=== PATIENT | male | born 1960 | race Caucasian/White ===

== ENCOUNTER 2021-12-11 16:58 | Emergency (ER) | payer OTHER ==
[2021-12-11 19:15] LABS: Absolute Lymphocytes (CBC) 3.6 K/uL (0.7-4.9); Hematocrit 33.7 % (39.6-49.0); Lymphocytes % 11.6 % (15.3-44.8); MCV 83.7 fL (80-100); MPV 7.4 fL (7.6-11.3); RBC Red Blood Cell Count 4.03 M/uL (4.33-5.43)
[2021-12-11 19:33] LABS: Albumin 2.8 g/dL (3.4-5.0); Bilirubin Total 0.2 mg/dL (0.2-1.0); Potassium 3.8 mmol/L (3.5-5.1); Protein, Total 7.6 g/dL (6.4-8.2)
[2021-12-11] MEDS ORDERED: NA CHLORIDE 0.9% 50 ML ONE ×2 (21:12→23:04)
[2021-12-11] MEDS ORDERED: CEFTRIAXONE 1000 MG/VIAL ONE (21:12)
[2021-12-11] MEDS ORDERED: FAMOTIDINE 20 MG/2 ML VIAL IV ONE (21:12)
[2021-12-11 21:14] LABS: Urine Bacteria <20 /HPF (<20); Urine Mucus Slight /HPF (None Seen); Urine WBC Clump Occasional /HPF (None Seen)
[2021-12-11 21:21] LABS: Thyroid Stimulating Hormone 3.49 uIU/mL (0.360-3.740)
[2021-12-11] MEDS ORDERED: CLINDAMYCIN 600MG/D5W 600 MG/50 ML BAG IV ONE (21:59)
[2021-12-11 22:21] LABS: SARS-CoV-2 Antigen Rapid Res Negative (Negative)
[2021-12-11] MEDS ORDERED: Meropenem 1000 MG/VIAL IV ONE (23:04)
--- NOTE | 2021-12-11 23:10 | ER ---
Nurse's Notes [facility] Name: He Do Age: 61 yrs Sex: Male : 1960 Arrival Date: 12/11/2021 Time: 17:56 Bed 16 Private MD: Diagnosis: Leukocytosis;UTI/ Urinary tract infection, site not specified;Paraplegia Presentation: 12/11 18:15 Chief complaint: Patient states: Pt reports headache and fever x2 days. PEr EMS report kb3 from [facility], pt has had elevated BP all day and fever since this afternoon. Temp max unknown. Pt afebrile upon arrival and VS WNL. 18:15 Method Of Arrival: EMS: [facility] kb3 18:15 Coronavirus screen: Vaccine status: Patient reports receiving the 2nd dose of the covid kb3 vaccine. Client denies travel out of the [place] in the last 14 days. Ebola Screen: Patient negative for fever greater than or equal to 101.5 degrees Fahrenheit, and additional compatible Ebola Virus Disease symptoms Patient denies exposure to infectious person. Patient denies travel to an Ebola-affected area in the 21 days before illness onset. Initial Sepsis Screen: Does the patient meet any 2 criteria? No. Patient's initial sepsis screen is negative. Does the patient have a suspected source of infection? No. Patient's initial sepsis screen is negative. Risk Assessment: Do you want to hurt yourself or someone else? Patient reports no desire to harm self or others. Onset of symptoms was December 10, 2021. 18:15 Acuity: CA 3 kb3 Triage Assessment: 18:30 General: Appears in no apparent distress. comfortable, Behavior is calm, cooperative. kb3 Pain: Complains of pain in head Pain does not radiate. Pain currently is 5 out of 10 on a pain scale. Quality of pain is described as aching. Historical: - Allergies: 19:49 No Known Allergies; kb3 - PMHx: 19:49 Paraplegia; BPH with suprapubic catheter; Hypercholesterolemia; Hypertensive disorder; kb3 Hypothyroidism; Cerebrovascular accident; Chronic back pain; Seizure; Chronic pain; - Immunization history:: Adult Immunizations unknown, Client reports receiving the 2nd dose of the Covid vaccine, Last tetanus immunization: unknown. - Social history:: Smoking status: Patient denies any tobacco usage or history of. Screenin:00 Abuse screen: Denies threats or abuse. Denies injuries from another. Nutritional kb3 screening: No deficits noted. Tuberculosis screening: No symptoms or risk factors identified. Fall Risk No fall in past 12 months (0 pts). Secondary diagnosis (15 points) seizures, CVA, IV access (20 points). Ambulatory Aid- None/Bed Rest/Nurse Assist (0 pts). Gait- Normal/Bed Rest/Wheelchair (0 pts) Mental Status- Oriented to own ability (0 pts). Total [place] Fall Scale indicates Low Risk Score (25-44 pts). Fall prevention measures have been instituted. Side Rails Up X 2 Placed close to Nursing Station Frequent Obs/Assesments occuring Family Present and informed to notify staff if they need to leave bedside As available Patient and Family Educated on Fall Prevention Program and strategies. Assessment: 18:15 General: Appears in no apparent distress. Behavior is calm, cooperative, See triage kb3 note. 21:45 General: Spoke with pt's sister Elkin to update regarding condition and pending [facility] admission. All questions asked and answered.. Vital Signs: 18:15 BP 120 / 60; Pulse 82; Resp 20; Temp 98.1; Pulse Ox 96% ; Weight 114.31 kg; Height 5 kb3 ft. 7 in. (170.18 cm); Pain 5/10; 20:00 BP 111 / 61; Pulse 77; Resp 18; Pulse Ox 99% ; kb3 21:59 BP 112 / 59; Pulse 75; Resp 18; Pulse Ox 99% ; kb3 12/12 00:00 BP 116 / 57; Pulse 75; Resp 14; Pulse Ox 93% on R/A; ja4 12/11 18:15 Body Mass Index 39.47 (114.31 kg, 170.18 cm) kb3 [place] Coma Score: 12/11 19:04 Eye Response: spontaneous(4). Verbal Response: oriented(5). Motor Response: obeys snw commands(6). Total: 15. ED Course: 17:56 Patient arrived in ED. em1 17:57 Anh Valdez RN is Primary Nurse. iw 17:57 Susan Skinner FNP-C is [facility]. snw 17:57 Onel Dixon MD is Attending Physician. snw 18:30 Arm band placed on left wrist. kb3 19:30 No provider procedures requiring assistance completed. Inserted saline lock: 22 gauge kb3 in right hand, using aseptic technique. Blood collected. 19:45 Blood Culture Adult (2) Sent. kb3 19:49 Triage completed. kb3 20:00 Patient has correct armband on for positive identification. Placed in gown. Bed in low kb3 position. Call light in reach. Side rails up X2. Client placed on continuous cardiac and pulse oximetry monitoring. NIBP monitoring applied. Warm blanket given. Pillow given. 21:18 Urine Microscopic Only Sent. kb3 21:18 Urine Culture Sent. kb3 21:23 Primary Nurse role handed off by Anh Valdez RN ja4 21:23 Cuong Gross, HAYLEY is Primary Nurse. ja4 21:54 SARS RAPID Sent. kb3 22:14 intiated a transfer with Cara Salcido from [facility]. mw2 22:50 Connected Susan Skinner PRODUCE SERVICE TEAM MEMBER with the Doctor from [facility]. mw2 23:46 administrative approval given by Cara Salcido/ patient has been accepted to [address] bed 512/ Dr. Yost accepted the patient in transfer/ report to be called to [phone]. 12/12 00:13 Report given to isela maki. shilpa Administered Medications: 12/11 21:17 Drug: Rocephin (cefTRIAXone) 1 grams Route: IV; Rate: calculated rate; Site: right hand;kb3 21:44 Follow up: IV Status: Completed infusion; IV Intake: 50ml kb3 21:44 Follow up: Response: No adverse reaction kb3 21:18 Drug: Pepcid (famotidine) 20 mg Route: IVP; Site: right hand; kb3 21:45 Follow up: Response: No adverse reaction kb3 21:53 Drug: Clindamycin 600 mg Route: IVPB; Infused Over: 30 mins; Site: right hand; kb3 22:24 Follow up: Response: No adverse reaction; IV Status: Completed infusion; IV Intake: [id number] 22:20 CANCELLED (Physician Discretion): Merrem 1 grams IV at calculated rate once snw 22:53 Not Given (not availablee): Imipenem-Cilastatin 1000 mg IV at calculated rate once; shilpa administer over 40-60 mins 23:04 Drug: Merrem 1 grams Route: IV; Rate: calculated rate; Site: right hand; [facility] 23:04 Not Given (Duplicate Order): Meropenem 1 grams IV at calculated rate once; (mix in NS ja4 100 mL) Medication: 20:00 VIS not applicable for this client. kb3 Intake: 21:44 IV: 50ml; Total: 50ml. kb3 22:24 IV: 50ml; Total: 100ml. kb3 Outcome: 23:09 ER care complete, transfer ordered by MD. livingston 12/12 00:47 Patient left the ED. vc1 Addendum: 12/14/2021 08:30 Addendum: Culture Results: Positive urine culture. faxed to [facility] 6th e b floor at [phone]/ Loly Rn will be receiving the fax. Signatures: Susan Skinner, INTERNATIONAL OPERATIONS MANAGER-C INTERNATIONAL OPERATIONS MANAGER-Csnw Anh Valdez, RN Enrique Crowley 1 Tangela Cardenas 2 Madhavi Phan Vanessa RN RN vc1 Loly Haley, HAYLEY RN kb3 Cuong Gross, HAYLEY RN ja4
--- NOTE | 2021-12-11 23:10 | EDPHYS ---
Physician Documentation [facility] Name: He Do Age: 61 yrs Sex: Male : 1960 Arrival Date: 12/11/2021 Time: 17:56 Bed 16 Private MD: ED Physician Onel Dixon HPI: 12/11 19:08 This 61 yrs old Male presents to ER via Unassigned with complaints of pt states he is snw here because he vomited x 1 yesterday. [place] states they sent patient for abnormal lab values. 19:08 It is unknown whether or not the patient has had similar symptoms in the past. It is snw unknown whether or not the patient has recently seen a physician. Historical: - Allergies: 19:49 No Known Allergies; kb3 - PMHx: 19:49 Paraplegia; BPH with suprapubic catheter; Hypercholesterolemia; Hypertensive disorder; kb3 Hypothyroidism; Cerebrovascular accident; Chronic back pain; Seizure; Chronic pain; - Immunization history:: Adult Immunizations unknown, Client reports receiving the 2nd dose of the Covid vaccine, Last tetanus immunization: unknown. - Social history:: Smoking status: Patient denies any tobacco usage or history of. ROS: 19:07 Constitutional: Negative for fever, chills, and weight loss, Eyes: Negative for injury, snw pain, redness, and discharge, ENT: Negative for injury, pain, and discharge, Neck: Negative for injury, pain, and swelling, Cardiovascular: Negative for chest pain, palpitations, and edema, Respiratory: Negative for shortness of breath, cough, wheezing, and pleuritic chest pain, Back: Negative for injury and pain, : Negative for injury, bleeding, discharge, and swelling, MS/Extremity: Negative for injury and deformity, Skin: Negative for injury, rash, and discoloration, Neuro: Negative for weakness, numbness, tingling, and seizure, + headache Psych: Negative for depression, anxiety, suicide ideation, homicidal ideation, and hallucinations. 19:07 Abdomen/GI: Positive for vomiting, x 1 yest. Exam: 19:04 Head/Face: Normocephalic, atraumatic. Eyes: Pupils equal round and reactive to light, snw extra-ocular motions intact. Lids and lashes normal. Conjunctiva and sclera are non-icteric and not injected. Cornea within normal limits. Periorbital areas with no swelling, redness, or edema. ENT: Nares patent. No nasal discharge, no septal abnormalities noted. Tympanic membranes are normal and external auditory canals are clear. Oropharynx with no redness, swelling, or masses, exudates, or evidence of obstruction, uvula midline. Mucous membranes moist. Neck: Trachea midline, no thyromegaly or masses palpated, and no cervical lymphadenopathy. Supple, full range of motion without nuchal rigidity, or vertebral point tenderness. No Meningismus. Chest/axilla: Normal chest wall appearance and motion. Nontender with no deformity. No lesions are appreciated. Cardiovascular: Regular rate and rhythm with a normal S1 and S2. No gallops, murmurs, or rubs. Normal PMI, no JVD. No pulse deficits. Respiratory: Lungs have equal breath sounds bilaterally, clear to auscultation and percussion. No rales, rhonchi or wheezes noted. No increased work of breathing, no retractions or nasal flaring. Abdomen/GI: Soft, non-tender, with normal bowel sounds. No distension or tympany. No guarding or rebound. No evidence of tenderness throughout. Back: No spinal tenderness. No costovertebral tenderness. Full range of motion. 19:04 Psych: Awake, alert, with orientation to person, place and time. Behavior, mood, and affect are within normal limits. 19:04 Constitutional: The patient appears alert, awake, obese, pale. 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 edema to bilateral lower extremities. 19:04 Skin: Appearance: Color: pale, Temperature: warm. 19:04 Neuro: Orientation: to person, place \T\ time. Mentation: is normal, Gait: not tested. paralysis. Vital Signs: 18:15 BP 120 / 60; Pulse 82; Resp 20; Temp 98.1; Pulse Ox 96% ; Weight 114.31 kg; Height 5 kb3 ft. 7 in. (170.18 cm); Pain 5/10; 20:00 BP 111 / 61; Pulse 77; Resp 18; Pulse Ox 99% ; kb3 21:59 BP 112 / 59; Pulse 75; Resp 18; Pulse Ox 99% ; kb3 12/12 00:00 BP 116 / 57; Pulse 75; Resp 14; Pulse Ox 93% on R/A; ja4 12/11 18:15 Body Mass Index 39.47 (114.31 kg, 170.18 cm) kb3 [place] Coma Score: 12/11 19:04 Eye Response: spontaneous(4). Verbal Response: oriented(5). Motor Response: obeys snw commands(6). Total: 15. MDM: 17:58 Patient medically screened. snw 23:00 Data reviewed: vital signs, nurses notes. Data interpreted: Pulse oximetry: on room air snw is 99 %. Interpretation: normal. Counseling: I had a detailed discussion with the patient and/or guardian regarding: the historical points, exam findings, and any diagnostic results supporting the discharge/admit diagnosis, lab results, radiology results, the need to transfer to another facility, capacity. Physician consultation: was called at 23:01, was contacted at 23:01, regarding regarding transfer, [facility]. 12/11 18:09 Order name: CBC with Diff; Complete Time: 19:20 snw 12/11 18:09 Order name: CMP; Complete Time: 19:34 snw 12/11 18:09 Order name: Lipase; Complete Time: 19:34 snw 12/11 18:09 Order name: Urine Microscopic Only; Complete Time: 21:38 snw 12/11 18:09 Order name: Urine Culture snw 12/11 18:10 Order name: Blood Culture Adult (2) snw 12/11 18:10 Order name: Lactate; Complete Time: 19:34 snw 12/11 18:12 Order name: TSH; Complete Time: 21:26 snw 12/11 18:13 Order name: Ferritin; Complete Time: 21:26 snw 12/11 18:13 Order name: SARS RAPID; Complete Time: 22:24 snw 12/11 18:09 Order name: IV Saline Lock; Complete Time: 19:45 snw 12/11 18:09 Order name: Labs collected and sent; Complete Time: 19:45 snw 12/11 19:17 Order name: VS; Complete Time: 20:57 snw Administered Medications: 21:17 Drug: Rocephin (cefTRIAXone) 1 grams Route: IV; Rate: calculated rate; Site: right hand;kb3 21:44 Follow up: IV Status: Completed infusion; IV Intake: 50ml kb3 21:44 Follow up: Response: No adverse reaction kb3 21:18 Drug: Pepcid (famotidine) 20 mg Route: IVP; Site: right hand; kb3 21:45 Follow up: Response: No adverse reaction kb3 21:53 Drug: Clindamycin 600 mg Route: IVPB; Infused Over: 30 mins; Site: right hand; kb3 22:24 Follow up: Response: No adverse reaction; IV Status: Completed infusion; IV Intake: [id number] 22:20 CANCELLED (Physician Discretion): Merrem 1 grams IV at calculated rate once snw 22:53 Not Given (not availablee): Imipenem-Cilastatin 1000 mg IV at calculated rate once; ja4 administer over 40-60 mins 23:04 Drug: Merrem 1 grams Route: IV; Rate: calculated rate; Site: right hand; ja4 23:04 Not Given (Duplicate Order): Meropenem 1 grams IV at calculated rate once; (mix in NS ja4 100 mL) Disposition Summary: 12/11/21 23:09 Transfer Ordered Transfer Location: [facility] snw Reason: Higher level of care snw Condition: Stable snw Problem: an acute exacerbation snw Symptoms: have worsened snw Accepting Physician: Dr. Priyank Dunn [facility](12/12/21 00:47) vc1 Diagnosis - Leukocytosis snw - UTI/ Urinary tract infection, site not specified snw - Paraplegia snw Forms: - Medication Reconciliation Form snw - SBAR form snw Signatures: Dispatcher [employer] EDMS Susan Skinner FNP-C INFORMATION TECHNOLOGY ARCHITECT-Csnw Jenna Villatoro RN RN vc1 Loly Haley, RN RN kb3 Cuong Gross RN RN ja4 Corrections: (The following items were deleted from the chart) 22:20 22:06 Merrem 1 grams IV at calculated rate once ordered. snw snw 23:51 23[facility] sn[facility] 12/12 00:47 12/11 23:51 Dr. Priyank Tristan Gwen [facility] snw vc1
[2021-12-13 12:33] VITALS: TEMP 98.1
[2021-12-13 12:39] VITALS: BP 116/57; O2SAT 93
== END 2021-12-12 00:47 | disposition short-term general hospital (02) ==
LOC: ER 16:58
DX: D72.829 Elevated white blood cell count, unspecified (principal); N39.0 Urinary tract infection, site not specified; G82.20 Paraplegia, unspecified; Z20.822 Contact with and (suspected) exposure to COVID-19
CPT/HCPCS: 96365; 96367; 87040 ×2; 87088; 85025; 87086; 36415; 87205 ×2; 83605; 84443; 87077 ×2; 87186 ×2; 81015; 82728; 83690; 80053; 96375; 99284; 87811; J2185

== ENCOUNTER 2023-01-05 21:44 | Emergency (ER) | payer OTHER ==
--- OUTSIDE RECORDS SUMMARY | 2023-01-05 21:51 | XMS REPORT | Continuity of Care Document ---
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 Take tablet Take tablet 1 tablet 1 tablet Take 1 every day every day tablet by oral by oral every day route. route. by oral route. metformin metformin No 2 BID metformin [facility] ER 500 mg ER 500 mg ER 500 mg Medical tablet,exte tablet,exte tablet,ext nded nded ended release 24 release 24 release 24 hr Take 2 hr Take 2 hr Take 2 tablets tablets tablets twice a day twice a day twice a by oral by oral day by route. route. oral route. metoprolol metoprolol No 1 BID metoprolol [facility] tartrate 25 tartrate 25 tartrate [facility] mg tablet mg tablet 25 mg Take 1 Take 1 tablet tablet tablet Take 1 twice a day twice a day tablet by oral by oral twice a route. route. day by oral route. phenobarbit phenobarbit No 1 Q12H phenobarbi [facility] al 97.2 mg al 97.2 mg elizabeth 97.2 Medical tablet Take tablet Take mg tablet 1 tablet 1 tablet Take 1 every 12 every 12 tablet hours by hours by every 12 oral route oral route hours by for 30 for 30 oral route days. days. for 30 days. phenytoin phenytoin No 2capsul BID phenytoin [facility] sodium sodium e(s) sodium Medical extended extended extended 100 mg 100 mg 100 mg capsule capsule capsule Take 2 Take 2 Take 2 capsules capsules capsules twice a day twice a day twice a by oral by oral day by route for route for oral route 30 days. 30 days. for 30 days. potassium potassium No 1 Q1D potassium [facility] chloride ER chloride ER chloride Medical 20 mEq 20 mEq ER 20 mEq tablet,exte tablet,exte tablet,ext nded nded ended release(par release(par release(pa t/cryst) t/cryst) rt/cryst) Take 1 Take 1 Take 1 tablet tablet tablet every day every day every day by oral by oral by oral route. route. route. acetaminoph acetaminoph No 1 Q8H acetaminop [facility] en 300 en 300 hen 300 Medical mg-codeine mg-codeine mg-codeine 30 mg 30 mg 30 mg tablet Take tablet Take tablet 1 tablet 1 tablet Take 1 every 8 every 8 tablet hours by hours by every 8 oral route oral route hours by for 30 for 30 oral route days. days. for 30 days. Adult Low Adult Low No 1 Q1D Adult Low [facility] Dose Dose Dose [facility] Aspirin 81 Aspirin 81 Aspirin 81 mg mg mg tablet,drew tablet,drew tablet,del yed release yed release ayed Take 1 Take 1 release tablet tablet Take 1 every day every day tablet by oral by oral every day route for route for by oral 90 days. 90 days. route for 90 days. amlodipine amlodipine No amlodipine [facility] 10 mg 10 mg 10 mg [facility] tablet Take tablet Take tablet 1 tablet 1 tablet Take 1 every day every day tablet by oral by oral every day route. route. by oral route. atorvastati atorvastati No atorvastat [facility] n 20 mg n 20 mg in 20 mg [facility] al tablet Take tablet Take tablet 1 tablet 1 tablet Take 1 every day every day tablet by oral by oral every day route. route. by oral route. baclofen 10 baclofen 10 No baclofen [facility] mg tablet mg tablet 10 mg Medi arun Take 1 Take 1 tablet tablet 3 tablet 3 Take 1 times a day times a day tablet 3 by oral by oral times a route. route. day by oral route. clonidine clonidine No 1 TID clonidine [facility] HCl 0.1 mg HCl 0.1 mg HCl 0.1 mg Medical tablet Take tablet Take tablet 1 tablet 3 1 tablet 3 Take 1 times a day times a day tablet 3 by oral by oral times a route as route as day by needed. needed. oral route as needed. fluoxetine fluoxetine No fluoxetine [facility] 40 mg 40 mg 40 mg [facility] capsule capsule capsule Take 1 Take 1 Take 1 capsule capsule capsule every day every day every day by oral by oral by oral route for route for route for 30 days. 30 days. 30 days. furosemide furosemide No furosemide [facility] 40 mg 40 mg 40 mg [facility] tablet tablet tablet hydroxyzine hydroxyzine No hydroxyzin [facility] HCl 25 mg HCl 25 mg e HCl 25 M edical tablet tablet mg tablet Lasix 20 mg Lasix 20 mg No 1 Q1D Lasix 20 [facility] tablet Take tablet Take mg tablet Medical 1 tablet 1 tablet Take 1 every day every day tablet by oral by oral every day route. route. by oral route. Levemir Levemir No Levemir [facility] FlexTouch FlexTouch FlexTouch Medical U-100 U-100 U-100 Insulin 100 Insulin 100 Insulin unit/mL (3 unit/mL (3 100 mL) mL) unit/mL (3 subcutaneou subcutaneou mL) s pen s pen subcutaneo us pen Levemir Levemir No 30unit( BID [facility]aina via U-100 U-100 s) U-100 Medical Insulin 100 Insulin 100 Insulin unit/mL unit/mL 100 subcutaneou subcutaneou unit/mL s solution s solution subcutaneo Inject 30 Inject 30 us units twice units twice solution a day by a day by Inject 30 sub-q sub-q units route. route. twice a day by sub-q route. levetiracet levetiracet No levetirace [facility] am 500 mg am 500 mg lópez 500 mg Medical tablet Take tablet Take tablet 1 tablet 1 tablet Take 1 twice a day twice a day tablet by oral by oral twice a route. route. day by oral route. levothyroxi levothyroxi No levothyrox [facility] ne 75 mcg ne 75 mcg ine 75 mcg Medical tablet Take tablet Take tablet 1 tablet 1 tablet Take 1 every day every day tablet by oral by oral every day route. route. by oral route. losartan losartan No losartan [facility] via 100 mg 100 mg 100 mg [facility] tablet Take tablet Take tablet 1 tablet 1 tablet Take 1 every day every day tablet by oral by oral every day route. route. by oral route. metformin metformin No metformin [facility] ER 500 mg ER 500 mg ER 500 mg Medical tablet,exte tablet,exte tablet,ext nded nded ended release 24 release 24 release 24 hr Take 2 hr Take 2 hr Take 2 tablets tablets tablets twice a day twice a day twice a by oral by oral day by route. route. oral route. metoprolol metoprolol No metoprolol [facility] tartrate 25 tartrate 25 tartrate Medical mg tablet mg tablet 25 mg Take 1 Take 1 tablet tablet tablet Take 1 twice a day twice a day tablet by oral by oral twice a route. route. day by oral route. phenobarbit phenobarbit No 1 Q12H phenobarbi [facility] al 97.2 mg al 97.2 mg elizabeth 97.2 Medical tablet Take tablet Take mg tablet 1 tablet 1 tablet Take 1 every 12 every 12 tablet hours by hours by every 12 oral route oral route hours by for 30 for 30 oral route days. days. for 30 days. phenytoin phenytoin No phenytoin [facility] sodium sodium sodium Medical extended extended extended 100 mg 100 mg 100 mg capsule capsule capsule Take 2 Take 2 Take 2 capsules capsules capsules twice a day twice a day twice a by oral by oral day by route for route for oral route 30 days. 30 days. for 30 days. potassium potassium No potassium [facility] chloride ER chloride ER chloride Medical 20 mEq 20 mEq ER 20 mEq tablet,exte tablet,exte tablet,ext nded nded ended release(par release(par release(pa t/cryst) t/cryst) rt/cryst) Take 1 Take 1 Take 1 tablet tablet tablet every day every day every day by oral by oral by oral route. route. route. acetaminoph acetaminoph No 1 Q8H acetaminop [facility] en 300 en 300 hen 300 Medical mg-codeine mg-codeine mg-codeine 30 mg 30 mg 30 mg tablet Take tablet Take tablet 1 tablet 1 tablet Take 1 every 8 every 8 tablet hours by hours by every 8 oral route oral route hours by for 30 for 30 oral route days. days. for 30 days. Adult Low Adult Low No 1 Q1D Adult Low [facility] Dose Dose Dose [facility] Aspirin 81 Aspirin 81 Aspirin 81 mg mg mg tablet,drew tablet,drew tablet,del yed release yed release ayed Take 1 Take 1 release tablet tablet Take 1 every day every day tablet by oral by oral every day route for route for by oral 90 days. 90 days. route for 90 days. amlodipine amlodipine No amlodipine [facility] 10 mg 10 mg 10 mg [facility] tablet Take tablet Take tablet 1 tablet 1 tablet Take 1 every day every day tablet by oral by oral every day route. route. by oral route. atorvastati atorvastati No atorvastat [facility] n 20 mg n 20 mg in 20 mg [facility] al tablet Take tablet Take tablet 1 tablet 1 tablet Take 1 every day every day tablet by oral by oral every day route. route. by oral route. baclofen 10 baclofen 10 No baclofen [facility] mg tablet mg tablet 10 mg Medi arun Take 1 Take 1 tablet tablet 3 tablet 3 Take 1 times a day times a day tablet 3 by oral by oral times a route. route. day by oral route. clonidine clonidine No 1 TID clonidine [facility] HCl 0.1 mg HCl 0.1 mg HCl 0.1 mg Medical tablet Take tablet Take tablet 1 tablet 3 1 tablet 3 Take 1 times a day times a day tablet 3 by oral by oral times a route as route as day by needed. needed. oral route as needed. fluoxetine fluoxetine No fluoxetine [facility] 40 mg 40 mg 40 mg [facility] capsule capsule capsule Take 1 Take 1 Take 1 capsule capsule capsule every day every day every day by oral by oral by oral route for route for route for 30 days. 30 days. 30 days. furosemide furosemide No furosemide [facility] 40 mg 40 mg 40 mg [facility] tablet tablet tablet hydroxyzine hydroxyzine No hydroxyzin [facility] HCl 25 mg HCl 25 mg e HCl 25 M edical tablet tablet mg tablet Lasix 20 mg Lasix 20 mg No 1 Q1D Lasix 20 [facility] tablet Take tablet Take mg tablet Medical 1 tablet 1 tablet Take 1 every day every day tablet by oral by oral every day route. route. by oral route. Levemir Levemir No Levemir [facility] FlexTouch FlexTouch FlexTouch Medical U-100 U-100 U-100 Insulin 100 Insulin 100 Insulin unit/mL (3 unit/mL (3 100 mL) mL) unit/mL (3 subcutaneou subcutaneou mL) s pen s pen subcutaneo us pen Levemir Levemir No 30unit( BID [facility] Naina via U-100 U-100 s) U-100 Medical Insulin 100 Insulin 100 Insulin unit/mL unit/mL 100 subcutaneou subcutaneou unit/mL s solution s solution subcutaneo Inject 30 Inject 30 us units twice units twice solution a day by a day by Inject 30 sub-q sub-q units route. route. twice a day by sub-q route. levetiracet levetiracet No levetirace [facility] am 500 mg am 500 mg lópez 500 mg Medical tablet Take tablet Take tablet 1 tablet 1 tablet Take 1 twice a day twice a day tablet by oral by oral twice a route. route. day by oral route. levothyroxi levothyroxi No levothyrox [facility] ne 75 mcg ne 75 mcg ine 75 mcg Medical tablet Take tablet Take tablet 1 tablet 1 tablet Take 1 every day every day tablet by oral by oral every day route. route. by oral route. losartan losartan No losartan [facility] via 100 mg 100 mg 100 mg [facility] tablet Take tablet Take tablet 1 tablet 1 tablet Take 1 every day every day tablet by oral by oral every day route. route. by oral route. metformin metformin No metformin [facility] ER 500 mg ER 500 mg ER 500 mg Medical tablet,exte tablet,exte tablet,ext nded nded ended release 24 release 24 release 24 hr Take 2 hr Take 2 hr Take 2 tablets tablets tablets twice a day twice a day twice a by oral by oral day by route. route. oral route. metoprolol metoprolol No metoprolol [facility] tartrate 25 tartrate 25 tartrate Medical mg tablet mg tablet 25 mg Take 1 Take 1 tablet tablet tablet Take 1 twice a day twice a day tablet by oral by oral twice a route. route. day by oral route. phenobarbit phenobarbit No 1 Q12H phenobarbi [facility] al 97.2 mg al 97.2 mg elizabeth 97.2 Medical tablet Take tablet Take mg tablet 1 tablet 1 tablet Take 1 every 12 every 12 tablet hours by hours by every 12 oral route oral route hours by for 30 for 30 oral route days. days. for 30 days. phenytoin phenytoin No phenytoin [facility] sodium sodium sodium Medical extended extended extended 100 mg 100 mg 100 mg capsule capsule capsule Take 2 Take 2 Take 2 capsules capsules capsules twice a day twice a day twice a by oral by oral day by route for route for oral route 30 days. 30 days. for 30 days. potassium potassium No potassium [facility] chloride ER chloride ER chloride Medical 20 mEq 20 mEq ER 20 mEq tablet,exte tablet,exte tablet,ext nded nded ended release(par release(par release(pa t/cryst) t/cryst) rt/cryst) Take 1 Take 1 Take 1 tablet tablet tablet every day every day every day by oral by oral by oral route. route. route. acetaminoph acetaminoph No 1 Q8H acetaminop [facility] en 300 en 300 hen 300 Medical mg-codeine mg-codeine mg-codeine 30 mg 30 mg 30 mg tablet Take tablet Take tablet 1 tablet 1 tablet Take 1 every 8 every 8 tablet hours by hours by every 8 oral route oral route hours by for 30 for 30 oral route days. days. for 30 days. Adult Low Adult Low No 1 Q1D Adult Low [facility] Dose Dose Dose [facility] Aspirin 81 Aspirin 81 Aspirin 81 mg mg mg tablet,drew tablet,drew tablet,del yed release yed release ayed Take 1 Take 1 release tablet tablet Take 1 every day every day tablet by oral by oral every day route for route for by oral 90 days. 90 days. route for 90 days. amlodipine amlodipine No amlodipine [facility] 10 mg 10 mg 10 mg [facility] tablet Take tablet Take tablet 1 tablet 1 tablet Take 1 every day every day tablet by oral by oral every day route. route. by oral route. atorvastati atorvastati No atorvastat [facility] n 20 mg n 20 mg in 20 mg [facility] al tablet Take tablet Take tablet 1 tablet 1 tablet Take 1 every day every day tablet by oral by oral every day route. route. by oral route. baclofen 10 baclofen 10 No baclofen [facility] mg tablet mg tablet 10 mg Medi arun Take 1 Take 1 tablet tablet 3 tablet 3 Take 1 times a day times a day tablet 3 by oral by oral times a route. route. day by oral route. clonidine clonidine No 1 TID clonidine [facility] HCl 0.1 mg HCl 0.1 mg HCl 0.1 mg Medical tablet Take tablet Take tablet 1 tablet 3 1 tablet 3 Take 1 times a day times a day tablet 3 by oral by oral times a route as route as day by needed. needed. oral route as needed. fluoxetine fluoxetine No fluoxetine [facility] 40 mg 40 mg 40 mg [facility] capsule capsule capsule Take 1 Take 1 Take 1 capsule capsule capsule every day every day every day by oral by oral by oral route for route for route for 30 days. 30 days. 30 days. furosemide furosemide No furosemide [facility] 40 mg 40 mg 40 mg [facility] tablet tablet tablet hydroxyzine hydroxyzine No hydroxyzin [facility] HCl 25 mg HCl 25 mg e HCl 25 M edical tablet tablet mg tablet Lasix 20 mg Lasix 20 mg No 1 Q1D Lasix 20 [facility] tablet Take tablet Take mg tablet Medical 1 tablet 1 tablet Take 1 every day every day tablet by oral by oral every day route. route. by oral route. Levemir Levemir No Levemir [facility] FlexTouch FlexTouch FlexTouch [facility] U-100 U-100 U-100 Insulin 100 Insulin 100 Insulin unit/mL (3 unit/mL (3 100 mL) mL) unit/mL (3 subcutaneou subcutaneou mL) s pen s pen subcutaneo us pen Levemir Levemir No 30unit( BID [facility] Naina via U-100 U-100 s) U-100 Medical Insulin 100 Insulin 100 Insulin unit/mL unit/mL 100 subcutaneou subcutaneou unit/mL s solution s solution subcutaneo Inject 30 Inject 30 us units twice units twice solution a day by a day by Inject 30 sub-q sub-q units route. route. twice a day by sub-q route. levetiracet levetiracet No levetirace [facility] am 500 mg am 500 mg lópez 500 mg Medical tablet Take tablet Take tablet 1 tablet 1 tablet Take 1 twice a day twice a day tablet by oral by oral twice a route. route. day by oral route. levothyroxi levothyroxi No levothyrox [facility] ne 75 mcg ne 75 mcg ine 75 mcg Medical tablet Take tablet Take tablet 1 tablet 1 tablet Take 1 every day every day tablet by oral by oral every day route. route. by oral route. losartan losartan No losartan [facility] via 100 mg 100 mg 100 mg Medical tablet Take tablet Take tablet 1 tablet 1 tablet Take 1 every day every day tablet by oral by oral every day route. route. by oral route. metformin metformin No metformin [facility] ER 500 mg ER 500 mg ER 500 mg Medical tablet,exte tablet,exte tablet,ext nded nded ended release 24 release 24 release 24 hr Take 2 hr Take 2 hr Take 2 tablets tablets tablets twice a day twice a day twice a by oral by oral day by route. route. oral route. metoprolol metoprolol No metoprolol [facility] tartrate 25 tartrate 25 tartrate Medical mg tablet mg tablet 25 mg Take 1 Take 1 tablet tablet tablet Take 1 twice a day twice a day tablet by oral by oral twice a route. route. day by oral route. Nystop Nystop No Nystop [facility] 100,000 100,000 100,000 Medica l unit/gram unit/gram unit/gram topical topical topical powder powder powder phenobarbit phenobarbit No phenobarbi [facility] al 97.2 mg al 97.2 mg elizabeth 97.2 Medical tablet Take tablet Take mg tablet 1 tablet 1 tablet Take 1 every 12 every 12 tablet hours by hours by every 12 oral route oral route hours by for 30 for 30 oral route days. days. for 30 days. phenytoin phenytoin No phenytoin [facility] sodium sodium sodium Medical extended extended extended 100 mg 100 mg 100 mg capsule capsule capsule Take 2 Take 2 Take 2 capsules capsules capsules twice a day twice a day twice a by oral by oral day by route for route for oral route 30 days. 30 days. for 30 days. potassium potassium No potassium [facility] chloride ER chloride ER chloride Medical 20 mEq 20 mEq ER 20 mEq tablet,exte tablet,exte tablet,ext nded nded ended release(par release(par release(pa t/cryst) t/cryst) rt/cryst) Take 1 Take 1 Take 1 tablet tablet tablet every day every day every day by oral by oral by oral route. route. route. acetaminoph acetaminoph No acetaminop [facility] en 300 en 300 hen 300 Medical mg-codeine mg-codeine mg-codeine 30 mg 30 mg 30 mg tablet Take tablet Take tablet 1 tablet 1 tablet Take 1 every 8 every 8 tablet hours by hours by every 8 oral route oral route hours by for 30 for 30 oral route days. days. for 30 days. Adult Low Adult Low No 1 Q1D Adult Low [facility] Dose Dose Dose [facility] Aspirin 81 Aspirin 81 Aspirin 81 mg mg mg tablet,drew tablet,drew tablet,del yed release yed release ayed Take 1 Take 1 release tablet tablet Take 1 every day every day tablet by oral by oral every day route for route for by oral 90 days. 90 days. route for 90 days. amlodipine amlodipine No amlodipine [facility] 10 mg 10 mg 10 mg [facility] tablet Take tablet Take tablet 1 tablet 1 tablet Take 1 every day every day tablet by oral by oral every day route. route. by oral route. atorvastati atorvastati No atorvastat [facility] n 20 mg n 20 mg in 20 mg [facility] al tablet Take tablet Take tablet 1 tablet 1 tablet Take 1 every day every day tablet by oral by oral every day route. route. by oral route. baclofen 10 baclofen 10 No baclofen [facility] mg tablet mg tablet 10 mg Medi arun Take 1 Take 1 tablet tablet 3 tablet 3 Take 1 times a day times a day tablet 3 by oral by oral times a route. route. day by oral route. cephalexin cephalexin No cephalexin [facility] 500 mg 500 mg 500 mg [facility] capsule capsule capsule clonidine clonidine No 1 TID clonidine [facility] HCl 0.1 mg HCl 0.1 mg HCl 0.1 mg Medical tablet Take tablet Take tablet 1 tablet 3 1 tablet 3 Take 1 times a day times a day tablet 3 by oral by oral times a route as route as day by needed. needed. oral route as needed. fluoxetine fluoxetine No fluoxetine [facility] 40 mg 40 mg 40 mg [facility] capsule capsule capsule Take 1 Take 1 Take 1 capsule capsule capsule every day every day every day by oral by oral by oral route for route for route for 30 days. 30 days. 30 days. furosemide furosemide No furosemide [facility] 40 mg 40 mg 40 mg [facility] tablet tablet tablet hydroxyzine hydroxyzine No hydroxyzin [facility] HCl 25 mg HCl 25 mg e HCl 25 M edical tablet tablet mg tablet Lasix 20 mg Lasix 20 mg No 1 Q1D Lasix 20 [facility] tablet Take tablet Take mg tablet Medical 1 tablet 1 tablet Take 1 every day every day tablet by oral by oral every day route. route. by oral route. Levemir Levemir No Levemir [facility] FlexTouch FlexTouch FlexTouch [facility] U-100 U-100 U-100 Insulin 100 Insulin 100 Insulin unit/mL (3 unit/mL (3 100 mL) mL) unit/mL (3 subcutaneou subcutaneou mL) s pen s pen subcutaneo us pen Levemir Levemir No Levemir [facility] U-100 U-100 U-100 Medical Insulin 100 Insulin 100 Insulin unit/mL unit/mL 100 subcutaneou subcutaneou unit/mL s solution s solution subcutaneo Inject 30 Inject 30 us units twice units twice solution a day by a day by Inject 30 sub-q sub-q units route. route. twice a day by sub-q route. levetiracet levetiracet No levetirace [facility] am 500 mg am 500 mg lópez 500 mg Medical tablet Take tablet Take tablet 1 tablet 1 tablet Take 1 twice a day twice a day tablet by oral by oral twice a route. route. day by oral route. levothyroxi levothyroxi No levothyrox [facility] ne 75 mcg ne 75 mcg ine 75 mcg Medical tablet Take tablet Take tablet 1 tablet 1 tablet Take 1 every day every day tablet by oral by oral every day route. route. by oral route. losartan losartan No losartan [facility] via 100 mg 100 mg 100 mg Medical tablet Take tablet Take tablet 1 tablet 1 tablet Take 1 every day every day tablet by oral by oral every day route. route. by oral route. metformin metformin No metformin [facility] ER 500 mg ER 500 mg ER 500 mg Medical tablet,exte tablet,exte tablet,ext nded nded ended release 24 release 24 release 24 hr Take 2 hr Take 2 hr Take 2 tablets tablets tablets twice a day twice a day twice a by oral by oral day by route. route. oral route. metoprolol metoprolol No metoprolol [facility] tartrate 25 tartrate 25 tartrate Medical mg tablet mg tablet 25 mg Take 1 Take 1 tablet tablet tablet Take 1 twice a day twice a day tablet by oral by oral twice a route. route. day by oral route. Novolin R Novolin R No Novolin R [facility] FlexPen 100 FlexPen 100 FlexPen Medical unit/mL (3 unit/mL (3 100 mL) mL) unit/mL (3 subcutaneou subcutaneou mL) s insulin s insulin subcutaneo pen pen us insulin pen Nystop Nystop No Nystop [facility] 100,000 100,000 100,000 Medica l unit/gram unit/gram unit/gram topical topical topical powder powder powder phenobarbit phenobarbit No phenobarbi [facility] al 97.2 mg al 97.2 mg elizabeth 97.2 Medical tablet Take tablet Take mg tablet 1 tablet 1 tablet Take 1 every 12 every 12 tablet hours by hours by every 12 oral route oral route hours by for 30 for 30 oral route days. days. for 30 days. phenytoin phenytoin No phenytoin [facility] sodium sodium sodium [facility] extended extended extended 100 mg 100 mg 100 mg capsule capsule capsule Take 2 Take 2 Take 2 capsules capsules capsules twice a day twice a day twice a by oral by oral day by route for route for oral route 30 days. 30 days. for 30 days. potassium potassium No potassium [facility] chloride ER chloride ER chloride Medical 20 mEq 20 mEq ER 20 mEq tablet,exte tablet,exte tablet,ext nded nded ended release(par release(par release(pa t/cryst) t/cryst) rt/cryst) Take 1 Take 1 Take 1 tablet tablet tablet every day every day every day by oral by oral by oral route. route. route. acetaminoph acetaminoph No 1 Q8H acetaminop [facility] en 300 en 300 hen 300 Medical mg-codeine mg-codeine mg-codeine 30 mg 30 mg 30 mg tablet Take tablet Take tablet 1 tablet 1 tablet Take 1 every 8 every 8 tablet hours by hours by every 8 oral route oral route hours by for 30 for 30 oral route days. days. for 30 days. atorvastati atorvastati No 1 Q1D atorvastat [facility] n 20 mg n 20 mg in 20 mg [facility] al tablet Take tablet Take tablet 1 tablet 1 tablet Take 1 every day every day tablet by oral by oral every day route for route for by oral 14 days. 14 days. route for 14 days. acetaminoph acetaminoph No 1 Q8H acetaminop [facility] en 300 en 300 hen 300 Medical mg-codeine mg-codeine mg-codeine 30 mg 30 mg 30 mg tablet Take tablet Take tablet 1 tablet 1 tablet Take 1 every 8 every 8 tablet hours by hours by every 8 oral route oral route hours by for 30 for 30 oral route days. days. for 30 days. Adult Low Adult Low No 1 Q1D Adult Low [facility] Dose Dose Dose [facility] Aspirin 81 Aspirin 81 Aspirin 81 mg mg mg tablet,drew tablet,drew tablet,del yed release yed release ayed Take 1 Take 1 release tablet tablet Take 1 every day every day tablet by oral by oral every day route for route for by oral 90 days. 90 days. route for 90 days. baclofen 10 baclofen 10 No 1 TID baclofen [facility] mg tablet mg tablet 10 mg Medi arun Take 1 Take 1 tablet tablet 3 tablet 3 Take 1 times a day times a day tablet 3 by oral by oral times a route. route. day by oral route. amlodipine amlodipine No amlodipine [facility] 10 mg 10 mg 10 mg [facility] tablet Take tablet Take tablet 1 tablet 1 tablet Take 1 every day every day tablet by oral by oral every day route. route. by oral route. atorvastati atorvastati No atorvastat [facility] n 20 mg n 20 mg in 20 mg [facility] al tablet Take tablet Take tablet 1 tablet 1 tablet Take 1 every day every day tablet by oral by oral every day route. route. by oral route. baclofen 10 baclofen 10 No baclofen [facility] mg tablet mg tablet 10 mg Medi arun Take 1 Take 1 tablet tablet 3 tablet 3 Take 1 times a day times a day tablet 3 by oral by oral times a route. route. day by oral route. clonidine clonidine No 1 TID clonidine [facility] HCl 0.1 mg HCl 0.1 mg HCl 0.1 mg Medical tablet Take tablet Take tablet 1 tablet 3 1 tablet 3 Take 1 times a day times a day tablet 3 by oral by oral times a route as route as day by needed. needed. oral route as needed. fluoxetine fluoxetine No fluoxetine [facility] 40 mg 40 mg 40 mg [facility] capsule capsule capsule Take 1 Take 1 Take 1 capsule capsule capsule every day every day every day by oral by oral by oral route for route for route for 30 days. 30 days. 30 days. furosemide furosemide No furosemide [facility] 40 mg 40 mg 40 mg [facility] tablet tablet tablet hydroxyzine hydroxyzine No hydroxyzin [facility] HCl 25 mg HCl 25 mg e HCl 25 M edical tablet tablet mg tablet Lasix 20 mg Lasix 20 mg No 1 Q1D Lasix 20 [facility] tablet Take tablet Take mg tablet Medical 1 tablet 1 tablet Take 1 every day every day tablet by oral by oral every day route. route. by oral route. Levemir Levemir No 31unit( BID Levemir [facility] via FlexTouch FlexTouch s) FlexTouch Medical U-100 U-100 U-100 Insulin 100 Insulin 100 Insulin unit/mL (3 unit/mL (3 100 mL) mL) unit/mL (3 subcutaneou subcutaneou mL) s pen s pen subcutaneo Inject 31 Inject 31 us pen units twice units twice Inject 31 a day by a day by units sub-q sub-q twice a route. route. day by sub-q route. levetiracet levetiracet No levetirace [facility] am 500 mg am 500 mg lópez 500 mg Medical tablet Take tablet Take tablet 1 tablet 1 tablet Take 1 twice a day twice a day tablet by oral by oral twice a route. route. day by oral route. clonidine clonidine No 1 Q8H clonidine [facility] HCl 0.1 mg HCl 0.1 mg HCl 0.1 mg Medical tablet Take tablet Take tablet 1 tablet 1 tablet Take 1 every 8 every 8 tablet hours by hours by every 8 oral route oral route hours by as needed. as needed. oral route as needed. levothyroxi levothyroxi No levothyrox [facility] ne 75 mcg ne 75 mcg ine 75 mcg Medical tablet Take tablet Take tablet 1 tablet 1 tablet Take 1 every day every day tablet by oral by oral every day route. route. by oral route. losartan losartan No losartan [facility] via 100 mg 100 mg 100 mg Medical tablet Take tablet Take tablet 1 tablet 1 tablet Take 1 every day every day tablet by oral by oral every day route. route. by oral route. metformin metformin No metformin [facility] ER 500 mg ER 500 mg ER 500 mg Medical tablet,exte tablet,exte tablet,ext nded nded ended release 24 release 24 release 24 hr Take 2 hr Take 2 hr Take 2 tablets tablets tablets twice a day twice a day twice a by oral by oral day by route. route. oral route. metoprolol metoprolol No metoprolol [facility] tartrate 25 tartrate 25 tartrate Medical mg tablet mg tablet 25 mg Take 1 Take 1 tablet tablet tablet Take 1 twice a day twice a day tablet by oral by oral twice a route. route. day by oral route. Novolin R Novolin R No Novolin R [facility] FlexPen 100 FlexPen 100 FlexPen Medical unit/mL (3 unit/mL (3 100 mL) mL) unit/mL (3 subcutaneou subcutaneou mL) s insulin s insulin subcutaneo pen pen us insulin pen Nystop Nystop No Nystop [facility] 100,000 100,000 100,000 Medica l unit/gram unit/gram unit/gram topical topical topical powder powder powder phenobarbit phenobarbit No phenobarbi [facility] al 97.2 mg al 97.2 mg elizabeth 97.2 Medical tablet Take tablet Take mg tablet 1 tablet 1 tablet Take 1 every 12 every 12 tablet hours by hours by every 12 oral route oral route hours by for 30 for 30 oral route days. days. for 30 days. phenytoin phenytoin No phenytoin [facility] sodium sodium sodium Medical extended extended extended 100 mg 100 mg 100 mg capsule capsule capsule Take 2 Take 2 Take 2 capsules capsules capsules twice a day twice a day twice a by oral by oral day by route for route for oral route 30 days. 30 days. for 30 days. potassium potassium No potassium [facility] chloride ER chloride ER chloride Medical 20 mEq 20 mEq ER 20 mEq tablet,exte tablet,exte tablet,ext nded nded ended release(par release(par release(pa t/cryst) t/cryst) rt/cryst) Take 1 Take 1 Take 1 tablet tablet tablet every day every day every day by oral by oral by oral route. route. route. fluoxetine fluoxetine No 1capsul Q1D fluoxetine [facility] 40 mg 40 mg e(s) 40 mg [facility] capsule capsule capsule Take 1 Take 1 Take 1 capsule capsule capsule every day every day every day by oral by oral by oral route for route for route for 30 days. 30 days. 30 days. Lasix 20 mg Lasix 20 mg No 1 Q1D Lasix 20 [facility] tablet Take tablet Take mg tablet Medical 1 tablet 1 tablet Take 1 every day every day tablet by oral by oral every day route. route. by oral route. Levemir Levemir No 30unit( BID Le[facility]mir [facility] via U-100 U-100 s) U-100 Medical Insulin 100 Insulin 100 Insulin unit/mL unit/mL 100 subcutaneou subcutaneou unit/mL s solution s solution subcutaneo Inject 30 Inject 30 us units twice units twice solution a day by a day by Inject 30 sub-q sub-q units route. route. twice a day by sub-q route. levetiracet levetiracet No 1 BID levetirace [facility] am 500 mg am 500 mg lópez 500 mg Medical tablet Take tablet Take tablet 1 tablet 1 tablet Take 1 twice a day twice a day tablet by oral by oral twice a route. route. day by oral route. acetaminoph acetaminoph No 1 Q8H acetaminop [facility] en 300 en 300 hen 300 Medical mg-codeine mg-codeine mg-codeine 30 mg 30 mg 30 mg tablet Take tablet Take tablet 1 tablet 1 tablet Take 1 every 8 every 8 tablet hours by hours by every 8 oral route oral route hours by for 30 for 30 oral route days. days. for 30 days. Adult Low Adult Low No 1 Q1D Adult Low [facility] Dose Dose Dose Medical Aspirin 81 Aspirin 81 Aspirin 81 mg mg mg tablet,drew tablet,drew tablet,del yed release yed release ayed Take 1 Take 1 release tablet tablet Take 1 every day every day tablet by oral by oral every day route for route for by oral 90 days. 90 days. route for 90 days. amlodipine amlodipine No amlodipine [facility] 10 mg 10 mg 10 mg [facility] tablet Take tablet Take tablet 1 tablet 1 tablet Take 1 every day every day tablet by oral by oral every day route. route. by oral route. atorvastati atorvastati No atorvastat [facility] n 20 mg n 20 mg in 20 mg [facility] al tablet Take tablet Take tablet 1 tablet 1 tablet Take 1 every day every day tablet by oral by oral every day route. route. by oral route. baclofen 10 baclofen 10 No baclofen [facility] mg tablet mg tablet 10 mg Medi arun Take 1 Take 1 tablet tablet 3 tablet 3 Take 1 times a day times a day tablet 3 by oral by oral times a route. route. day by oral route. clonidine clonidine No 1 TID clonidine [facility] HCl 0.1 mg HCl 0.1 mg HCl 0.1 mg Medical tablet Take tablet Take tablet 1 tablet 3 1 tablet 3 Take 1 times a day times a day tablet 3 by oral by oral times a route as route as day by needed. needed. oral route as needed. fluoxetine fluoxetine No fluoxetine [facility] 40 mg 40 mg 40 mg [facility] capsule capsule capsule Take 1 Take 1 Take 1 capsule capsule capsule every day every day every day by oral by oral by oral route for route for route for 30 days. 30 days. 30 days. furosemide furosemide No furosemide [facility] 40 mg 40 mg 40 mg [facility] tablet tablet tablet levothyroxi levothyroxi No 1 Q1D levothyrox [facility] ne 75 mcg ne 75 mcg ine 75 mcg Medical tablet Take tablet Take tablet 1 tablet 1 tablet Take 1 every day every day tablet by oral by oral every day route. route. by oral route. hydroxyzine hydroxyzine No hydroxyzin [facility] HCl 25 mg HCl 25 mg e HCl 25 M edical tablet tablet mg tablet Lasix 20 mg Lasix 20 mg No 1 Q1D Lasix 20 [facility] tablet Take tablet Take mg tablet Medical 1 tablet 1 tablet Take 1 every day every day tablet by oral by oral every day route. route. by oral route. Levemir Levemir No 31unit( BID [facility] via FlexTouch FlexTouch s) FlexTouch Medical U-100 U-100 U-100 Insulin 100 Insulin 100 Insulin unit/mL (3 unit/mL (3 100 mL) mL) unit/mL (3 subcutaneou subcutaneou mL) s pen s pen subcutaneo Inject 31 Inject 31 us pen units twice units twice Inject 31 a day by a day by units sub-q sub-q twice a route. route. day by sub-q route. Levemir Levemir No Levemir [facility] U-100 U-100 U-100 Medical Insulin 100 Insulin 100 Insulin unit/mL unit/mL 100 subcutaneou subcutaneou unit/mL s solution s solution subcutaneo us solution levetiracet levetiracet No levetirace [facility] am 500 mg am 500 mg lópez 500 mg Medical tablet Take tablet Take tablet 1 tablet 1 tablet Take 1 twice a day twice a day tablet by oral by oral twice a route. route. day by oral route. levothyroxi levothyroxi No levothyrox [facility] ne 75 mcg ne 75 mcg ine 75 mcg Medical tablet Take tablet Take tablet 1 tablet 1 tablet Take 1 every day every day tablet by oral by oral every day route. route. by oral route. losartan losartan No losartan [facility] via 100 mg 100 mg 100 mg [facility] tablet Take tablet Take tablet 1 tablet 1 tablet Take 1 every day every day tablet by oral by oral every day route. route. by oral route. metformin metformin No metformin [facility] ER 500 mg ER 500 mg ER 500 mg Medical tablet,exte tablet,exte tablet,ext nded nded ended release 24 release 24 release 24 hr Take 2 hr Take 2 hr Take 2 tablets tablets tablets twice a day twice a day twice a by oral by oral day by route. route. oral route. metoprolol metoprolol No metoprolol [facility] tartrate 25 tartrate 25 tartrate Medical mg tablet mg tablet 25 mg Take 1 Take 1 tablet tablet tablet Take 1 twice a day twice a day tablet by oral by oral twice a route. route. day by oral route. Novolin R Novolin R No Novolin R [facility] FlexPen 100 FlexPen 100 FlexPen Medical unit/mL (3 unit/mL (3 100 mL) mL) unit/mL (3 subcutaneou subcutaneou mL) s insulin s insulin subcutaneo pen pen us insulin pen losartan losartan No 1 Q1D losartan [facility] via 100 mg 100 mg 100 mg Medical tablet Take tablet Take tablet 1 tablet 1 tablet Take 1 every day every day tablet by oral by oral every day route. route. by oral route. Nystop Nystop No Nystop [facility] 100,000 100,000 100,000 Medica l unit/gram unit/gram unit/gram topical topical topical powder powder powder phenobarbit phenobarbit No phenobarbi [facility] al 97.2 mg al 97.2 mg elizabeth 97.2 [facility] tablet Take tablet Take mg tablet 1 tablet 1 tablet Take 1 every 12 every 12 tablet hours by hours by every 12 oral route oral route hours by for 30 for 30 oral route days. days. for 30 days. phenytoin phenytoin No phenytoin [facility] sodium sodium sodium Medical extended extended extended 100 mg 100 mg 100 mg capsule capsule capsule Take 2 Take 2 Take 2 capsules capsules capsules twice a day twice a day twice a by oral by oral day by route for route for oral route 30 days. 30 days. for 30 days. potassium potassium No potassium [facility] chloride ER chloride ER chloride Medical 20 mEq 20 mEq ER 20 mEq tablet,exte tablet,exte tablet,ext nded nded ended release(par release(par release(pa t/cryst) t/cryst) rt/cryst) Take 1 Take 1 Take 1 tablet tablet tablet every day every day every day by oral by oral by oral route. route. route. metformin metformin No 2 BID metformin [facility] ER 500 mg ER 500 mg ER 500 mg Medical tablet,exte tablet,exte tablet,ext nded nded ended release 24 release 24 release 24 hr Take 2 hr Take 2 hr Take 2 tablets tablets tablets twice a day twice a day twice a by oral by oral day by route. route. oral route. metoprolol metoprolol No 1 BID metoprolol [facility] tartrate 25 tartrate 25 tartrate Medical mg tablet mg tablet 25 mg Take 1 Take 1 tablet tablet tablet Take 1 twice a day twice a day tablet by oral by oral twice a route. route. day by oral route. phenobarbit phenobarbit No 1 Q12H phenobarbi [facility] al 97.2 mg al 97.2 mg elizabeth 97.2 [facility] tablet Take tablet Take mg tablet 1 tablet 1 tablet Take 1 every 12 every 12 tablet hours by hours by every 12 oral route oral route hours by for 30 for 30 oral route days. days. for 30 days. phenytoin phenytoin No 2capsul BID phenytoin [facility] sodium sodium e(s) sodium Medical extended extended extended 100 mg 100 mg 100 mg capsule capsule capsule Take 2 Take 2 Take 2 capsules capsules capsules twice a day twice a day twice a by oral by oral day by route for route for oral route 30 days. 30 days. for 30 days. acetaminoph acetaminoph No 1 Q8H acetaminop [facility] en 300 en 300 hen 300 Medical mg-codeine mg-codeine mg-codeine 30 mg 30 mg 30 mg tablet Take tablet Take tablet 1 tablet 1 tablet Take 1 every 8 every 8 tablet hours by hours by every 8 oral route oral route hours by for 30 for 30 oral route days. days. for 30 days. Adult Low Adult Low No 1 Q1D Adult Low [facility] Dose Dose Dose [facility] Aspirin 81 Aspirin 81 Aspirin 81 mg mg mg tablet,drew tablet,drew tablet,del yed release yed release ayed Take 1 Take 1 release tablet tablet Take 1 every day every day tablet by oral by oral every day route for route for by oral 90 days. 90 days. route for 90 days. amlodipine amlodipine No amlodipine [facility] 10 mg 10 mg 10 mg [facility] tablet Take tablet Take tablet 1 tablet 1 tablet Take 1 every day every day tablet by oral by oral every day route. route. by oral route. atorvastati atorvastati No atorvastat [facility] n 20 mg n 20 mg in 20 mg [facility] al tablet Take tablet Take tablet 1 tablet 1 tablet Take 1 every day every day tablet by oral by oral every day route. route. by oral route. baclofen 10 baclofen 10 No baclofen [facility] mg tablet mg tablet 10 mg Medi arun Take 1 Take 1 tablet tablet 3 tablet 3 Take 1 times a day times a day tablet 3 by oral by oral times a route. route. day by oral route. clonidine clonidine No 1 TID clonidine [facility] HCl 0.1 mg HCl 0.1 mg HCl 0.1 mg Medical tablet Take tablet Take tablet 1 tablet 3 1 tablet 3 Take 1 times a day times a day tablet 3 by oral by oral times a route as route as day by needed. needed. oral route as needed. fluoxetine fluoxetine No fluoxetine [facility] 40 mg 40 mg 40 mg [facility] capsule capsule capsule Take 1 Take 1 Take 1 capsule capsule capsule every day every day every day by oral by oral by oral route for route for route for 30 days. 30 days. 30 days. furosemide furosemide No furosemide [facility] 40 mg 40 mg 40 mg [facility] tablet tablet tablet potassium potassium No 1 Q1D potassium [facility] chloride ER chloride ER chloride Medical 20 mEq 20 mEq ER 20 mEq tablet,exte tablet,exte tablet,ext nded nded ended release(par release(par release(pa t/cryst) t/cryst) rt/cryst) Take 1 Take 1 Take 1 tablet tablet tablet every day every day every day by oral by oral by oral route. route. route. hydroxyzine hydroxyzine No hydroxyzin [facility] HCl 25 mg HCl 25 mg e HCl 25 M edical tablet tablet mg tablet Lasix 20 mg Lasix 20 mg No 1 Q1D Lasix 20 [facility] tablet Take tablet Take mg tablet Medical 1 tablet 1 tablet Take 1 every day every day tablet by oral by oral every day route. route. by oral route. Levemir Levemir No 31unit( BID [facility] via FlexTouch FlexTouch s) FlexTouch [facility] U-100 U-100 U-100 Insulin 100 Insulin 100 Insulin unit/mL (3 unit/mL (3 100 mL) mL) unit/mL (3 subcutaneou subcutaneou mL) s pen s pen subcutaneo Inject 31 Inject 31 us pen units twice units twice Inject 31 a day by a day by units sub-q sub-q twice a route. route. day by sub-q route. Levemir Levemir No Levemir [facility] U-100 U-100 U-100 Medical Insulin 100 Insulin 100 Insulin unit/mL unit/mL 100 subcutaneou subcutaneou unit/mL s solution s solution subcutaneo us solution levetiracet levetiracet No levetirace [facility] am 500 mg am 500 mg lópez 500 mg Medical tablet Take tablet Take tablet 1 tablet 1 tablet Take 1 twice a day twice a day tablet by oral by oral twice a route. route. day by oral route. levothyroxi levothyroxi No levothyrox [facility] ne 75 mcg ne 75 mcg ine 75 mcg Medical tablet Take tablet Take tablet 1 tablet 1 tablet Take 1 every day every day tablet by oral by oral every day route. route. by oral route. losartan losartan No losartan [facility] via 100 mg 100 mg 100 mg Medical tablet Take tablet Take tablet 1 tablet 1 tablet Take 1 every day every day tablet by oral by oral every day route. route. by oral route. metformin metformin No metformin [facility] ER 500 mg ER 500 mg ER 500 mg Medical tablet,exte tablet,exte tablet,ext nded nded ended release 24 release 24 release 24 hr Take 2 hr Take 2 hr Take 2 tablets tablets tablets twice a day twice a day twice a by oral by oral day by route. route. oral route. metoprolol metoprolol No metoprolol [facility] tartrate 25 tartrate 25 tartrate Medical mg tablet mg tablet 25 mg Take 1 Take 1 tablet tablet tablet Take 1 twice a day twice a day tablet by oral by oral twice a route. route. day by oral route. Novolin R Novolin R No Novolin R [facility] FlexPen 100 FlexPen 100 FlexPen Medical unit/mL (3 unit/mL (3 100 mL) mL) unit/mL (3 subcutaneou subcutaneou mL) s insulin s insulin subcutaneo pen pen us insulin pen Nystop Nystop No Nystop [facility] 100,000 100,000 100,000 Medica l unit/gram unit/gram unit/gram topical topical topical powder powder powder phenobarbit phenobarbit No 1 Q12H phenobarbi [facility] al 97.2 mg al 97.2 mg elizabeth 97.2 Medical tablet Take tablet Take mg tablet 1 tablet 1 tablet Take 1 every 12 every 12 tablet hours by hours by every 12 oral route oral route hours by for 30 for 30 oral route days. days. for 30 days. phenytoin phenytoin No phenytoin [facility] sodium sodium sodium Medical extended extended extended 100 mg 100 mg 100 mg capsule capsule capsule Take 2 Take 2 Take 2 capsules capsules capsules twice a day twice a day twice a by oral by oral day by route for route for oral route 30 days. 30 days. for 30 days. potassium potassium No potassium [facility] chloride ER chloride ER chloride Medical 20 mEq 20 mEq ER 20 mEq tablet,exte tablet,exte tablet,ext nded nded ended release(par release(par release(pa t/cryst) t/cryst) rt/cryst) Take 1 Take 1 Take 1 tablet tablet tablet every day every day every day by oral by oral by oral route. route. route. acetaminoph acetaminoph No 1 Q8H acetaminop [facility] en 300 en 300 hen 300 Medical mg-codeine mg-codeine mg-codeine 30 mg 30 mg 30 mg tablet Take tablet Take tablet 1 tablet 1 tablet Take 1 every 8 every 8 tablet hours by hours by every 8 oral route oral route hours by for 30 for 30 oral route days. days. for 30 days. Adult Low Adult Low No 1 Q1D Adult Low [facility] Dose Dose Dose [facility] Aspirin 81 Aspirin 81 Aspirin 81 mg mg mg tablet,drew tablet,drew tablet,del yed release yed release ayed Take 1 Take 1 release tablet tablet Take 1 every day every day tablet by oral by oral every day route for route for by oral 90 days. 90 days. route for 90 days. amlodipine amlodipine No amlodipine [facility] 10 mg 10 mg 10 mg [facility] tablet Take tablet Take tablet 1 tablet 1 tablet Take 1 every day every day tablet by oral by oral every day route. route. by oral route. atorvastati atorvastati No atorvastat [facility] n 20 mg n 20 mg in 20 mg [facility] al tablet Take tablet Take tablet 1 tablet 1 tablet Take 1 every day every day tablet by oral by oral every day route. route. by oral route. baclofen 10 baclofen 10 No baclofen [facility] mg tablet mg tablet 10 mg Medi arun Take 1 Take 1 tablet tablet 3 tablet 3 Take 1 times a day times a day tablet 3 by oral by oral times a route. route. day by oral route. clonidine clonidine No 1 TID clonidine [facility] HCl 0.1 mg HCl 0.1 mg HCl 0.1 mg Medical tablet Take tablet Take tablet 1 tablet 3 1 tablet 3 Take 1 times a day times a day tablet 3 by oral by oral times a route as route as day by needed. needed. oral route as needed. fluoxetine fluoxetine No fluoxetine [facility] 40 mg 40 mg 40 mg [facility] capsule capsule capsule Take 1 Take 1 Take 1 capsule capsule capsule every day every day every day by oral by oral by oral route for route for route for 30 days. 30 days. 30 days. furosemide furosemide No furosemide [facility] 40 mg 40 mg 40 mg [facility] tablet tablet tablet hydroxyzine hydroxyzine No hydroxyzin [facility] HCl 25 mg HCl 25 mg e HCl 25 M edical tablet tablet mg tablet Lasix 20 mg Lasix 20 mg No 1 Q1D Lasix 20 [facility] tablet Take tablet Take mg tablet Medical 1 tablet 1 tablet Take 1 every day every day tablet by oral by oral every day route. route. by oral route. Levemir Levemir No 31unit( BID [facility] via FlexTouch FlexTouch s) FlexTouch [facility] U-100 U-100 U-100 Insulin 100 Insulin 100 Insulin unit/mL (3 unit/mL (3 100 mL) mL) unit/mL (3 subcutaneou subcutaneou mL) s pen s pen subcutaneo Inject 31 Inject 31 us pen units twice units twice Inject 31 a day by a day by units sub-q sub-q twice a route. route. day by sub-q route. Levemir Levemir No Levemir [facility] U-100 U-100 U-100 Medical Insulin 100 Insulin 100 Insulin unit/mL unit/mL 100 subcutaneou subcutaneou unit/mL s solution s solution subcutaneo us solution levetiracet levetiracet No levetirace [facility] am 500 mg am 500 mg lópez 500 mg Medical tablet Take tablet Take tablet 1 tablet 1 tablet Take 1 twice a day twice a day tablet by oral by oral twice a route. route. day by oral route. levothyroxi levothyroxi No levothyrox [facility] ne 75 mcg ne 75 mcg ine 75 mcg Medical tablet Take tablet Take tablet 1 tablet 1 tablet Take 1 every day every day tablet by oral by oral every day route. route. by oral route. losartan losartan No losartan [facility] via 100 mg 100 mg 100 mg Medical tablet Take tablet Take tablet 1 tablet 1 tablet Take 1 every day every day tablet by oral by oral every day route. route. by oral route. metformin metformin No metformin [facility] ER 500 mg ER 500 mg ER 500 mg Medical tablet,exte tablet,exte tablet,ext nded nded ended release 24 release 24 release 24 hr Take 2 hr Take 2 hr Take 2 tablets tablets tablets twice a day twice a day twice a by oral by oral day by route. route. oral route. metoprolol metoprolol No metoprolol [facility] tartrate 25 tartrate 25 tartrate Medical mg tablet mg tablet 25 mg Take 1 Take 1 tablet tablet tablet Take 1 twice a day twice a day tablet by oral by oral twice a route. route. day by oral route. Novolin R Novolin R No Novolin R [facility] FlexPen 100 FlexPen 100 FlexPen Medical unit/mL (3 unit/mL (3 100 mL) mL) unit/mL (3 subcutaneou subcutaneou mL) s insulin s insulin subcutaneo pen pen us insulin pen Nystop Nystop No Nystop [facility] 100,000 100,000 100,000 Medica l unit/gram unit/gram unit/gram topical topical topical powder powder powder phenobarbit phenobarbit No 1 Q12H phenobarbi [facility] al 97.2 mg al 97.2 mg elizabeth 97.2 Medical tablet Take tablet Take mg tablet 1 tablet 1 tablet Take 1 every 12 every 12 tablet hours by hours by every 12 oral route oral route hours by for 30 for 30 oral route days. days. for 30 days. phenytoin phenytoin No phenytoin [facility] sodium sodium sodium Medical extended extended extended 100 mg 100 mg 100 mg capsule capsule capsule Take 2 Take 2 Take 2 capsules capsules capsules twice a day twice a day twice a by oral by oral day by route for route for oral route 30 days. 30 days. for 30 days. potassium potassium No potassium [facility] chloride ER chloride ER chloride Medical 20 mEq 20 mEq ER 20 mEq tablet,exte tablet,exte tablet,ext nded nded ended release(par release(par release(pa t/cryst) t/cryst) rt/cryst) Take 1 Take 1 Take 1 tablet tablet tablet every day every day every day by oral by oral by oral route. route. route. acetaminoph acetaminoph No 1 Q8H acetaminop [facility] en 300 en 300 hen 300 Medical mg-codeine mg-codeine mg-codeine 30 mg 30 mg 30 mg tablet Take tablet Take tablet 1 tablet 1 tablet Take 1 every 8 every 8 tablet hours by hours by every 8 oral route oral route hours by for 30 for 30 oral route days. days. for 30 days. Adult Low Adult Low No 1 Q1D Adult Low [facility] Dose Dose Dose [facility] Aspirin 81 Aspirin 81 Aspirin 81 mg mg mg tablet,drew tablet,drew tablet,del yed release yed release ayed Take 1 Take 1 release tablet tablet Take 1 every day every day tablet by oral by oral every day route for route for by oral 90 days. 90 days. route for 90 days. amlodipine amlodipine No amlodipine [facility] 10 mg 10 mg 10 mg [facility] tablet Take tablet Take tablet 1 tablet 1 tablet Take 1 every day every day tablet by oral by oral every day route. route. by oral route. atorvastati atorvastati No atorvastat [facility] n 20 mg n 20 mg in 20 mg Medic al tablet Take tablet Take tablet 1 tablet 1 tablet Take 1 every day every day tablet by oral by oral every day route. route. by oral route. baclofen 10 baclofen 10 No baclofen [facility] mg tablet mg tablet 10 mg Medi arun Take 1 Take 1 tablet tablet 3 tablet 3 Take 1 times a day times a day tablet 3 by oral by oral times a route. route. day by oral route. clonidine clonidine No 1 TID clonidine [facility] HCl 0.1 mg HCl 0.1 mg HCl 0.1 mg Medical tablet Take tablet Take tablet 1 tablet 3 1 tablet 3 Take 1 times a day times a day tablet 3 by oral by oral times a route as route as day by needed. needed. oral route as needed. fluoxetine fluoxetine No fluoxetine [facility] 40 mg 40 mg 40 mg Medical capsule capsule capsule Take 1 Take 1 Take 1 capsule capsule capsule every day every day every day by oral by oral by oral route for route for route for 30 days. 30 days. 30 days. furosemide furosemide No furosemide [facility] 40 mg 40 mg 40 mg Medical tablet tablet tablet Levemir Levemir No 31unit( BID Levemir Naina via FlexTouch FlexTouch s) FlexTouch Medical U-100 U-100 U-100 Insulin 100 Insulin 100 Insulin unit/mL (3 unit/mL (3 100 mL) mL) unit/mL (3 subcutaneou subcutaneou mL) s pen s pen subcutaneo Inject 31 Inject 31 us pen units twice units twice Inject 31 a day by a day by units sub-q sub-q twice a route. route. day by sub-q route. levetiracet levetiracet No levetirace [facility] am 500 mg am 500 mg lópez 500 mg Medical tablet Take tablet Take tablet 1 tablet 1 tablet Take 1 twice a day twice a day tablet by oral by oral twice a route. route. day by oral route. levothyroxi levothyroxi No levothyrox [facility] ne 75 mcg ne 75 mcg ine 75 mcg Medical tablet Take tablet Take tablet 1 tablet 1 tablet Take 1 every day every day tablet by oral by oral every day route. route. by oral route. losartan losartan No losartan Naina via 100 mg 100 mg 100 mg Medical tablet Take tablet Take tablet 1 tablet 1 tablet Take 1 every day every day tablet by oral by oral every day route. route. by oral route. metformin metformin No 1 BID metformin [facility] 1,000 mg 1,000 mg 1,000 mg Med ical tablet Take tablet Take tablet 1 tablet 1 tablet Take 1 twice a day twice a day tablet by oral by oral twice a route. route. day by oral route. metoprolol metoprolol No metoprolol [facility] tartrate 25 tartrate 25 tartrate Medical mg tablet mg tablet 25 mg Take 1 Take 1 tablet tablet tablet Take 1 twice a day twice a day tablet by oral by oral twice a route. route. day by oral route. Novolin R Novolin R No Novolin R [facility] FlexPen 100 FlexPen 100 FlexPen Medical unit/mL (3 unit/mL (3 100 mL) mL) unit/mL (3 subcutaneou subcutaneou mL) s insulin s insulin subcutaneo pen pen us insulin pen Nystop Nystop No Nystop [facility] 100,000 100,000 100,000 Medica l unit/gram unit/gram unit/gram topical topical topical powder powder powder phenobarbit phenobarbit No 1 Q12H phenobarbi [facility] al 97.2 mg al 97.2 mg elizabeth 97.2 Medical tablet Take tablet Take mg tablet 1 tablet 1 tablet Take 1 every 12 every 12 tablet hours by hours by every 12 oral route oral route hours by for 30 for 30 oral route days. days. for 30 days. phenytoin phenytoin No phenytoin [facility] sodium sodium sodium Medical extended extended extended 100 mg 100 mg 100 mg capsule capsule capsule Take 2 Take 2 Take 2 capsules capsules capsules twice a day twice a day twice a by oral by oral day by route for route for oral route 30 days. 30 days. for 30 days. potassium potassium No potassium [facility] chloride ER chloride ER chloride Medical 20 mEq 20 mEq ER 20 mEq tablet,exte tablet,exte tablet,ext nded nded ended release(par release(par release(pa t/cryst) t/cryst) rt/cryst) Take 1 Take 1 Take 1 tablet tablet tablet every day every day every day by oral by oral by oral route. route. route. triamcinolo triamcinolo No triamcinol [facility] ne ne one Medical acetonide acetonide acetonide 0.1 % 0.1 % 0.1 % topical topical topical cream cream cream acetaminoph acetaminoph No 1 Q8H acetaminop [facility] en 300 en 300 hen 300 Medical mg-codeine mg-codeine mg-codeine 30 mg 30 mg 30 mg tablet Take tablet Take tablet 1 tablet 1 tablet Take 1 every 8 every 8 tablet hours by hours by every 8 oral route oral route hours by for 30 for 30 oral route days. days. for 30 days. Adult Low Adult Low No 1 Q1D Adult Low [facility] Dose Dose Dose Medical Aspirin 81 Aspirin 81 Aspirin 81 mg mg mg tablet,drew tablet,drew tablet,del yed release yed release ayed Take 1 Take 1 release tablet tablet Take 1 every day every day tablet by oral by oral every day route for route for by oral 90 days. 90 days. route for 90 days. amlodipine amlodipine No amlodipine [facility] 10 mg 10 mg 10 mg Medical tablet Take tablet Take tablet 1 tablet 1 tablet Take 1 every day every day tablet by oral by oral every day route. route. by oral route. atorvastati atorvastati No atorvastat [facility] n 20 mg n 20 mg in 20 mg Medic al tablet Take tablet Take tablet 1 tablet 1 tablet Take 1 every day every day tablet by oral by oral every day route. route. by oral route. baclofen 10 baclofen 10 No baclofen [facility] mg tablet mg tablet 10 mg Medi arun Take 1 Take 1 tablet tablet 3 tablet 3 Take 1 times a day times a day tablet 3 by oral by oral times a route. route. day by oral route. clonidine clonidine No 1 TID clonidine [facility] HCl 0.1 mg HCl 0.1 mg HCl 0.1 mg Medical tablet Take tablet Take tablet 1 tablet 3 1 tablet 3 Take 1 times a day times a day tablet 3 by oral by oral times a route as route as day by needed. needed. oral route as needed. fluoxetine fluoxetine No fluoxetine [facility] 40 mg 40 mg 40 mg Medical capsule capsule capsule Take 1 Take 1 Take 1 capsule capsule capsule every day every day every day by oral by oral by oral route for route for route for 30 days. 30 days. 30 days. furosemide furosemide No furosemide [facility] 40 mg 40 mg 40 mg Medical tablet tablet tablet Levemir Levemir No Levemir [facility] FlexPen 100 FlexPen 100 FlexPen Medical unit/mL (3 unit/mL (3 100 mL) mL) unit/mL (3 solution solution mL) subcutaneou subcutaneou solution s insulin s insulin subcutaneo pen Inject pen Inject us insulin 31 units 31 units pen Inject twice a day twice a day 31 units by sub-q by sub-q twice a route. route. day by sub-q route. levetiracet levetiracet No levetirace [facility] am 500 mg am 500 mg lópez 500 mg Medical tablet Take tablet Take tablet 1 tablet 1 tablet Take 1 twice a day twice a day tablet by oral by oral twice a route. route. day by oral route. levothyroxi levothyroxi No levothyrox [facility] ne 75 mcg ne 75 mcg ine 75 mcg Medical tablet Take tablet Take tablet 1 tablet 1 tablet Take 1 every day every day tablet by oral by oral every day route. route. by oral route. losartan losartan No losartan Naina via 100 mg 100 mg 100 mg Medical tablet Take tablet Take tablet 1 tablet 1 tablet Take 1 every day every day tablet by oral by oral every day route. route. by oral route. metformin metformin No 1 BID metformin [facility] 1,000 mg 1,000 mg 1,000 mg Med ical tablet Take tablet Take tablet 1 tablet 1 tablet Take 1 twice a day twice a day tablet by oral by oral twice a route. route. day by oral route. metformin metformin No metformin [facility] 500 mg 500 mg 500 mg Medical tablet tablet tablet metoprolol metoprolol No metoprolol [facility] tartrate 25 tartrate 25 tartrate Medical mg tablet mg tablet 25 mg Take 1 Take 1 tablet tablet tablet Take 1 twice a day twice a day tablet by oral by oral twice a route. route. day by oral route. Novolin R Novolin R No Novolin R [facility] Regular Regular Regular Medica l U-100 U-100 U-100 Insulin 100 Insulin 100 Insulin unit/mL unit/mL 100 injection injection unit/mL solution solution injection Per low Per low solution dose dose Per low sliding sliding dose scale. scale. sliding scale. Nystop Nystop No Nystop [facility] 100,000 100,000 100,000 Medica l unit/gram unit/gram unit/gram topical topical topical powder powder powder phenobarbit phenobarbit No phenobarbi [facility] al 97.2 mg al 97.2 mg elizabeth 97.2 Medical tablet Take tablet Take mg tablet 1 tablet 1 tablet Take 1 every 12 every 12 tablet hours by hours by every 12 oral route oral route hours by for 30 for 30 oral route days. days. for 30 days. phenytoin phenytoin No phenytoin [facility] sodium sodium sodium Medical extended extended extended 100 mg 100 mg 100 mg capsule capsule capsule Take 2 Take 2 Take 2 capsules capsules capsules twice a day twice a day twice a by oral by oral day by route for route for oral route 30 days. 30 days. for 30 days. potassium potassium No potassium [facility] chloride ER chloride ER chloride Medical 20 mEq 20 mEq ER 20 mEq tablet,exte tablet,exte tablet,ext nded nded ended release(par release(par release(pa t/cryst) t/cryst) rt/cryst) Take 1 Take 1 Take 1 tablet tablet tablet every day every day every day by oral by oral by oral route. route. route. triamcinolo triamcinolo No triamcinol [facility] ne ne one Medical acetonide acetonide acetonide 0.1 % 0.1 % 0.1 % topical topical topical cream cream cream acetaminoph acetaminoph No 1 Q8H acetaminop [facility] en 300 en 300 hen 300 Medical mg-codeine mg-codeine mg-codeine 30 mg 30 mg 30 mg tablet Take tablet Take tablet 1 tablet 1 tablet Take 1 every 8 every 8 tablet hours by hours by every 8 oral route oral route hours by for 30 for 30 oral route days. days. for 30 days. Adult Low Adult Low No 1 Q1D Adult Low [facility] Dose Dose Dose [facility] Aspirin 81 Aspirin 81 Aspirin 81 mg mg mg tablet,drew tablet,drew tablet,del yed release yed release ayed Take 1 Take 1 release tablet tablet Take 1 every day every day tablet by oral by oral every day route for route for by oral 90 days. 90 days. route for 90 days. amlodipine amlodipine No 1 Q1D amlodipine [facility] 10 mg 10 mg 10 mg Medical tablet Take tablet Take tablet 1 tablet 1 tablet Take 1 every day every day tablet by oral by oral every day route. route. by oral route. atorvastati atorvastati No 1 Q1D atorvastat [facility] n 20 mg n 20 mg in 20 mg Medic al tablet Take tablet Take tablet 1 tablet 1 tablet Take 1 every day every day tablet by oral by oral every day route for route for by oral 14 days. 14 days. route for 14 days. baclofen 10 baclofen 10 No 1 TID baclofen [facility] mg tablet mg tablet 10 mg Medi arun Take 1 Take 1 tablet tablet 3 tablet 3 Take 1 times a day times a day tablet 3 by oral by oral times a route. route. day by oral route. Vital Signs Vital Name Observation Time Observation Value Comments Source BP Diastolic 2022-07-29 00:00:00 73 mm[Hg] [facility] Height 2022-07-29 00:00:00 57 [in_i] [facility] BMI (Body Mass Index) 2022-07-29 00:00:[facility] 2022-07-29 00:00:00 139 mm[Hg] [facility] Body Weight 2022-07-29 00:00:00 4245 [oz_av] [facility] BP Diastolic 2022-06-24 00:00:00 80 mm[Hg] [facility] Height 2022-06-24 00:00:00 57 [in_i] [facility] BMI (Body Mass Index) 2022-06-24 00:00:00 57.5 kg/[facility] 2022-06-24 00:00:00 151 mm[Hg] [facility] Body Weight 2022-06-24 00:00:00 4248 [oz_av] [facility] BP Diastolic 2022-05-22 00:00:00 78 mm[Hg] [facility] Height 2022-05-22 00:00:00 57 [in_i] [facility] BMI (Body Mass Index) 2022-05-22 00:00:00 57.5 kg/m2 [facility] BP Systolic 2022-05-22 00:00:00 135 mm[Hg] [facility] Body Weight 2022-05-22 00:00:00 4248 [oz_av] [facility] BP Diastolic 2022-05-05 00:00:00 68 mm[Hg] [facility] Height 2022-05-05 00:00:00 57 [in_i] [facility] BMI (Body Mass Index) 2022-05-05 00:00:00 57.1 kg/m2 [facility] BP Systolic 2022-05-05 00:00:00 131 mm[Hg] [facility] Body Weight 2022-05-05 00:00:00 4224 [oz_av] [facility] BP Diastolic 2022-05-02 00:00:00 78 mm[Hg] [facility] Height 2022-05-02 00:00:00 57 [in_i] [facility] BMI (Body Mass Index) 2022-05-02 00:00:00 57.5 kg/m2 [facility] BP Systolic 2022-05-02 00:00:00 136 mm[Hg] [facility] Body Weight 2022-05-02 00:00:00 4248 [oz_av] [facility] BP Diastolic 2022-04-01 00:00:00 68 mm[Hg] [facility] Height 2022-04-01 00:00:00 57 [in_i] [facility] BMI (Body Mass Index) 2022-04-01 00:00:00 57.2 kg/m2 [facility] BP Systolic 2022-04-01 00:00:00 136 mm[Hg] [facility] Body Weight 2022-04-01 00:00:00 4226 [oz_av] [facility] BP Diastolic 2022-03-06 00:00:00 72 mm[Hg] [facility] Height 2022-03-06 00:00:00 57 [in_i] [facility] BMI (Body Mass Index) 2022-03-06 00:00:00 57 kg/m2 [facility] BP Systolic 2022-03-06 00:00:00 128 mm[Hg] [facility] Body Weight 2022-03-06 00:00:00 4216 [oz_av] [facility] BP Diastolic 2022-01-30 00:00:00 84 mm[Hg] [facility] Height 2022-01-30 00:00:00 57 [in_i] [facility] BMI (Body Mass Index) 2022-01-30 00:00:00 57.3 kg/m2 [facility] BP Systolic 2022-01-30 00:00:00 138 mm[Hg] [facility] Body Weight 2022-01-30 00:00:00 4240 [oz_av] [facility] BP Diastolic 2022-01-20 00:00:00 74 mm[Hg] [facility] Height 2022-01-20 00:00:00 57 [in_i] [facility] BMI (Body Mass Index) 2022-01-20 00:00:00 56.6 kg/m2 [facility] BP Systolic 2022-01-20 00:00:00 131 mm[Hg] [facility] Body Weight 2022-01-20 00:00:00 4182 [oz_av] [facility] BP Diastolic 2022-01-09 00:00:00 78 mm[Hg] [facility] Height 2022-01-09 00:00:00 57 [in_i] [facility] BMI (Body Mass Index) 2022-01-09 00:00:00 56.6 kg/m2 [facility] BP Systolic 2022-01-09 00:00:00 137 mm[Hg] [facility] Body Weight 2022-01-09 00:00:00 4182 [oz_av] [facility] BP Diastolic 2022-01-06 00:00:00 74 mm[Hg] [facility] Height 2022-01-06 00:00:00 57 [in_i] [facility] BMI (Body Mass Index) 2022-01-06 00:00:00 56.6 kg/m2 [facility] BP Systolic 2022-01-06 00:00:00 136 mm[Hg] [facility] Body Weight 2022-01-06 00:00:00 4182 [oz_av] [facility] BP Diastolic 2022-01-02 00:00:00 82 mm[Hg] [facility] Height 2022-01-02 00:00:00 57 [in_i] [facility] BMI (Body Mass Index) 2022-01-02 00:00:00 56.6 kg/m2 [facility] BP Systolic 2022-01-02 00:00:00 138 mm[Hg] [facility] Body Weight 2022-01-02 00:00:00 4182 [oz_av] [facility] BP Diastolic 2021-12-26 00:00:00 77 mm[Hg] [facility] Height 2021-12-26 00:00:00 57 [in_i] [facility] BMI (Body Mass Index) 2021-12-26 00:00:00 56.6 kg/m2 [facility] BP Systolic 2021-12-26 00:00:00 141 mm[Hg] [facility] Body Weight 2021-12-26 00:00:00 4182 [oz_av] [facility] BP Diastolic 2021-12-23 00:00:00 84 mm[Hg] [facility] Height 2021-12-23 00:00:00 57 [in_i] [facility] BMI (Body Mass Index) 2021-12-23 00:00:00 56.6 kg/m2 [facility] BP Systolic 2021-12-23 00:00:00 148 mm[Hg] [facility] Body Weight 2021-12-23 00:00:00 4182 [oz_av] [facility] BP Diastolic 2021-12-19 00:00:00 74 mm[Hg] [facility] Height 2021-12-19 00:00:00 57 [in_i] [facility] BMI (Body Mass Index) 2021-12-19 00:00:00 56.8 kg/m2 [facility] BP Systolic 2021-12-19 00:00:00 138 mm[Hg] [facility] Body Weight 2021-12-19 00:00:00 4198 [oz_av] [facility] WEIGHT 2021-12-13 05:43:00 72.122 kg HEIGHT 2021-12-12 02:10:00 170.2 cm WEIGHT 2021-12-13 05:43:00 72.122 kg HEIGHT 2021-12-12 02:10:00 170.2 cm Procedures This patient has no known procedures. Plan of Care Planned Activity Planned Date Details Comments Source Future Scheduled Test 2024-12-12 Lipid panel (procedure) [facility] 00:00:00 [code = 68111307] Medical Ce nter Future Scheduled Test 2022-12-[address]ess[address] [facility] 00:[facility]:00 Counseling and Screening [facility] (12+) [code = Tobacco Cessation Counseling and Screening (12+)] Future Scheduled Test 2022-11-20 Influenza Vaccine (#1) [facility] 00:00:00 [code = Influenza Medical Ce nter Vaccine (#1)] Future Scheduled Test 2022-06-[address] [facility] 00:00:00 measurement (procedure) [facility] [code = 06195294] Future Scheduled Test 2009 SHINGLES VACCINES ([address] [facility] 00:00:00 2) [code = SHINGLES [facility] Center VACCINES (1 of 2)] Future Scheduled Test 1987-03-23 MEDICARE ANNUAL WELLNESS [facility] 00:00:00 (YEAR 2 or FIRST YEAR if [facility] no IPPE) [code = MEDICARE ANNUAL WELLNESS (YEAR 2 or FIRST YEAR if no IPPE)] Future Scheduled Test 1978 DTAP/TDAP/TD VACCINES ([address] [facility] 00:00:00 - Tdap) [code = Medical Cent er DTAP/TDAP/TD VACCINES (1 - Tdap)] Future Scheduled Test 1977 HEPATITIS C SCREENING [facility] 00:00:00 [code = HEPATITIS C Medical Center SCREENING] Future Scheduled Test [address] [facility] 00:00:00 virus screening Medical Cent er (procedure) [code = 105691188] Future Scheduled Test 1969 DIABETIC EYE EXAM [code [facility] 00:00:00 = DIABETIC EYE EXAM] Medical Center Future Scheduled Test 1969 [facility] Center (regime/therapy) [code = 132610533] Future Scheduled Test 1969 Urine screening for [facility] 00:00:00 protein (procedure) Medical Center [code = 293009205] Future Scheduled Test 1965 Pneumococcal Vaccine: [facility] 00:00:00 0-64 Years (1 - PCV) Medical Center [code = Pneumococcal Vaccine: 0-64 Years (1 - PCV)] Future Scheduled Test 1959 COVID-19 VACCINE (#1) [facility] 00:00:00 [code = COVID-19 VACCINE Med [facility] (#1)] Future Scheduled Test 1959 CT Colonography (combo) [facility] 00:00:00 [code = CT Colonography [facility] (combo)] Future Scheduled Test 1959 Screening for malignant [facility] 00:00:00 neoplasm of colon Medical Ce nter (procedure) [code = 552873856] Future Scheduled Test 1959 Screening for malignant [facility] 00:00:00 neoplasm of colon Medical Ce nter (procedure) [code = 503806950] Future Scheduled Test 1959 Screening for malignant [facility] 00:00:00 neoplasm of colon Medical Ce nter (procedure) [code = 609832346] Future Scheduled Test 1959 Screening for malignant [facility] 00:00:00 neoplasm of colon Medical Ce nter (procedure) [code = 606156427] Future Scheduled Test 1959 Sigmoidoscopy [code = [facility] 00:00:00 Sigmoidoscopy] Medical [facility] En[facility] Start End Encounter Admission Attending Care Care Encounter Source Date/Time Date/Time Type Type Clinicians Facility Department ID 2022-12-14 2022-12-14 Outpatient [facility] [id number] [facility] 00:00:00 00:00:00 Mariam [id number] Medica l 2022-12-14 2022-12-14 Outpatient [facility] PRIV [id number] [facility] 00:00:00 00:00:00 Mariam [id number] Medica l 2022-12-14 2022-12-14 Outpatient [facility] PRIV [id number] [facility] 00:00:00 00:00:00 Mariam [id number] Medica l 2022-12-04 2022-12-04 Outpatient [facility] PRIV [id number] [facility] 00:00:00 00:00:00 d_J [id number] Medica l 2022-12-04 2022-12-04 Outpatient [facility] PRIV [id number] [facility] 00:00:00 00:00:00 d_J [id number] Medica l 2022-12-04 2022-12-04 Outpatient [facility] PRIV [id number] [facility] 00:00:00 00:00:00 d_J [id number] Medica l 2022-11-27 2022-11-27 Outpatient [facility] PRIV [id number] [facility] 00:00:00 00:00:00 d_J [id number] Medica l 2022-11-27 2022-11-27 Outpatient [facility] PRIV [id number] [facility] 00:00:00 00:00:00 d_J [id number] Medica l 2022-11-20 2022-11-20 Outpatient [facility] PRIV [id number] [facility] 00:00:00 00:00:00 d_J [id number] Medica l 2022-11-20 2022-11-20 Outpatient [facility] PRIV [id number] [facility] 00:00:00 00:00:00 d_J [id number] Medica l 2022-11-17 2022-11-17 Outpatient [facility] PRIV [id number] [facility] 00:00:00 00:00:00 d_J [id number] Medica l 2022-11-04 2022-11-04 Outpatient [facility] PRIV [id number] [facility] 00:00:00 00:00:00 d_J [id number] Medica l 2022-11-02 2022-11-02 Outpatient [facility] PRIV [id number] [facility] 00:00:00 00:00:00 d_J [id number] Medica l 2022-10-27 2022-10-27 Outpatient [facility] PRIV 248 [id number] [facility] 00:00:00 00:00:00 d_J [id number] Medica l 2022-10-15 2022-10-15 Outpatient [facility] PRIV [id number] [facility] 00:00:00 00:00:00 d_J [id number] Medica l 2022-10-12 2022-10-12 Outpatient [facility] PRIV [id number] [facility] 00:00:00 00:00:00 d_J [id number] Medica l 2022-10-05 2022-10-05 Outpatient [facility] PRIV [id number] [facility] 00:00:00 00:00:00 d_J [id number] Medica l 2022-10-05 2022-10-05 Outpatient [facility] PR[facility] PRIV [id number] [facility] 00:00:00 00:00:00 d_J [id number] Medica l 2022-09-28 2022-09-28 Outpatient [facility] PR[facility] PRIV [id number] [facility] 00:00:00 00:00:00 d_J [id number] Medica l 2022-09-10 2022-09-10 Outpatient [facility] PR[facility] PRIV [id number] [facility] 00:00:00 00:00:00 d_J [id number] Medica l 2022-09-10 2022-09-10 Outpatient [facility] PRIV [id number] [facility] 00:00:00 00:00:00 d_J [id number] Medica l 2022-09-03 2022-09-03 Outpatient [facility] PR[facility] PRIV [id number] [facility] 00:00:00 00:00:00 d_J [id number] Medica l 2022-09-03 2022-09-03 Outpatient [facility] PRIV [id number] [facility] 00:00:00 00:00:00 d_J [id number] Medica l 2022-08-12 2022-08-12 Outpatient [facility] PR[facility] PRIV [id number] [facility] 00:00:00 00:00:00 d_J [id number] Medica l 2022-08-11 2022-08-11 Outpatient [facility] PRIV [id number] [facility] 00:00:00 00:00:00 d_J [id number] Medica l 2022-08-11 2022-08-11 Outpatient [facility] PRIV [id number] [facility] 00:00:00 00:00:00 d_J [id number] Medica l 2022-07-29 2022-07-29 Outpatient [facility] PR[facility] PRIV [id number] [facility] 00:00:00 00:00:00 d_J [id number] Medica l 2022-07-29 2022-07-29 Outpatient [facility] PR[facility] PRIV [id number] [facility] 00:00:00 00:00:00 d_Antonio [id number] Medica l 2022-07-29 2022-07-29 [facility] [id number] [facility] 00:00:00 00:00:00 WESLEY Tatum: [facility] - Med ical [address] [address] , Ph. 2022-07-21 2022-07-21 Outpatient [facility] PR[facility] PRIV [id number] [facility] 00:00:00 00:00:00 d_J [id number] Medica l 2022-07-13 2022-07-13 Outpatient [facility] PRIV [id number] [facility] 00:00:00 00:00:00 d_J [id number] Medica l 2022-07-02 2022-07-02 Outpatient [facility] PRIV 248 [id number] [facility] 00:00:00 00:00:00 d_J [id number] Medica l 2022-06-24 2022-06-24 [facility] [id number] [facility] 00:00:00 00:00:00 WESLEY Tatum: Health - Med ical [address] [address] , Ph. 2022-06-10 2022-06-10 Outpatient [facility] PR[facility] PRIV [id number] [facility] 00:00:00 00:00:00 d_J [id number] Medica l 2022-06-03 2022-06-03 Outpatient [facility] PRIV [id number] [facility] 00:00:00 00:00:00 d_J [id number] Medica l 2022-05-29 2022-05-29 Outpatient [facility] PR[facility] PRIV [id number] [facility] 00:00:00 00:00:00 d_J [id number] Medica l 2022-05-29 2022-05-29 Outpatient [facility] PRIV [id number] [facility] 00:00:00 00:00:00 d_J [id number] Medica l 2022-05-22 2022-05-22 [facility] 00:[facility] 00:00:00 WESLEY Tatum: Health - Med ical [address] [address] , Ph. 2022-05-21 2022-05-21 Outpatient [facility] PR[facility] PRIV [id number] [facility] 00:00:00 00:00:00 d_J [id number] Medica l 2022-05-05 2022-05-05 Kyle Freitas [facility] - [facility] [id number] [facility] 00:00:00 00:00:00 Wale [facility] - Med ical MD: [address] [address] , Ph. 2022-05-02 2022-05-02 [facility] [id number] [facility] 00:00:00 00:00:00 WESLEY Tatum: Health - Med ical [address] [address] , Ph. 2022-04-29 2022-04-29 Outpatient [facility] PRIV PRIV [id number] [facility] 00:00:00 00:00:00 d_J [id number] Medica l 2022-04-29 2022-04-29 Outpatient [facility] PR[facility] PRIV [id number] [facility] 00:00:00 00:00:00 d_J [id number] Medica l 2022-04-29 2022-04-29 Outpatient [facility] PRIV [id number] [facility] 00:00:00 00:00:00 d_J [id number] Medica l 2022-04-29 2022-04-29 Outpatient [facility] PR[facility] PRIV [id number] [facility] 00:00:00 00:00:00 d_J [id number] Medica l 2022-04-15 2022-04-15 Outpatient [facility] PRIV 248 [id number] [facility] 00:00:00 00:00:00 d_J [id number] Medica l 2022-04-01 2022-04-01 [facility] [id number] [facility] 00:00:00 00:00:00 WESLEY Tatum: Health - Med ical [address] [address] , Ph. 2022-03-30 2022-03-30 Outpatient [facility] PRIV PRIV [id number] [facility] 00:00:00 00:00:00 d_J [id number] Medica l 2022-03-06 2022-03-06 [facility] [id number] [facility] 00:00:00 00:00:00 WESLEY Tatum: Health - Med ical [address] [address] , Ph. 2022-03-02 2022-03-02 Outpatient [facility]Tod PRIV PRIV [id number] [facility] 00:00:00 00:00:00 d_J [id number] Medica l 2022-03-02 2022-03-02 Outpatient [facility]Tod PRIV PRIV [id number] [facility] 00:00:00 00:00:00 d_J [id number] Medica l 2022-03-02 2022-03-02 Outpatient [facility]Tod PRIV PRIV [id number] [facility] 00:00:00 00:00:00 d_J [id number] Medica l 2022-01-30 2022-01-30 Jessica [facility] [id number] [facility] 00:00:00 00:00:00 [facility] [facility]: Health - Med ical [address] [address] , Ph. 2022-01-20 2022-01-20 [facility] [id number] [facility] 00:00:00 00:00:00 WESLEY [facility]: Health - Med ical [address] [place] [address] , Ph. 2022-01-12 2022-01-12 Outpatient [facility]Tod PRIV PRIV [id number] [facility] 00:00:00 00:00:00 d_J [id number] Medica l 2022-01-09 2022-01-09 [facility] 00:[facility]:00 00:00:00 WESLEY [facility]: Health - Med ical [address] [place] [address] , Ph. 2022-01-06 2022-01-06 Kyle Freitas [facility] [id number] [facility] 00:00:00 00:00:00 [facility] ical MD: [address] [place] [address] , Ph. 2022-01-02 2022-01-02 [facility] 014 [facility] 00:00:00 00:00:00 WESLEY [facility]: Health - Med ical [address] [place] [address] , Ph. 2021-12-30 2021-12-30 Outpatient [facility]Tod PRIV PRIV [id number] [facility] 00:00:00 00:00:00 d_J [id number] Medica l 2021-12-26 2021-12-26 [facility] 007 [facility] 00:00:00 00:00:00 WESLEY [facility]: Health - Med ical [address] [place] [address] , Ph. 2021-12-23 2021-12-23 [facility] 004 [facility] 00:00:00 00:00:00 WESLEY [facility]: Health - Med ical [address] [place] [address] , Ph. 2021-12-19 2021-12-19 Outpatient [facility]Tod PRIV PRIV 248 [id number] [facility] 00:00:00 00:00:00 lucy_Antonio [id number] Medica l 2021-12-19 2021-12-19 [facility] [id number] [facility] 00:00:00 00:00:00 WESLEY [facility]: Health - Med ical [address] [place] [address] , Ph. 2021-12-12 2021-12-15 Inpatient ER [facility], [facility] Med [id number] [facility] 01:48:00 16:43:00 REYES Results Test Description Test Time Test Comments Results Result Comments Source PHENYTOIN LEVEL, TOTAL AND FREE 2021-12-18 08:47:52 Test Item Value Reference Range Interpretation Comme nts PHENYTOIN (DILANTIN) (BEAKER) (test code = 605) SEE SCANNED DOCUMENT PHENYTOIN FREE (BEAKER) (test code = 847) SEE SCANNED DOCUMENT BLOOD [id number] 10:01:32 Test Item Value Reference Range Interpretation Comments CULTURE (BEAKER) (test No growth in 5 days code = 1095) BLOOD [id number] 10:01:26 Test Item Value Reference Range Interpretation Comments CULTURE (BEAKER) (test No growth in 5 days code = 1095) POCT-GLUCOSE [id number] 16:01:11 Test Item Value Reference Range Interpretation Comments POC-GLUCOSE METER 168 mg/dL 70-110 H : TESTED A T [facility] [address]17 (BEAKER) (test code [address], = 1538) [place] [id number]: Can Closing Machine Operator/Techni chary ID = [id number] for Albertina Stapleton POCT-GLUCOSE [id number] 12:09:20 Test Item Value Reference Range Interpretation Comments POC-GLUCOSE METER 164 mg/dL 70-110 H : TESTED A T [facility] [address] (BEAKER) (test code [address], = 1538) [place] [id number]: Can Closing Machine Operator/Techni chary ID = [id number] for Helen Fregoso POCT-GLUCOSE [id number] 08:00:45 Test Item Value Reference Range Interpretation Comments POC-GLUCOSE METER 148 mg/dL 70-110 H : TESTED A T [facility] [address] (BEAKER) (test code [address], = 1538) [place] [id number]: Can Closing Machine Operator/Techni chary ID = [id number] for Albertina Stapleton COMPREHENSIVE METABOLIC [id number] 05:56:38 Test Item Value Reference Range Interpretation Comments TOTAL PROTEIN 7.4 gm/dL 6.0-8.5 (BEAKER) (test code = 770) ALBUMIN (BEAKER) 3.4 g/dL 3.5-5.0 L (test code = 1145) ALKALINE 83 U/L 30-115 PHOSPHATASE (BEAKER) (test code = 346) BILIRUBIN TOTAL < mg/dL 0.1-1.2 (BEAKER) (test code = 377) SODIUM (BEAKER) 136 meq/L 135-148 (test code = 381) POTASSIUM (BEAKER) 3.8 meq/L 3.6-5.5 (test code = 379) CHLORIDE (BEAKER) 103 meq/L 98-106 (test code = 382) CO2 (BEAKER) (test 24 meq/L 20-29 code = 355) BLOOD UREA 10 mg/dL 10-26 NITROGEN (BEAKER) (test code = 354) CREATININE 0.60 mg/dL 0.50-1.20 (BEAKER) (test code = 358) GLUCOSE RANDOM 155 mg/dL 70-110 H (BEAKER) (test code = 652) CALCIUM (BEAKER) 8.4 mg/dL 8.5-10.5 L (test code = 697) AST (SGOT) 11 U/L 5-40 (BEAKER) (test code = 353) ALT (SGPT) 17 U/L 5-50 (BEAKER) (test code = 347) EGFR (BEAKER) 108 Interpretatio n of eGFR (test code = 1092) mL/min/1.[address] age Description sq m Result G1 Sherron l or high >=90 G2 Mildly decreased 60-89 G3a Mildl y to moderately 45-5 9 G3b Moderately to s everely 30-44 G4 Severl y decreased 15-29 G5 Kidney failure <15Reported eGF R is based on the CKD-EPI 2021 equation that d oes not use a race coefficientEsti mated GFR is not as accur ate as Creatinine Frieda edward in predicting glom erular filtration rate . Estimated GFR is not appl icable for dialysis patien ts Can Closing Machine Operator ID - JUSTINOperator ID - JUSTINOperator ID - JUSTINOperator ID - JUSTINOperator ID - JUSTINOperator ID - JUSTINOperator ID - JUSTINOperator ID - JUSTINOperator ID - JUSTINOperator ID - JUSTINOperator ID - [id number] ID - PCQO04Eiifrwpa ID - [id number] ID - BZGL19Apwirjai ID - LKXA51Uytqmpyv ID - ZGXC38Mrifqktw ID - RCWC92Cucqlunf ID - OESL72Smlngpab ID - [id number] W/PLT COUNT & AUTO [id number] 05:35:05 Test Item Value Reference Range Interpretation Comments WHITE BLOOD CELL COUNT (BEAKER) 9.5 K/ L 4.0-10.0 (test code = 775) RED BLOOD CELL COUNT (BEAKER) 4.20 M/ L 4.20-5.80 (test code = 761) HEMOGLOBIN (BEAKER) (test code = 12.1 GM/DL 13.0-16.8 L 410) HEMATOCRIT (BEAKER) (test code = 37.0 % 36.0-50.0 411) MEAN CORPUSCULAR VOLUME (BEAKER) 88.1 fL 82.0-99.0 (test code = 753) MEAN CORPUSCULAR HEMOGLOBIN 28.8 pg 27.0-33.0 (BEAKER) (test code = 751) MEAN CORPUSCULAR HEMOGLOBIN CONC 32.7 GM/DL 32.0-36.0 (BEAKER) (test code = 752) RED CELL DISTRIBUTION WIDTH 15.5 % 12.0-15.0 H (BEAKER) (test code = 412) PLATELET COUNT (BEAKER) (test 396 K/CU MM 150-430 code = 756) MEAN PLATELET VOLUME (BEAKER) 9.8 fL 6.0-11.5 (test code = 754) NUCLEATED RED BLOOD CELLS 0 /100 WBC 0-0 (BEAKER) (test code = 413) NEUTROPHILS RELATIVE PERCENT 54 % (BEAKER) (test code = 429) LYMPHOCYTES RELATIVE PERCENT 29 % (BEAKER) (test code = 430) MONOCYTES RELATIVE PERCENT 11 % (BEAKER) (test code = 431) EOSINOPHILS RELATIVE PERCENT 5 % (BEAKER) (test code = 432) BASOPHILS RELATIVE PERCENT 1 % (BEAKER) (test code = 437) NEUTROPHILS ABSOLUTE COUNT 5.08 K/ L 1.80-8.00 (BEAKER) (test code = 670) LYMPHOCYTES ABSOLUTE COUNT 2.72 K/ L 1.48-4.50 (BEAKER) (test code = 414) MONOCYTES ABSOLUTE COUNT (BEAKER) 1.03 K/ L 0.00-1.30 (test code = 415) EOSINOPHILS ABSOLUTE COUNT 0.50 K/ L 0.00-0.50 (BEAKER) (test code = 416) BASOPHILS ABSOLUTE COUNT (BEAKER) 0.09 K/ L 0.00-0.20 (test code = 417) IMMATURE GRANULOCYTES-RELATIVE 1 % 0-0 H PERCENT (BEAKER) (test code = 2801) POCT-GLUCOSE [id number] 19:53:52 Test Item Value Reference Range Interpretation Comments POC-GLUCOSE METER 229 mg/dL 70-110 H : TESTED A T [facility] [address] (BEAKER) (test code [address], = 1538) [place] [id number]: Can Closing Machine Operator/Techni chary ID = [id number] for Юлия Connell POCT-GLUCOSE [id number] 15:41:39 Test Item Value Reference Range Interpretation Comments POC-GLUCOSE METER 257 mg/dL 70-110 H : TESTED A T [facility] [address] (BEAKER) (test code [address], = 1538) [place] [id number]: Can Closing Machine Operator/Techni chary ID = [id number] for Tammy Davies POCT-GLUCOSE [id number] 13:06:16 Test Item Value Reference Range Interpretation Comments POC-GLUCOSE METER 178 mg/dL 70-110 H : TESTED A T [facility] [address] (BEAKER) (test code [address], = 1538) [place] [id number]: Can Closing Machine Operator/Techni chary ID = [id number] for Eugenio Resendiz RAD, CHEST, 1 VIEW, NON [id number] 12:43:00Reason for exam:->PICC line placement verificationShould this be performed at the bedside?->Yes [facility] : 1960 Sex: MFINAL REPORT EXAM: Chest one view CLINICAL HISTORY: PICC insertion FINDINGS: A right armPICC is noted with its tip overlying the cavoatrial junction. The cardiac size is mildly prominent. There is no evidence of pleural effusion or pneumothorax. The regional osseous structures are unremarkable. Signed: Lino Hill MDReport Verified Date/Time: 12/14/2021 12:43:11 Reading Location: [address] Transitional Reading Room POCT-GLUCOSE [id number] 08:32:01 Test Item Value Reference Range Interpretation Comments POC-GLUCOSE METER 165 mg/dL 70-110 H : TESTED A T [facility] [address] (BEAKER) (test code [facility] [address], = 1538) [facility] 77 478: Can Closing Machine Operator/Techni chary ID = [id number] for Katie Kate COMPREHENSIVE METABOLIC [id number] 06:20:40 Test Item Value Reference Range Interpretation Comments TOTAL PROTEIN 7.7 gm/dL 6.0-8.5 (BEAKER) (test code = 770) ALBUMIN (BEAKER) 3.5 g/dL 3.5-5.0 (test code = 1145) ALKALINE 86 U/L 30-115 PHOSPHATASE (BEAKER) (test code = 346) BILIRUBIN TOTAL < mg/dL 0.1-1.2 (BEAKER) (test code = 377) SODIUM (BEAKER) 137 meq/L 135-148 (test code = 381) POTASSIUM (BEAKER) 3.9 meq/L 3.6-5.5 (test code = 379) CHLORIDE (BEAKER) 103 meq/L 98-106 (test code = 382) CO2 (BEAKER) (test 25 meq/L 20-29 code = 355) BLOOD UREA 7 mg/dL 10-26 L NITROGEN (BEAKER) (test code = 354) CREATININE 0.62 mg/dL 0.50-1.20 (BEAKER) (test code = 358) GLUCOSE RANDOM 151 mg/dL 70-110 H (BEAKER) (test code = 652) CALCIUM (BEAKER) 8.8 mg/dL 8.5-10.5 (test code = 697) AST (SGOT) 13 U/L 5-40 (BEAKER) (test code = 353) ALT (SGPT) 16 U/L 5-50 (BEAKER) (test code = 347) EGFR (BEAKER) 107 Interpretatio n of eGFR (test code = 1092) mL/min/1.[address] age Description sq m Result G1 Sherron l or high >=90 G2 Mildly decreased 60-89 G3a Mildl y to moderately 45-5 9 G3b Moderately to s everely 30-44 G4 Severl y decreased 15-29 G5 Kidney failure <15Reported eGF R is based on the CKD-EPI 2020 equation that d oes not use a race coefficientEsti mated GFR is not as accur ate as Creatinine Frieda edward in predicting glom erular filtration rate . Estimated GFR is not appl icable for dialysis patien ts Can Closing Machine Operator ID - [id number] ID - [id number] ID - QOKAKZDIB862Ajiqrjeq ID - [id number] ID - RULHIDLMH082Mguzaocr ID - MEECAKQEF423Dntosxjh ID - PTJVMGBKK281Axyhokrm ID - CYRMUQBIG064Isbxnmds ID - VILDLYLFP472Ljkcavbs ID - AEIUGLNLU147Qrjifydm ID - CJGOMMJVJ758Ivlwmulp ID - FYNDRXPKJ150Nmktzaci ID - APZHAKUWV810Hqjpbeni ID - CLQIFSKKX708Jlytdmvt ID - ASRNCPXNM266Yelppqnm ID -ZYYHPKXGX117Ajsnjcwl ID - SICLMZBYB817Lpvkutkc ID - [id number] ID - [id number] W/PLT COUNT & AUTO DIFFERENTIAL 2021-12-14 05:55:47 Test Item Value Reference Range Interpretation Comments WHITE BLOOD CELL COUNT (BEAKER) 8.8 K/ L 4.0-10.0 (test code = 775) RED BLOOD CELL COUNT (BEAKER) 4.42 M/ L 4.20-5.80 (test code = 761) HEMOGLOBIN (BEAKER) (test code = 12.9 GM/DL 13.0-16.8 L 410) HEMATOCRIT (BEAKER) (test code = 39.0 % 36.0-50.0 411) MEAN CORPUSCULAR VOLUME (BEAKER) 88.2 fL 82.0-99.0 (test code = 753) MEAN CORPUSCULAR HEMOGLOBIN 29.2 pg 27.0-33.0 (BEAKER) (test code = 751) MEAN CORPUSCULAR HEMOGLOBIN CONC 33.1 GM/DL 32.0-36.0 (BEAKER) (test code = 752) RED CELL DISTRIBUTION WIDTH 15.4 % 12.0-15.0 H (BEAKER) (test code = 412) PLATELET COUNT (BEAKER) (test 419 K/CU MM 150-430 code = 756) MEAN PLATELET VOLUME (BEAKER) 9.5 fL 6.0-11.5 (test code = 754) NUCLEATED RED BLOOD CELLS 0 /100 WBC 0-0 (BEAKER) (test code = 413) NEUTROPHILS RELATIVE PERCENT 52 % (BEAKER) (test code = 429) LYMPHOCYTES RELATIVE PERCENT 31 % (BEAKER) (test code = 430) MONOCYTES RELATIVE PERCENT 11 % (BEAKER) (test code = 431) EOSINOPHILS RELATIVE PERCENT 5 % (BEAKER) (test code = 432) BASOPHILS RELATIVE PERCENT 1 % (BEAKER) (test code = 437) NEUTROPHILS ABSOLUTE COUNT 4.56 K/ L 1.80-8.00 (BEAKER) (test code = 670) LYMPHOCYTES ABSOLUTE COUNT 2.73 K/ L 1.48-4.50 (BEAKER) (test code = 414) MONOCYTES ABSOLUTE COUNT (BEAKER) 0.96 K/ L 0.00-1.30 (test code = 415) EOSINOPHILS ABSOLUTE COUNT 0.48 K/ L 0.00-0.50 (BEAKER) (test code = 416) BASOPHILS ABSOLUTE COUNT (BEAKER) 0.07 K/ L 0.00-0.20 (test code = 417) IMMATURE GRANULOCYTES-RELATIVE 1 % 0-0 H PERCENT (BEAKER) (test code = 2801) POCT-GLUCOSE [id number] 21:22:08 Test Item Value Reference Range Interpretation Comments POC-GLUCOSE METER 217 mg/dL 70-110 H : TESTED A T [facility] [address] (BEAKER) (test code [address], = 1538) [place] [address]: Can Closing Machine Operator/Techni chary ID = [id number] for Morgan h Jenny POCT-GLUCOSE [id number] 17:23:37 Test Item Value Reference Range Interpretation Comments POC-GLUCOSE METER 229 mg/dL 70-110 H : TESTED A T [address] [address] (BEAKER) (test code [address], = 1538) [place] [id number]: Can Closing Machine Operator/Techni chary ID = [id number] for Eneida Oropeza POCT-GLUCOSE [id number] 09:34:24 Test Item Value Reference Range Interpretation Comments POC-GLUCOSE METER 163 mg/dL 70-110 H : TESTED A T [address] [address] (BEAKER) (test code [address], = 1538) [facility] [place] [address]: Can Closing Machine Operator/Techni chary ID = [id number] for Eneida Oropeza COMPREHENSIVE METABOLIC [id number] 06:26:16 Test Item Value Reference Range Interpretation Comments TOTAL PROTEIN 7.8 gm/dL 6.0-8.5 (BEAKER) (test code = 770) ALBUMIN (BEAKER) 3.5 g/dL 3.5-5.0 (test code = 1145) ALKALINE 87 U/L 30-115 PHOSPHATASE (BEAKER) (test code = 346) BILIRUBIN TOTAL 0.2 mg/dL 0.1-1.2 (BEAKER) (test code = 377) SODIUM (BEAKER) 134 meq/L 135-148 L (test code = 381) POTASSIUM (BEAKER) 4.2 meq/L 3.6-5.5 (test code = 379) CHLORIDE (BEAKER) 102 meq/L 98-106 (test code = 382) CO2 (BEAKER) (test 21 meq/L 20-29 code = 355) BLOOD UREA 8 mg/dL 10-26 L NITROGEN (BEAKER) (test code = 354) CREATININE 0.65 mg/dL 0.50-1.20 (BEAKER) (test code = 358) GLUCOSE RANDOM 163 mg/dL 70-110 H (BEAKER) (test code = 652) CALCIUM (BEAKER) 8.6 mg/dL 8.5-10.5 (test code = 697) AST (SGOT) 13 U/L 5-40 (BEAKER) (test code = 353) ALT (SGPT) 14 U/L 5-50 (BEAKER) (test code = 347) EGFR (BEAKER) 106 Interpretatio n of eGFR (test code = 1092) mL/min/1.73 values S tage Description sq m Result G1 Sherron l or high >=90 G2 Mildly decreased 60-89 G3a Mildl y to moderately 45-5 9 G3b Moderately to s everely 30-44 G4 Severl y decreased 15-29 G5 Kidney failure <15Reported eGF R is based on the CKD-EPI 202 equation that d oes not use a race coefficientEsti mated GFR is not as accur ate as Creatinine Frieda wagner in predicting glom erular filtration rate . Estimated GFR is not appl icable for dialysis patien ts Can Closing Machine Operator ID - [id number] ID - [id number] ID - igwpyv057Mmjdnxwg ID - [id number] - eybkxl029Njksjnlw ID - pdgcbp880Nyrhsdxv ID - mlxhut924Rhmirnss ID - suswoi573Cnelbfbn ID - ddljpt395Obpokeht ID - kgtwkl150Hwfhfkrh ID - biijdj221Iisrylnm ID - xnwwkj371Bqklvmtk ID - ruggqo995Cdqrbxqq ID - hehlbl495Nifxuzti ID - gfjleq400Ieginuwc ID - xtuphh251Uuhufaru ID - paebks625Lcwrssjd ID - wklowa246Zgpikjsr ID - [id number] CBC W/PLT COUNT & AUTO [id number] 06:02:44 Test Item Value Reference Range Interpretation Comments WHITE BLOOD CELL COUNT (BEAKER) 11.0 K/ L 4.0-10.0 H (test code = 775) RED BLOOD CELL COUNT (BEAKER) 4.23 M/ L 4.20-5.80 (test code = 761) HEMOGLOBIN (BEAKER) (test code = 12.3 GM/DL 13.0-16.8 L 410) HEMATOCRIT (BEAKER) (test code = 36.9 % 36.0-50.0 411) MEAN CORPUSCULAR VOLUME (BEAKER) 87.2 fL 82.0-99.0 (test code = 753) MEAN CORPUSCULAR HEMOGLOBIN 29.1 pg 27.0-33.0 (BEAKER) (test code = 751) MEAN CORPUSCULAR HEMOGLOBIN CONC 33.3 GM/DL 32.0-36.0 (BEAKER) (test code = 752) RED CELL DISTRIBUTION WIDTH 15.9 % 12.0-15.0 H (BEAKER) (test code = 412) PLATELET COUNT (BEAKER) (test 373 K/CU MM 150-430 code = 756) MEAN PLATELET VOLUME (BEAKER) 9.7 fL 6.0-11.5 (test code = 754) NUCLEATED RED BLOOD CELLS 0 /100 WBC 0-0 (BEAKER) (test code = 413) NEUTROPHILS RELATIVE PERCENT 68 % (BEAKER) (test code = 429) LYMPHOCYTES RELATIVE PERCENT 18 % (BEAKER) (test code = 430) MONOCYTES RELATIVE PERCENT 10 % (BEAKER) (test code = 431) EOSINOPHILS RELATIVE PERCENT 3 % (BEAKER) (test code = 432) BASOPHILS RELATIVE PERCENT 1 % (BEAKER) (test code = 437) NEUTROPHILS ABSOLUTE COUNT 7.53 K/ L 1.80-8.00 (BEAKER) (test code = 670) LYMPHOCYTES ABSOLUTE COUNT 1.96 K/ L 1.48-4.50 (BEAKER) (test code = 414) MONOCYTES ABSOLUTE COUNT (BEAKER) 1.05 K/ L 0.00-1.30 (test code = 415) EOSINOPHILS ABSOLUTE COUNT 0.36 K/ L 0.00-0.50 (BEAKER) (test code = 416) BASOPHILS ABSOLUTE COUNT (BEAKER) 0.09 K/ L 0.00-0.20 (test code = 417) IMMATURE GRANULOCYTES-RELATIVE 1 % 0-0 H PERCENT (BEAKER) (test code = 2801) POCT-GLUCOSE [id number] 22:01:54 Test Item Value Reference Range Interpretation Comments POC-GLUCOSE METER 185 mg/dL 70-110 H : TESTED A T [facility] [address] (BEAKER) (test code [address], = 1538) [facility] 77 [address]: Can Closing Machine Operator/Techni chary ID = [id number] for Юлия Connell PERIPHERAL BLOOD SMEAR - PATHOLOGIST [id number] 15:45:38 Test Item Value Reference Range Interpretation Comments RBC MORPHOLOGY Hypochromasia (BEAKER) (test code = 9886) WBC MORPHOLOGY See comment (BEAKER) (test code = 2847) PLT MORPHOLOGY Unremarkable (BEAKER) (test code = 2848) PERIPHERAL SMR REVIEW Leukocytosis with (BEAKER) (test code = absolute neutrophilia. 2640) No blasts [id number] Nkechi Holloway M.D. (BEAKER) (test code = (electronic signature) 5635) POCT-GLUCOSE [id number] 09:45:06 Test Item Value Reference Range Interpretation Comments POC-GLUCOSE METER 135 mg/dL 70-110 H : TESTED A T [facility] [address] (BEAKER) (test code [address], = 1538) [facility] [address]: Can Closing Machine Operator/Techni chary ID = [id number] for Onel Connell [id number] 08:12:18 Test Item Value Reference Range Interpretation Comments MAGNESIUM (BEAKER) (test code = 1.5 mg/dL 1.5-3.0 627) Can Closing Machine Operator ID - [id number] W/ REFLEX URINE [id number] 06:35:47 Test Item Value Reference Range Interpretation Comments COLOR (BEAKER) (test code = 470) Yellow CLARITY (BEAKER) (test code = Clear 469) SPECIFIC GRAVITY UA (BEAKER) <= 1.001-1.035 (test code = 468) PH UA (BEAKER) (test code = 467) 6.5 5.0-8.0 PROTEIN UA (BEAKER) (test code = Negative Negative 464) GLUCOSE UA (BEAKER) (test code = Negative Negative 365) KETONES UA (BEAKER) (test code = Negative Negative 371) BILIRUBIN UA (BEAKER) (test code Negative Negative = 462) BLOOD UA (BEAKER) (test code = Small Negative A 461) NITRITE UA (BEAKER) (test code = Positive Negative A 465) LEUKOCYTE ESTERASE UA (BEAKER) Large Negative A (test code = 466) UROBILINOGEN UA (BEAKER) (test 0.2 mg/dL 0.2-1.0 code = 463) BACTERIA (BEAKER) (test code = Few 517) RBC UA-MANUAL (BEAKER) (test code 5-10 /HPF = 1659) WBC UA-MANUAL (BEAKER) (test code 50-100 /HPF = 1661) SQUAMOUS EPITHELIAL MANUAL 5-10 /HPF (BEAKER) (test code = 1663) SOURCE(BEAKER) (test code = 6095) HEMOGLOBIN [id number] 06:27:32 Test Item Value Reference Range Interpretation Comments HEMOGLOBIN A1C (BEAKER) (test code = 6.1 % 4.3-6.1 368) Can Closing Machine Operator ID - [id number] METABOLIC [id number] 05:31:06 Test Item Value Reference Range Interpretation Comments TOTAL PROTEIN 7.2 gm/dL 6.0-8.5 (BEAKER) (test code = 770) ALBUMIN (BEAKER) 3.3 g/dL 3.5-5.0 L (test code = 1145) ALKALINE 79 U/L 30-115 PHOSPHATASE (BEAKER) (test code = 346) BILIRUBIN TOTAL 0.3 mg/dL 0.1-1.2 (BEAKER) (test code = 377) SODIUM (BEAKER) 131 meq/L 135-148 L (test code = 381) POTASSIUM (BEAKER) 3.3 meq/L 3.6-5.5 L (test code = 379) CHLORIDE (BEAKER) 100 meq/L 98-106 (test code = 382) CO2 (BEAKER) (test 22 meq/L 20-29 code = 355) BLOOD UREA 7 mg/dL 10-26 L NITROGEN (BEAKER) (test code = 354) CREATININE 0.64 mg/dL 0.50-1.20 (BEAKER) (test code = 358) GLUCOSE RANDOM 184 mg/dL 70-110 H (BEAKER) (test code = 652) CALCIUM (BEAKER) 8.3 mg/dL 8.5-10.5 L (test code = 697) AST (SGOT) 10 U/L 5-40 (BEAKER) (test code = 353) ALT (SGPT) 9 U/L 5-50 (BEAKER) (test code = 347) EGFR (BEAKER) 106 Interpretatio n of eGFR (test code = 1092) mL/min/1.[address] age Description sq m Result G1 Sherron l or high >=90 G2 Mildly decreased 60-89 G3a Mildl y to moderately 45-5 9 G3b Moderately to s everely 30-44 G4 Severl y decreased 15-29 G5 Kidney failure <15Reported eGF R is based on the CKD-EPI 202 equation that d oes not use a race coefficientEsti mated GFR is not as accur ate as Creatinine Frieda wagner in predicting glom erular filtration rate . Estimated GFR is not appl icable for dialysis patien ts Can Closing Machine Operator ID - [id number] ID - [id number] ID - [id number] ID - [id number] - [id number] ID - [id number] ID - [id number] ID - [id number] ID - [id number] ID - [id number] ID - [id number] ID - [id number] ID - [id number] ID - [id number] ID - [id number] ID - [id number]- TYPE NATRIURETIC FACTOR (BNP)2021-12-12 05:27:20 Test Item Value Reference Range Interpretation Comments B-TYPE NATRIURETIC PEPTIDE (BEAKER) 130 pg/mL 0-100 H (test code = 700) Can Closing Machine Operator ID - [id number] 05:26:16 Test Item Value Reference Range Interpretation Comments TRIGLYCERIDES (BEAKER) (test code = 118 mg/dL 540) CHOLESTEROL (BEAKER) (test code = 143 mg/dL 631) HDL CHOLESTEROL (BEAKER) (test code 40 mg/dL = 976) LDL CHOLESTEROL CALCULATED (BEAKER) 79 mg/dL (test code = 633) Triglyceride Reference Range: Low Risk <150 Borderline 150-199 High Risk 200- 499 Very High Risk >=500Cholesterol Reference Range: Low Risk <200 Borderline 200-239 High Risk >240HDL Cholesterol Reference Range: Low Risk >=60 High Risk <40LDL Cholesterol Reference Range: Optimal <100 Near Optimal 100-129 Borderline 130-159 High 160-189 Very High >=190 Can Closing Machine Operator ID - [id number] ID - [id number] ID - [id number] ID - [id number] ID - [id number] ID - [id number] W/PLT COUNT & AUTO [id number] 05:01:54 Test Item Value Reference Range Interpretation Comments WHITE BLOOD CELL COUNT (BEAKER) 23.6 K/ L 4.0-10.0 H (test code = 775) RED BLOOD CELL COUNT (BEAKER) 3.79 M/ L 4.20-5.80 L (test code = 761) HEMOGLOBIN (BEAKER) (test code = 11.0 GM/DL 13.0-16.8 L 410) HEMATOCRIT (BEAKER) (test code = 33.3 % 36.0-50.0 L 411) MEAN CORPUSCULAR VOLUME (BEAKER) 87.9 fL 82.0-99.0 (test code = 753) MEAN CORPUSCULAR HEMOGLOBIN 29.0 pg 27.0-33.0 (BEAKER) (test code = 751) MEAN CORPUSCULAR HEMOGLOBIN CONC 33.0 GM/DL 32.0-36.0 (BEAKER) (test code = 752) RED CELL DISTRIBUTION WIDTH 15.9 % 12.0-15.0 H (BEAKER) (test code = 412) PLATELET COUNT (BEAKER) (test 332 K/CU MM 150-430 code = 756) MEAN PLATELET VOLUME (BEAKER) 9.7 fL 6.0-11.5 (test code = 754) NUCLEATED RED BLOOD CELLS 0 /100 WBC 0-0 (BEAKER) (test code = 413) NEUTROPHILS RELATIVE PERCENT 79 % (BEAKER) (test code = 429) LYMPHOCYTES RELATIVE PERCENT 13 % (BEAKER) (test code = 430) MONOCYTES RELATIVE PERCENT 7 % (BEAKER) (test code = 431) EOSINOPHILS RELATIVE PERCENT 1 % (BEAKER) (test code = 432) BASOPHILS RELATIVE PERCENT 0 % (BEAKER) (test code = 437) NEUTROPHILS ABSOLUTE COUNT 18.61 K/ L 1.80-8.00 H (BEAKER) (test code = 670) LYMPHOCYTES ABSOLUTE COUNT 2.98 K/ L 1.48-4.50 (BEAKER) (test code = 414) MONOCYTES ABSOLUTE COUNT (BEAKER) 1.62 K/ L 0.00-1.30 H (test code = 415) EOSINOPHILS ABSOLUTE COUNT 0.15 K/ L 0.00-0.50 (BEAKER) (test code = 416) BASOPHILS ABSOLUTE COUNT (BEAKER) 0.07 K/ L 0.00-0.20 (test code = 417) IMMATURE GRANULOCYTES-RELATIVE 1 % 0-0 H PERCENT (BEAKER) (test code = 2801) LACTIC ACID, [id number] 05:00:25 Test Item Value Reference Range Interpretation Comments LACTATE BLOOD 1.40 mmol/L See_Comment [Automated me ssage] VENOUS (2) (BEAKER) The syst em which (test code = 7222) generated this result transmitted ref erence range: 0.50-<2. 00. The reference range was not used to interpr et this result as normal/abnormal .
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
--- NOTE | 2023-01-05 23:46 | ER ---
Nurse's Notes [facility] Name: He Do Age: 62 yrs Sex: Male : 1960 Arrival Date: 01/05/2023 Time: 21:44 Bed 23 Private MD: Diagnosis: Odom Catheter Issue Presentation: 01/05 21:47 Chief complaint: EMS states: pt Odom catheter tubing was severed and now cannot remove as6 odom. Coronavirus screen: At this time, the client does not indicate any symptoms associated with coronavirus-19. Ebola Screen: No symptoms or risks identified at this time. Initial Sepsis Screen: Does the patient meet any 2 criteria? No. Patient's initial sepsis screen is negative. Does the patient have a suspected source of infection? No. Patient's initial sepsis screen is negative. Risk Assessment: Do you want to hurt yourself or someone else? Patient reports no desire to harm self or others. Onset of symptoms was January 05, 2023. 21:47 Method Of Arrival: EMS: [facility] as6 21:47 Acuity: AC 4 as6 Triage Assessment: 22:05 General: Appears in no apparent distress. comfortable, Behavior is calm, cooperative. as6 Pain: Denies pain. EENT: No deficits noted. No signs and/or symptoms were reported regarding the EENT system. Neuro: No deficits noted. Cardiovascular: Capillary refill < 3 seconds Patient's skin is warm and dry. Respiratory: Respiratory effort is even, unlabored. GI: No deficits noted. No signs and/or symptoms were reported involving the gastrointestinal system. : suprapubic catheter in place. Historical: - Allergies: 21:49 No Known Allergies; as6 - PMHx: 21:49 BPH with suprapubic catheter; Cerebrovascular accident; chronic back pain; Chronic as6 pain; Hypercholesterolemia; Hypertensive disorder; Hypothyroidism; Paraplegia; Seizure; - Immunization history:: Adult Immunizations up to date. - Social history:: Smoking status: Patient denies any tobacco usage or history of. Screenin:05 [facility] ED Fall Risk Assessment (Adult) Score/Fall Risk Level 0 - 2 = Low Risk. Abuse as6 screen: Denies threats or abuse. Denies injuries from another. Nutritional screening: No deficits noted. Tuberculosis screening: No symptoms or risk factors identified. Assessment: 23:44 General: Gave report to Lilli from [facility], said she would call [place] [id number] [facility] and call back with ETA. 23:50 General: ETA 30-45 minutes . as6 Vital Signs: 21:47 BP 136 / 50; Pulse 69; Resp 18 S; Pulse Ox 98% on R/A; Pain 0/10; as6 01/06 00:22 BP 124 / 84; Pulse 87; Resp 18 S; Pulse Ox 99% on R/A; as6 01/05 21:47 Pain Scale: Adult as6 ED Course: 01/05 21:46 Patient arrived in ED. rv1 21:48 Samuel Cesar MD is Attending Physician. ec2 21:49 Triage completed. as6 21:50 Arm band placed on. as6 22:05 Ruben Klein RN is Primary Nurse. as6 22:06 Bed in low position. Call light in reach. Side rails up X2. as6 23:30 Odom cath inserted, using sterile technique, 18 Fr., by ak, balloon inflated, to as6 gravity drainage, returned clear yellow urine. Patient tolerated well. suprapubic. 01/06 00:21 No provider procedures requiring assistance completed. Patient did not have IV access as6 during this emergency room visit. 00:22 Provided Education on: follow up. as6 Administered Medications: No medications were administered Medication: 01/05 22:06 VIS not applicable for this client. as6 Outcome: 23:45 Discharge ordered by . ec2 01/06 00:21 Discharged to [facility]. Report called to Lilli as6 Condition: stable Discharge instructions given to [facility], Instructed on discharge instructions, follow up and referral plans. Demonstrated understanding of instructions, follow-up care, 00:22 Patient left the ED. as6 Signatures: Ruben Klein RN RN as6 Nicole Hamilton rv1 Samuel Cesar MD MD ec2
[2023-01-06 03:59] VITALS: BP 124/84; O2SAT 99
== END 2023-01-06 00:22 | disposition home or self-care (01) ==
LOC: ER 21:44
DX: T83.098A Other mechanical complication of other urinary catheter, initial encounter (principal)
CPT/HCPCS: 51702; 99284

== ENCOUNTER 2023-01-09 18:12 | Inpatient (IN) | payer OTHER ==
--- OUTSIDE RECORDS SUMMARY | 2023-01-09 18:18 | XMS REPORT | Continuity of Care Document ---
:[address] [facility] t Address [address] [place] [address] [place] [id number] Care Team Providers Name Role Phone No, Pcp [facility] [place] Primary Care Physician Unavailable GARY_Darci Attending Clinician Unavailable RANJAN SANDOVAL Attending Clinician Unavailable REYES GAR Attending Clinician Unavailable Deana Admitting Clinician Unavailable RANJAN SANDOVAL Admitting Clinician Unavailable Payers Payer Name Policy Type Policy Number Effective Date Expiration Date S kashif MEDICARE B-[place]: [id number] 1986 [employer] 00:00:00 [facility] [id number] 2021 [facility] PLAN-[place] - 00:00:00 STAR+PLUS (MEDICAID REPLACEMENT - HMO) MEDICARE A B [id number] 1986 00:00:00 [facility] [id number] 2021 PLAN 00:00:00 Problems Condition Condition Condition [...] NO KNOWN Allergy Active [facility] Social History Social Habit Start Date Stop Date Quantity Comments Source History SDOH [facility] Alcohol Std Drinks Medica l Center History SDOH [facility] Alcohol Binge Medical Moose ter History SDOH [facility] Transport [facility]-Med Medical [facility] Tobacco use and 2021-12-12 2021-12-12 [address] [facility] exposure 00:[facility]00 00:00:00 non-user Medical Center History [facility] 2021-12-12 2021-12-[address] [facility] Housing Unable to 00:00:00 00:00:00 Medical Center Pay History [facility] 2021-12-12 2021-12-[address] [facility] Housing Places 00:00:00 00:00:00 Medical Ce nter Lived History [facility] 2021-12-12 2021-12-[address] [facility] Homeless 00:00:00 00:00:00 Medical Center Last Year Alcohol intake 2021-12-12 2021-12-[address] [facility] 00:00:00 00:00:00 non-drinker Medical Cente r (finding) History [facility] 2021-12-12 2021-12-[address] [facility] Alcohol Frequency 00:00:00 00:00:00 Medical Center History [facility] 2021-12-12 2021-12-[address] [facility] Transport [...] Medical tablet 33 Center baclofen Yes 10mg Q.[id number] Take [address] (LIORESAL) 9-26 [id number] by mouth 3 [facility] 10 MG 16:43: [...] [address] (LASIX) 20 9-26 by mouth 2 [facility] MG tablet 16:43: (two) Medical 33 times Center daily. levETIRAcet 2021-0 Yes 500mg Q.5D Take [address] am (KEPPRA) 9-26 mg by [facility] 500 MG 16:43: mouth 2 Medical tablet 33 (two) Center times daily. levothyroxi 2021-0 Yes 75ug Take [address] [...] tablet (eight) hours as needed for Pain. atorvastati 2021-0 Yes hyperlipide 20mg QD Take [address] n (LIPITOR) - jaleel by mouth Luke s 20 MG 16:43: daily. Medical tablet 33 Center baclofen Yes 10mg Q.[id number] Take [address] (LIORESAL) 9- [id number] by mouth 3 [facility] 10 MG 16:43: 3D (three) Medical tablet 33 times Center daily. cloNIDine Yes hypertensio .1mg Take 0.[address] HCL 9-26 n mg by Lukes (CATAPRES) 16:43: mouth Medica l 0.1 MG 33 every 8 Center tablet (eight) hours as needed (SBP >170 or DBP >100). FLUoxetine Yes 40mg QD Take [address] (PROzac) 40 - by mouth Luke s MG capsule 16:43: daily. Medic al 33 Center furosemide Yes 40mg Q.5D Take [address] (LASIX) 20 - by mouth 2 [facility] MG tablet 16:43: (two) Medical 33 times Center daily. levETIRAcet Yes 500mg Q.5D Take [address] am (KEPPRA) 9-26 mg by [facility] 500 MG 16:43: mouth 2 Medical tablet 33 (two) Center times daily. levothyroxi Yes 75ug Take [address] ne 9-26 mcg by Lukes (SYNTHROID, 16:43: mouth Medic al LEVOTHROID) 33 Every Center 75 MCG morning on tablet an empty stomach. loperamide Yes 2mg Take [address] (IMODIUM) 2 12-15 by mouth Luke s mg capsule 16:43: as needed Me dical 33 for Center Diarrhea. melatonin 3 Yes 5mg QD Take [address] mg tablet - by mouth [facility]ukes 16:43: nightly. Medical 33 Center metFORMIN Yes 1000mg Take 1,[address] (GLUCOPHAGE 9-26 mg by [facility]ukes ) 500 MG 16:43: mouth 2 Medica l tablet 33 (two) Center times daily with breakfast and dinner. metoprolol Yes hypertensio 25mg Q.5D Take 25 mg [...] 33 (two) Center capsule times daily. acetaminoph 0 Yes 500mg Take [address] en 9-26 mg by [facility] (TYLENOL) 16:43: mouth Medical 500 MG 33 every 8 Center tablet (eight) hours as needed for Pain. insulin 2021-0 Yes 15U Q.5D Inject [facility] detemir 9-26 0.15 mLs [facility]ukes U-100 00:00: (15 Units Medical (LEVEMIR) 00 total) Center 100 unit/mL subcutaneo (3 mL) InPn usly 2 injection (two) times daily. insulin 2021-0 Yes 15U Q.5D Inject [facility] [...] BP Diastolic 2022-07-29 00:00:00 73 mm[Hg] [facility] Height 2022-07-29 00:00:00 57 [in_i] [facility] BMI (Body Mass Index) 2022-07-29 00:00:00 57.4 kg/m2 [facility] Medical BP Systolic 2022-07-29 00:00:00 139 mm[Hg] [facility] Body Weight 2022-07-29 00:00:00 4245 [oz_av] [facility] BP Diastolic 2022-06-24 00:00:00 80 mm[Hg] [facility] Height 2022-06-24 00:00:00 57 [in_i] [facility] BMI (Body Mass Index) 2022-06-24 00:00:00 57.5 kg/m2 [facility] BP Systolic 2022-06-24 00:00:00 151 mm[Hg] [facility] Body Weight 2022-06-24 00:00:00 4248 [oz_av] [facility] BP Diastolic 2022-05-22 00:00:00 78 mm[Hg] [facility] Height 2022-05-22 00:00:00 57 [in_i] [facility] BMI (Body Mass Index) 2022-05-22 00:00:00 57.5 kg/m2 [facility] BP Systolic 2022-05-22 00:00:00 135 mm[Hg] [facility] Body Weight 2022-05-22 00:00:00 4248 [oz_av] [facility] BP Diastolic 2022-05-05 00:00:00 68 mm[Hg] [facility] Height 2022-05-05 00:00:00 57 [in_i] [facility] BMI (Body Mass Index) 2022-05-05 00:00:00 57.1 kg/m2 [facility] BP Systolic 2022-05-05 00:00:00 131 mm[Hg] [facility] Body Weight 2022-05-05 00:00:00 4224 [oz_av] [facility] BP Diastolic 2022-05-02 00:00:00 78 mm[Hg] [facility] Height 2022-05-02 00:00:00 57 [in_i] [facility] BMI (Body Mass Index) 2022-05-02 00:00:00 57.5 kg/m2 [facility] BP Systolic 2022-05-02 00:00:00 136 mm[Hg] [facility] Body Weight 2022-05-02 00:00:00 4248 [oz_av] [facility] BP Diastolic 2022-04-01 00:00:00 68 mm[Hg] [facility] Height 2022-04-01 00:00:00 57 [in_i] [facility] BMI (Body Mass Index) 2022-04-01 00:00:00 57.2 kg/m2 [facility] BP Systolic 2022-04-01 00:00:00 136 mm[Hg] [facility] Body Weight 2022-04-01 00:00:00 4226 [oz_av] [facility] BP Diastolic 2022-03-06 00:00:00 72 mm[Hg] [facility] Height 2022-03-06 00:00:00 57 [in_i] [facility] BMI (Body Mass Index) 2022-03-06 00:00:00 57 kg/m2 [facility] BP Systolic 2022-03-06 00:00:00 128 mm[Hg] [facility] Body Weight 2022-03-06 00:00:00 4216 [oz_av] [facility] BP Diastolic 2022-01-30 00:00:00 84 mm[Hg] [facility] Height 2022-01-30 00:00:00 57 [in_i] [facility] BMI (Body Mass Index) 2022-01-30 00:00:00 57.3 kg/m2 [facility] BP Systolic 2022-01-30 00:00:00 138 mm[Hg] [facility] Body Weight 2022-01-30 00:00:00 4240 [oz_av] [facility] BP Diastolic 2022-01-20 00:00:00 74 mm[Hg] [facility] Height 2022-01-20 00:00:00 57 [in_i] [...] edical Body Weight 2022-01-09 00:00:00 4182 [oz_av] [facility] BP Diastolic 2022-01-06 00:00:00 74 mm[Hg] [facility] Height 2022-01-06 00:00:00 57 [in_i] [facility] BMI (Body Mass Index) 2022-01-06 00:00:00 56.6 kg/m2 [facility] BP Systolic 2022-01-06 00:00:00 136 mm[Hg] [facility] Body Weight 2022-01-06 00:00:00 4182 [oz_av] [facility] BP Diastolic 2022-01-02 00:00:00 82 mm[Hg] [facility] Height 2022-01-02 00:00:00 57 [in_i] [facility] BMI (Body Mass Index) 2022-01-02 00:00:00 56.6 kg/m2 [facility] BP Systolic 2022-01-02 00:00:00 138 mm[Hg] [facility] Body Weight 2022-01-02 00:00:00 4182 [oz_av] [facility] BP Diastolic 2021-12-26 00:00:00 77 mm[Hg] [facility] Height 2021-12-26 00:00:00 57 [in_i] [facility] BMI (Body Mass Index) 2021-12-26 00:00:00 56.6 kg/m2 [facility] BP Systolic 2021-12-26 00:00:00 141 mm[Hg] [facility] Body Weight 2021-12-26 00:00:00 4182 [oz_av] [facility] BP Diastolic 2021-12-23 00:00:00 84 mm[Hg] [facility] Height 2021-12-23 00:00:00 57 [in_i] [facility] ed[facility] BMI (Body Mass Index) 2021-12-23 00:00:00 56.6 kg/m2 [facility] BP Systolic 2021-12-23 00:00:00 148 mm[Hg] [facility] Body Weight 2021-12-23 00:00:00 4182 [oz_av] [facility] BP Diastolic 2021-12-19 00:00:00 74 mm[Hg] [facility] Height 2021-12-19 00:00:00 57 [in_i] [facility] BMI (Body Mass Index) 2021-12-19 00:00:00 56.8 kg/m2 [facility] BP Systolic 2021-12-19 00:00:00 138 mm[Hg] [facility] Body Weight 2021-12-19 00:00:00 4198 [oz_av] [facility] WEIGHT 2021-12-13 05:43:00 72.122 kg HEIGHT 2021-12-12 02:10:00 170.2 cm WEIGHT 2021-12-13 05:43:00 72.122 kg HEIGHT 2021-12-12 02:10:00 170.2 cm Procedures This patient has no known procedures. Plan of Care Planned Activity Planned Date Details Comments Source Future Scheduled Test 2024-12-12 Lipid panel (procedure) [facility] 00:00:00 [code = 44396843] Medical Ce nter Future Scheduled Test 2024-12-12 Lipid panel (procedure) [facility] 00:00:00 [code = 70244729] Medical Ce nter Future Scheduled Test 2022-12-[address] [facility] 00:00:00 Counseling and Screening Med [facility] (12+) [code = Tobacco Cessation Counseling and Screening (12+)] Future Scheduled Test 2022-12-[address] [facility] 00:00:00 Counseling and Screening Med [facility] (12+) [code = Tobacco Cessation Counseling and Screening (12+)] Future Scheduled Test 2022-11-20 Influenza Vaccine (#1) [facility] 00:00:00 [code = Influenza Medical Ce nter Vaccine (#1)] Future Scheduled Test 2022-11-20 Influenza Vaccine (#1) [facility] 00:00:00 [code = Influenza Medical Ce nter Vaccine (#1)] Future Scheduled Test 2022-06-[address] [facility] 00:00:00 measurement (procedure) [facility] [code = 51217391] Future Scheduled Test 2022-06-[address] [facility] 00:00:00 measurement (procedure) [facility] [code = 15477831] Future Scheduled Test 2009 SHINGLES VACCINES ([address] [facility] 00:00:00 2) [code = SHINGLES Medical Center VACCINES (1 of 2)] Future Scheduled Test 2009 SHINGLES VACCINES ([address] [facility] 00:00:00 2) [code = SHINGLES Medical Center VACCINES (1 of 2)] Future Scheduled Test 1987-03-23 MEDICARE ANNUAL WELLNESS [facility] 00:00:00 (YEAR 2 or FIRST YEAR if [facility] no IPPE) [code = MEDICARE ANNUAL WELLNESS (YEAR 2 or FIRST YEAR if no IPPE)] Future Scheduled Test 1987-03-[address]NUAL WELLNESS [facility] 00:00:00 (YEAR 2 or FIRST YEAR if [facility] no IPPE) [code = MEDICARE ANNUAL WELLNESS (YEAR 2 or FIRST YEAR if no IPPE)] Future Scheduled Test 1978 DTAP/TDAP/TD VACCINES ([address] [facility] 00:00:00 - Tdap) [code = Medical Cent er DTAP/TDAP/TD VACCINES (1 - Tdap)] Future Scheduled Test 1978 DTAP/TDAP/TD VACCINES ([address] [facility] 00:00:00 - Tdap) [code = Medical Cent er DTAP/TDAP/TD VACCINES (1 - Tdap)] Future Scheduled Test 1977 HEPATITIS [address] SCREENING [facility] 00:00:00 [code = HEPATITIS C Medical Center SCREENING] Future Scheduled Test 1977 HEPATITIS C SCREENING [facility] 00:00:00 [code = HEPATITIS C Medical Center SCREENING] Future Scheduled Test [address] [facility] 00:00:00 virus screening Medical Cent er (procedure) [code = 967355369] Future Scheduled Test [address] [facility] 00:00:00 virus screening Medical Cent er (procedure) [code = 623088695] Future Scheduled Test 1969 DIABETIC EYE EXAM [code [facility] 00:00:00 = DIABETIC EYE EXAM] Medical Center Future Scheduled Test 1969 [facility] Medical Center (regime/therapy) [code = 933065207] Future Scheduled Test 1969 Urine screening for [facility] 00:00:00 protein (procedure) Medical Center [code = 320862619] Future Scheduled Test 1969 DIABETIC EYE EXAM [code [facility] 00:00:00 = DIABETIC EYE EXAM] Medical Center Future Scheduled Test 1969 [facility] examination Medical Center (regime/therapy) [code = 696310440] Future Scheduled Test 1969 Urine screening for [facility] 00:00:00 protein (procedure) Medical Center [code = 533736261] Future Scheduled Test 1965 Pneumococcal Vaccine: [facility] 00:00:00 0-64 Years (1 - PCV) Medical Center [code = Pneumococcal Vaccine: 0-64 Years (1 - PCV)] Future Scheduled Test 1965 Pneumococcal Vaccine: [facility] 00:00:00 0-64 Years (1 - PCV) Medical Center [code = Pneumococcal Vaccine: 0-64 Years (1 - PCV)] Future Scheduled Test 1959 COVID-19 VACCINE (#1) [facility] 00:00:00 [code = COVID-19 VACCINE Med ical Center (#1)] Future Scheduled Test 1959 COVID-19 VACCINE (#1) [facility] 00:00:00 [code = COVID-19 VACCINE Med ical Center (#1)] Future Scheduled Test 1959 Screening for malignant [facility] 00:00:00 neoplasm of colon Medical Ce nter (procedure) [code = 207835577] Future Scheduled Test 1959 Screening for malignant [facility] 00:00:00 neoplasm of colon Medical Ce nter (procedure) [code = 353720579] Future Scheduled Test 1959 Sigmoidoscopy [code = [facility] 00:00:00 Sigmoidoscopy] [facility] Future Scheduled Test 1959 CT Colonography (combo) [facility] 00:00:00 [code = CT Colonography Medi arun Center (combo)] Future Scheduled Test 1959 Screening for malignant [facility] 00:00:00 neoplasm of colon Medical Ce nter (procedure) [code = 629186249] Future Scheduled Test 1959 Screening for malignant [facility] 00:00:00 neoplasm of colon Medical Ce nter (procedure) [code = 191715351] Future Scheduled Test 1959 Screening for malignant [facility] 00:00:00 neoplasm of colon Medical Ce nter (procedure) [code = 823382455] Future Scheduled Test 1959 Screening for malignant [facility] 00:00:00 neoplasm of colon Medical Ce nter (procedure) [code = 691438401] Future Scheduled Test 1959 Sigmoidoscopy [code = [facility] 00:00:00 Sigmoidoscopy] [facility] Future Scheduled Test 1959 CT Colonography (combo) [facility] 00:00:00 [code = CT Colonography [facility] Center (combo)] Future Scheduled Test 1959 Screening for malignant [facility] 00:00:00 neoplasm of colon Medical Ce nter (procedure) [code = 052002258] Future Scheduled Test 1959 Screening for malignant [facility] 00:00:00 neoplasm of colon Medical Ce nter (procedure) [code = 500085307] Instructions [facility] Start End Encounter Admission Attending Care Care Encounter Source Date/Time Date/Time Type Type Clinicians Facility Department ID 2023-01-06 2023-01-06 Outpatient [facility]IV [id number] [facility] 00:00:00 00:00:00 d_Antonio [id number] Medica l 2023-01-05 2023-01-05 Outpatient [facility]IV [id number] [facility] 00:00:00 00:00:00 Mariam [id number] Medica l 2022-12-14 2022-12-14 Outpatient [facility] PRIV [id number] [facility] 00:00:00 00:00:00 Mariam [id number] Medica l 2022-12-14 2022-12-14 Outpatient [facility] PRIV [id number] [facility] 00:00:00 00:00:00 d_J [id number] Medica l 2022-12-14 2022-12-14 Outpatient [facility] PRIV [id number] [facility] 00:00:00 00:00:00 d_J [id number] Medica l 2022-12-04 2022-12-04 Outpatient [facility] PRIV [id number] [facility] 00:00:00 00:00:00 d_J [id number] Medica l 2022-12-04 2022-12-04 Outpatient [facility] PRIV [id number] [facility] 00:00:00 00:00:00 d_J [id number] Medica l 2022-12-04 2022-12-04 Outpatient [facility] PRIV [id number] [facility] 00:00:00 00:00:00 d_J [id number] Medica l 2022-11-27 2022-11-27 Outpatient [facility] PRIV [id number] [facility] 00:00:00 00:00:00 d_J [id number] Medica l 2022-11-27 2022-11-27 Outpatient [facility] PRIV [id number] [facility] 00:00:00 00:00:00 d_J [id number] Medica l 2022-11-20 2022-11-20 Outpatient [facility] PRIV 248 [id number] [facility] 00:00:00 00:00:00 d_J [id number] Medica l 2022-11-20 2022-11-20 Outpatient [facility] PRIV [id number] [facility] 00:00:00 00:00:00 d_J [id number] Medica l 2022-11-17 2022-11-17 Outpatient [facility] PRIV 248 [id number] [facility] 00:00:00 00:00:00 d_J [id number] Medica l 2022-11-04 2022-11-04 Outpatient [facility] PRIV [id number] [facility] 00:00:00 00:00:00 d_J [id number] Medica l 2022-11-02 2022-11-02 Outpatient [facility] PRIV [id number] [facility] 00:00:00 00:00:00 d_J [id number] Medica l 2022-10-27 2022-10-27 Outpatient [facility] PRIV [id number] [facility] 00:00:00 00:00:00 d_J [id number] Medica l 2022-10-15 2022-10-15 Outpatient [facility] PRIV [id number] [facility] 00:00:00 00:00:00 d_J [id number] Medica l 2022-10-12 2022-10-12 Outpatient [facility] PRIV [id number] [facility] 00:00:00 00:00:00 d_J [id number] Medica l 2022-10-05 2022-10-05 Outpatient [facility] PRIV [id number] [facility] 00:00:00 00:00:00 d_J [id number] Medica l 2022-10-05 2022-10-05 Outpatient [facility] PRIV [id number] [facility] 00:00:00 00:00:00 d_J [id number] Medica l 2022-09-28 2022-09-28 Outpatient [facility] PRIV [id number] [facility] 00:00:00 00:00:00 d_J [id number] Medica l 2022-09-10 2022-09-10 Outpatient [facility] PRIV 248 [id number] [facility] 00:00:00 00:00:00 d_J [id number] Medica l 2022-09-10 2022-09-10 Outpatient [facility] PRIV 248 [id number] [facility] 00:00:00 00:00:00 d_J [id number] Medica l 2022-09-03 2022-09-03 Outpatient [facility] PRIV 248 [id number] [facility] 00:00:00 00:00:00 d_J [id number] Medica l 2022-09-03 2022-09-03 Outpatient [facility] PRIV [id number] [facility] 00:00:00 00:00:00 d_J [id number] Medica l 2022-08-12 2022-08-12 Outpatient [facility] PRIV [id number] [facility] 00:00:00 00:00:00 d_J [id number] Medica l 2022-08-11 2022-08-11 Outpatient [facility] PRIV [id number] [facility] 00:00:00 00:00:00 d_J [id number] Medica l 2022-08-11 2022-08-11 Outpatient [facility] PRIV [id number] [facility] 00:00:00 00:00:00 d_J [id number] Medica l 2022-07-29 2022-07-29 Outpatient [facility] PRIV [id number] [facility] 00:00:00 00:00:00 d_J [id number] Medica l 2022-07-29 2022-07-29 Outpatient [facility] PRIV [id number] [facility] 00:00:00 00:00:00 d_J [id number] Medica l 2022-07-29 2022-07-29 Jessica [facility] [id number] [facility] 00:00:00 00:00:00 W[facility]LEY [facility]: Health - Med ical [address] [address] , Ph. 2022-07-21 2022-07-21 Outpatient [facility] PR[facility] PRIV 248 [id number] [facility] 00:00:00 00:00:00 d_J [id number] Medica l 2022-07-13 2022-07-13 Outpatient [facility] PRIV [id number] [facility] 00:00:00 00:00:00 d_J [id number] Medica l 2022-07-02 2022-07-02 Outpatient [facility] PRIV 248 [id number] [facility] 00:00:00 00:00:00 d_J [id number] Medica l 2022-06-24 2022-06-24 Jessica [facility] [id number] [facility] 00:00:00 00:00:00 W[facility]LEY T[facility]: Health - Med ical [address] [address] , Ph. 2022-06-10 2022-06-10 Outpatient [facility] PR[facility] PRIV 248 [id number] [facility] 00:00:00 00:00:00 d_J [id number] Medica l 2022-06-03 2022-06-03 Outpatient [facility] PRIV [id number] [facility] 00:00:00 00:00:00 d_J [id number] Medica l 2022-05-29 2022-05-29 Outpatient [facility] PRIV [id number] [facility] 00:00:00 00:00:00 d_J [id number] Medica l 2022-05-29 2022-05-29 Outpatient [facility] PRIV [id number] [facility] 00:00:00 00:00:00 d_J [id number] Medica l 2022-05-22 2022-05-22 Jessica [facility] [id number] [facility] 00:00:00 00:00:00 W[facility]LEY [facility]: Health - Med ical [address] [address] , Ph. 2022-05-21 2022-05-21 Outpatient [facility] PRIV 248 [id number] [facility] 00:00:00 00:00:00 d_J [id number] Medica l 2022-05-05 2022-05-05 Kyle Freitas [facility] 202 [id number] [facility] 00:00:00 00:00:00 [facility] - Med ical : [address] [address] , Ph. 2022-05-02 2022-05-02 [facility] 00:[facility]:00 00:00:00 WESLEY Tatum: Health - Med ical [address] [address] , Ph. 2022-04-29 2022-04-29 Outpatient [facility] PRIV 248 [id number] [facility] 00:00:00 00:00:00 d_J [id number] Medica l 2022-04-29 2022-04-29 Outpatient [facility] PRIV [id number] [facility] 00:00:00 00:00:00 d_J [id number] Medica l 2022-04-29 2022-04-29 Outpatient [facility] PRIV [id number] [facility] 00:00:00 00:00:00 d_J [id number] Medica l 2022-04-29 2022-04-29 Outpatient [facility] PRIV [id number] [facility] 00:00:00 00:00:00 d_J [id number] Medica l 2022-04-15 2022-04-15 Outpatient [facility] PRIV [id number] [facility] 00:00:00 00:00:00 d_J [id number] Medica l 2022-04-01 2022-04-01 Jessica [facility] [id number] [facility] 00:00:00 00:00:00 W[facility]LEY [facility]: Health - Med ical [address] [address] , Ph. 2022-03-30 2022-03-30 Outpatient [facility] PRIV PRIV 248 [id number] [facility] 00:00:00 00:00:00 d_J [id number] Medica l 2022-03-06 2022-03-06 Jessica [facility] [id number] [facility] 00:00:00 00:00:00 W[facility]LEY T[facility]: Health - Med ical [address] [address] , Ph. 2022-03-02 2022-03-02 Outpatient [facility] PR[facility] PRIV 248 [id number] [facility] 00:00:00 00:00:00 d_J [id number] Medica l 2022-03-02 2022-03-02 Outpatient [facility] PRIV [id number] [facility] 00:00:00 00:00:00 d_J [id number] Medica l 2022-03-02 2022-03-02 Outpatient [facility] PR[facility] PRIV [id number] [facility] 00:00:00 00:00:00 d_J [id number] Medica l 2022-01-30 2022-01-30 Jessica [facility] [id number] [facility] 00:00:00 00:00:00 W[facility]LEY Tatum: Health - Med ical [address] [address] , Ph. 2022-01-20 2022-01-20 [facility] [id number] [facility] 00:00:00 00:00:00 WESLEY Tatum: Health - Med ical [address] [address] , Ph. 2022-01-12 2022-01-12 Outpatient [facility] PRIV PRIV [id number] [facility] 00:00:00 00:00:00 d_J [id number] Medica l 2022-01-09 2022-01-09 Jessica [facility] [id number] [facility] 00:00:00 00:00:00 WESLEY Tatum: Health - Med ical [address] [address] , Ph. 2022-01-06 2022-01-06 Kyle Freitas [facility] 202 [facility] 00:00:00 00:00:00 [facility] - Med ical MD: [address] [address] , Ph. 2022-01-02 2022-01-02 [facility]00 00:00:00 WESLEY Tatum: Health - Med ical [address] [address] , Ph. 2021-12-30 2021-12-30 Outpatient [facility] PRIV PRIV [id number] [facility] 00:00:00 00:00:00 d_J [id number] Medica l 2021-12-26 2021-12-26 [facility] 007 [facility] 00:00:00 00:00:00 WESLEY Tatum: Health - Med ical [address] [address] , Ph. 2021-12-23 2021-12-23 [facility] 004 [facility] 00:00:00 00:00:00 WESLEY Tatum: Health - Med ical [address] [address] , Ph. 2021-12-19 2021-12-19 Outpatient [facility] PRIV PRIV 248 [id number] [facility] 00:00:00 00:00:00 d_J [id number] Medica l 2021-12-19 2021-12-19 [facility] [id number] [facility] 00:00:00 00:00:00 WESLEY Tatum: Health - Med ical [address] [address] , Ph. 2021-12-12 2021-12-15 Inpatient ER ARI GAR [facility] 9 [id number] [facility] 01:48:00 16:43:00 REYES Results Test Description Test Time Test Comments Results Result Comments Source PHENYTOIN LEVEL, TOTAL AND FREE 2021-12-18 08:47:52 Test Item Value Reference Range Interpretation Comme nts PHENYTOIN (DILANTIN) (BEAKER) (test code = 605) SEE SCANNED DOCUMENT PHENYTOIN FREE (BEAKER) (test code = 847) SEE SCANNED DOCUMENT BLOOD [id number] 10:01:32 Test Item Value Reference Range Interpretation Comments CULTURE (BEAKER) (test No growth in 5 days code = 1095) BLOOD [id number] 10:01:26 Test Item Value Reference Range Interpretation Comments CULTURE (BEAKER) (test No growth in 5 days code = 1095) POCT-GLUCOSE [id number] 16:01:11 Test Item Value Reference Range Interpretation Comments POC-GLUCOSE METER 168 mg/dL 70-110 H : TESTED A T SLSL 1317 (BEAKER) (test code [address], = 1538) [place] [id number]: Oncology Rep/Techni chary ID = [id number] for Myra Stapletona POCT-GLUCOSE [id number] 12:09:20 Test Item Value Reference Range Interpretation Comments POC-GLUCOSE METER 164 mg/dL 70-110 H : TESTED A T [facility] 1317 (BEAKER) (test code [address], = 1538) [place] [id number]: Oncology Rep/Techni chary ID = [id number] for Yonatan asLoboa POCT-GLUCOSE [id number] 08:00:45 Test Item Value Reference Range Interpretation Comments POC-GLUCOSE METER 148 mg/dL 70-110 H : TESTED A T [facility]17 (BEAKER) (test code [address], = 1538) [place] [address]: Oncology Rep/Techni chary ID = [id number] for Shani is, Melvinaarra COMPREHENSIVE METABOLIC [id number] 05:56:38 Test Item Value Reference Range Interpretation [...] high >=90 G2 Mildly decreased 60-89 G3a Mild ly to moderately 45-5 9 G3b Moderately to [...] not appl icable for dialysis patien ts Oncology Rep ID - JUSTINOperator ID - JUSTINOperator ID - JUSTINOperator ID - JUSTINOperator ID - JUSTINOperator ID - JUSTINOperator ID - JUSTINOperator ID - JUSTINOperator ID - JUSTINOperator ID - JUSTINOperator ID - [id number] ID - [id number] ID - [id number] ID - ZEHB83Pugnxajq ID - LHDQ08Jkienlow ID - UUXB07Izxzgsug ID - CJSF60Npchtzhg ID - MUVT01Spfargfb ID - [id number] W/PLT COUNT & AUTO [id number] 05:35:05 Test Item Value Reference Range Interpretation [...] PERCENT (BEAKER) (test code = 2801) POCT-GLUCOSE [id number] 19:53:52 Test Item Value Reference Range Interpretation Comments POC-GLUCOSE METER 229 mg/dL 70-110 H : TESTED A T [facility] 1317 (BEAKER) (test code [address], = 1538) [place] [address]: Oncology Rep/Techni chary ID = [id number] for Юлия Connell POCT-GLUCOSE [id number] 15:41:39 Test Item Value Reference Range Interpretation Comments POC-GLUCOSE METER 257 mg/dL 70-110 H : TESTED A T [facility] 1317 (BEAKER) (test code [address], = 1538) [place] [address]: Oncology Rep/Techni chary ID = [id number] for Tammy Davies POCT-GLUCOSE [id number] 13:06:16 Test Item Value Reference Range Interpretation Comments POC-GLUCOSE METER 178 mg/dL 70-110 H : TESTED A T [facility] 1317 (BEAKER) (test code [address], = 1538) [place] [address]: Oncology Rep/Techni chary ID = [id number] for Eugenio Resendiz RAD, CHEST, 1 VIEW, NON [id number] 12:43:00Reason for exam:->PICC line placement verificationShould this be performed at the bedside?->Yes [facility] : 1960 Sex: MFINAL REPORT EXAM: Chest one view CLINICAL HISTORY: PICC insertion FINDINGS: A right armPICC is noted with its tip overlying the cavoatrial junction. The cardiac size is mildly prominent. There is no evidence of pleural effusion or pneumothorax. The regional osseous structures are unremarkable. Signed: Lino Hill MDReport Verified Date/Time: 12/14/2021 12:43:11 Reading Location: [address] Transitional Reading Room POCT-GLUCOSE [id number] 08:32:01 Test Item Value Reference Range Interpretation Comments POC-GLUCOSE METER 165 mg/dL 70-110 H : TESTED A T [facility] 1317 (BEAKER) (test code [facility] [address], = 1538) [facility] [place] 2[place] 77 478: Oncology Rep/Techni chary ID = [id number] for Katie Kate COMPREHENSIVE METABOLIC [id number] 06:20:40 Test Item Value Reference Range Interpretation [...] not appl icable for dialysis patien ts Oncology Rep ID - [id number] ID - [id number] ID - [id number] ID - VDFLTLLXA120Pxudkrpo ID - URVZIKBMT876Lyldijvm ID - XYECREXIU850Sraopktg ID - ZXCFIIXDS634Wgqgmhiv ID - NDDKPEYRF169Ksxatoqq ID - TUBUTNMBI761Wwhdjalc ID - PQXNMAOFB289Zpcbqzrp ID - GULXQUBTX004Fyvjmupf ID - ONAVYCJYA853Gsdfizro ID - SMGNLBKCT043Vjiivzfu ID - TADDRDXZK096Xbmkzhyy ID - NNJFXMAGP549Xlozijvd ID -QUXTASZTL436Wlnvlnbb ID - TMTKWXCRA066Xuxhzrlz ID - PJBJJKIOY235Plggvydm ID - [id number] W/PLT COUNT & AUTO DIFFERENTIAL 2021-12-14 05:55:47 [...] PERCENT (BEAKER) (test code = 2801) POCT-GLUCOSE [id number] 21:22:08 Test Item Value Reference Range Interpretation Comments POC-GLUCOSE METER 217 mg/dL 70-110 H : TESTED A T [facility] 1317 (BEAKER) ([facility] = 1538[facility] [place] [id number]: Oncology Rep/Techni chary ID = [id number] for Jenny Jefferson POCT-GLUCOSE [id number] 17:23:37 Test Item Value Reference Range Interpretation Comments POC-GLUCOSE METER 229 mg/dL 70-110 H : TESTED A T [facility]SL 1317 (BEAKER) (test code [address] [facility], = 1538) [place] [address]: Oncology Rep/Techni chary ID = [id number] for Eneida Oropeza POCT-GLUCOSE [id number] 09:34:24 Test Item Value Reference Range Interpretation Comments POC-GLUCOSE METER 163 mg/dL 70-110 H : TESTED A T [facility] 1317 (BEAKER) (test code [address], = 1538) [place] [address]: Oncology Rep/Techni chary ID = [id number] for Eneida Oropeza COMPREHENSIVE METABOLIC [id number] 06:26:16 Test Item Value Reference Range Interpretation [...] not appl icable for dialysis patien ts Oncology Rep ID - [id number] ID - obthxh411Cosqgzju ID - iwmkls424Oeeabebl ID - ihwlds941RsrnviusUA - agmxon150Zdhjwucr ID - ybpnat914Pdthjasm ID - tizsst036Yknmcsua ID - mlunqr766Cnknzckj ID - wrljkr947Dfcwncep ID - txcrmt682Mqwhnvlq ID - cxxzjf012Tywmjiij ID - pjsako704Jgtznpxl ID - stnhae436Kgvrdrdu ID - bykcdj809Qcoraznz ID - lxblsb053Fzgqqard ID - jmenxd545Pgnhzwtr ID - zhnjav200Egrfiitb ID - gllrqf781Scdqkiue ID - CBC W/PLT COUNT & AUTO [id number] 06:02:44 Test Item Value Reference Range Interpretation [...] PERCENT (BEAKER) (test code = 2801) POCT-GLUCOSE [id number] 22:01:54 Test Item Value Reference Range Interpretation Comments POC-GLUCOSE METER 185 mg/dL 70-110 H : TESTED A T [facility] 1317 (BEAKER) (test code [address], = 1538) [facility] [place]NOTE 2] 77 478: Oncology Rep/Techni chary ID = [id number] for Юлия Connell PERIPHERAL BLOOD SMEAR - PATHOLOGIST [id number] 15:45:38 Test Item Value Reference Range Interpretation Comments RBC MORPHOLOGY Hypochromasia (BEAKER) (test code = 2846) WBC MORPHOLOGY See comment (BEAKER) (test code = 2847) PLT MORPHOLOGY Unremarkable (BEAKER) (test code = 2848) PERIPHERAL SMR REVIEW Leukocytosis with (BEAKER) (test code = absolute neutrophilia. 2640) No blasts [id number] Nkechi Holloway M.D. (BEAKER) (test code = (electronic signature) 7051) POCT-GLUCOSE [id number] 09:45:06 Test Item Value Reference Range Interpretation Comments POC-GLUCOSE METER 135 mg/dL 70-110 H : TESTED A T [facility] [address]17 (BEAKER) (test code [address], = 1538) [facility] [place] 77 478: Oncology Rep/Techni chary ID = [id number] for Onel Connell [id number] 08:12:18 Test Item Value Reference Range Interpretation Comments MAGNESIUM (BEAKER) (test code = 1.5 mg/dL 1.5-3.0 627) Oncology Rep ID - [id number] W/ REFLEX URINE [id number] 06:35:47 Test Item Value Reference Range Interpretation [...] code = 1663) SOURCE(BEAKER) (test code = 2795) HEMOGLOBIN [id number] 06:27:32 Test Item Value Reference Range Interpretation Comments HEMOGLOBIN A1C (BEAKER) (test code = 6.1 % 4.3-6.1 368) Oncology Rep ID - [id number] METABOLIC [id number] 05:31:06 Test Item Value Reference Range Interpretation [...] not appl icable for dialysis patien ts Oncology Rep ID - [id number] ID - [id number] ID - NFIFHD372Ycvxjljf ID - GAXATV661TxzzvkpmXG - SLPQKO620Bumlxkyj ID - CIXENH513Midkcqci ID - CIHDJN826Ydpgozvc ID - IRLPMB146Gvtbndtc ID - UWECSE589Shxryutf ID - UJYCML931Zhucboci ID - SPMRLT519Wokbolpt ID - XCEPUT152Mytofdfu ID - [id number] ID - HYHUEI083Ejaildjj ID - JQXLGX122Brqushme ID - [id number]- TYPE NATRIURETIC FACTOR (BNP)2021-12-12 05:27:20 Test Item Value Reference Range Interpretation Comments B-TYPE NATRIURETIC PEPTIDE ([employer]) 130 pg/mL 0-100 H (test code = 700) Oncology Rep ID - [id number] 05:26:16 Test Item Value Reference Range Interpretation Comments TRIGLYCERIDES (LabArchivesAKER) (test code = 118 mg/dL 540) CHOLESTEROL ([employer]) (test code = 143 mg/dL 631) HDL CHOLESTEROL ([employer]) (test code 40 mg/dL = 976) LDL CHOLESTEROL CALCULATED ([employer]) 79 mg/dL (test code = 633) Triglyceride Reference Range: Low Risk <150 Borderline 150-199 High Risk 200- 499 Very High Risk >=500Cholesterol Reference Range: Low Risk <200 Borderline 200-239 High Risk >240HDL Cholesterol Reference Range: Low Risk >=60 High Risk <40LDL Cholesterol Reference Range: Optimal <100 Near Optimal 100-129 Borderline 130-159 High 160-189 Very High >=190 Oncology Rep ID - [id number] ID - [id number] ID - [id number] ID - GFKNUB485Htrlwskz ID - [id number] ID -[id number] W/PLT COUNT & AUTO [id number] 05:01:54 Test Item Value Reference Range Interpretation [...] (BEAKER) (test code = 2801) LACTIC ACID, [id number] 05:00:25 Test Item Value Reference Range Interpretation Comments LACTATE BLOOD 1.40 mmol/L See_Comment [Automated me ssage] VENOUS (2) (BEAKER) The syst em which (test code = 2872) generated this result transmitted ref erence range: 0.50-<2. 00. The reference range was not used to interpr et this result as normal/abnormal .
[2023-01-09] MEDS ORDERED: NA CHLORIDE 0.9% 1,000 ML ONE (20:55)
[2023-01-09] MEDS ORDERED: ALBUTEROL 2.5 MG/3 ML NEB SOL ONE (20:55)
[2023-01-09 21:15] LABS: Absolute Lymphocytes (CBC) 3.6 K/uL (0.7-4.9); Hematocrit 38.5 % (39.6-49.0); Lymphocytes % 37.7 % (15.3-44.8); MCV 88.1 fL (80-100); MPV 7.9 fL (7.6-11.3); Platelets 291 thou/uL (152-406); RBC Red Blood Cell Count 4.38 M/uL (4.33-5.43)
--- NOTE | 2023-01-09 21:17 | ER ---
Nurse's Notes [facility] Name: He Do Age: 62 yrs Sex: Male : 1960 Arrival Date: 01/09/2023 Time: 18:12 Bed 5 Private MD: Diagnosis: Other pneumonia, unspecified organism;Paraplegia Presentation: 01/09 18:14 Chief complaint: EMS states: toned out for productive cough x 3-[address] [facility] [place] unable to get a mobile chest xray. Patient did get a flu shot a couple of days ago and has a hx of CHF. Denies fever, chills, body aches. Patient has no complaints. Coronavirus screen: Vaccine status: Patient reports receiving the 2nd dose of the covid vaccine. cough unrelated to allergies. Ebola Screen: No symptoms or risks identified at this time. Initial Sepsis Screen: Does the patient meet any 2 criteria? No. Patient's initial sepsis screen is negative. Does the patient have a suspected source of infection? No. Patient's initial sepsis screen is negative. Risk Assessment: Do you want to hurt yourself or someone else? Patient reports no desire to harm self or others. Onset of symptoms was January 07, 2023. 18:14 Method Of Arrival: EMS: [place] [address] 18:14 Acuity: AC 3 me1 Triage Assessment: 18:18 General: Appears comfortable, obese, well groomed, Behavior is calm, cooperative, me1 appropriate for age, Reports productive cough for 3-4 days. Denies fever, feeling ill, fatigue, chills. Pain: Denies pain. Neuro: Level of Consciousness is awake, alert, obeys commands, Oriented to person, place, time, situation, Appropriate for age. Cardiovascular: Capillary refill < 3 seconds Patient's skin is warm and dry. Respiratory: Reports cough that is productive, Onset: The symptoms/episode began/occurred 3-4 days ago, the patient has moderate shortness of breath. 18:18 : Jin in place to gravity drainage. [facility] [place] Historical: - Allergies: 18:18 No Known Allergies; me1 - PMHx: 18:18 BPH with suprapubic catheter; Cerebrovascular accident; chronic back pain; Chronic me1 pain; Hypercholesterolemia; Hypertensive disorder; Hypothyroidism; Seizure; Paraplegia; - Immunization history:: Adult Immunizations up to date. - Social history:: Smoking status: Patient/guardian denies using tobacco, but has a distant history of tobacco abuse. Screenin:20 [facility] ED Fall Risk Assessment (Adult) History of falling in the last 3 months, me1 including since admission No falls in past 3 months (0 pts) Confusion or Disorientation No (0 pts) Intoxicated or Sedated No (0 pts) Impaired Gait Yes (1 pt) Mobility Assist Device Used Yes (1 pt) Altered Elimination Yes (1 pt) Score/Fall Risk Level 3 or more points = High Risk Oriented to surroundings, Maintained a safe environment, Provided non-skid footwear, Hourly rounding (assess needs \T\ fall precautionary measures) done, Used ambulatory aids as needed (educated on \T\ assisted with). Abuse screen: Denies threats or abuse. Nutritional screening: No deficits noted. Tuberculosis screening: No symptoms or risk factors identified. Assessment: 18:20 General: see triage assessment. . me1 20:24 Reassessment: No changes from previously documented assessment. Patient is alert, bp oriented x 3, equal unlabored respirations, skin warm/dry/pink. Cardiovascular: Rhythm is sinus rhythm. Respiratory: Airway is patent Respiratory effort is even, Breath sounds are coarse bilaterally. 20:24 : suprapubic catheter in place to gravity drainage Urine is clear. la4 21:06 General: Blood work sent with initial set of blood cultures. Second set to be collected la4 and sent in 15 minutes. Pt breathing treatment completed. Pt tolerated well. Cough continues but non-productive. . Pain: Denies pain. 22:08 General: Patient report called to Inessa HARDY. Patient ready for transport to the floor. la4 Vital Signs: 18:14 BP 124 / 64; Pulse 68; Resp 18; Temp 98.6; Pulse Ox 95% on R/A; Weight 121.11 kg; me1 Height 5 ft. 7 in. ; Pain 0/10; 20:23 BP 136 / 71; Pulse 64; Resp 16; Pulse Ox 97% ; bp 21:42 BP 128 / 91; Pulse 63; Resp 20; Pulse Ox 98% on 3 lpm NC; bp 21:58 BP 155 / 76; Pulse 61; Resp 16; Pulse Ox 98% ; bp 22:14 BP 144 / 72; Pulse 64; Resp 20; Pulse Ox 98% on R/A; la4 18:14 Body Mass Index 41.82 (121.11 kg, 170.18 cm) me1 18:14 Pain Scale: Adult me1 Vitals: 22:15 Cardiac Rhythm Assessment Sinus rhythm. la4 ED Course: 18:14 Patient arrived in ED. ld1 18:14 [facility] Skinner [facility]-C [facility]. snw 18:14 Sheldon Salinas MD is Attending Physician. snw 18:14 Crystal Virgen, RN is Primary Nurse. me1 18:18 Triage completed. me1 18:18 Arm band placed on Patient placed in an exam room. me1 18:20 Patient has correct armband on for positive identification. Bed in low position. Call me1 light in reach. Side rails up X2. Provided Education on: POC. Verbalized understanding. . 18:20 No provider procedures requiring assistance completed. me1 19:05 Primary Nurse role handed off by Crystal Virgen, RN bp 19:05 Madhav Roman, HAYLEY is Primary Nurse. bp 19:53 Chest Single View XRAY In Process Unspecified. EDMS 21:06 CMP Sent. la4 21:06 CBC with Diff Sent. la4 21:06 Lactate w/ 2H reflex if indic. Sent. la4 21:06 Inserted saline lock: 18 gauge in right antecubital area, using aseptic technique. la4 21:16 Neha Elias MD is Hospitalizing Provider. snw 21:28 Hospitalizing Provider role handed off by Neha Elias MD snw 21:28 Michael Jasso is Hospitalizing Provider. snw 21:42 Patient admitted, IV remains in place. bp Administered Medications: 20:45 Drug: Albuterol Inhalation 2.5 mg Inhalation once Route: Inhalation; la4 21:06 Drug: NS 0.9% IV 1000 ml IV at 75 ml/hr continuous Route: IV; Rate: 75 ml/hr; Infused la4 Over: 30 mins; Site: right antecubital; Delivery: Primary tubing; 22:17 Follow up: IV Intake: 75ml la4 21:56 Drug: Piperacillin-Tazobactam IVPB 3.375 grams IVPB once over 60 mins; (mix in NS 100 la4 mL) Route: IVPB; Rate: calculated rate; Infused Over: 60 mins; Site: right antecubital; Delivery: Primary tubing; 21:57 Drug: Furosemide IVP 20 mg IVP once; give over 2 minutes Route: IVP; Rate: bolus; la4 Infused Over: 2 mins; Site: right antecubital; 22:17 Follow up: Response: No adverse reaction la4 Medication: 18:20 VIS not applicable for this client. me1 Intake: 22:02 IV: 75ml (IV Fluid); Total: 75ml. la4 22:17 IV: 75ml; Total: 150ml. la4 Output: 22:02 Urine: 1400ml (Jin); Total: 1400ml. la4 Outcome: 21:17 Decision to Hospitalize by Provider. snw 21:42 Condition: stable bp 21:42 Instructed on the need for admit, 22:16 Admitted to Med/surg accompanied by tech, via stretcher, with chart, Report called to lui Wylie RN 22:55 Patient left the ED. bp Signatures: Dispatcher [employer] EDMS Susan Skinner, PUBLIC HEALTH SANITARIAN-C PUBLIC HEALTH SANITARIAN-Csnw Madhav Roman, RN RN bp Ayleen Mcgarry RN RN ld1 Crystal Virgen, RN RN me1 Isai Palma, RN HAYLEY gibbs4
--- NOTE | 2023-01-09 21:17 | EDPHYS ---
Physician Documentation [facility] Name: He Do Age: 62 yrs Sex: Male : 1960 Arrival Date: 01/09/2023 Time: 18:12 Bed 5 Private MD: ED Physician Sheldon Salinas HPI: 01/09 19:30 This 62 yrs old Male presents to ER via EMS with complaints of Productive Cough. snw 19:30 The patient or guardian reports cough, with productive sputum. Onset: The snw symptoms/episode began/occurred acutely, 3 day(s) ago, and became persistent. Associated signs and symptoms: Pertinent negatives: chest pain, diarrhea, ear ache, fever. It is unknown whether or not the patient has had similar symptoms in the past. lives at [place]. Sent for evaluation. Historical: - Allergies: 18:18 No Known Allergies; me1 - PMHx: 18:18 BPH with suprapubic catheter; Cerebrovascular accident; chronic back pain; Chronic me1 pain; Hypercholesterolemia; Hypertensive disorder; Hypothyroidism; Seizure; Paraplegia; - Immunization history:: Adult Immunizations up to date. - Social history:: Smoking status: Patient/guardian denies using tobacco, but has a distant history of tobacco abuse. ROS: 19:30 Constitutional: Negative for fever, chills, and weight loss, Eyes: Negative for injury, snw pain, redness, and discharge, ENT: Negative for injury, pain, and discharge, Neck: Negative for injury, pain, and swelling, Cardiovascular: Negative for chest pain, palpitations, and edema, Abdomen/GI: Negative for abdominal pain, nausea, vomiting, diarrhea, and constipation, Back: Negative for injury and pain, : Negative for injury, bleeding, discharge, and swelling, MS/Extremity: Negative for injury and deformity, Skin: Negative for injury, rash, and discoloration, Neuro: Negative for headache, weakness, numbness, tingling, and seizure, Psych: Negative for depression, anxiety, suicide ideation, homicidal ideation, and hallucinations, 19:30 Respiratory: Positive for cough, + sputum on shirt, Exam: 19:28 Constitutional: This is a well developed, well nourished patient who is awake, alert, snw and in no acute distress. Head/Face: Normocephalic, atraumatic. Eyes: Pupils equal round and reactive to light, extra-ocular motions intact. Lids and lashes normal. Conjunctiva and sclera are non-icteric and not injected. Cornea within normal limits. Periorbital areas with no swelling, redness, or edema. ENT: Nares patent. No nasal discharge, no septal abnormalities noted. Tympanic membranes are normal and external auditory canals are clear. Oropharynx with no redness, swelling, or masses, exudates, or evidence of obstruction, uvula midline. Mucous membranes moist. Neck: Trachea midline, no thyromegaly or masses palpated, and no cervical lymphadenopathy. Supple, full range of motion without nuchal rigidity, or vertebral point tenderness. No Meningismus. Chest/axilla: Normal chest wall appearance and motion. Nontender with no deformity. No lesions are appreciated. Cardiovascular: Regular rate and rhythm with a normal S1 and S2. No gallops, murmurs, or rubs. Normal PMI, no JVD. No pulse deficits. 19:28 Abdomen/GI: Soft, non-tender, with normal bowel sounds. No distension or tympany. No guarding or rebound. No evidence of tenderness throughout. Back: No spinal tenderness. No costovertebral tenderness. Full range of motion. Psych: Awake, alert, with orientation to person, place and time. Behavior, mood, and affect are within normal limits. 19:28 Respiratory: the patient does not display signs of respiratory distress, Respirations: normal, Breath sounds: are clear throughout, productive cough, 19:28 : a odom is noted, urine is clear, 19:28 Skin: Appearance: Color: pale, Temperature: normal temperature, Moisture: dry, paraplegia, . 19:28 Neuro: paraplegia, Vital Signs: 18:14 BP 124 / 64; Pulse 68; Resp 18; Temp 98.6; Pulse Ox 95% on R/A; Weight 121.11 kg; me1 Height 5 ft. 7 in. ; Pain 0/10; 20:23 BP 136 / 71; Pulse 64; Resp 16; Pulse Ox 97% ; bp 21:42 BP 128 / 91; Pulse 63; Resp 20; Pulse Ox 98% on 3 lpm NC; bp 21:58 BP 155 / 76; Pulse 61; Resp 16; Pulse Ox 98% ; bp 22:14 BP 144 / 72; Pulse 64; Resp 20; Pulse Ox 98% on R/A; la4 18:14 Body Mass Index 41.82 (121.11 kg, 170.18 cm) me1 18:14 Pain Scale: Adult me1 MDM: 18:14 Patient medically screened. snw 21:01 Differential Diagnosis: Obstructed Airway Bronchitis Sinusitis Viral Syndrome snw Pneumonia. Data reviewed: vital signs, nurses notes, EMS record, lab test result(s), EKG, radiologic studies. Consideration of Admission/Observation Patient was admitted/placed on observation. right lobes of lungs with fluid overload vs pneumonia.. I considered the following discharge prescriptions or medication management in the emergency department Medications were administered in the Emergency Department. See MAR. Historians other than the Patient: EMS: EMS. [place] records.. Care significantly affected by the following chronic conditions: Diabetes, Hypertension, Obesity, TBI with paraplegia. Counseling: I had a detailed discussion with the patient and/or guardian regarding the historical points, exam findings, and any diagnostic results supporting the discharge/admit diagnosis, the presence of at least one elevated blood pressure reading (>120/80) during this emergency department visit, radiology results, the need for further work-up and treatment in the hospital. 01/09 20:36 Order name: Blood Culture Adult (2) snw 01/09 20:36 Order name: Lactate w/ 2H reflex if indic.; Complete Time: 21:44 snw 01/09 20:36 Order name: CBC with Diff; Complete Time: 21:22 snw 01/09 20:36 Order name: CMP; Complete Time: 21:59 snw 01/09 18:49 Order name: Chest Single View XRAY; Complete Time: 21:41 snw 01/09 21:30 Order name: CONS Physician Consult EDMS 01/09 20:36 Order name: Misc. Order: CPT snw Administered Medications: 20:45 Drug: Albuterol Inhalation 2.5 mg Inhalation once Route: Inhalation; la4 21:06 Drug: NS 0.9% IV 1000 ml IV at 75 ml/hr continuous Route: IV; Rate: 75 ml/hr; Infused la4 Over: 30 mins; Site: right antecubital; Delivery: Primary tubing; 22:17 Follow up: IV Intake: 75ml la4 21:56 Drug: Piperacillin-Tazobactam IVPB 3.375 grams IVPB once over 60 mins; (mix in NS 100 la4 mL) Route: IVPB; Rate: calculated rate; Infused Over: 60 mins; Site: right antecubital; Delivery: Primary tubing; 21:57 Drug: Furosemide IVP 20 mg IVP once; give over 2 minutes Route: IVP; Rate: bolus; la4 Infused Over: 2 mins; Site: right antecubital; 22:17 Follow up: Response: No adverse reaction la4 Disposition Summary: 01/09/23 21:17 Hospitalization Ordered Notes: Hospitalization Status: Inpatient Admission snw Location: Telemetry/MedSurg (Inpatient) snw Condition: Stable snw Problem: an acute exacerbation snw Symptoms: are unchanged snw Bed/Room Type: Standard snw Provider: Micahel Jasso(01/09/23 21:28) snw Room Assignment: 216(01/09/23 21:41) mw Diagnosis - Other pneumonia, unspecified organism snw - Paraplegia snw Forms: - Medication Reconciliation Form snw - SBAR form snw - Leadership Thank You Letter snw Signatures: Dispatcher [employer] EDKaya Smith RN RN mw Susan Skinner, FACETOR-C FACETOR-Csnw Crystal Virgen RN RN me1 Ana Bradford FNP FACETOR cm12 Isai Palma RN RN la4 Corrections: (The following items were deleted from the chart) 21:28 21:17 Neha Elias snw snw 21:41 21:17 snw mw
--- NOTE | 2023-01-09 21:20 | P.HP ---
Certification for Inpatient Patient admitted to: Inpatient With expected LOS: <2 Midnights Patient will require the following post-hospital care: None Practitioner: I am a practitioner with admitting privileges, knowledge of patient current condition, hospital course, and medical plan of care. Services: Services provided to patient in accordance with Admission requirements found in Title 42 Section 412.3 of the Code of Federal Regulations Patient History Date of Service: 01/09/23 Reason for admission: Pneumonia History of Present Illness: 62-year-old male past medical history of CVA, paraplegia, BPH with suprapubic catheter, hypertension, hypothyroidism, presents to the emergency room via EMS from alf via EMS for productive cough. He reports symptoms symptoms started 3 days ago are progressively getting worse. Mild associated shortness of breath. No reported chest pain, fever, nausea vomiting diarrhea, plan to admit for acute hypoxic respiratory failure secondary to pneumonia versus fluid volume overload, paraplegic, with pulmonary to consult in the a.m. Patient treated with albuterol, , Zosyn in the emergency room. Laboratory evaluation leukocytosis normocytic anemia 12.9, 38.5, sodium 134, mild hypokalemia 3.4, BUN and creatinine stable, mild hypoalbuminemia 3.1, ER laboratory evaluation Chest x-ray IMPRESSION: Retrocardiac opacification and suggestion of small effusion, may relate to atelectasis or airspace disease.Slightly increased density diffusely throughout the right hemithorax, could be related to superimposition of soft tissues or a small layering effusion. Mild central congestion Allergies No Known Allergies Allergy (Unverified 06/07/13 08:10) - Past Medical/Surgical History Diabetic: No -: CVA -: Paraplegia -: BPH with suprapubic catheter -: Hypertension -: Hyperlipidemia - Social History Smoking Status: Never smoker Alcohol use: No CD- Drugs: No Caffeine use: No Review of Systems 10-point ROS is otherwise unremarkable Physical Examination - Physical Exam General: Alert, In no apparent distress, Oriented x3, Obese HEENT: Atraumatic, Normocephalic, PERRLA, Mucous membr. moist/pink Neck: Supple, 2+ carotid pulse no bruit Respiratory: Normal air movement, Diminished, Other (Productive cough) Cardiovascular: Normal pulses, Regular rate/rhythm, Edema (Lower extremity edema) Capillary refill: <2 Seconds Gastrointestinal: Normal bowel sounds, Soft and benign Musculoskeletal: Other (Paraplegic, care) Neurological: Normal speech, Other (Paraplegic:), Abnormal gait, Abnormal strength, Abnormal sensation Urinary: Other (Suprapubic catheter) Assessment and Plan - Plan Assessment plan Acute hypoxic respiratory failure secondary to pneumonia versus congestive heart failure Sacral ulcer paraplegia Normocytic anemia Cardiovascular hypokalemia History CVA BPH with suprapubic catheter hypertension hypothyroidism DVT prophylaxis Assessment plan Acute hypoxic respiratory failure secondary to pneumonia versus congestive heart failure Pulmonary consult in a.m. O2 to keep sats greater than 92%, IV antibiotics, nebs, diuretics WBC no leukocytosis, sputum culture ordered Chest x-ray IMPRESSION: Retrocardiac opacification and suggestion of small effusion, may relate to atelectasis or airspace disease.Slightly increased density diffusely throughout the right hemithorax, could be related to superimposition of soft tissues or a small layering effusion. Mild central congestion Sacral ulcer Wound care consult paraplegia PT eval, OT assist with ADLs and transfers Hypokalemia hypokalemia 3.4, Trend electrolytes replace as needed Normocytic anemia normocytic anemia 12.9, 38.5 History CVA paraplegia BPH with suprapubic catheter Supportive care with fall precautions hypertension hypothyroidism Resume appropriate home meds DVT prophylaxis Diet cardiac Full code Discharge Plan: Residential Plan to discharge in: 48 Hours - Advance Directives Does patient have a Living Will: No Does patient have a Durable POA for Healthcare: No - Code Status/Comfort Care Code Status: Full Code Physician Review: Patient Assessed, Agree with Above Assessment and Plan Critical Care: No Time Spent Managing Pts Care (In Minutes): 50
--- NOTE | 2023-01-09 21:35 | RAD REPORT ---
EXAM DESCRIPTION: [facility] Single View01/09/2023 7:51 pm CLINICAL HISTORY: COUGH COMPARISON: Head Brain W/Wo Con dated 01/14/2021 TECHNIQUE: Portable AP view of the chest. FINDINGS: Patient rotation and superimposition of soft tissues somewhat limits evaluation. Slightly increased density diffusely along the right hemithorax may relate to superimposition of soft tissues or a small layering effusion. Left basilar small effusion and retrocardiac opacification, which may r elate to atelectasis or airspace disease. Central interstitial prominence which suggests mild congest ion. No pneumothorax. The cardiomediastinal contours are unremarkable. IMPRESSION: Retrocardiac opacification and suggestion of small effusion, may relate to atelectasis o r airspace disease. Slightly increased density diffusely throughout the right hemithorax, could be related to superimposi tion of soft tissues or a small layering effusion. Mild central congestion.
[2023-01-09 21:52] LABS: ALT/SGPT 19 U/L (16-61); AST/SGOT 8 U/L (15-37); Albumin 3.1 g/dL (3.4-5.0); Alkaline Phosphatase 104 U/L (45-117); BUN Blood Urea Nitrogen 7 mg/dL (7-18); Bicarbonate 29 mEq/L (21-32); Bilirubin Total < 0.1 mg/dL (0.2-1.0); Glomerular Filtration Rate 108 ml/min (=/>90); Glucose Level 206 mg/dL (74-106); Potassium 3.4 mEq/L (3.5-5.1); Protein, Total 7.8 g/dL (6.4-8.2); Sodium Level 134 mEq/L (136-145)
[2023-01-09] MEDS ORDERED: NA CHLORIDE 0.9% 100 ML ONE (22:01)
[2023-01-09] MEDS ORDERED: FUROSEMIDE 20 MG/ 2ML VIAL ONE (22:01)
[2023-01-09] MEDS ORDERED: PIPERACIL/TAZO 3.375 GM VIAL IV ONE (22:02)
[2023-01-09] MEDS ORDERED: ACETAMINOPHEN 500 MG TAB PO PRN (22:27)
[2023-01-09] MEDS ORDERED: ONDANSETRON 4 MG/2 ML VIAL IV PRN (22:27)
[2023-01-10] MEDS: IPRATROPIUM BROM 0.5MG/2.5ML NEB SCH ×4 (01:37→20:00)
[2023-01-10] MEDS ORDERED: ALBUTEROL 2.5 MG/3 ML NEB SOL NEB PRN (03:00)
[2023-01-10 04:00] LABS: Absolute Lymphocytes (CBC) 3.3 K/uL (0.7-4.9); Hematocrit 38.1 % (39.6-49.0); Lymphocytes % 32.3 % (15.3-44.8); MCV 88.1 fL (80-100); MPV 7.8 fL (7.6-11.3); Platelets 281 thou/uL (152-406); RBC Red Blood Cell Count 4.32 M/uL (4.33-5.43)
[2023-01-10 04:15] LABS: Magnesium 1.7 mg/dL (1.6-2.4); Potassium 3.5 mEq/L (3.5-5.1)
[2023-01-10 04:55] LABS: Specific Gravity 1.011 (1.005-1.030); Urine Bacteria 20-50 /HPF (<20); Urine Bilirubin NEGATIVE (Negative); Urine Blood Negative (Negative); Urine Clarity Extremely Turbid (Clear); Urine Color Light-Yellow (Yellow); Urine Glucose 4+ (Negative); Urine Mucus Slight /HPF (None Seen); Urine Protein TRACE (Negative); Urine RBC <5 /HPF (None Seen); Urine Urobilinogen Normal (Normal); Urine WBC Clump Few /HPF (None Seen); Urine pH 6.5 (5.0-7.0)
[2023-01-10] MEDS: PIPER TAZO 3.375 GM in NA CHLORIDE 0.9% 100 ML IV SCH ×3 (05:40→17:03)
[2023-01-10] MEDS ORDERED: MAGNESIUM SULFATE 1 gm IVPB 1 GM/100 ML BAG IV ONE (07:30)
[2023-01-10] MEDS ORDERED: POTASSIUM CL SA 10 MEQ TAB PO ONE (09:00)
[2023-01-10] MEDS ORDERED: CEFTRIAXONE 2,000 MG in NA CHLORIDE 0.9% 100 ML IV SCH (09:00)
[2023-01-10] MEDS: FUROSEMIDE 40 MG/4 ML VIAL IV SCH ×2 (09:10→17:03)
[2023-01-10] MEDS ORDERED: PNEUMOCOCCAL VACCINE 0.5 ML IMVAC ONE (10:00)
--- NOTE | 2023-01-10 13:30 | P.PN ---
Subjective Date of Service: 01/10/23 Chief Complaint: Pneumonia Patient has no new complaint. He is stable on room air. He states that he has been coughing intermittently. No recorded fever. Physical Examination - Vital Signs Temperature: 97.8 F Blood Pressure: 171/78 Pulse: 63 Respirations: 19 Pulse Ox (%): 96 - Studies Laboratory Data (last 24 hrs) 01/09/23 01/09/23 20:57 20:57 WBC 9.50 Hgb 12.9 L Hct 38.5 L Plt Count 291 Sodium 134 L Potassium 3.4 L BUN 7 Creatinine 0.61 L Glucose 206 H Total Bilirubin < 0.1 L AST 8 L ALT 19 Alkaline Phosphatase 104 Assessment And Plan - Plan Physical Exam General: Alert, In no apparent distress, Oriented x3, Obese Neck: Supple, 2+ carotid pulse no bruit Respiratory: Normal air movement, Diminished, Other (Productive cough) Cardiovascular: Normal pulses, Regular rate/rhythm, Edema (Lower extremity edema) Gastrointestinal: Normal bowel sounds, Soft and benign Neurological: Normal speech, Paraplegic, Genitourinary: Suprapubic catheter Diagnosis Acute hypoxic respiratory failure secondary to pneumonia versus congestive heart failure Sacral ulcer paraplegia Normocytic anemia Cardiovascular hypokalemia History CVA BPH with suprapubic catheter hypertension hypothyroidism DVT prophylaxis Assessment plan Acute hypoxic respiratory failure secondary to pneumonia versus congestive heart failure Pulmonary consult in a.m. Patient is stable on room air. IV antibiotics, nebs, diuretics Obtain CT chest. Sacral ulcer Wound care consult Hypokalemia hypokalemia 3.4, Trend electrolytes replace as needed Normocytic anemia normocytic anemia 12.9, 38.5 History CVA paraplegia BPH with suprapubic catheter Supportive care with fall precautions Hypertension Hypothyroidism Resume appropriate home meds DVT prophylaxis: Diet cardiac Full code Discharge Plan: Long Term
--- NOTE | 2023-01-10 19:46 | RAD REPORT ---
EXAM DESCRIPTION: CT - Chest For Pe Angio - 01/10/2023 7:21 pm CLINICAL HISTORY: Hypoxia. COMPARISON: Chest Single View dated 01/09/2023 TECHNIQUE: Dynamically enhanced axial 3 mm thick images of the chest were obtained during administra tion of <100> mL Isovue 370 IV contrast. Coronal and oblique reconstruction images were generated and reviewed. Exam utilizes a protocol for optimal evaluation of pulmonary arterial tree. Maximum intensity projections 3D imaging was utilized All CT scans are performed using dose optimization technique as appropriate and may include automated exposure control or mA/KV adjustment according to patient size. FINDINGS: Chest Wall: No suspicious thyroid nodules or pathologic lymphadenopathy. Lungs: No acute abnormality. Pleura: No significant effusions or pneumothorax. Mediastinum/gagan: No pathologic lymphadenopathy. Pulmonary arteries/Aorta: Suboptimal opacification of the pulmonary arteries. No central pulmonary em bolus identified. The segmental and subsegmental pulmonary arteries cannot be adequately assessed. No aortic aneurysm. Heart: No significant pericardial effusion. Normal heart size. Upper abdomen: Hepatomegaly. Probable steatosis. Bones: No acute abnormality. IMPRESSION: Suboptimal opacification of the pulmonary arteries. No central pulmonary embolus identif ied. However, a clinically significant pulmonary embolus cannot be excluded on the basis of this exam . A repeat PE exam or V/Q scan could be considered if there is a persistent high clinical concern for pulmonary embolus.
[2023-01-10] MEDS ORDERED: D50W 25 GM/50 ML SYRINGE IV PRN (21:47)
[2023-01-10] MEDS ORDERED: GLUCAGON 1 MG/VIAL IM PRN (21:47)
[2023-01-10] MEDS ORDERED: D10W 125 ML IV PRN (22:01)
[2023-01-10] MEDS: INSULIN REGULAR (HUMAN) 100 UNIT/ML SQ SCH (22:18)
[2023-01-11] MEDS: PIPER TAZO 3.375 GM in NA CHLORIDE 0.9% 100 ML IV SCH ×2 (00:57→08:46)
[2023-01-11] MEDS: IPRATROPIUM BROM 0.5MG/2.5ML NEB SCH ×4 (01:35→19:57)
[2023-01-11 03:24] LABS: Absolute Lymphocytes (CBC) 3.3 K/uL (0.7-4.9); Hematocrit 38.6 % (39.6-49.0); Lymphocytes % 32.7 % (15.3-44.8); MCV 87.5 fL (80-100); MPV 8.2 fL (7.6-11.3); Platelets 289 thou/uL (152-406); RBC Red Blood Cell Count 4.41 M/uL (4.33-5.43)
[2023-01-11 03:36] LABS: Magnesium 1.9 mg/dL (1.6-2.4); Potassium 3.4 mEq/L (3.5-5.1)
[2023-01-11 04:19] LABS: Phosphorus 2.3 mg/dL (2.5-4.9)
[2023-01-11] MEDS ORDERED: POTASSIUM 25 MEQ EFFERV TAB PO ONE (06:00)
[2023-01-11] MEDS: POTASS/SODIUM PHOSPHATE 1 PKT POWD.PACK PO SCH ×3 (06:02→09:01)
[2023-01-11] MEDS: INSULIN REGULAR (HUMAN) 100 UNIT/ML SQ SCH ×4 (08:42→22:46)
[2023-01-11] MEDS: ENOXAPARIN 40 MG/0.4 ML SQ SCH ×2 (08:45→22:45)
[2023-01-11] MEDS: FUROSEMIDE 40 MG/4 ML VIAL IV SCH ×2 (08:47→17:24)
[2023-01-11] MEDS: Meropenem 1,000 MG in NA CHLORIDE 0.9% 100 ML IV SCH ×2 (10:00→17:24)
[2023-01-11] MEDS ORDERED: BACLOFEN 10 MG TAB PO PRN (13:58)
[2023-01-11] MEDS ORDERED: MUCINEX DM 12HR.SR TAB PO PRN (13:58)
[2023-01-11] MEDS ORDERED: LIDOCAINE 4% PATCH TOP SCH (14:00)
[2023-01-11] MEDS ORDERED: PHENOBARBITAL 32.4 MG TABLET PO SCH (14:00)
--- NOTE | 2023-01-11 14:02 | P.PN ---
Subjective Date of Service: 01/11/23 Chief Complaint: Pneumonia Patient has no new complaint. He is stable on room air. He reports intermittent cough. He feels he might of had a seizure today Physical Examination - Vital Signs Temperature: 97.9 F Blood Pressure: 137/61 Pulse: 73 Respirations: 19 Pulse Ox (%): 95 Assessment And Plan - Plan Physical Exam General: Alert, In no apparent distress, Oriented x3, Obese Neck: Supple, 2+ carotid pulse no bruit Respiratory: Normal air movement, Diminished, Other (Productive cough) Cardiovascular: Normal pulses, Regular rate/rhythm, Edema (Lower extremity edema) Gastrointestinal: Normal bowel sounds, Soft and benign Neurological: Normal speech, Paraplegic, Genitourinary: Suprapubic catheter Diagnosis Sacral ulcer paraplegia Normocytic anemia Cardiovascular hypokalemia History CVA BPH with suprapubic catheter hypertension hypothyroidism Complicated UTI Assessment plan Acute on chronic diastolic heart failure Patient is stable on room air. CT chest shows no infiltrates or edema. Obtain echocardiogram. Sacral ulcer Local wound care. Wound care consult. Hypokalemia hypokalemia 3.4, Trend electrolytes replace as needed Normocytic anemia Monitor CBC History CVA paraplegia BPH with suprapubic catheter Seizure disorder Supportive care with fall precautions Resume home seizure medications. Monitor for active seizures. Hypertension Hypothyroidism Continue home meds Complicated UTI secondary to indwelling suprapubic catheter Urine culture is growing gram-negative rods History of ESBL E. coli. Antibiotics changed to meropenem. Follow urine culture organism identification and sensitivity. DVT prophylaxis: Diet cardiac Full code Discharge Plan: Senior Living
[2023-01-11] MEDS: PHENOBARBITAL 32.4 MG PO SCH (15:00)
[2023-01-11] MEDS: levETIRAcetam 500 MG TAB PO SCH ×2 (15:17→22:44)
[2023-01-11] MEDS: ALBUTEROL 2.5 MG/3 ML NEB SOL NEB PRN (19:57)
[2023-01-11] MEDS: PHENYTOIN ER 100 MG CAP PO SCH (22:43)
[2023-01-11] MEDS: METOPROLOL TAR 25 MG TAB PO SCH (22:44)
[2023-01-11] MEDS: INSULIN GLARGINE 100 UNIT/ML SQ SCH (22:47)
[2023-01-12] MEDS: ALBUTEROL 2.5 MG/3 ML NEB SOL NEB PRN (01:27)
[2023-01-12] MEDS: IPRATROPIUM BROM 0.5MG/2.5ML NEB SCH ×3 (01:27→20:29)
[2023-01-12] MEDS: Meropenem 1,000 MG in NA CHLORIDE 0.9% 100 ML IV SCH ×3 (01:48→16:14)
[2023-01-12] MEDS: PHENOBARBITAL 32.4 MG PO SCH ×2 (02:53→15:00)
[2023-01-12 03:21] LABS: Absolute Lymphocytes (CBC) 3.9 K/uL (0.7-4.9); Hematocrit 41.1 % (39.6-49.0); Lymphocytes % 29.6 % (15.3-44.8); MCV 87.3 fL (80-100); MPV 7.8 fL (7.6-11.3); Platelets 315 thou/uL (152-406); RBC Red Blood Cell Count 4.71 M/uL (4.33-5.43)
[2023-01-12 03:32] LABS: Magnesium 1.9 mg/dL (1.6-2.4); Phosphorus 2.7 mg/dL (2.5-4.9); Potassium 3.4 mEq/L (3.5-5.1)
--- NOTE | 2023-01-12 07:24 | P.PN ---
Date of Service: 01/12/23 Subjective: Feeling better today denies any pain no acute events overnight +productive cough ~same ROS: 10 point ROS as noted above, otherwise negative Physical Exam: GEN: Alert, orientedx3, NAD HEENT: Normal conjunctiva, sclera anicteric CV: Regular rate and rhythm, 1+ BLE edema Pulm: Nonlabored respirations on room air, diminished at bases b/l ABD: Soft, nontender, nondistended Integumentary: stage 1 sacral ulcer with non-blanchable erythema, +Skin tags Neuro: Paraplegic, Normal speech Suprapubic cath in place, no surrounding skin erythema, no drainage vitals reviewed Problem List: Complicated UTI secondary to indwelling suprapubic catheter Acute on chronic diastolic heart failure Stage 1 Sacral decubitus ulcer Hypokalemia Normocytic anemia IDDM2 Hypertension Hypothyroidism BPH with suprapubic catheter h/o of ESBL E. coli. h/o CVA, paraplegia Seizure disorder Complicated UTI secondary to indwelling suprapubic catheter BPH with suprapubic catheter h/o of ESBL E. coli. ID consulted urine cx(01/10): +4GNR blood cx(01/09): NGTD continue merrem (01/11- ~01/20) given h/o ESBL E. coli x10 days total abx treatment per ID adjust per cultures once back afebrile, leukocytosis 10 -> 13 (01/12) Acute on chronic diastolic heart failure CTA chest (01/10): Suboptimal opacification of the pulmonary arteries. No central PE identified. However, a clinically significant PE cannot be excluded on the basis of this exam patient stable on room air Continue IV lasix BID echo (01/12): 59% EF, mod diastolic dysfunction, mild TR, mild concentric left ventricular hypertrophy edema improving Stage 1 Sacral decubitus ulcer. Local wound care. Hypokalemia. Trend electrolytes replace as needed Normocytic anemia. Monitor CBC IDDM2. Accu-Cheks, sliding scale insulin. Continue semglee; adjust as needed Hypertension Hypothyroidism Continue home meds as appropriate h/o CVA, paraplegia Seizure disorder Supportive care with fall precautions Resume home seizure medications. Monitor for active seizures. VTE: Lovenox Code: Full Dispo: Back to [facility] Pending further improvement / culture results; 1-2 days
--- NOTE | 2023-01-12 08:33 | P.CNS ---
Date of Consult: 01/12/23 Reason for Consult: complicated UTI Chief Complaint: Pneumonia History of Present Illness: Patient is a 62-year-old male with a past medical history of CVA, paraplegia, BPH with suprapubic catheter, hypertension, hypothyroidism who presented to the ED from nursing for productive cough and mild shortness of breath. Patient was admitted for acute hypoxic respiratory failure secondary to pneumonia versus fluid overload. Urinalysis suggestive of UTI. Infectious disease was consulted. Allergies No Known Allergies Allergy (Unverified 06/07/13 08:10) Home medications list reviewed: Yes Home Medications: Baclofen 10 mg PO Q8H PRN 01/10/23 Benzocaine [Chloraseptic Warming] 15 mg PO SEECOM 01/10/23 Benzonatate 200 mg PO SEECOM 01/10/23 Docusate [Colace Cap*] 100 mg PO SEECOM 01/10/23 Fluoxetine HCl [Prozac] 40 mg PO DAILY 01/10/23 Furosemide [Lasix*] 40 mg PO DAILY 01/10/23 Guaifenesin/Dextromethorphan [Mucinex Dm ER 600-30 mg Tablet] 2 tab PO BID PRN 01/10/23 Insulin Detemir [Levemir] 33 unit SQ BID 01/10/23 Insulin Regular, Human [Novolin R Flexpen] See Rx Instructions .ROUTE .COMPLEX 01/10/23 Levothyroxine [Synthroid*] 1 tab PO DAILY 01/10/23 Lidocaine 4% Patch [Lidoderm 5% Patch*] 1 patch TOP SEECOM 01/10/23 Loperamide HCl [Loperamide] 2 mg pe PO SEECOM PRN 01/10/23 Losartan Potassium 100 mg PO DAILY 01/10/23 Melatonin 5 mg PO BEDTIME PRN 01/10/23 Metformin HCl 1,000 mg PO BID 01/10/23 Metoprolol Tartrate 25 mg PO BID 01/10/23 Nystatin 1 monty TOP SEECOM 01/10/23 PHENobarbitaL [Phenobarbital] 97.2 mg PO Q12H 01/10/23 Phenytoin Sodium Extended [Phenytek] 200 mg PO BID 01/10/23 Potassium Chloride 20 meq PO DAILY 01/10/23 hydrOXYzine HCL [Atarax*] 25 mg PO BID PRN 01/10/23 levETIRAcetam [Keppra] 500 mg PO BID 01/10/23 - Past Medical/Surgical History Diabetic: No -: CVA -: Paraplegia -: BPH with suprapubic catheter -: Hypertension -: Hyperlipidemia - Social History Smoking Status: Former smoker Alcohol use: No CD- Drugs: No Caffeine use: No Place of Residence: Home Review of Systems 10-point ROS is otherwise unremarkable Respiratory: Cough (intermittent) Physical Examination Temp Pulse Resp BP Pulse Ox 97.4 F 69 18 141/68 H 93 01/12/23 04:00 01/12/23 04:00 01/12/23 04:00 01/12/23 04:00 01/12/23 04:00 General: Alert, In no apparent distress Neck: Supple, JVD not distended Respiratory: Normal air movement (on room air), Diminished Cardiovascular: Regular rate/rhythm, Edema (BLE) Gastrointestinal: Normal bowel sounds, Soft and benign Musculoskeletal: Other (paraplegic) Integumentary: Pressure ulcer (buttocks stage 2) Neurological: Other (prior CVA), Abnormal speech Urinary: Suprapubic catheter Laboratory data: Reviewed Microbiology data: Reviewed Imagings Data: -Reviewed Conclusions/Impression: Problem list Complicated urinary tract infection BPH with chronic suprapubic catheter Pneumonia Prior CVA Paraplegia Hypertension Hypothyroidism Pressure injury Buttocks stage 2 (POA) Complicated urinary tract infection -BPH with Chronic suprapubic catheter - urinalysis 01/10: Extremely turbid, nitrite 2+, LE 500, WBC>50 , bacteria 20- 50 -Urine culture 01/10: Preliminary 4+ gram-negative rods; colony count> 100,000 CFU/mL -History of E. coli ESBL and Proteus ESBL -Started on meropenem 01/11 WBC 13.2 Afebrile Blood cultures 01/09: No growth to date Recommendations -Complicated UTI: continue antibiotic therapy for 10 days. Currently on meropene m, continue for now. Follow-up with final urine culture results. Will adjust antibiotics as appropriate. -Monitor WBC and fever trends - Apply barrier cream to buttocks. Pressure offloading measures. Case discussed with Richie Matias
[2023-01-12] MEDS ORDERED: POTASSIUM 25 MEQ EFFERV TAB PO ONE (09:00)
[2023-01-12] MEDS: HOME MED 1 EA UNK (Fluoxetine Hcl [Prozac] 40 MG Capsule) PO SCH (09:00)
[2023-01-12] MEDS: INSULIN GLARGINE 100 UNIT/ML SQ SCH ×2 (09:00→20:51)
[2023-01-12] MEDS: FUROSEMIDE 40 MG TABLET PO SCH (09:00)
[2023-01-12] MEDS: FUROSEMIDE 40 MG/4 ML VIAL IV SCH ×2 (09:51→16:13)
[2023-01-12] MEDS: levETIRAcetam 500 MG TAB PO SCH ×2 (09:52→20:49)
[2023-01-12] MEDS: PHENYTOIN ER 100 MG CAP PO SCH ×2 (09:52→20:47)
[2023-01-12] MEDS: INSULIN REGULAR (HUMAN) 100 UNIT/ML SQ SCH ×4 (09:53→20:50)
[2023-01-12] MEDS: LEVOTHYROXINE SOD 0.075 MG TAB PO SCH (09:53)
[2023-01-12] MEDS: POTASSIUM CL SA 10 MEQ TAB PO SCH (09:53)
[2023-01-12] MEDS: METOPROLOL TAR 25 MG TAB PO SCH ×2 (09:53→20:48)
[2023-01-12] MEDS: LOSARTAN POTASSIUM 50 MG TABLET PO SCH (09:54)
--- NOTE | 2023-01-12 12:30 | ECHO ---
HEIGHT: 5 ft 7 in WEIGHT: 267 lb 0.029 oz DATE OF STUDY: 01/12/[address]: Michael Jasso MD 2-DIMENSIONAL: YES M.MODE: YES DOPPLER: YES COLOR FLOW: YES TDS: PORTABLE: YES DEFINITY: BUBBLE STUDY: DIAGNOSIS: CONGESTIVE HEART FAILURE CARDIAC HISTORY: CATHERIZATION: NO SURGERY: NO PROSTHETIC VALVE: NO PACEMAKER: NO MEASUREMENTS (cm) DIASTOLIC (NORMALS) SYSTOLIC (NORMALS) IVSd 1.3 (0.6-1.2) LA Diam 3.1 (1.9-4.0) LVEF 59% LVIDd 4.2 (3.5-5.7) LVIDs 2.9 (2.0-3.5) %FS 31% LVPWd 1.4 (0.6-1.2) Ao Diam 2.9 (2.0-3.7) 2 DIMENSIONAL ASSESSMENT: RIGHT ATRIUM: NORMAL LEFT ATRIUM: NORMAL RIGHT VENTRICLE: NORMAL LEFT VENTRICLE: MILD LEFT VENTRICULAR HYPERTROPHY TRICUSPID VALVE: MILD TRICUSPID REGURGITATION MITRAL VALVE: NORMAL PULMONIC VALVE: NORMAL AORTIC VALVE: NORMAL PERICARDIAL EFFUSION: NONE AORTIC ROOT: NORMAL LEFT VENTRICULAR WALL MOTION: NORMAL DOPPLER/COLOR FLOW: MILD TRICUSPID REGURGITATION COMMENTS: 1. NORMAL LEFT VENTRICULAR EJECTION FRACTION 55-60% 2. NORMAL WALL MOTION 3. MODERATE DIASTOLIC DYSFUNCTION 4. MILD TRICUSPID REGURGITATION 5. RIGHT VENTRICULAR SYSTOLIC PRESSURE IS NORMAL, LESS THAN 25 mmHg 6. MILD CONCENTRIC LEFT VENTRICULAR HYPERTROPHY TECHNOLOGIST: RAVEN MARAVILLA
[2023-01-12] MEDS: IPRATROPIUM BROM 0.5MG/2.5ML NEB PRN (14:20)
[2023-01-13] MEDS: Meropenem 1,000 MG in NA CHLORIDE 0.9% 100 ML IV SCH ×3 (00:22→17:10)
[2023-01-13] MEDS: IPRATROPIUM BROM 0.5MG/2.5ML NEB SCH (02:08)
[2023-01-13] MEDS: PHENOBARBITAL 32.4 MG PO SCH ×2 (03:00→15:00)
[2023-01-13 03:23] LABS: Absolute Lymphocytes (CBC) 2.7 K/uL (0.7-4.9); Hematocrit 41.4 % (39.6-49.0); Lymphocytes % 22.9 % (15.3-44.8); MCV 87.4 fL (80-100); MPV 8.1 fL (7.6-11.3); Platelets 326 thou/uL (152-406); RBC Red Blood Cell Count 4.73 M/uL (4.33-5.43)
[2023-01-13 03:31] LABS: Potassium 3.6 mEq/L (3.5-5.1)
[2023-01-13] MEDS ORDERED: IPRATROPIUM BROM 0.5MG/2.5ML NEB PRN (07:14)
--- NOTE | 2023-01-13 07:15 | P.PN ---
Date of Service: 01/13/23 Subjective: feels coughing is worse; difficult to elaborate if anything exacerbates cough doesn't know if eating/drinking makes it worse - speech to eval appetite is okay afebrile ROS: 10 point ROS as noted above, otherwise negative Physical Exam: GEN: Alert, orientedx3, NAD HEENT: Normal conjunctiva, sclera anicteric CV: Regular rate and rhythm, 1+ BLE edema Pulm: Nonlabored respirations on room air, diminished at bases b/l ABD: Soft, nontender, nondistended Integumentary: stage 1 sacral ulcer with non-blanchable erythema, +Skin tags Neuro: Paraplegic, Normal speech Suprapubic cath in place, no surrounding skin erythema, no drainage vitals reviewed Problem List: Complicated UTI secondary to indwelling suprapubic catheter MDR Providencia Stuartii, E. coli, Pseudomonas Aeruginosa Acute on chronic diastolic heart failure Stage 1 Sacral decubitus ulcer Hypokalemia Normocytic anemia IDDM2 Hypertension Hypothyroidism BPH with suprapubic catheter h/o of ESBL E. coli. h/o CVA, paraplegia Seizure disorder Complicated UTI secondary to indwelling suprapubic catheter MDR Providencia Stuartii, E. coli, Pseudomonas Aeruginosa BPH with suprapubic catheter ID consulted urine cx(01/10): MDR Providencia Stuartii, E. coli, Pseudomonas Aeruginosa blood cx(01/09): NGTD continue merrem (01/11-) ~x10-14 days total abx treatment per ID afebrile, leukocytosis 13.2 -> 11.9 (01/13) 01/13 feels coughing is worse; difficult to elaborate if anything exacerbates cough Speech therapy consulted for swallow eval 01/13 PRN tessalon perles, PRN nebs Acute on chronic diastolic heart failure CTA chest (01/10): Suboptimal opacification of the pulmonary arteries. No central PE identified. However, a clinically significant PE cannot be excluded on the basis of this exam patient stable on room air Continue PO lasix BID echo (01/12): 59% EF, mod diastolic dysfunction, mild TR, mild concentric left ventricular hypertrophy edema improving Stage 1 Sacral decubitus ulcer. Local wound care. Hypokalemia. Trend electrolytes replace as needed Normocytic anemia. Monitor CBC IDDM2. Accu-Cheks, sliding scale insulin. Continue semglee; adjust as needed Hypertension Hypothyroidism Continue home meds as appropriate h/o CVA, paraplegia Seizure disorder Supportive care with fall precautions Resume home seizure medications. Monitor for active seizures. VTE: Lovenox Code: Full Dispo: Back to [facility] Pending further improvement / culture results; 1-2 days
[2023-01-13] MEDS: INSULIN REGULAR (HUMAN) 100 UNIT/ML SQ SCH ×4 (08:01→21:21)
[2023-01-13] MEDS: LEVOTHYROXINE SOD 0.075 MG TAB PO SCH (08:03)
--- NOTE | 2023-01-13 08:59 | P.PN ---
Date of Service: 01/13/23 Chief Complaint: Pneumonia Subjective: Patient seen and examined at bedside. In no apparent distress. Breathing comfortably on room air. No acute events reported overnight. He denies any new or worsening complaints. plan of care discussed with patient at bedside. Physical Examination Temp Pulse Resp BP Pulse Ox 97.1 F 60 18 146/66 H 98 01/13/23 04:00 01/13/23 04:00 01/13/23 04:00 01/13/23 04:00 01/13/23 04:00 General: Alert, In no apparent distress Neck: Supple, JVD not distended Respiratory: Normal air movement. Diminished at bases. On room air. Cardiovascular: Regular rate/rhythm. BLE edema. Gastrointestinal: Normal bowel sounds, Soft and benign Musculoskeletal: Paraplegic. Integumentary: Pressure injury stage 1 sacrum Neurological: Prior CVA. Abnormal speech. Urinary: Suprapubic catheter Laboratory data: Reviewed Microbiology data: Reviewed Imagings Data: Reviewed Medications List: Acetaminophen (Acetaminophen 500 Mg Tab) 500 mg PO Q4HP PRN PRN Reason: Pain scale 2-4 (Mild) Albuterol Sulfate (Albuterol 2.5 Mg/3 Ml Neb [place]) 2.5 mg NEB [id number] PRN PRN Reason: SHORTNESS OF BREATH Last Admin: 01/12/23 01:27 Dose: 2.5 mg Baclofen (Baclofen 10 Mg Tab) 10 mg PO Q8H PRN PRN Reason: Pain scale 5-7 (Moderate) Benzonatate (Benzonatate 100 Mg Cap) 100 mg PO Q6H PRN PRN Reason: COUGH Enoxaparin Sodium (Enoxaparin 40 Mg/0.4 Ml) 40 mg SQ DAILY [facility] Last Admin: 01/11/23 22:45 Dose: 40 mg Furosemide (Furosemide 40 Mg Tablet) 40 mg PO DAILY [facility] Last Admin: 01/13/23 09:42 Dose: 40 mg Glucagon (Glucagon 1 Mg/Vial) 1 mg IM 1X PRN; Protocol PRN Reason: HYPOGLYCEMIA Guaifenesin/Dextromethorphan (Mucinex Dm 12hr.Sr Tab) 2 tab PO BID PRN PRN Reason: COUGH Home Med (Fluoxetine Hcl [Prozac]) 40 mg PO DAILY [facility] Last Admin: 01/13/23 09:00 Dose: Not Given Home Med (Home Med [Phenobarbital 32.4 Mg Tab]) 97.2 ea PO Q12H [facility] Last Admin: 01/13/23 03:00 Dose: Not Given Dextrose (Dextrose 10% Water Iv Soln.) 125 mls @ 0 mls/hr IV PRN PRN; Protocol PRN Reason: HYPOGLYCEMIA Meropenem 1,000 mg/ Sodium (Chloride) 100 mls @ 200 mls/hr IV Q8HR [facility] Last Admin: 01/13/23 09:44 Dose: 100 mls Insulin Glargine (Insulin Glargine 100 Unit/Ml) 45 unit SQ BID [facility] Insulin Human Regular (Insulin Regular (Human) 100 Unit/Ml) 0 unit SQ ACHS [facility]; Protocol Last Admin: 01/13/23 08:01 Dose: 7 unit Ipratropium [place] (Ipratropium Brom 0.5mg/2.5ml) 0.5 mg NEB Q6HP PRN PRN Reason: WHEEZING Levetiracetam (Levetiracetam 500 Mg Tab) 500 mg PO BID [facility] Last Admin: 01/13/23 09:42 Dose: 500 mg Levothyroxine Sodium (Levothyroxine Sod 0.075 Mg Tab) 0.075 mg PO DAILY [facility] Last Admin: 01/13/23 08:03 Dose: 0.075 mg Lidocaine (Lidocaine 4% Patch) 1 patch [facility] Losartan Potassium (Losartan Potassium 50 Mg Tablet) 100 mg PO DAILY [facility] Last Admin: 01/13/23 09:42 Dose: 100 mg Metoprolol Tartrate (Metoprolol Tar 25 Mg Tab) 25 mg PO BID [facility] Last Admin: 01/13/23 09:42 Dose: 25 mg Ondansetron HCl (Ondansetron 4 Mg/2 Ml Vial) 4 mg IV Q6HP PRN PRN Reason: NAUSEA / VOMITING Phenytoin Sodium (Phenytoin Er 100 Mg Cap) 200 mg PO BID [facility] Last Admin: 01/13/23 09:42 Dose: 200 mg Potassium Chloride (Potassium Cl Sa 10 Meq Tab) 20 meq PO DAILY [facility] Last Admin: 01/13/23 09:41 Dose: 20 meq Assessment and Plan: Problem list Complicated urinary tract infection BPH with chronic suprapubic catheter Diabetes Mellitus type II Acute on Chronic CHF Prior CVA Paraplegia Hypertension Hypothyroidism Pressure injury sacrum/Buttocks stage 1 (POA) Seizure disorder Complicated urinary tract infection - BPH with Chronic suprapubic catheter - urinalysis 01/10: Extremely turbid, nitrite 2+, LE 500, WBC>50 , bacteria 20- 50 -Urine culture 01/10: Escherichia coli, Pseudomonas aeruginosa and Providencia stuartii - Multi-drug resistant Ecoli and pseudomonas. - nixon-resistant providencia stuartii -History of E. coli ESBL and Proteus ESBL -Started on meropenem 01/11 Leukocytosis improving (WBC 13.2 -> 11.9) Afebrile Blood cultures 01/09: No growth to date Recommendations - Complicated UTI: Continue Meropenem 1g IV Q8H for 10 days. - Place 3-way odom catheter for bladder instillation/irrigation Bladder instillation with acetic acid: instill 200mL, clamp for 4 hours, then drain. Repeat Q4H for 7 days. - Apply barrier cream to buttocks. Pressure offloading measures. - Strict blood glucose control - Monitor WBC and fever trends - Seizure precautions Case discussed with Dr. Hobbs NGwen
[2023-01-13] MEDS: HOME MED 1 EA UNK (Fluoxetine Hcl [Prozac] 40 MG Capsule) PO SCH (09:00)
[2023-01-13] MEDS: ENOXAPARIN 40 MG/0.4 ML SQ SCH (09:27)
[2023-01-13] MEDS: POTASSIUM CL SA 10 MEQ TAB PO SCH (09:41)
[2023-01-13] MEDS: METOPROLOL TAR 25 MG TAB PO SCH ×2 (09:42→21:21)
[2023-01-13] MEDS: LOSARTAN POTASSIUM 50 MG TABLET PO SCH (09:42)
[2023-01-13] MEDS: FUROSEMIDE 40 MG TABLET PO SCH (09:42)
[2023-01-13] MEDS: PHENYTOIN ER 100 MG CAP PO SCH ×2 (09:42→21:21)
[2023-01-13] MEDS: levETIRAcetam 500 MG TAB PO SCH ×2 (09:42→21:21)
[2023-01-13] MEDS: INSULIN GLARGINE 100 UNIT/ML SQ SCH ×2 (09:54→21:22)
[2023-01-13] MEDS ORDERED: ACETIC ACID 0.25% IRRIG IRR SCH (16:00)
[2023-01-13] MEDS: ACETIC ACID 0.25% IRRIG IRR SCH ×2 (17:27→21:22)
[2023-01-14] MEDS: Meropenem 1,000 MG in NA CHLORIDE 0.9% 100 ML IV SCH ×3 (00:36→18:10)
[2023-01-14] MEDS: ACETIC ACID 0.25% IRRIG IRR SCH ×6 (00:38→21:31)
[2023-01-14] MEDS: PHENOBARBITAL 32.4 MG PO SCH ×2 (03:00→15:00)
[2023-01-14 03:14] LABS: Absolute Lymphocytes (CBC) 3.3 K/uL (0.7-4.9); MPV 8.3 fL (7.6-11.3); Platelets 304 thou/uL (152-406); RBC Red Blood Cell Count 4.43 M/uL (4.33-5.43)
[2023-01-14 03:28] LABS: Magnesium 1.9 mg/dL (1.6-2.4); Potassium 3.7 mEq/L (3.5-5.1)
--- NOTE | 2023-01-14 08:14 | RAD REPORT ---
EXAM DESCRIPTION: RAD - Chest Single View - 01/14/2023 4:53 am CLINICAL HISTORY: increased cough, r/o aspiration Chest pain. COMPARISON: Chest Single View dated 01/09/2023; Chest For Pe Angio dated 01/10/2023 FINDINGS: Portable technique limits examination quality. Bilateral mild interstitial prominence is present. This appears similar to the prior study. The heart is moderately enlarged. Small left pleural effusion may be present. IMPRESSION: Stable chest since 01/09/2023 study.
--- NOTE | 2023-01-14 08:31 | P.PN ---
Date of Service: 01/14/23 Chief Complaint: Pneumonia Subjective: Patient seen and examined at bedside. He reports burning sensation while receiving acetic acid bladder instillation. We will attempt half acetic acid half normal saline (100ml/100ml). If he still experiences burning, then we will discontinue. Physical Examination Temp Pulse Resp BP Pulse Ox 98.1 F 63 16 145/53 H 95 01/14/23 04:00 01/14/23 04:00 01/14/23 04:00 01/14/23 04:00 01/14/23 04:00 General: Alert, In no apparent distress Neck: Supple, JVD not distended Respiratory: Normal air movement. Diminished at bases. On room air. Cardiovascular: Regular rate/rhythm. BLE edema. Gastrointestinal: Normal bowel sounds, Soft and benign Musculoskeletal: Paraplegic. Integumentary: Pressure injury stage 1 sacrum Neurological: Prior CVA. Abnormal speech. Urinary: Suprapubic catheter. 3-way odom catheter. Laboratory data: Reviewed Microbiology data: Reviewed Imagings Data: Reviewed Medications List: Acetaminophen (Acetaminophen 500 Mg Tab) 500 mg PO Q4HP PRN PRN Reason: Pain scale 2-4 (Mild) Albuterol Sulfate (Albuterol 2.5 Mg/3 Ml Neb [place]) 2.5 mg NEB [id number] PRN PRN Reason: SHORTNESS OF BREATH Last Admin: 01/12/23 01:27 Dose: 2.5 mg Baclofen (Baclofen 10 Mg Tab) 10 mg PO Q8H PRN PRN Reason: Pain scale 5-7 (Moderate) Benzonatate (Benzonatate 100 Mg Cap) 100 mg PO Q6H PRN PRN Reason: COUGH Enoxaparin Sodium (Enoxaparin 40 Mg/0.4 Ml) 40 mg SQ DAILY [facility] Last Admin: 01/11/23 22:45 Dose: 40 mg Furosemide (Furosemide 40 Mg Tablet) 40 mg PO DAILY [facility] Last Admin: 01/13/23 09:42 Dose: 40 mg Glucagon (Glucagon 1 Mg/Vial) 1 mg IM 1X PRN; Protocol PRN Reason: HYPOGLYCEMIA Guaifenesin/Dextromethorphan (Mucinex Dm 12hr.Sr Tab) 2 tab PO BID PRN PRN Reason: COUGH Home Med (Fluoxetine Hcl [Prozac]) 40 mg PO DAILY [facility] Last Admin: 01/13/23 09:00 Dose: Not Given Home Med (Home Med [Phenobarbital 32.4 Mg Tab]) 97.2 ea PO Q12H [facility] Last Admin: 01/13/23 03:00 Dose: Not Given Dextrose (Dextrose 10% Water Iv Soln.) 125 mls @ 0 mls/hr IV PRN PRN; Protocol PRN Reason: HYPOGLYCEMIA Meropenem 1,000 mg/ Sodium (Chloride) 100 mls @ 200 mls/hr IV Q8HR [facility] Last Admin: 01/13/23 09:44 Dose: 100 mls Insulin Glargine (Insulin Glargine 100 Unit/Ml) 45 unit SQ BID [facility] Insulin Human Regular (Insulin Regular (Human) 100 Unit/Ml) 0 unit SQ ACHS [facility]; Protocol Last Admin: 01/13/23 08:01 Dose: 7 unit Ipratropium [place] (Ipratropium Brom 0.5mg/2.5ml) 0.5 mg NEB Q6HP PRN PRN Reason: WHEEZING Levetiracetam (Levetiracetam 500 Mg Tab) 500 mg PO BID [facility] Last Admin: 01/13/23 09:42 Dose: 500 mg Levothyroxine Sodium (Levothyroxine Sod 0.075 Mg Tab) 0.075 mg PO DAILY [facility] Last Admin: 01/13/23 08:03 Dose: 0.075 mg Lidocaine (Lidocaine 4% Patch) 1 patch [facility] Losartan Potassium (Losartan Potassium 50 Mg Tablet) 100 mg PO DAILY [facility] Last Admin: 01/13/23 09:42 Dose: 100 mg Metoprolol Tartrate (Metoprolol Tar 25 Mg Tab) 25 mg PO BID [facility] Last Admin: 01/13/23 09:42 Dose: 25 mg Ondansetron HCl (Ondansetron 4 Mg/2 Ml Vial) 4 mg IV Q6HP PRN PRN Reason: NAUSEA / VOMITING Phenytoin Sodium (Phenytoin Er 100 Mg Cap) 200 mg PO BID [facility] Last Admin: 01/13/23 09:42 Dose: 200 mg Potassium Chloride (Potassium Cl Sa 10 Meq Tab) 20 meq PO DAILY [facility] Last Admin: 01/13/23 09:41 Dose: 20 meq Assessment and Plan: Problem list Complicated urinary tract infection BPH with chronic suprapubic catheter Diabetes Mellitus type II Acute on Chronic CHF Prior CVA Paraplegia Hypertension Hypothyroidism Pressure injury sacrum/Buttocks stage 1 (POA) Seizure disorder Complicated urinary tract infection - BPH with Chronic suprapubic catheter - urinalysis 01/10: Extremely turbid, nitrite 2+, LE 500, WBC>50 , bacteria 20- 50 -Urine culture 01/10: Escherichia coli, Pseudomonas aeruginosa and Providencia stuartii - Multi-drug resistant Ecoli and pseudomonas. - nixon-resistant providencia stuartii - Started on meropenem 01/11 - Started on acetic acid bladder instillation 01/13 WBC 13.2 -> 11.9 -> 13.6 Afebrile Blood cultures 01/09: No growth to date Recommendations - Complicated UTI: Continue Meropenem 1g IV Q8H for 10 days (01/11 to 01/21) - Bladder instillation with acetic acid: instill 200mL via 3-way odom, clamp odom and suprapubic cath for 1 hours, then drain/unclamp. Repeat Q6H for 7 days (01/13 to 01/20) He reports burning sensation while receiving acetic acid bladder instillation. We will attempt half acetic acid half normal saline (100ml/100ml). If he still experiences burning, then we will discontinue. - Apply barrier cream to buttocks. Pressure offloading measures. - Strict blood glucose control - Monitor WBC and fever trends - Seizure precautions Case discussed with Richie Matias
[2023-01-14] MEDS: HOME MED 1 EA UNK (Fluoxetine Hcl [Prozac] 40 MG Capsule) PO SCH (09:00)
[2023-01-14] MEDS ORDERED: CODEINE 30MG/APAP 300MG TAB PO PRN (09:55)
--- NOTE | 2023-01-14 09:55 | P.PN ---
Date of Service: 01/14/23 Subjective: Feels cough is improving no overt s/s of aspiration during swallow evaluation yesterday per speech burning sensation when irrigating/flushing catheter worse at start and goes away after a few minutes otherwise no new / worsening problems afebrile ROS: 10 point ROS as noted above, otherwise negative Physical Exam: GEN: Alert, orientedx3, NAD HEENT: Normal conjunctiva, sclera anicteric CV: Regular rate and rhythm, trace BLE edema Pulm: Nonlabored respirations on room air, diminished at bases b/l ABD: Soft, nontender, nondistended Integumentary: stage 1 sacral ulcer , +Skin tags Neuro: Paraplegic, Normal speech Suprapubic cath in place, no surrounding skin erythema, no drainage Urethral odom in place vitals reviewed Problem List: Complicated UTI secondary to indwelling suprapubic catheter MDR Providencia Stuartii, E. coli, Pseudomonas Aeruginosa Acute on chronic diastolic heart failure Stage 1 Sacral decubitus ulcer, mild; POA; +skin tags Hypokalemia Normocytic anemia IDDM2 Hypertension Hypothyroidism BPH with suprapubic catheter h/o of ESBL E. coli. h/o CVA, paraplegia Seizure disorder Complicated UTI secondary to indwelling suprapubic catheter MDR Providencia Stuartii, E. coli, Pseudomonas Aeruginosa BPH with suprapubic catheter ID consulted urine cx(01/10): MDR Providencia Stuartii, E. coli, Pseudomonas Aeruginosa blood cx(01/09): NGTD continue merrem (01/11-) ~x7-10 days total abx treatment per ID afebrile, leukocytosis 11.9 -> 13.6 (01/14) Urethral odom catheter placed 01/13 for bladder instillation continue acetic acid bladder instillation (01/13-01/20) x7 days per ID if unable to tolerate, will dc and monitor instill 200mL via 3-way odom, clamp odom and suprapubic cath for 1 hours, then drain/unclamp. repeat Q6H x7 days give tylenol #3 ~45 minutes prior to each bladder irrigation remove odom after 7 days of treatment (~01/20) Speech consulted - no overt s/s of aspiration during swallow evaluation PRN tessalon perles, PRN nebs Acute on chronic diastolic heart failure CTA chest (01/10): Suboptimal opacification of the pulmonary arteries. No central PE identified. However, a clinically significant PE cannot be excluded on the basis of this exam patient stable on room air Continue PO lasix BID echo (01/12): 59% EF, mod diastolic dysfunction, mild TR, mild concentric left ventricular hypertrophy edema improving Stage 1 Sacral decubitus ulcer. Local wound care. Hypokalemia. Trend electrolytes replace as needed Normocytic anemia. Monitor CBC IDDM2. Accu-Cheks, sliding scale insulin. Continue semglee; adjust as needed Hypertension Hypothyroidism Continue home meds as appropriate h/o CVA, paraplegia Seizure disorder Supportive care with fall precautions Resume home seizure medications. Monitor for active seizures. VTE: Lovenox Code: Full Dispo: Back to [facility] Pending further improvement, ~5 days
[2023-01-14] MEDS: INSULIN REGULAR (HUMAN) 100 UNIT/ML SQ SCH ×4 (10:07→21:30)
[2023-01-14] MEDS: ENOXAPARIN 40 MG/0.4 ML SQ SCH (10:07)
[2023-01-14] MEDS: levETIRAcetam 500 MG TAB PO SCH ×2 (10:08→21:30)
[2023-01-14] MEDS: METOPROLOL TAR 25 MG TAB PO SCH ×2 (10:08→21:35)
[2023-01-14] MEDS: POTASSIUM CL SA 10 MEQ TAB PO SCH (10:08)
[2023-01-14] MEDS: PHENYTOIN ER 100 MG CAP PO SCH ×2 (10:08→21:29)
[2023-01-14] MEDS: LEVOTHYROXINE SOD 0.075 MG TAB PO SCH (10:08)
[2023-01-14] MEDS: LOSARTAN POTASSIUM 50 MG TABLET PO SCH (10:08)
[2023-01-14] MEDS: BENZONATATE 100 MG CAP PO PRN (10:09)
[2023-01-14] MEDS: FUROSEMIDE 40 MG TABLET PO SCH (10:09)
[2023-01-14] MEDS: INSULIN GLARGINE 100 UNIT/ML SQ SCH ×2 (10:56→21:31)
[2023-01-14 12:59] VITALS: BMI 41.8
[2023-01-15] MEDS: ACETIC ACID 0.25% IRRIG IRR SCH ×2 (02:11→05:34)
[2023-01-15] MEDS: Meropenem 1,000 MG in NA CHLORIDE 0.9% 100 ML IV SCH ×3 (02:11→16:32)
[2023-01-15] MEDS: PHENOBARBITAL 32.4 MG PO SCH ×2 (02:22→15:00)
[2023-01-15 03:06] LABS: Absolute Lymphocytes (CBC) 2.9 K/uL (0.7-4.9); Hematocrit 37.9 % (39.6-49.0); Lymphocytes % 26.4 % (15.3-44.8); MCV 87.9 fL (80-100); MPV 8.2 fL (7.6-11.3); Platelets 294 thou/uL (152-406); RBC Red Blood Cell Count 4.31 M/uL (4.33-5.43)
[2023-01-15 03:11] LABS: Potassium 3.6 mEq/L (3.5-5.1)
--- NOTE | 2023-01-15 07:44 | P.PN ---
Date of Service: 01/15/23 Subjective: irrigation/flushing catheter really painful will dc odom and hold off for now and monitor for worsening symptoms coughing less often otherwise no new / worsening problems afebrile ROS: 10 point ROS as noted above, otherwise negative Physical Exam: GEN: Alert, orientedx3, NAD HEENT: Normal conjunctiva, sclera anicteric CV: Regular rate and rhythm, trace BLE edema Pulm: Nonlabored respirations on room air, diminished at bases b/l ABD: Soft, nontender, nondistended Integumentary: stage 1 sacral ulcer , +Skin tags Neuro: Paraplegic, Normal speech Suprapubic cath in place, no surrounding skin erythema, no drainage vitals reviewed Problem List: Complicated UTI secondary to indwelling suprapubic catheter MDR Providencia Stuartii, E. coli, Pseudomonas Aeruginosa Acute on chronic diastolic heart failure Stage 1 Sacral decubitus ulcer, mild; POA; +skin tags Hypokalemia Normocytic anemia IDDM2 Hypertension Hypothyroidism BPH with suprapubic catheter h/o of ESBL E. coli. h/o CVA, paraplegia Seizure disorder Complicated UTI secondary to indwelling suprapubic catheter MDR Providencia Stuartii, E. coli, Pseudomonas Aeruginosa BPH with suprapubic catheter ID consulted urine cx(01/10): MDR Providencia Stuartii, E. coli, Pseudomonas Aeruginosa blood cx(01/09): NGTD continue merrem (01/11-01/21) ~10 days total abx treatment per ID afebrile, leukocytosis improving Urethral odom catheter placed 01/13 for bladder instillation and dc'd 01/15 d/t painful bladder irrigations previously given acetic acid bladder instillation (01/13-01/14) monitor for worsening symptoms Speech consulted - no overt s/s of aspiration during swallow evaluation PRN tessalon perles, PRN nebs Acute on chronic diastolic heart failure CTA chest (01/10): Suboptimal opacification of the pulmonary arteries. No central PE identified. However, a clinically significant PE cannot be excluded on the basis of this exam patient stable on room air Continue PO lasix BID echo (01/12): 59% EF, mod diastolic dysfunction, mild TR, mild concentric left ventricular hypertrophy edema improving Stage 1 Sacral decubitus ulcer, mild; POA; +skin tags. Local wound care. Hypokalemia. Trend electrolytes replace as needed Normocytic anemia. Monitor CBC IDDM2. Accu-Cheks, sliding scale insulin. Continue semglee; adjust as needed Hypertension Hypothyroidism Continue home meds as appropriate h/o CVA, paraplegia Seizure disorder Supportive care with fall precautions Resume home seizure medications. Monitor for active seizures. VTE: Lovenox Code: Full Dispo: Back to [facility] Pending further improvement, ~2 days
--- NOTE | 2023-01-15 08:30 | P.PN ---
Date of Service: 01/15/23 Chief Complaint: Pneumonia Subjective: No new or worsening complaints at this time. In no apparent distress. No acute events reported overnight. Physical Examination Temp Pulse Resp BP Pulse Ox 97.3 F 64 18 133/62 94 01/15/23 04:00 01/15/23 04:00 01/15/23 04:00 01/15/23 04:00 01/15/23 04:00 General: Alert, In no apparent distress Neck: Supple, JVD not distended Respiratory: Normal air movement. Diminished at bases. On room air. Cardiovascular: Regular rate/rhythm. BLE edema. Gastrointestinal: Normal bowel sounds, Soft and benign Musculoskeletal: Paraplegic. Integumentary: Pressure injury stage 1 sacrum Neurological: Prior CVA. Abnormal speech. Urinary: Suprapubic catheter. Laboratory data: Reviewed Microbiology data: Reviewed Imagings Data: Reviewed Medications List: Reviewed Assessment and Plan: Problem list Complicated urinary tract infection BPH with chronic suprapubic catheter Diabetes Mellitus type II Acute on Chronic CHF Prior CVA Paraplegia Hypertension Hypothyroidism Pressure injury sacrum/Buttocks stage 1 (POA) Seizure disorder Complicated urinary tract infection - BPH with Chronic suprapubic catheter - urinalysis 01/10: Extremely turbid, nitrite 2+, LE 500, WBC>50 , bacteria 20- 50 -Urine culture 01/10: Escherichia coli ESBL, Pseudomonas aeruginosa and Providencia stuartii - Multi-drug resistant Ecoli and pseudomonas. - nixon-resistant providencia stuartii - Started on meropenem 01/11 - Started on acetic acid bladder instillation 01/13. Discontinued 01/15 due to reported burning while instilled. WBC 13.2 -> 11.9 -> 13.6 -> 11 Afebrile Blood cultures 01/09: No growth to date Recommendations - Complicated UTI: Continue Meropenem 1g IV Q8H for 10 days (01/11 to 01/21). Discontinued acetic acid bladder instillation 3-way odom catheter. - Apply barrier cream to buttocks. Pressure offloading measures. - Strict blood glucose control - Monitor WBC and fever trends - Seizure precautions Case discussed with Dr. Hobbs N.
[2023-01-15] MEDS: HOME MED 1 EA UNK (Fluoxetine Hcl [Prozac] 40 MG Capsule) PO SCH (09:00)
[2023-01-15] MEDS: PHENYTOIN ER 100 MG CAP PO SCH ×2 (09:34→21:08)
[2023-01-15] MEDS: LOSARTAN POTASSIUM 50 MG TABLET PO SCH (09:35)
[2023-01-15] MEDS: METOPROLOL TAR 25 MG TAB PO SCH ×2 (09:35→21:08)
[2023-01-15] MEDS: levETIRAcetam 500 MG TAB PO SCH ×2 (09:36→21:08)
[2023-01-15] MEDS: POTASSIUM CL SA 10 MEQ TAB PO SCH (09:36)
[2023-01-15] MEDS: FUROSEMIDE 40 MG TABLET PO SCH (09:37)
[2023-01-15] MEDS: LEVOTHYROXINE SOD 0.075 MG TAB PO SCH (09:37)
[2023-01-15] MEDS: ENOXAPARIN 40 MG/0.4 ML SQ SCH (09:38)
[2023-01-15] MEDS: INSULIN GLARGINE 100 UNIT/ML SQ SCH ×2 (09:38→21:08)
[2023-01-15] MEDS: INSULIN REGULAR (HUMAN) 100 UNIT/ML SQ SCH ×4 (09:39→21:07)
[2023-01-16] MEDS: Meropenem 1,000 MG in NA CHLORIDE 0.9% 100 ML IV SCH ×3 (00:40→17:00)
[2023-01-16] MEDS: PHENOBARBITAL 32.4 MG PO SCH ×2 (03:00→15:00)
[2023-01-16 04:53] LABS: Absolute Lymphocytes (CBC) 2.7 K/uL (0.7-4.9); Hematocrit 41.5 % (39.6-49.0); Lymphocytes % 27.1 % (15.3-44.8); MCV 87.7 fL (80-100); MPV 8.2 fL (7.6-11.3); Platelets 291 thou/uL (152-406); RBC Red Blood Cell Count 4.73 M/uL (4.33-5.43)
[2023-01-16] MEDS: INSULIN REGULAR (HUMAN) 100 UNIT/ML SQ SCH ×4 (07:30→20:10)
[2023-01-16] MEDS: PHENYTOIN ER 100 MG CAP PO SCH ×2 (08:24→20:10)
[2023-01-16] MEDS: METFORMIN HCL 500 MG TAB PO SCH ×2 (08:24→20:09)
[2023-01-16] MEDS: FUROSEMIDE 40 MG TABLET PO SCH (08:25)
[2023-01-16] MEDS: POTASSIUM CL SA 10 MEQ TAB PO SCH (08:25)
[2023-01-16] MEDS: LEVOTHYROXINE SOD 0.075 MG TAB PO SCH (08:25)
[2023-01-16] MEDS: LOSARTAN POTASSIUM 50 MG TABLET PO SCH (08:25)
[2023-01-16] MEDS: INSULIN GLARGINE 100 UNIT/ML SQ SCH ×2 (09:00→20:11)
[2023-01-16] MEDS: METOPROLOL TAR 25 MG TAB PO SCH ×2 (09:00→20:09)
[2023-01-16] MEDS: HOME MED 1 EA UNK (Fluoxetine Hcl [Prozac] 40 MG Capsule) PO SCH (09:00)
--- NOTE | 2023-01-16 12:03 | P.PN ---
Date of Service: 01/16/23 Subjective: Doing okay no acute events overnight Urethral odom removed yesterday d/t painful bladder irrigations afebrile ROS: 10 point ROS as noted above, otherwise negative Physical Exam: GEN: Alert, orientedx3, NAD HEENT: Normal conjunctiva, sclera anicteric CV: Regular rate and rhythm, trace BLE edema Pulm: Nonlabored respirations on room air, diminished at bases b/l ABD: Soft, nontender, nondistended Integumentary: stage 1 sacral ulcer, +Skin tags Neuro: Paraplegic, Normal speech Suprapubic cath in place, no surrounding skin erythema, no drainage vitals reviewed Problem List: Complicated UTI secondary to indwelling suprapubic catheter MDR Providencia Stuartii, E. coli, Pseudomonas Aeruginosa Acute on chronic diastolic heart failure Stage 1 Sacral decubitus ulcer, mild; POA; +skin tags Hypokalemia Normocytic anemia IDDM2 Hypertension Hypothyroidism BPH with suprapubic catheter h/o of ESBL E. coli. h/o CVA, paraplegia Seizure disorder Complicated UTI secondary to indwelling suprapubic catheter MDR Providencia Stuartii, E. coli, Pseudomonas Aeruginosa BPH with suprapubic catheter ID consulted urine cx(01/10): MDR Providencia Stuartii, E. coli, Pseudomonas Aeruginosa blood cx(01/09): NGTD continue merrem (01/11-01/21) ~10 days total abx treatment per ID afebrile, leukocytosis resolved Urethral odom catheter placed 01/13 for bladder instillation and dc'd 01/15 d/t painful bladder irrigations previously given acetic acid bladder instillation (01/13-01/14) monitor for worsening symptoms Speech consulted - no overt s/s of aspiration during swallow evaluation PRN tessalon perles, PRN nebs Acute on chronic diastolic heart failure resolved CTA chest (01/10): Suboptimal opacification of the pulmonary arteries. No central PE identified. However, a clinically significant PE cannot be excluded on the basis of this exam patient stable on room air Continue PO lasix BID echo (01/12): 59% EF, mod diastolic dysfunction, mild TR, mild concentric left ventricular hypertrophy edema improving Stage 1 Sacral decubitus ulcer, mild; POA; +skin tags. Local wound care. Hypokalemia. Trend electrolytes replace as needed Normocytic anemia. Monitor CBC IDDM2. Accu-Cheks, sliding scale insulin. Continue semglee; adjust as needed Hypertension Hypothyroidism Continue home meds as appropriate h/o CVA, paraplegia Seizure disorder Supportive care with fall precautions Resume home seizure medications. Monitor for active seizures. VTE: Lovenox Code: Full Dispo: Back to [facility] Pending further improvement, ~2 days
[2023-01-16] MEDS: ENOXAPARIN 40 MG/0.4 ML SQ SCH (12:15)
[2023-01-16] MEDS: levETIRAcetam 500 MG TAB PO SCH ×2 (12:16→20:10)
[2023-01-17] MEDS: Meropenem 1,000 MG in NA CHLORIDE 0.9% 100 ML IV SCH ×3 (01:00→17:35)
[2023-01-17] MEDS: PHENOBARBITAL 32.4 MG PO SCH ×2 (02:26→14:45)
[2023-01-17 03:33] LABS: Absolute Lymphocytes (CBC) 3.4 K/uL (0.7-4.9); Hematocrit 39.4 % (39.6-49.0); Lymphocytes % 31.8 % (15.3-44.8); MCV 87.8 fL (80-100); MPV 8.3 fL (7.6-11.3); Platelets 293 thou/uL (152-406); RBC Red Blood Cell Count 4.48 M/uL (4.33-5.43)
[2023-01-17 03:56] LABS: Magnesium 1.9 mg/dL (1.6-2.4); Potassium 3.9 mEq/L (3.5-5.1)
[2023-01-17] MEDS ORDERED: POTASSIUM CL SA 10 MEQ TAB PO ONE (08:00)
[2023-01-17] MEDS ORDERED: NA CHLORIDE 0.9% 100 ML ONE (08:32)
[2023-01-17] MEDS: HOME MED 1 EA UNK (Fluoxetine Hcl [Prozac] 40 MG Capsule) PO SCH (09:00)
[2023-01-17] MEDS: METOPROLOL TAR 25 MG TAB PO SCH ×2 (09:11→20:17)
[2023-01-17] MEDS: levETIRAcetam 500 MG TAB PO SCH ×2 (09:12→20:01)
[2023-01-17] MEDS: METFORMIN HCL 500 MG TAB PO SCH ×2 (09:12→20:01)
[2023-01-17] MEDS: FUROSEMIDE 40 MG TABLET PO SCH (09:12)
[2023-01-17] MEDS: LEVOTHYROXINE SOD 0.075 MG TAB PO SCH (09:12)
[2023-01-17] MEDS: ENOXAPARIN 40 MG/0.4 ML SQ SCH (09:12)
[2023-01-17] MEDS: LOSARTAN POTASSIUM 50 MG TABLET PO SCH (09:12)
[2023-01-17] MEDS: INSULIN GLARGINE 100 UNIT/ML SQ SCH ×2 (09:13→20:59)
[2023-01-17] MEDS: INSULIN REGULAR (HUMAN) 100 UNIT/ML SQ SCH ×4 (09:13→21:00)
[2023-01-17] MEDS: BENZONATATE 100 MG CAP PO PRN (09:18)
[2023-01-17] MEDS: PHENYTOIN ER 100 MG CAP PO SCH ×2 (09:18→20:01)
--- NOTE | 2023-01-17 10:26 | P.PN ---
Date of Service: 01/17/23 Subjective: no new / worsening problems continues with cough; improving no n/v/d; feels constipated today, has urge to go afebrile ROS: 10 point ROS as noted above, otherwise negative Physical Exam: GEN: Alert, orientedx3, NAD HEENT: Normal conjunctiva, sclera anicteric CV: Regular rate and rhythm, trace BLE edema Pulm: Nonlabored respirations on room air, diminished at bases b/l ABD: Soft, nontender, nondistended Integumentary: stage 1 sacral ulcer, +Skin tags Neuro: Paraplegic, Normal speech Suprapubic cath in place, no surrounding skin erythema, no drainage vitals reviewed Problem List: Complicated UTI secondary to indwelling suprapubic catheter MDR Providencia Stuartii, E. coli, Pseudomonas Aeruginosa Acute on chronic diastolic heart failure Stage 1 Sacral decubitus ulcer, mild; POA; +skin tags Hypokalemia Normocytic anemia IDDM2 Hypertension Hypothyroidism BPH with suprapubic catheter h/o of ESBL E. coli. h/o CVA, paraplegia Seizure disorder Complicated UTI secondary to indwelling suprapubic catheter MDR Providencia Stuartii, E. coli, Pseudomonas Aeruginosa BPH with suprapubic catheter ID consulted urine cx(01/10): MDR Providencia Stuartii, E. coli, Pseudomonas Aeruginosa blood cx(01/09): NGTD continue merrem (01/11-01/21) ~10 days total abx treatment per ID afebrile, leukocytosis resolved Urethral odom catheter placed 01/13 for bladder instillation and dc'd 01/15 d/t painful bladder irrigations previously given acetic acid bladder instillation (01/13-01/14) monitor for worsening symptoms Speech consulted - no overt s/s of aspiration during swallow evaluation PRN tessalon perles, PRN nebs Acute on chronic diastolic heart failure resolved CTA chest (01/10): Suboptimal opacification of the pulmonary arteries. No central PE identified. However, a clinically significant PE cannot be excluded on the basis of this exam patient stable on room air Continue PO lasix BID echo (01/12): 59% EF, mod diastolic dysfunction, mild TR, mild concentric left ventricular hypertrophy edema improving Stage 1 Sacral decubitus ulcer, mild; POA; +skin tags. Local wound care. Hypokalemia. Trend electrolytes replace as needed Normocytic anemia. Monitor CBC IDDM2. Accu-Cheks, sliding scale insulin. Continue semglee; adjust as needed Hypertension Hypothyroidism Continue home meds as appropriate h/o CVA, paraplegia Seizure disorder Supportive care with fall precautions Resume home seizure medications. Monitor for active seizures. VTE: Lovenox Code: Full Dispo: Back to [facility] Pending further improvement, ~1-2 days
[2023-01-17] MEDS: POTASSIUM CL SA 10 MEQ TAB PO SCH (12:50)
[2023-01-17] MEDS: FLUOXETINE 20 MG CAP PO SCH (14:45)
[2023-01-17] MEDS: MUCINEX DM 12HR.SR TAB PO PRN (20:17)
[2023-01-18] MEDS: Meropenem 1,000 MG in NA CHLORIDE 0.9% 100 ML IV SCH ×3 (01:06→17:36)
[2023-01-18] MEDS: BENZONATATE 100 MG CAP PO PRN (01:15)
[2023-01-18 02:55] LABS: Absolute Lymphocytes (CBC) 3.1 K/uL (0.7-4.9); Lymphocytes % 24.2 % (15.3-44.8); MPV 8.5 fL (7.6-11.3); Platelets 290 thou/uL (152-406); RBC Red Blood Cell Count 4.44 M/uL (4.33-5.43)
[2023-01-18] MEDS: PHENOBARBITAL 32.4 MG PO SCH ×2 (03:00→14:56)
[2023-01-18 03:03] LABS: Potassium 3.8 mEq/L (3.5-5.1)
[2023-01-18 03:04] LABS: Magnesium 1.7 mg/dL (1.6-2.4)
[2023-01-18] MEDS ORDERED: MAGNESIUM SULFATE 1 gm IVPB 1 GM/100 ML BAG IV ONE (06:00)
--- NOTE | 2023-01-18 08:35 | P.PN ---
Date of Service: 01/18/23 Subjective: Feelings like cough is getting worse midline placed yesterday afebrile ROS: 10 point ROS as noted above, otherwise negative Physical Exam: GEN: Alert, orientedx3, NAD HEENT: Normal conjunctiva, sclera anicteric CV: Regular rate and rhythm, trace BLE edema Pulm: Nonlabored respirations on room air, diminished at bases b/l, +productive cough ABD: Soft, nontender, nondistended Integumentary: stage 1 sacral ulcer, +Skin tags Neuro: Paraplegic, Normal speech Suprapubic cath in place, no surrounding skin erythema, no drainage vitals reviewed Problem List: Complicated UTI secondary to indwelling suprapubic catheter MDR Providencia Stuartii, E. coli, Pseudomonas Aeruginosa Productive Cough Acute on chronic diastolic heart failure Stage 1 Sacral decubitus ulcer, mild; POA; +skin tags Hypokalemia Normocytic anemia IDDM2 Hypertension Hypothyroidism BPH with suprapubic catheter h/o of ESBL E. coli. h/o CVA, paraplegia Seizure disorder Complicated UTI secondary to indwelling suprapubic catheter MDR Providencia Stuartii, E. coli, Pseudomonas Aeruginosa BPH with suprapubic catheter ID consulted urine cx(01/10): MDR Providencia Stuartii, E. coli, Pseudomonas Aeruginosa blood cx(01/09): NGTD continue merrem (01/11-01/21) ~10 days total abx treatment per ID afebrile, leukocytosis 10.7 -> 12.8 Urethral odom catheter placed 01/13 for bladder instillation and dc'd 01/15 d/t painful bladder irrigations previously given acetic acid bladder instillation (01/13-01/14) monitor for worsening symptoms Productive Cough Speech consulted - no overt s/s of aspiration during swallow evaluation PRN tessalon perles, PRN nebs 01/18 feels cough is worse; CXR ordered for further eval +leukocytosis slightly worse Acute on chronic diastolic heart failure resolved CTA chest (01/10): Suboptimal opacification of the pulmonary arteries. No central PE identified. However, a clinically significant PE cannot be excluded on the basis of this exam patient stable on room air Continue PO lasix BID echo (01/12): 59% EF, mod diastolic dysfunction, mild TR, mild concentric left ventricular hypertrophy Stage 1 Sacral decubitus ulcer, mild; POA; +skin tags. Local wound care. Hypokalemia. Trend electrolytes replace as needed Normocytic anemia. Monitor CBC IDDM2. Accu-Cheks, sliding scale insulin. Continue semglee; adjust as needed Hypertension Hypothyroidism Continue home meds as appropriate h/o CVA, paraplegia Seizure disorder Supportive care with fall precautions Resume home seizure medications. Monitor for active seizures. VTE: Lovenox Code: Full Dispo: Back to [facility] Pending further improvement, ~1-2 days
--- NOTE | 2023-01-18 08:54 | P.PN ---
Date of Service: 01/18/23 Chief Complaint: Pneumonia Subjective: Patient seen and examined at bedside. Still reports productive cough. No nausea, vomiting, abdominal pain or diarrhea. No urinary symptoms. No shortness of breath or chest pain. Otherwise no new or worsening complaints. No acute events reported over the weekend. XR chest obtained this morning, "no acute abnormalities displayed" Physical Examination Temp Pulse Resp BP Pulse Ox 97.8 F 62 16 138/60 93 01/18/23 04:00 01/18/23 04:00 01/18/23 04:00 01/18/23 04:00 01/18/23 04:00 General: Alert, In no apparent distress Neck: Supple, JVD not distended Respiratory: Normal air movement. Diminished at bases. On room air. Cardiovascular: Regular rate/rhythm. BLE edema. Gastrointestinal: Normal bowel sounds, Soft and benign Musculoskeletal: Paraplegic. Integumentary: Pressure injury stage 1 sacrum Neurological: Prior CVA. Abnormal speech. Urinary: Suprapubic catheter. Laboratory data: - Reviewed Microbiology data: - Reviewed Imaging Data: - Reviewed Medications List: - Reviewed Assessment and Plan: Problem list Complicated urinary tract infection BPH with chronic suprapubic catheter Diabetes Mellitus type II Acute on Chronic CHF Prior CVA Paraplegia Hypertension Hypothyroidism Pressure injury sacrum/Buttocks stage 1 (POA) Seizure disorder Complicated urinary tract infection - BPH with Chronic suprapubic catheter - urinalysis 01/10: Extremely turbid, nitrite 2+, LE 500, WBC>50 , bacteria 20- 50 -Urine culture 01/10: Escherichia coli ESBL, Pseudomonas aeruginosa and Providencia stuartii - Multi-drug resistant Ecoli and pseudomonas. - nixon-resistant providencia stuartii - Started on meropenem 01/11 - Started on acetic acid bladder instillation 01/13. Discontinued 01/15 due to reported burning while instilled. - 01/18: denies any urinary symptoms WBC 13.6 -> 11 -> 10 -> 10.7 -> 12.8 Afebrile Blood cultures 01/09: No growth to date XR chest 01/18: "The lungs appear clear of acute infiltrate. The heart is mildly enlarged." Recommendations WBC back up to 12.8 from 10.7. Obtain CBC for tomorrow 01/19. Will reevaluate. - Complicated UTI: Continue Meropenem 1g IV Q8H for 10 days (01/11 to 01/21). - Apply barrier cream to buttocks. Pressure offloading measures. - Strict blood glucose control - Seizure precautions Case discussed with Richie Matias
[2023-01-18] MEDS ORDERED: POTASSIUM CL SA 10 MEQ TAB PO ONE (09:00)
[2023-01-18] MEDS: INSULIN REGULAR (HUMAN) 100 UNIT/ML SQ SCH ×4 (09:26→22:15)
[2023-01-18] MEDS: LOSARTAN POTASSIUM 50 MG TABLET PO SCH (09:27)
[2023-01-18] MEDS: METFORMIN HCL 500 MG TAB PO SCH ×2 (09:27→22:16)
[2023-01-18] MEDS: PHENYTOIN ER 100 MG CAP PO SCH ×2 (09:27→22:16)
[2023-01-18] MEDS: levETIRAcetam 500 MG TAB PO SCH ×2 (09:27→22:17)
[2023-01-18] MEDS: FUROSEMIDE 40 MG TABLET PO SCH (09:28)
[2023-01-18] MEDS: POTASSIUM CL SA 10 MEQ TAB PO SCH (09:28)
[2023-01-18] MEDS: METOPROLOL TAR 25 MG TAB PO SCH ×2 (09:28→22:16)
[2023-01-18] MEDS: LEVOTHYROXINE SOD 0.075 MG TAB PO SCH (09:28)
[2023-01-18] MEDS: INSULIN GLARGINE 100 UNIT/ML SQ SCH ×2 (09:29→22:15)
[2023-01-18] MEDS: FLUOXETINE 20 MG CAP PO SCH (09:29)
[2023-01-18] MEDS: ENOXAPARIN 40 MG/0.4 ML SQ SCH (09:31)
--- NOTE | 2023-01-18 09:50 | RAD REPORT ---
EXAM DESCRIPTION: Sathish Single View01/18/2023 9:18 am CLINICAL HISTORY: Cough COMPARISON: January 14, 2023 FINDINGS: The lungs appear clear of acute infiltrate. The heart is mildly enlarged IMPRESSION: No acute abnormalities displayed
[2023-01-18] MEDS: MUCINEX DM 12HR.SR TAB PO PRN ×2 (12:41→22:44)
[2023-01-19] MEDS: Meropenem 1,000 MG in NA CHLORIDE 0.9% 100 ML IV SCH ×2 (00:31→10:09)
[2023-01-19] MEDS: ALBUTEROL 2.5 MG/3 ML NEB SOL NEB PRN (01:20)
[2023-01-19] MEDS: IPRATROPIUM BROM 0.5MG/2.5ML NEB PRN (01:20)
[2023-01-19] MEDS: PHENOBARBITAL 32.4 MG PO SCH ×2 (03:00→14:35)
[2023-01-19 05:33] LABS: Absolute Lymphocytes (CBC) 3.2 K/uL (0.7-4.9); Hematocrit 39.5 % (39.6-49.0); Lymphocytes % 24.8 % (15.3-44.8); MCV 87.7 fL (80-100); MPV 7.7 fL (7.6-11.3); Platelets 277 thou/uL (152-406)
[2023-01-19] MEDS: INSULIN REGULAR (HUMAN) 100 UNIT/ML SQ SCH ×3 (07:30→16:14)
--- NOTE | 2023-01-19 08:25 | P.PN ---
Date of Service: 01/19/23 Chief Complaint: Pneumonia Subjective: No acute events reported overnight. Patient denies any new or worsening complaints at this time. Still with intermittent cough. Clinically stable. Physical Examination Temp Pulse Resp BP Pulse Ox 97.8 F 67 17 128/54 L 94 01/19/23 04:00 01/19/23 04:00 01/19/23 04:00 01/19/23 04:00 01/19/23 04:00 General: Alert, In no apparent distress. Neck: Supple, JVD not distended Respiratory: Normal air movement. Diminished at bases. Nonlabored respirations on room air. Cardiovascular: Regular rate/rhythm. BLE edema. Gastrointestinal: Normal bowel sounds, Soft and benign, non-tender. Integumentary: Pressure injury stage 1 sacrum Neurological: Prior CVA. Abnormal speech. Paraplegic. Urinary: Suprapubic catheter draining yellow urine. Laboratory data: - Reviewed Microbiology data: - Reviewed Imaging Data: - Reviewed Medications List: Acetaminophen (Acetaminophen 500 Mg Tab) 500 mg PO Q4HP PRN PRN Reason: Pain scale 2-4 (Mild) Last Admin: 01/14/23 00:39 Dose: 500 mg Acetaminophen/Codeine Phosphate (Codeine 30mg/Apap 300mg Tab) 1 tab PO Q6H PRN PRN Reason: Pain scale 8-10 (Severe) Albuterol Sulfate (Albuterol 2.5 Mg/3 Ml Neb [place]) 2.5 mg NEB [id number] PRN PRN Reason: SHORTNESS OF BREATH Last Admin: 01/19/23 01:20 Dose: 2.5 mg Baclofen (Baclofen 10 Mg Tab) 10 mg PO Q8H PRN PRN Reason: Pain scale 5-7 (Moderate) Last Admin: 01/14/23 10:08 Dose: 10 mg Benzonatate (Benzonatate 100 Mg Cap) 100 mg PO Q6H PRN PRN Reason: COUGH Last Admin: 01/18/23 01:15 Dose: 100 mg Enoxaparin Sodium (Enoxaparin 40 Mg/0.4 Ml) 40 mg SQ DAILY [facility] Last Admin: 01/18/23 09:31 Dose: 40 mg Fluoxetine HCl (Fluoxetine 20 Mg Cap) 40 mg PO DAILY [facility] Last Admin: 01/18/23 09:29 Dose: 40 mg Furosemide (Furosemide 40 Mg Tablet) 40 mg PO DAILY [facility] Last Admin: 01/18/23 09:28 Dose: 40 mg Glucagon (Glucagon 1 Mg/Vial) 1 mg IM 1X PRN; Protocol PRN Reason: HYPOGLYCEMIA Guaifenesin/Dextromethorphan (Mucinex Dm 12hr.Sr Tab) 2 tab PO BID PRN PRN Reason: COUGH Last Admin: 01/18/23 22:44 Dose: 2 tab Home Med (Home Med [Phenobarbital 32.4 Mg Tab]) 97.2 ea PO Q12H [place] Last Admin: 01/19/23 03:00 Dose: Not Given Dextrose (Dextrose 10% Water Iv Soln.) 125 mls @ 0 mls/hr IV PRN PRN; Protocol PRN Reason: HYPOGLYCEMIA Meropenem 1,000 mg/ Sodium (Chloride) 100 mls @ 200 mls/hr IV Q8HR [place] Last Admin: 01/19/23 00:31 Dose: 100 mls Insulin Glargine (Insulin Glargine 100 Unit/Ml) 45 unit SQ BID [facility] Last Admin: 01/18/23 22:15 Dose: 45 unit Insulin Human Regular (Insulin Regular (Human) 100 Unit/Ml) 0 unit SQ ACHS [place]; Protocol Last Admin: 01/19/23 07:30 Dose: Not Given Ipratropium [place] (Ipratropium Brom 0.5mg/2.5ml) 0.5 mg NEB [id number] PRN PRN Reason: WHEEZING Last Admin: 01/19/23 01:20 Dose: 0.5 mg Levetiracetam (Levetiracetam 500 Mg Tab) 500 mg PO BID [facility] Last Admin: 01/18/23 22:17 Dose: 500 mg Levothyroxine Sodium (Levothyroxine Sod 0.075 Mg Tab) 0.075 mg PO DAILY [facility] Last Admin: 01/18/23 09:28 Dose: 0.075 mg Lidocaine ([facility] 4% Patch) [facility] Losartan Potassium (Losartan Potassium 50 Mg Tablet) 100 mg PO DAILY [facility] Last Admin: 01/18/23 09:27 Dose: 100 mg Metformin HCl (Metformin Hcl 500 Mg Tab) 1,000 mg PO BID [facility] Last Admin: 01/18/23 22:16 Dose: 1,000 mg Metoprolol Tartrate (Metoprolol Tar 25 Mg Tab) 25 mg PO BID [facility] Last Admin: 01/18/23 22:16 Dose: 25 mg Ondansetron HCl (Ondansetron 4 Mg/2 Ml Vial) 4 mg IV Q6HP PRN PRN Reason: NAUSEA / VOMITING Phenytoin Sodium (Phenytoin Er 100 Mg Cap) 200 mg PO BID [facility] Last Admin: 01/18/23 22:16 Dose: 200 mg Potassium Chloride (Potassium Cl Sa 10 Meq Tab) 20 meq PO DAILY [facility] Last Admin: 01/18/23 09:28 Dose: 20 meq Assessment and Plan: Problem list Complicated urinary tract infection BPH with chronic suprapubic catheter Diabetes Mellitus type II Acute on Chronic CHF Prior CVA Paraplegia Hypertension Hypothyroidism Pressure injury sacrum/Buttocks stage 1 (POA) Seizure disorder Complicated urinary tract infection - BPH with Chronic suprapubic catheter - urinalysis 01/10: Extremely turbid, nitrite 2+, LE 500, WBC>50 , bacteria 20- 50 -Urine culture 01/10: Escherichia coli ESBL, Pseudomonas aeruginosa and Providencia stuartii - Multi-drug resistant Ecoli and pseudomonas. - nixon-resistant providencia stuartii - Started on meropenem 01/11 - Started on acetic acid bladder instillation 01/13. Discontinued 01/15 due to reported burning during instillation. WBC 13.6 -> 11 -> 10 -> 10.7 -> 12.8 Afebrile Blood cultures 01/09: No growth to date XR chest 01/18: "The lungs appear clear of acute infiltrate. The heart is mildly enlarged." Recommendations - Complicated UTI: Continue Meropenem 1g IV Q8H for 10 days (01/11 to 01/21). On day 8 of 10. - Apply barrier cream to buttocks. Pressure offloading measures. - Strict blood glucose control - Seizure precautions Case discussed with Richie Matias
[2023-01-19 09:29] VITALS: O2SAT 95
[2023-01-19] MEDS: levETIRAcetam 500 MG TAB PO SCH (10:07)
[2023-01-19] MEDS: LOSARTAN POTASSIUM 50 MG TABLET PO SCH (10:07)
[2023-01-19] MEDS: FUROSEMIDE 40 MG TABLET PO SCH (10:07)
[2023-01-19] MEDS: PHENYTOIN ER 100 MG CAP PO SCH (10:08)
[2023-01-19] MEDS: METOPROLOL TAR 25 MG TAB PO SCH (10:08)
[2023-01-19] MEDS: FLUOXETINE 20 MG CAP PO SCH (10:08)
[2023-01-19] MEDS: METFORMIN HCL 500 MG TAB PO SCH (10:08)
[2023-01-19] MEDS: POTASSIUM CL SA 10 MEQ TAB PO SCH (10:08)
[2023-01-19] MEDS: INSULIN GLARGINE 100 UNIT/ML SQ SCH (10:09)
[2023-01-19] MEDS: ENOXAPARIN 40 MG/0.4 ML SQ SCH (10:09)
[2023-01-19] MEDS: LEVOTHYROXINE SOD 0.075 MG TAB PO SCH (10:09)
[2023-01-19] MEDS: MUCINEX DM 12HR.SR TAB PO PRN (11:22)
[2023-01-19 13:21] VITALS: BP 133/55; TEMP 97.6
--- NOTE | 2023-01-19 14:17 | P.DS ---
Admission Date: 01/09/23 Discharge Date: 01/19/23 Disposition: TRANSFER TO SENIOR [facility]ARE Discharge Condition: FAIR Reason for Admission: Pneumonia Brief History of Present Illness: 62-year-old male past medical history of CVA, paraplegia, BPH with suprapubic catheter, hypertension, hypothyroidism, presented to the emergency room via EMS from skilled nursing via EMS for productive cough. He reported symptoms started 3 days prior and became progressively worse. No reported chest pain, fever, nausea vomiting diarrhea, Patient treated with albuterol, , Zosyn in the emergency room. Laboratory evaluation leukocytosis normocytic anemia 12.9, 38.5, sodium 134, mild hypokalemia 3.4, BUN and creatinine stable, mild hypoalbuminemia 3.1, Chest x-ray IMPRESSION: Retrocardiac opacification and suggestion of small effusion, may relate to atelectasis or airspace disease. Slightly increased density diffusely throughout the right hemithorax, could be related to superimposition of soft tissues or a small layering effusion. Mild central congestion. Patient was hospitalized for further management. Hospital Course: Diagnosis Complicated UTI secondary to indwelling suprapubic catheter MDR Providencia Stuartii, E. coli, Pseudomonas Aeruginosa Productive Cough Acute on chronic diastolic heart failure Stage 1 Sacral decubitus ulcer, mild; POA; +skin tags Hypokalemia Normocytic anemia IDDM2 Hypertension Hypothyroidism BPH with suprapubic catheter h/o of ESBL E. coli. h/o CVA, paraplegia Seizure disorder Complicated UTI secondary to indwelling suprapubic catheter MDR Providencia Stuartii, E. coli, Pseudomonas Aeruginosa BPH with suprapubic catheter Seen by ID urine cx(01/10): MDR Providencia Stuartii, E. coli, Pseudomonas Aeruginosa blood cx(01/09): NGTD Patient treated with merrem (01/11-01/21) 10 days total abx treatment per ID Urethral odom catheter placed 01/13 for bladder instillation and dc'd 01/15 d/t painful bladder irrigations Previously given acetic acid bladder instillation (01/13-01/14) Patient discharged with 3 more days of IV meropenem via midline to complete 10 days of treatment. Productive Cough Speech consulted - no overt s/s of aspiration during swallow evaluation PRN tessalon perles, PRN nebs Acute on chronic diastolic heart failure resolved CTA chest (01/10): Suboptimal opacification of the pulmonary arteries. No central PE identified. patient stable on room air Continued PO lasix BID echo (01/12): 59% EF, mod diastolic dysfunction, mild TR, mild concentric left ventricular hypertrophy Stage 1 Sacral decubitus ulcer, mild; POA; +skin tags. Local wound care. Normocytic anemia. Monitor CBC IDDM2. Accu-Cheks, sliding scale insulin. Continued semglee. Continued metformin. Hypertension Hypothyroidism Continued home meds as appropriate h/o CVA, paraplegia Seizure disorder Continued home seizure medications. Vital Signs/Physical Exam: Temp Pulse Resp BP Pulse Ox 97.6 F 63 18 133/55 L 95 01/19/23 12:00 01/19/23 12:00 01/19/23 12:00 01/19/23 12:00 01/19/23 12:00 General: Alert, In no apparent distress, Obese HEENT: Mucous membr. moist/pink Neck: JVD not distended Respiratory: Clear to auscultation bilaterally, Normal air movement Cardiovascular: No edema, Regular rate/rhythm, Normal S1 S2 Gastrointestinal: Normal bowel sounds, Soft and benign, Non-distended Integumentary: No cyanosis Laboratory Data at Discharge: WBC 12.90 thou/uL (4.3-10.9) H 01/19/23 05:20 Hgb 13.1 g/dL (13.6-17.9) L 01/19/23 05:20 Hct 39.5 % (39.6-49.0) L 01/19/23 05:20 Plt Count 277 thou/uL (152-406) 01/19/23 05:20 Sodium 133 mEq/L (136-145) L 01/19/23 05:20 Potassium 4.0 mEq/L (3.5-5.1) 01/19/23 05:20 BUN 14 mg/dL (7-18) 01/19/23 05:20 Creatinine 0.60 mg/dL (0.70-1.30) L 01/19/23 05:20 Glucose 126 mg/dL (74-106) H 01/19/23 05:20 Phosphorus 2.7 mg/dL (2.5-4.9) 01/12/23 02:14 Magnesium 2.0 mg/dL (1.6-2.4) 01/19/23 05:20 Total Bilirubin < 0.1 mg/dL (0.2-1.0) L 01/09/23 20:57 AST 8 U/L (15-37) L 01/09/23 20:57 ALT 19 U/L (16-61) 01/09/23 20:57 Alkaline Phosphatase 104 U/L (45-117) 01/09/23 20:57 Home Medications: Baclofen 10 mg PO Q8H PRN 01/10/23 Docusate [Colace Cap*] 100 mg PO SEECOM 01/10/23 Fluoxetine HCl [Prozac] 40 mg PO DAILY 01/10/23 Furosemide [Lasix*] 40 mg PO DAILY 01/10/23 Guaifenesin/Dextromethorphan [Mucinex Dm ER 600-30 mg Tablet] 2 tab PO BID PRN 01/10/23 Insulin Detemir [Levemir] 33 unit SQ BID 01/10/23 Insulin Regular, Human [Novolin R Flexpen] See Rx Instructions .ROUTE .COMPLEX 01/10/23 Levothyroxine [Synthroid*] 1 tab PO DAILY 01/10/23 Lidocaine 4% Patch [Lidoderm 5% Patch*] 1 patch TOP [facility] 01/10/23 Losartan Potassium 100 mg PO DAILY 01/10/23 Melatonin 5 mg PO BEDTIME PRN 01/10/23 Metformin HCl 1,000 mg PO BID 01/10/23 Metoprolol Tartrate 25 mg PO BID 01/10/23 Nystatin 1 monty TOP [facility] 01/10/23 PHENobarbitaL [Phenobarbital] 97.2 mg PO Q12H 01/10/23 Phenytoin Sodium Extended [Phenytek] 200 mg PO BID 01/10/23 Potassium Chloride 20 meq PO DAILY 01/10/23 levETIRAcetam [Keppra] 500 mg PO BID 01/10/23 Benzonatate [Tessalon Perle*] 100 mg PO Q6H PRN 5 Days cap 01/19/23 Diet: ADA Activity: Fall precautions Followup: Unknown,U [Primary Care Provider] - 1-2 Weeks Time spent managing pt's care (in minutes): 38
== END 2023-01-19 17:12 | DRG 698 ==
LOC: ER 18:12 → 2ND 21:27
PROVIDERS: ADMIT Internal Medicine; ATTEND Internal Medicine
DX: T83.511A Infection and inflammatory reaction due to indwelling urethral catheter, initial encounter (principal); I50.33 Acute on chronic diastolic (congestive) heart failure; J96.01 Acute respiratory failure with hypoxia; G82.20 Paraplegia, unspecified; Z68.41 Body mass index [BMI] 40.0-44.9, adult; Z16.20 Resistance to unspecified antibiotic; Z16.12 Extended spectrum beta lactamase (ESBL) resistance; N39.0 Urinary tract infection, site not specified; E66.9 Obesity, unspecified; I11.0 Hypertensive heart disease with heart failure; G89.29 Other chronic pain; M54.9 Dorsalgia, unspecified; E03.9 Hypothyroidism, unspecified; E78.00 Pure hypercholesterolemia, unspecified; E11.9 Type 2 diabetes mellitus without complications; N40.0 Benign prostatic hyperplasia without lower urinary tract symptoms; D64.9 Anemia, unspecified; G40.909 Epilepsy, unspecified, not intractable, without status epilepticus; E88.09 Other disorders of plasma-protein metabolism, not elsewhere classified; L89.302 Pressure ulcer of unspecified buttock, stage 2; L89.151 Pressure ulcer of sacral region, stage 1; L91.8 Other hypertrophic disorders of the skin; E87.6 Hypokalemia; B96.5 Pseudomonas (aeruginosa) (mallei) (pseudomallei) as the cause of diseases classified elsewhere; B96.20 Unspecified Escherichia coli [E. coli] as the cause of diseases classified elsewhere; Z86.73 Personal history of transient ischemic attack (TIA), and cerebral infarction without residual deficits; Z87.891 Personal history of nicotine dependence; Z79.4 Long term (current) use of insulin; Z79.84 Long term (current) use of oral hypoglycemic drugs; Z79.890 Hormone replacement therapy; Z79.899 Other long term (current) drug therapy
CPT/HCPCS: 36415; 71045; 71275; 80048; 80053; 81001; 82947; 83605; 83735; 83880; 84100; 84132; 84484; 85025; 87040; 87077; 87086; 87088; 87186; 92610; 93306; 94640; 94760; 96374; 96375; 97110; 97161; 97165; 97530; 99285; J1650; J1815; J1940; J2185; J2543; J3475; J7030; J7613; J7644; Q9967

== ENCOUNTER 2023-02-01 02:40 | Inpatient (IN) | payer OTHER ==
--- OUTSIDE RECORDS SUMMARY | 2023-02-01 02:48 | XMS REPORT | Continuity of Care Document ---
:1960 Author Organization [facility] t Address [address] [place] [address] [place] [id number] Care Team Providers Name Role Phone No, Pcp [facility] Primary Care Physician Unavailable GARY_Darci Attending Clinician Unavailable RANJAN SANDOVAL Attending Clinician Unavailable REYES GAR Attending Clinician Unavailable GARY_Darci Admitting Clinician Unavailable RANJAN SANDOVAL Admitting Clinician Unavailable Payers Payer Name Policy Type Policy Number Effective Date Expiration Date S kashif MEDICARE [place]: [id number] 1986 Raise5 00:00:[address] [facility] [id number] 2021 [employer]-[place] - 00:00:00 STAR+PLUS (MEDICAID REPLACEMENT - HMO) MEDICARE A B [id number] 1986 00:00:00 [facility] [id number] 2021 PLAN 00:00:00 Problems Condition Condition Condition [...] the 00:00: urinary Urinary 00 bladder Bladder Hypertensi Hypertensi Problem Active 2021-03 P susanne ve heart ve Heart 0-10 Medica l disease Disease 00:00: with with 00 congestive Congestive heart Heart failure Failure Hemiplegia Hemiplegia Problem Active 2021-03 P susanne as late as Late 0-10 Medical effect [...] Obese 00 Hypothyroi Hypothyroi Problem Active 2021-03 Nicole skinner dism dism 0-10 Medical 00:00: 00 Severe Severe Problem Active 2021-03 [facility] obesity Obesity 0-10 Medical 00:00: 00 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 00:00: 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 [facility] recurrent Recurrent 0-10 Medi arun major Major 00:00: depression Depression 00 Developmen Developmen Problem Active 2021-03 Nicole skinner tally tally 0-10 Medical disabled Disabled 00:00: 00 Type 1 Type 1 Problem [...] 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 2 Type 2 Disease [facility] History of History of Disease [facility] infection infection nce 12-12 [facility] due to due to 00:00: Medical ESBL ESBL 00 Center [place] a coli a coli Seizure Seizure Disease Rec[facility]re [facility] disorder disorder nce 12[facility]12 [facility] Neurogenic Neurogenic Disease Recur[facility] bladder bladder nce 12-12 [facility] 00 Center Allergies, Adverse Reactions, Alerts Allergy Allergy Status Severity Reaction(s) Onset Inactive Treating Comm ents Source Name Type Date Date Clinician NO KNOWN Allergy Active [facility] Social History Social Habit Start Date Stop Date Quantity Comments Source Sexual orientation [facility] History SDOH Alcohol [facility] Std Drinks [facility] History SDOH Alcohol [facility] Binge [facility] History SDOH Transport [facility] Non-Med [facility] Alcohol intake 2021-12-12 2021-12-[address] [facility] 00:00:00 00:00:00 non-drinker Medical Cente r (finding) Tobacco use and 2021-12-12 2021-12-[address] [facility] exposure 00:00:00 00:00:00 tobacco non-user Medical Center History SDME Alcohol 2021-12-12 2021-12-[address] [facility] Frequency - How often 00:00:00 00:00:00 [facility] do you have a drink containing alcohol? History SDOH Transport 2021-12-12 2021-12-[address] [facility] - In the past 12 00:00:00 00:00:00 [facility] months, has lack of transportation kept you from medical appointments or from getting medications? History [facility] Housing 2021-12-12 2021-12-[address] [facility] Unable to Pay - In the 00:00:00 00:00:00 [facility] last 12 months, was there a time when you were not able to pay the mortgage or rent on time? History SDME Housing 2021-12-12 2021-12-[address] [facility] Places Lived 00:00:00 00:00:00 Medical Cent er History SDME Housing 2021-12-12 2021-12-[address] [facility] Homeless Last Year - 00:00:00 00:00:00 [facility] In the last 12 months, was there a time when you did not have a steady place to sleep or slept in a nursing home (including now)? Sex Assigned At [address] [facility] 00:00:00 00:00:00 Medical Center Smoking Status Start Date Stop Date Source Never Smoker [facility] Medical Medications Ordered Filled Start Stop Current Ordering Indication Dosage Frequency Signature Comments Components Source Medication Medication Date Date Medication? Clinician (SIG) Name Name loperamide Yes 2mg Take [address] (IMODIUM) 2 12-15 by mouth [facility] mg capsule 16:43: as needed Wa dical for Center Diarrhea. melatonin 3 Yes 5mg QD Take [address] mg tablet 12-15 by mouth [facility] 16:43: nightly. [place] [id number] Center metFORMIN Yes 1000mg Take 1,[address] (GLUCOPHAGE 9-26 mg by [facility] ) 500 MG 16:43: mouth 2 Medica l tablet 33 (two) Center times daily with breakfast and dinner. metoprolol 2021-0 Yes hypertensio 25mg Q.5D Take 25 mg [...] (eight) hours as needed for Pain. atorvastati Yes hyperlipide 20mg QD Take [address] n (LIPITOR) 9-26 jaleel by mouth Luke [facility] 20 MG 16:43: daily. Medical tablet 33 Center baclofen 2021-0 Yes 10mg Q.[id number] Take [address] (LIORESAL) 9-26 [id number] by mouth 3 [facility] 10 MG 16:43: 3D (three) Medical tablet 33 times Center daily. cloNIDine 2021-0 Yes hypertensio .1mg Take 0.[address] HCL 9-26 n mg by [facility]ukes (CATAPRES) 16:43: mouth Medica l 0.1 MG 33 every 8 Center tablet (eight) hours as needed (SBP >170 or DBP >100). FLUoxetine 2021-0 Yes 40mg QD Take [address] (PROzac) 40 9-26 by mouth Luke [facility] MG capsule 16:43: daily. Medic al 33 Center furosemide 2021-0 Yes 40mg Q.5D Take [address] (LASIX) 20 9-26 by mouth 2 [facility] MG tablet 16:43: (two) Medical 33 times Center daily. atorvastati 2022-0 Yes hyperlipide 20mg QD Take [address] n (LIPITOR) 9- jaleel by mouth Luke s 20 MG 16:43: daily. Medical tablet 33 Center baclofen 0 Yes 10mg Q.[id number] Take [address] (LIORESAL) 9- [id number] by mouth 3 [facility] 10 MG 16:43: 3D (three) Medical tablet 33 times Center daily. levETIRAcet 0 Yes 500mg Q.5D Take [address] am (KEPPRA) 9-26 mg by [facility] 500 MG 16:43: mouth 2 Medical tablet 33 (two) Center times daily. cloNIDine Yes hypertensio .1mg Take 0.1 [...] [address] mg tablet -26 by mouth [facility] 16:43: nightly. Medical 33 Center metFORMIN 0 Yes 1000mg Take 1,[address] (GLUCOPHAGE 9-26 mg by [facility] ) 500 MG 16:43: mouth 2 Medica l tablet 33 (two) Center times daily with breakfast and dinner. metoprolol 2021-0 Yes hypertensio 25mg Q.5D Take [address] tartrate 9-26 n by mouth 2 [facility] (LOPRESSOR) 16:43: (two) Medic al 25 MG 33 times Center tablet daily. PHENobarbit 2021-0 Yes 97.2mg Q.5D Take 97.[address] aL 9-26 mg by [facility]ukes (LUMINAL) 16:43: mouth 2 Medic al 97.2 MG 33 (two) Center tablet times daily. levothyroxi 2021-0 Yes 75ug Take [address] ne 9-26 mcg by [facility]ukes (SYNTHROID, 16:43: mouth Medic al LEVOTHROID) 33 Every Center 75 MCG morning on tablet an empty stomach. phenytoin 2021-0 Yes 200mg Q.5D Take [address] extended 9-26 mg by [facility]ukes (DILANTIN) 16:43: mouth 2 Medi arun 200 MG ER 33 (two) Center capsule times daily. acetaminoph 2021-0 Yes 500mg Take [address] en 9-26 mg by [facility] (TYLENOL) 16:43: mouth Medical 500 MG 33 every 8 Center tablet (eight) hours as needed for Pain. loperamide 2021-0 Yes 2mg Take [address] (IMODIUM) 2 -26 by mouth Luke s mg capsule 16:43: as needed Me dical 33 for Center Diarrhea. melatonin 3 2021-0 Yes 5mg QD Take [address] mg tablet - by mouth [facility] 16:43: nightly. Medical 33 Center metFORMIN 2021-0 Yes 1000mg Take 1,[address] (GLUCOPHAGE 9-26 mg by [facility] ) 500 MG 16:43: mouth 2 Medica l tablet 33 (two) Center times daily with breakfast and dinner. metoprolol 2021-0 Yes hypertensio 25mg Q.5D Take [address] tartrate 9-26 n by mouth 2 [facility] (LOPRESSOR) 16:43: (two) Medic al 25 MG 33 times Center tablet daily. PHENobarbit 2021-0 Yes 97.2mg Q.5D Take 97.[address] aL 9-26 mg by [facility] (LUMINAL) 16:43: mouth 2 Medic al 97.2 MG 33 (two) Center tablet times daily. phenytoin 2-0 Yes 200mg Q.5D Take [address] extended 9-26 mg by [facility]ukes (DILANTIN) 16:43: mouth 2 Medi arun 200 MG ER 33 (two) Center capsule times daily. acetaminoph 202-0 Yes 500mg Take [address] en 9-26 mg by [facility] (TYLENOL) 16:43: mouth Medical 500 MG 33 every 8 Center tablet (eight) hours as needed for Pain. atorvastati 2021-0 Yes hyperlipide 20mg QD Take [address] n (LIPITOR) - jaleel by mouth Luke s 20 MG 16:43: daily. Medical tablet 33 Center baclofen 2021-0 Yes 10mg Q.[id number] Take [address] (LIORESAL) 12-15 [id number] by mouth 3 [facility] 10 MG 16:43: 3D (three) Medical tablet 33 times Center daily. cloNIDine 0 Yes hypertensio .1mg Take 0.[address] HCL - n mg by [facility]ukes (CATAPRES) 16:43: mouth Medica l 0.1 MG 33 every 8 Center tablet (eight) hours as needed (SBP >170 or DBP >100). FLUoxetine 2021-0 Yes 40mg QD Take [address] (PROzac) 40 - by mouth Luke s MG capsule 16:43: daily. Medic al 33 Center furosemide 2021-0 Yes 40mg Q.5D Take [address] (LASIX) 20 -26 by mouth 2 [facility] MG tablet [...] morning on tablet an empty stomach. loperamide 2021-0 Yes 2mg Take [address] (IMODIUM) 2 -26 by mouth Luke [facility] mg capsule 16:43: as needed Me dical 33 for Center Diarrhea. melatonin 3 0 Yes 5mg QD Take [address] mg tablet -26 by mouth [facility] 16:43: nightly. Medical 33 Center metFORMIN 2021-0 Yes 1000mg Take 1,[address] (GLUCOPHAGE 9-26 mg by [facility] ) 500 MG 16:43: mouth 2 Medica l tablet 33 (two) Center times daily with breakfast and dinner. metoprolol 0 Yes hypertensio 25mg Q.5D Take [address] tartrate 9-26 n by mouth 2 [facility] (LOPRESSOR) 16:43: (two) Medic al 25 MG 33 times Center tablet daily. PHENobarbit 0 Yes 97.2mg Q.5D Take 97.[address] aL 9-26 mg by [facility]ukes (LUMINAL) 16:43: mouth 2 Medic al 97.2 MG 33 (two) Center tablet times daily. phenytoin 0 Yes 200mg Q.5D Take [address] extended 9-26 mg by [facility]ukes (DILANTIN) 16:43: mouth 2 Medi arun 200 MG ER 33 (two) Center capsule times daily. acetaminoph 0 Yes 500mg Take [address] en 9-26 mg by [facility] (TYLENOL) 16:43: mouth Medical 500 MG 33 every 8 Center tablet (eight) hours as needed for Pain. atorvastati Yes hyperlipide 20mg QD Take [address] n (LIPITOR) 9-26 jaleel by mouth Luke s 20 MG 16:43: daily. Medical tablet 33 Center baclofen 0 Yes 10mg Q.[id number] Take [address] (LIORESAL) 9- [id number] by mouth 3 [facility] 10 MG 16:43: 3D (three) Medical tablet 33 times Center daily. cloNIDine 2021-0 Yes hypertensio .1mg Take 0.[address] HCL 9-26 n mg by [facility] (CATAPRES) 16:43: mouth Medica l 0.1 MG 33 every 8 Center tablet (eight) hours as needed (SBP >170 or DBP >100). FLUoxetine 0 Yes 40mg QD Take [address] (PROzac) 40 9-26 by mouth Luke [facility] MG capsule 16:43: daily. Medic al 33 Center furosemide 2021-0 Yes 40mg Q.5D Take [address] (LASIX) 20 -26 by mouth 2 [facility] MG tablet [...] (eight) hours as needed for Pain. atorvastati 2022-0 Yes hyperlipide 20mg QD Take [address] n (LIPITOR) - jaleel by mouth Luke [facility] 20 MG 16:43: daily. Medical tablet 33 Center baclofen Yes 10mg Q.[id number] Take [address] (LIORESAL) 9- [id number] by mouth 3 [facility] 10 MG 16:43: [...] 33 (two) Center tablet times daily. phenytoin 2-0 Yes 200mg Q.5D Take [address] extended 9-26 mg by [facility] (DILANTIN) 16:43: mouth 2 Medi arun 200 MG ER 33 (two) Center capsule times daily. acetaminoph 2021-0 Yes 500mg Take [address] en 9-26 mg by [facility] (TYLENOL) 16:43: mouth Medical 500 MG 33 every 8 Center tablet (eight) hours as needed for Pain. atorvastati 0 Yes hyperlipide 20mg QD Take [address] n (LIPITOR) 9-26 jaleel by mouth Luke s 20 MG 16:43: daily. Medical tablet 33 Center baclofen 2021-0 Yes 10mg Q.[id number] Take [address] (LIORESAL) 9-26 [id number] by mouth 3 [facility] 10 MG 16:43: 3D (three) Medical tablet 33 times Center daily. cloNIDine 2021-0 Yes hypertensio .1mg Take 0.[address] HCL 9-26 n mg by [facility] (CATAPRES) 16:43: mouth Medica l 0.1 MG 33 every 8 Center tablet (eight) hours as needed (SBP >170 or DBP >100). FLUoxetine 2021-0 Yes 40mg QD Take [address] (PROzac) 40 9-26 by mouth Luke s MG capsule 16:43: daily. Medic al 33 Center furosemide 2021-0 Yes 40mg Q.5D Take [address] (LASIX) 20 9-26 by mouth 2 [facility] MG tablet 16:43: (two) Medical 33 times Center daily. levETIRAcet 2022-0 Yes 500mg Q.5D Take [address] am (KEPPRA) 9-26 mg by [facility] 500 MG 16:43: mouth 2 Medical tablet 33 (two) Center times daily. levothyroxi 2021-0 Yes 75ug Take [address] ne 9-26 mcg by [facility] (SYNTHROID, 16:43: mouth Medic al LEVOTHROID) 33 Every Center 75 MCG morning on tablet an empty stomach. insulin 2021-0 Yes 15U Q.5D Inject [facility] [...] usly 2 injection (two) times daily. insulin 0 Yes 15U Q.5D Inject [facility] detemir [...] 81 Aspirin 81 mg mg mg tablet,drew tablet,drwe tablet,del yed release yed release ayed Take [...] s insulin subcutaneo pen Inject pen Inject insulin 31 units 31 units pen Inject [...] (Body Mass Index) 2022-07-29 00:00:00 57.4 kg/m2 [facility] BP Systolic 2022-07-29 00:00:00 139 mm[Hg] [...] (Body Mass Index) 2022-05-22 00:00:00 57.5 kg/m2 [facility] Syst[facility] 2022-05-22 00:00:00 135 mm[Hg] [facility] edical Body Weight 2022-05-22 00:00:00 4248 [oz_av] [facility] ed[facility] BP Diastolic 2022-05-05 00:00:00 68 mm[Hg] [facility] edical Height 2022-05-05 00:00:00 57 [in_i] [facility] edical BMI (Body Mass Index) 2022-05-05 00:00:00 [...] edical BP Diastolic 2022-04-01 00:00:00 68 mm[Hg] [facility] Height 2022-04-01 00:00:00 57 [in_i] [facility] BMI (Body Mass Index) 2022-04-01 [...] Medical BP Systolic 2022-01-09 00:00:00 137 mm[Hg] [facility] Body Weight 2022-01-09 00:00:00 4182 [oz_av] [facility] BP Diastolic 2022-01-06 00:00:00 74 mm[Hg] [facility] Height 2022-01-06 00:00:00 57 [in_i] [facility] BMI (Body Mass Index) 2022-01-06 00:00:00 56.6 kg/m2 [facility] BP Systolic 2022-01-06 00:00:00 136 mm[Hg] [facility] Body Weight 2022-01-06 00:00:00 4182 [oz_av] [facility] BP Diastolic 2022-01-02 00:00:00 82 mm[Hg] [facility] Height 2022-01-02 00:00:00 57 [in_i] [facility] BMI (Body Mass Index) 2022-01-02 00:00:00 56.6 kg/m2 [facility] BP Systolic 2022-01-02 00:00:00 138 mm[Hg] [facility] Body Weight 2022-01-02 00:00:00 4182 [oz_av] [facility] BP Diastolic 2021-12-26 00:00:00 77 mm[Hg] [facility] Height 2021-12-26 00:00:00 57 [in_i] [facility] BMI (Body Mass Index) 2021-12-26 00:00:00 56.6 kg/m2 [facility] BP Systolic 2021-12-26 00:00:00 141 mm[Hg] [facility] Body Weight 2021-12-26 00:00:00 4182 [oz_av] [facility] BP Diastolic 2021-12-23 00:00:00 84 mm[Hg] [facility] Height 2021-12-23 00:00:00 57 [in_i] [facility] BMI (Body Mass Index) 2021-12-23 00:00:00 56.6 kg/m2 [facility] BP Systolic 2021-12-23 00:00:00 148 mm[Hg] [facility] ed[facility] Body Weight 2021-12-23 00:00:00 4182 [oz_av] [facility] BP Diastolic 2021-12-19 00:00:00 74 mm[Hg] [facility] Height 2021-12-19 00:00:00 57 [in_i] [facility] BMI (Body Mass Index) 2021-12-19 [...] (procedure) [facility] 00:00:00 [code = [id number]] Medical Ce nter Future Scheduled Test 2024-12-12 Lipid panel (procedure) [facility] 00:00:00 [code = [id number]] Medical Ce nter Future Scheduled Test 2024-12-12 Lipid panel (procedure) [facility] 00:00:00 [code = [id number]] Medical Ce nter Future Scheduled Test 2024-12-12 Lipid panel (procedure) [facility] 00:00:00 [code = [id number]] Medical Ce nter Future Scheduled Test 2024-12-12 Lipid panel (procedure) [facility] 00:00:00 [code = [id number]] Medical Ce nter Future Scheduled Test 2024-12-12 Lipid panel (procedure) [facility] 00:00:00 [code = [id number]] Medical Ce nter Future Scheduled Test 2022-12-[address] [facility] 00:00:00 Counseling and Screening Med ical Center (12+) [code = Tobacco Cessation Counseling and Screening (12+)] Future Scheduled Test 2022-12-[address] [facility] 00:00:00 Counseling and Screening Med ical Center (12+) [code = Tobacco Cessation Counseling and Screening (12+)] Future Scheduled Test 2022-12-[address] [facility] 00:00:00 Counseling and Screening Med ical Center (12+) [code = Tobacco Cessation Counseling and Screening (12+)] Future Scheduled Test 2022-12-[address] [facility] 00:00:00 Counseling and Screening Med ical Center (12+) [code = Tobacco Cessation Counseling and Screening (12+)] Future Scheduled Test 2022-12-[address] [facility] 00:00:00 Counseling and Screening Med ical Center (12+) [code = Tobacco Cessation Counseling and Screening (12+)] Future Scheduled Test 2022-12-[address] [facility] 00:00:00 Counseling and Screening Med ical Center (12+) [code = Tobacco Cessation Counseling and [...] A1c [facility] 00:00:00 measurement (procedure) Medi arun Center [code = [id number]] Future Scheduled Test 2022-06-[address] [facility] 00:00:00 measurement (procedure) Medi arun Center [code = 83390184] Future Scheduled Test 2022-06-[address] [facility] 00:00:00 measurement (procedure) Medi arun Center [code = 75014452] Future Scheduled Test 2022-06-[address] [facility] 00:00:00 measurement (procedure) Medi arun Center [code = 38140403] Future Scheduled Test 2022-06-[address] [facility] 00:00:00 measurement (procedure) Medi arun Center [code = 70620095] Future Scheduled Test 2022-06-[address] [facility] 00:00:00 measurement (procedure) Medi arun Center [code = 19645403] Future Scheduled Test 2009 SHINGLES VACCINES (1 [...] 00:00:00 (YEAR 2 or FIRST YEAR if Med ical Center no IPPE) [code = MEDICARE ANNUAL WELLNESS (YEAR 2 or FIRST YEAR if no IPPE)] Future Scheduled Test 1987-03-[address] [facility] 00:00:00 (YEAR 2 or FIRST YEAR if Med ical Center no IPPE) [code = MEDICARE ANNUAL WELLNESS (YEAR 2 or FIRST YEAR if no IPPE)] Future Scheduled Test 1987-03-[address]NUAL WELLNESS [facility] 00:00:00 (YEAR 2 or FIRST YEAR if Med ical Center no IPPE) [code = MEDICARE ANNUAL WELLNESS (YEAR 2 or FIRST YEAR if no IPPE)] Future Scheduled Test 1987-03-[address]NUAL WELLNESS [facility] 00:00:00 (YEAR 2 or FIRST YEAR if Med ical Center no IPPE) [code = MEDICARE ANNUAL WELLNESS (YEAR 2 or FIRST YEAR if no IPPE)] Future Scheduled Test 1987-03-[address]NUAL WELLNESS [facility] 00:00:00 (YEAR 2 or FIRST YEAR if Med ical Center no IPPE) [code = MEDICARE ANNUAL WELLNESS (YEAR 2 or FIRST YEAR if no IPPE)] Future Scheduled Test 1987-03-[address]NUAL WELLNESS [facility] 00:00:00 (YEAR 2 or FIRST YEAR if Med ical Center no IPPE) [code = MEDICARE ANNUAL WELLNESS [...] screening Medical Cent er (procedure) [code = 608745177] Future Scheduled Test [address] [facility] 00:00:00 virus screening Medical Cent er (procedure) [code = 333278176] Future Scheduled Test [address] [facility] 00:00:00 virus screening Medical Cent er (procedure) [code = 837145586] Future Scheduled Test [address] [facility] 00:00:00 virus screening Medical Cent er (procedure) [code = 063092865] Future Scheduled Test [address] [facility] 00:00:00 virus screening Medical Cent er (procedure) [code = 639635848] Future Scheduled Test [address] [facility] 00:00:00 virus screening Medical Cent er (procedure) [code = 664350759] Future Scheduled Test 1969 DIABETIC EYE EXAM [code [facility] 00:00:00 = DIABETIC EYE EXAM] Medical Center Future Scheduled Test [facility] Medical Center (regime/therapy) [code = 396030295] Future Scheduled Test 1969 Urine screening for [facility] 00:00:00 protein (procedure) Medical Center [code = 897321854] Future Scheduled Test 1969 DIABETIC EYE EXAM [code [facility] 00:00:00 = DIABETIC EYE EXAM] Medical Center Future Scheduled Test 1969 [facility] examination Medical Center (regime/therapy) [code = 680719182] Future Scheduled Test 1969 Urine screening for [facility] 00:00:00 protein (procedure) Medical Center [code = 098894592] Future Scheduled Test 1969 DIABETIC EYE EXAM [code [facility] 00:00:00 = DIABETIC EYE EXAM] Medical Center Future Scheduled Test 1969 [facility] examination Medical Center (regime/therapy) [code = 630477177] Future Scheduled Test 1969 Urine screening for [facility] 00:00:00 protein (procedure) Medical Center [code = 743658564] Future Scheduled Test 1969 DIABETIC EYE EXAM [code [facility] 00:00:00 = DIABETIC EYE EXAM] Medical Center Future Scheduled Test 1969 [facility] examination Medical Center (regime/therapy) [code = 774813071] Future Scheduled Test 1969 Urine screening for [facility] 00:00:00 protein (procedure) Medical Center [code = 031803436] Future Scheduled Test 1969 DIABETIC EYE EXAM [code [facility] 00:00:00 = DIABETIC EYE EXAM] Medical Center Future Scheduled Test 1969 [facility] examination Medical Center (regime/therapy) [code = 642667112] Future Scheduled Test 1969 Urine screening for [facility] 00:00:00 protein (procedure) Medical Center [code = 051638170] Future Scheduled Test 1969 DIABETIC EYE EXAM [code [facility] 00:00:00 = DIABETIC EYE EXAM] Medical Center Future Scheduled Test 1969 [facility] examination Medical Center (regime/therapy) [code = 347857636] Future Scheduled Test 1969 Urine screening for [facility] 00:00:00 protein (procedure) Medical Center [code = 227058278] Future Scheduled Test 1965 Pneumococcal Vaccine: [facility] 00:00:00 [code = COVID-[address] [facility] (#1)] Future Scheduled Test 1959 COVID-19 [...] ical Center (#1)] Future Scheduled Test 1959 CT Colonography (combo) [facility] 00:00:00 [code = CT Colonography Medi arun Center (combo)] Future Scheduled Test 1959 Screening for malignant [facility] 00:00:00 neoplasm of colon Medical Ce nter (procedure) [code = 307796079] Future Scheduled Test 1959 Screening for malignant [facility] 00:00:00 neoplasm of colon Medical Ce nter (procedure) [code = 726033284] Future Scheduled Test 1959 Screening for malignant [facility] 00:00:00 neoplasm of colon Medical Ce nter (procedure) [code = 459029393] Future Scheduled Test 1959 Screening for malignant [facility] 00:00:00 neoplasm of colon Medical Ce nter (procedure) [code = 909691332] Future Scheduled Test 1959 Sigmoidoscopy [code = [facility] 00:00:00 Sigmoidoscopy] Medical Cente r Future Scheduled Test 1959 CT Colonography (combo) [facility] 00:00:00 [code = CT Colonography Medi arun Center (combo)] Future Scheduled Test 1959 Screening for malignant [facility] 00:00:00 neoplasm of colon Medical Ce nter (procedure) [code = 021225339] Future Scheduled Test 1959 Screening for malignant [facility] 00:00:00 neoplasm of colon Medical Ce nter (procedure) [code = 739318553] Future Scheduled Test 1959 Screening for malignant [facility] 00:00:00 neoplasm of colon Medical Ce nter (procedure) [code = 916357141] Future Scheduled Test 1959 Screening for malignant [facility] 00:00:00 neoplasm of colon Medical Ce nter (procedure) [code = 800900107] Future Scheduled Test 1959 Sigmoidoscopy [code = [facility] 00:00:00 Sigmoidoscopy] Medical Cente r Future Scheduled Test 1959 CT Colonography (combo) [facility] 00:00:00 [code = CT Colonography [facility] (combo)] Future Scheduled Test 1959 Screening for malignant [facility] 00:00:00 neoplasm of colon Medical Ce nter (procedure) [code = 979388417] Future Scheduled Test 1959 Screening for malignant [facility] 00:00:00 neoplasm of colon Medical Ce nter (procedure) [code = 231425810] Future Scheduled Test 1959 Screening for malignant [facility] 00:00:00 neoplasm of colon Medical Ce nter (procedure) [code = 090394418] Future Scheduled Test 1959 Screening for malignant [facility] 00:00:00 neoplasm of colon Medical Ce nter (procedure) [code = 510086230] Future Scheduled Test 1960 Sigmoidoscopy [code = [facility] 00:00:00 Sigmoidoscopy] Medical Cente r Future Scheduled Test 1959 CT Colonography (combo) [facility] 00:00:00 [code = CT Colonography [facility] (combo)] Future Scheduled Test 1959 Screening for malignant [facility] 00:00:00 neoplasm of colon Medical Ce nter (procedure) [code = 293990954] Future Scheduled Test 1959 Screening for malignant [facility] 00:00:00 neoplasm of colon Medical Ce nter (procedure) [code = 397930478] Future Scheduled Test 1959 Screening for malignant [facility] 00:00:00 neoplasm of colon Medical Ce nter (procedure) [code = 078608637] Future Scheduled Test 1959 Screening for malignant [facility] 00:00:00 neoplasm of colon Medical Ce nter (procedure) [code = 258441444] Future Scheduled Test 1959 Sigmoidoscopy [code = [facility] 00:00:00 S[facility] Colonography (combo) [facility] 00:00:00 [code = CT Colonography [facility] (combo)] Future Scheduled Test 1959 Screening for malignant [facility] 00:00:00 neoplasm of colon Medical Ce nter (procedure) [code = 599340876] Future Scheduled Test 1959 Screening for malignant [facility] 00:00:00 neoplasm of colon Medical Ce nter (procedure) [code = 373664518] Future Scheduled Test 1959 Screening for malignant [facility] 00:00:00 neoplasm of colon Medical Ce nter (procedure) [code = 259916650] Future Scheduled Test 1959 Screening for malignant [facility] 00:00:00 neoplasm of colon Medical Ce nter (procedure) [code = 818990726] Future Scheduled Test 1959 Sigmoidoscopy [code = [facility] 00:00:00 S[facility] CT Colonography (combo) [facility] 00:00:00 [code = CT Colonography [facility] (combo)] Future Scheduled Test 1959 Screening for malignant [facility] 00:00:00 neoplasm of colon Medical Ce nter (procedure) [code = 552014761] Future Scheduled Test 1959 Screening for malignant [facility] 00:00:00 neoplasm of colon Medical Ce nter (procedure) [code = 501825328] Future Scheduled Test 1959 Screening for malignant [facility] 00:00:00 neoplasm of colon Medical Ce nter (procedure) [code = 727152982] Future Scheduled Test 1959 Screening for malignant [facility] 00:00:00 neoplasm of colon Medical Ce nter (procedure) [code = 535887267] Future Scheduled Test 1959 Sigmoidoscopy [code = [facility] 00:00:00 Sigmoidoscopy] Medical Cente r Instructions [facility] Start End Encounter Admission Attending Care Care Encounter Source Date/Time Date/Time Type Type Clinicians Facility Department ID 2023-01-28 2023-01-28 Outpatient [facility] PRIV [id number] [facility] 00:00:00 00:00:00 d_J [id number] Medica l 2023-01-25 2023-01-25 Outpatient [facility] PRIV 248 [id number] [facility] 00:00:00 00:00:00 d_J [id number] Medica l 2023-01-21 2023-01-21 Outpatient [facility] PR[facility] PRIV [id number] [facility] 00:00:00 00:00:00 d_J [id number] Medica l 2023-01-06 2023-01-06 Outpatient [facility] PR[facility] PRIV 248 [id number] [facility] 00:00:00 00:00:00 d_J [id number] Medica l 2023-01-06 2023-01-06 Outpatient [facility] PR[facility] PRIV 248 [id number] [facility] 00:00:00 00:00:00 d_J [id number] Medica l 2023-01-06 2023-01-06 Outpatient [facility] PR[facility] PRIV 248 [id number] [facility] 00:00:00 00:00:00 d_J [id number] Medica l 2023-01-06 2023-01-06 Outpatient [facility] PRIV 248 [id number] [facility] 00:00:00 00:00:00 d_J [id number] Medica l 2023-01-05 2023-01-05 Outpatient [facility] PRIV 248 [id number] [facility] 00:00:00 00:00:00 d_J [id number] Medica l 2022-12-14 2022-12-14 Outpatient [facility] PRIV 248 [id number] [facility] 00:00:00 00:00:00 d_J [id number] Medica l 2022-12-14 2022-12-14 Outpatient [facility] PR[facility] PRIV 248 [id number] [facility] 00:00:00 00:00:00 d_J [id number] Medica l 2022-12-14 2022-12-14 Outpatient [facility] PR[facility] PRIV 248 [id number] [facility] 00:00:00 00:00:00 d_J [id number] Medica l 2022-12-04 2022-12-04 Outpatient [facility] PRIV 248 [id number] [facility] 00:00:00 00:00:00 d_J [id number] Medica l 2022-12-04 2022-12-04 Outpatient [facility] PRIV 248 [id number] [facility] 00:00:00 00:00:00 d_J [id number] Medica l 2022-12-04 2022-12-04 Outpatient [facility] PRIV 248 [id number] [facility] 00:00:00 00:00:00 d_J [id number] Medica l 2022-11-27 2022-11-27 Outpatient [facility] PR[facility] PRIV 248 [id number] [facility] 00:00:00 00:00:00 d_J [id number] Medica l 2022-11-27 2022-11-27 Outpatient [facility] PRIV 248 [id number] [facility] 00:00:00 00:00:00 d_J [id number] Medica l 2022-11-20 2022-11-20 Outpatient [facility] PRIV 248 [id number] [facility] 00:00:00 00:00:00 d_J [id number] Medica l 2022-11-20 2022-11-20 Outpatient [facility] PR[facility] PRIV 248 [id number] [facility] 00:00:00 00:00:00 d_J [id number] Medica l 2022-11-17 2022-11-17 Outpatient [facility] PRIV 248 [id number] [facility] 00:00:00 00:00:00 d_J [id number] Medica l 2022-11-04 2022-11-04 Outpatient [facility] PR[facility] PRIV 248 [id number] [facility] 00:00:00 00:00:00 d_J [id number] Medica l 2022-11-02 2022-11-02 Outpatient [facility] PRIV 248 [id number] [facility] 00:00:00 00:00:00 d_J [id number] Medica l 2022-10-27 2022-10-27 Outpatient [facility] PR[facility] PRIV 248 [id number] [facility] 00:00:00 00:00:00 d_J [id number] Medica l 2022-10-15 2022-10-15 Outpatient [facility] PRIV 248 [id number] [facility] 00:00:00 00:00:00 d_J [id number] Medica l 2022-10-12 2022-10-12 Outpatient [facility] PRIV 248 [id number] [facility] 00:00:00 00:00:00 d_J [id number] Medica l 2022-10-05 2022-10-05 Outpatient [facility] PRIV 248 [id number] [facility] 00:00:00 00:00:00 d_J [id number] Medica l 2022-10-05 2022-10-05 Outpatient [facility] PRIV 248 [id number] [facility] 00:00:00 00:00:00 d_J [id number] Medica l 2022-09-28 2022-09-28 Outpatient [facility] PR[facility] PRIV 248 [id number] [facility] 00:00:00 00:00:00 d_J [id number] Medica l 2022-09-10 2022-09-10 Outpatient [facility] PR[facility] PRIV 248 [id number] [facility] 00:00:00 00:00:00 d_J [id number] Medica l 2022-09-10 2022-09-10 Outpatient [facility] PR[facility] PRIV 248 [id number] [facility] 00:00:00 00:00:00 d_J [id number] Medica l 2022-09-03 2022-09-03 Outpatient [facility] PR[facility] PRIV 248 [id number] [facility] 00:00:00 00:00:00 d_J [id number] Medica l 2022-09-03 2022-09-03 Outpatient [facility] PR[facility] PRIV 248 [id number] [facility] 00:00:00 00:00:00 d_J [id number] Medica l 2022-08-12 2022-08-12 Outpatient [facility] PR[facility] PRIV 248 [id number] [facility] 00:00:00 00:00:00 d_J [id number] Medica l 2022-08-11 2022-08-11 Outpatient [facility] PRIV 248 [id number] [facility] 00:00:00 00:00:00 d_J [id number] Medica l 2022-08-11 2022-08-11 Outpatient [facility] PR[facility] PRIV 248 [id number] [facility] 00:00:00 00:00:00 d_J [id number] Medica l 2022-07-29 2022-07-29 Outpatient [facility] PR[facility] PRIV 248 [id number] [facility] 00:00:00 00:00:00 d_J [id number] Medica l 2022-07-29 2022-07-29 Outpatient [facility] PR[facility] PRIV 248 [id number] [facility] 00:00:00 00:00:00 d_J [id number] Medica l 2022-07-29 2022-07-29 [facility] [id number] [facility] 00:00:00 00:00:00 W[facility] [place]: Health - Med ical [address] [place] [address] , Ph. 2022-07-21 2022-07-21 Outpatient [facility] PRIV PRIV 248 [id number] [facility] 00:00:00 00:00:00 d_J [id number] Medica l 2022-07-13 2022-07-13 Outpatient [facility] PR[facility] PRIV 248 [id number] [facility] 00:00:00 00:00:00 d_J [id number] Medica l 2022-07-02 2022-07-02 Outpatient [facility] PR[facility] PRIV 248 [id number] [facility] 00:00:00 00:00:00 d_J [id number] Medica l 2022-06-24 2022-06-24 [facility] [id number] [facility] 00:00:00 00:00:00 W[facility] [place]: Health - Med ical [address] [place] [address] , Ph. 2022-06-10 2022-06-10 Outpatient [facility] PRIV PRIV 248 [id number] [facility] 00:00:00 00:00:00 d_J [id number] Medica l 2022-06-03 2022-06-03 Outpatient [facility] PR[facility] PRIV 248 [id number] [facility] 00:00:00 00:00:00 d_J [id number] Medica l 2022-05-29 2022-05-29 Outpatient [facility] PRIV 248 [id number] [facility] 00:00:00 00:00:00 d_J [id number] Medica l 2022-05-29 2022-05-29 Outpatient [facility] PR[facility] PRIV 248 [id number] [facility] 00:00:00 00:00:00 d_J [id number] Medica l 2022-05-22 2022-05-22 [facility] [id number] [facility] 00:00:00 00:00:00 [facility] [place]: Health - Med ical [address] [address] , Ph. 2022-05-21 2022-05-21 Outpatient [facility] PRIV PRIV 248 [id number] [facility] 00:00:00 00:00:00 d_J [id number] Medica l 2022-05-05 2022-05-05 Kyle Freitas [facility] [id number] [facility] 00:00:00 00:00:00 [facility] - Med ical : [address] [place] [address] , Ph. 2022-05-02 2022-05-02 Jessica [facility] 211 [facility] 00:00:00 00:00:00 W[facility] [place]: Health - Med ical [address] [place] [address] , Ph. 2022-04-29 2022-04-29 Outpatient [facility] PRIV PRIV 248 [id number] [facility] 00:00:00 00:00:00 d_J [id number] Medica l 2022-04-29 2022-04-29 Outpatient [facility] PRIV PRIV 248 [id number] [facility] 00:00:00 00:00:00 d_J [id number] Medica l 2022-04-29 2022-04-29 Outpatient [facility] PRIV PRIV 248 [id number] [facility] 00:00:00 00:00:00 d_J [id number] Medica l 2022-04-29 2022-04-29 Outpatient [facility] PRIV PRIV 248 [id number] [facility] 00:00:00 00:00:00 d_J [id number] Medica l 2022-04-15 2022-04-15 Outpatient [facility] PRIV PRIV 248 [id number] [facility] 00:00:00 00:00:00 d_J [id number] Medica l 2022-04-01 2022-04-01 Jessica [facility] 111 [facility] 00:00:00 00:00:00 [facility] [place]: Health - Med ical [address] [place] [address] , Ph. 2022-03-30 2022-03-30 Outpatient [facility] PRIV PRIV 248 [id number] [facility] 00:00:00 00:00:00 d_J [id number] Medica l 2022-03-06 2022-03-06 [facility] 216 [facility] 00:00:00 00:00:00 [facility] [place]: Health - Med ical [address] [place] [address] , Ph. 2022-03-02 2022-03-02 Outpatient [facility] PRIV PRIV 248 [id number] [facility] 00:00:00 00:00:00 d_J [id number] Medica l 2022-03-02 2022-03-02 Outpatient [facility] PRIV PRIV 248 [id number] [facility] 00:00:00 00:00:00 d_J [id number] Medica l 2022-03-02 2022-03-02 Outpatient [facility] PRIV PRIV 248 [id number] [facility] 00:00:00 00:00:00 d_J [id number] Medica l 2022-01-30 2022-01-30 [facility] 00:00:00 W[facility] [place]: Health - Med ical [address] [place] [address] , Ph. 2022-01-20 2022-01-20 [facility] [id number] [facility] 00:00:00 00:00:00 [facility]: Health - Med ical [address] [address] , Ph. 2022-01-12 2022-01-12 Outpatient [facility] PRIV PRIV 248 [id number] [facility] 00:00:00 00:00:00 d_J [id number] Medica l 2022-01-09 2022-01-09 [facility] 021 [facility] 00:00:00 00:00:00 W[facility] [place]: Health - Med ical [address] [address] , Ph. 2022-01-06 2022-01-06 Kyle Freitas [facility] [id number] [facility] 00:00:00 00:00:00 [facility] - Med ical MD: [address] [address] , Ph. 2022-01-02 2022-01-02 [facility] 00:00:00 Rc PA: Health - Med ical [address] [address] , Ph. 2021-12-30 2021-12-30 Outpatient [facility]Tod PRIV PRIV 248 [id number] [facility] 00:00:00 00:00:00 d_J [id number] Medica l 2021-12-26 2021-12-26 [facility]7 [facility]:00 00:00:00 [facility]: Health - Med ical [address] [address] , Ph. 2021-12-23 2021-12-23 [facility] 004 [facility] 00:00:00 00:00:00 [facility]: Health - Med ical [address] [place] [address] , Ph. 2021-12-19 2021-12-19 Outpatient [facility] PRIV PRIV 248 [id number] [facility] 00:00:00 00:00:00 d_J [id number] Medica l 2021-12-19 2021-12-19 [facility] 930 [facility] 00:[facility]:00 00:00:00 [facility]: Health - Med ica [address] [place] [address] , Ph. 2021-12-12 2021-12-15 Inpatient ER ARI [facility] Med [id number] [facility] 01:48:00 16:43:00 REYES Results Test Description Test Time Test Comments Results Result Comments Source PHENYTOIN LEVEL, TOTAL AND FREE 2021-12-18 08:47:52 Test Item Value Reference Range Interpretation Comme nts PHENYTOIN (DILANTIN) (BEAKER) (test code = 605) SEE SCANNED DOCUMENT PHENYTOIN FREE (BEAKER) (test code = 847) SEE SCANNED DOCUMENT BLOOD [id number] 10:01:32 Test Item Value Reference Range Interpretation Comments CULTURE (BEAKER) (test No growth in 5 days code = 1095) BLOOD [id number] 10:01:26 Test Item Value Reference Range Interpretation Comments CULTURE (BEAKER) (test No growth in 5 days code = 1095) POCT-GLUCOSE [id number] 16:01:11 Test Item Value Reference Range Interpretation Comments POC-GLUCOSE METER 168 mg/dL 70-110 H : TESTED A T [facility] [address] (BEAKER) (test code [address], = 1538) [place] [address]758: Phd Internship/Techni chary ID = [id number] for Albertina Stapleton POCT-GLUCOSE [id number] 12:09:20 Test Item Value Reference Range Interpretation Comments POC-GLUCOSE METER 164 mg/dL 70-110 H : TESTED A T [facility] [address] (BEAKER) (test code [address], = 1538) [place] 8[address]758: Phd Internship/Techni chary ID = [id number] for Helen Fregoso POCT-GLUCOSE [id number] 08:00:45 Test Item Value Reference Range Interpretation Comments POC-GLUCOSE METER 148 mg/dL 70-110 H : TESTED A T [facility] [address] (BEAKER) (test code [address], = 1538) [place] [address]: Phd Internship/Techni chary ID = [id number] for Albertina Stapleton COMPREHENSIVE METABOLIC [id number] 05:56:38 Test Item Value Reference Range Interpretation [...] not appl icable for dialysis patien ts Phd Internship ID - JUSTINOperator ID - JUSTINOperator ID - JUSTINOperator ID - JUSTINOperator ID - JUSTINOperator ID - JUSTINOperator ID - JUSTINOperator ID - JUSTINOperator ID - JUSTINOperator ID - JUSTINOperator ID - ATIC13Ryslwnkw ID - CCVI24Dddxigmu ID - KXYO56Emqplpex ID - NTOY01Uhvnzyjm ID - UPDE01Amezkklg ID - AGFS04Attjbebv ID - UGGM16Esiahlfj ID - YMWC24Unlrjcla ID - [id number] W/PLT COUNT & AUTO [id number] 05:35:05 Test Item Value Reference Range Interpretation [...] PERCENT (BEAKER) (test code = 2801) POCT-GLUCOSE [id number] 19:53:52 Test Item Value Reference Range Interpretation Comments POC-GLUCOSE METER 229 mg/dL 70-110 H : TESTED A T [facility] [address] (BEAKER) (test code [address], = 1538) [place] [address]: Phd Internship/Techni chary ID = [id number] for Will Юлия an POCT-GLUCOSE [id number] 15:41:39 Test Item Value Reference Range Interpretation Comments POC-GLUCOSE METER 257 mg/dL 70-110 H : TESTED A T [facility] [address] (BEAKER) [facility] [address] = [facility] [place] [address]: Phd Internship/Techni chary ID = [id number] for Tammy Davies POCT-GLUCOSE [id number] 13:06:16 Test Item Value Reference Range Interpretation Comments POC-GLUCOSE METER 178 mg/dL 70-110 H : TESTED A T [facility] [address] (BEAKER) ([facility] [address] = [facility] [place] [address]: Phd Internship/Techni chary ID = [id number] for Eugenio Resendiz RAD, CHEST, 1 VIEW, NON [id number] 12:43:00Reason for exam:->PICC line placement verificationShould this be performed at the bedside?->Yes [facility] : 1960 Sex: MFINAL REPORT EXAM: Chest one view CLINICAL HISTORY: PICC insertion FINDINGS: A right armPICC is noted with its tip overlying the cavoatrial junction. The cardiac size is mildly prominent. There is no evidence of pleural effusion or pneumothorax. The regional osseous structures are unremarkable. Signed: Lino Hilleport Verified Date/Time: 12/14/2021 12:43:11 Reading Location: [address] Reading Room POCT-GLUCOSE [id number] 08:32:01 Test Item Value Reference Range Interpretation Comments POC-GLUCOSE METER 165 mg/dL 70-110 H : TESTED A T [facility] 1317 (BEAKER) (test code [facility] [address], = 1538) [facility] 77 478: Phd Internship/Techni chary ID = [id number] for Katie Kate COMPREHENSIVE METABOLIC [id number] 06:20:40 Test Item Value Reference Range Interpretation [...] not appl icable for dialysis patien ts Phd Internship ID - [id number] ID - DDLDIHYVQ020Vfaaivhb ID - PFDCWIPTZ075Lyhpilvz ID - LANDILBQS431Iptgcchp ID - HAPCPVKZM327Zfenyyko ID - CDUXOVGTI329Kpzqmpgn ID - FBTCVCUCO888Enqhkmdl ID - INPDZLUVZ732Savafqdl ID - LSDRBXWWX644Fxneyqta ID - GIOXCOWEO199Tctsnygg ID - WWHQAAMQY310Bqqnqjsv ID - KKAUWOUSK619Tagsgytn ID - VPENQYNKQ757Wsjifkqz ID - HLQGTMOPV564Nsligujv ID - EBBNRGPFN788Cbzpudrz ID -RXCVMRAHZ178Iwbeutsk ID - WVUWUSFMZ923Jdwmjrlx ID - MIYZJALUS994Zkifdlbm ID - LEWWZJWSR654KJY W/PLT COUNT & AUTO DIFFERENTIAL 2021-12-14 05:55:47 [...] PERCENT (BEAKER) (test code = 2801) POCT-GLUCOSE [id number] 21:22:08 Test Item Value Reference Range Interpretation Comments POC-GLUCOSE METER 217 mg/dL 70-110 H : TESTED A T [facility] [address] (BEAKER) (test code [address], = 1538) [place] [address]: Phd Internship/Techni chary ID = [id number] for MorganJenny gamboa POCT-GLUCOSE [id number] 17:23:37 Test Item Value Reference Range Interpretation Comments POC-GLUCOSE METER 229 mg/dL 70-110 H : TESTED A T [facility] [address] (BEAKER) (test code [address], = 1538) [place] [address]: Phd Internship/Techni chary ID = [id number] for Eneida Oropeza POCT-GLUCOSE [id number] 09:34:24 Test Item Value Reference Range Interpretation Comments POC-GLUCOSE METER 163 mg/dL 70-110 H : TESTED A T [facility] (BEAKER) (test code [address] [facility] = 1538) [place] [address] 478: Phd Internship/Techni chary ID = [id number] for Eneida Oropeza COMPREHENSIVE METABOLIC [id number] 06:26:16 Test Item Value Reference Range Interpretation [...] not appl icable for dialysis patien ts Phd Internship ID - [id number] ID - ameban161Ywiocuby ID - ufnfeb265Cywldfwm ID - jxeyzz162EqiifmusCU - ckxfom339Xdrmezji ID - fojdmt117Jfkrnexo ID - pgnbnc451Catgbrbq ID - fkrmel157Ormbeowa ID - trvesp402Spitgpxf ID - irqgut612Gcxcqpfw ID - xndsyx253Ndvrowjy ID - pfjjgn914Ploutrad ID - huqetn016Qhphnkma ID - qvofiu484Abekwgaf ID - prqhst443Wwlilpsy ID - bhuiuu023Cymzrtly ID - daihhf992Tvqhsnkw ID - grlmri007Repxnzgy ID - [id number] CBC W/PLT COUNT & AUTO [id number] 06:02:44 Test Item Value Reference Range Interpretation [...] PERCENT (BEAKER) (test code = 2801) POCT-GLUCOSE [id number] 22:01:54 Test Item Value Reference Range Interpretation Comments POC-GLUCOSE METER 185 mg/dL 70-110 H : TESTED A T [facility] 1317 (BEAKER) (test code [facility] [address], = 1538) [place] [address]: Phd Internship/Techni hcary ID = [id number] for Юлия Connell PERIPHERAL BLOOD SMEAR - PATHOLOGIST [id number] 15:45:38 Test Item Value Reference Range Interpretation Comments RBC MORPHOLOGY Hypochromasia (BEAKER) (test code = 2846) WBC MORPHOLOGY See comment (BEAKER) (test code = 2847) PLT MORPHOLOGY Unremarkable (BEAKER) (test code = 2848) PERIPHERAL SMR REVIEW Leukocytosis with (BEAKER) (test code = absolute neutrophilia. 2640) No blasts [id number] Nkechi Holloway M.D. (BEAKER) (test code = (electronic signature) 2845) POCT-GLUCOSE [id number] 09:45:06 Test Item Value Reference Range Interpretation Comments POC-GLUCOSE METER 135 mg/dL 70-110 H : TESTED A T [facility] [address] (BEAKER) (test code [address], = 1538) [facility] 77 478: Phd Internship/Techni chary ID = [id number] for Onel Connell [id number] 08:12:18 Test Item Value Reference Range Interpretation Comments MAGNESIUM (BEAKER) (test code = 1.5 mg/dL 1.5-3.0 627) Phd Internship ID - [id number] W/ REFLEX URINE [id number] 06:35:47 Test Item Value Reference Range Interpretation [...] 1663) SOURCE(BEAKER) (test code = 2795) HEMOGLOBIN [id number] 06:27:32 Test Item Value Reference Range Interpretation Comments HEMOGLOBIN A1C (BEAKER) (test code = 6.1 % 4.3-6.1 368) Phd Internship ID - [id number] METABOLIC [id number] 05:31:06 Test Item Value Reference Range Interpretation [...] not appl icable for dialysis patien ts Phd Internship ID - [id number] ID - TOTHQX074Korjvdoh ID - NTLLXT053Kiyjkoya ID - CIZGGK996QzwzhggvWD - YONQUL697Ubktqgot ID - DUCTBP938Oufnhhan ID - UVTJQW893Rzdblzgt ID - JDIKFH026Gyhicajx ID - FKRIYD924Mcziykth ID - JRQXRC822Spobzwmb ID - NPXPLW654Xwmslwwk ID - XOTMIM795Gkecvsal ID - AMFHPY716Eovrvqcw ID - HUYNRB567Exigaunp ID - UNNXCP696Huipfpct ID - [id number]- TYPE NATRIURETIC FACTOR (BNP)2021-12-12 05:27:20 Test Item Value Reference Range Interpretation Comments B-TYPE NATRIURETIC PEPTIDE ([employer]) 130 pg/mL 0-100 H (test code = 700) Phd Internship ID - [id number] 05:26:16 Test Item Value Reference Range Interpretation Comments TRIGLYCERIDES (ZafuAKER) (test code = 118 mg/dL 540) CHOLESTEROL ([employer]) (test code = 143 mg/dL 631) HDL CHOLESTEROL ([employer]) (test code 40 mg/dL = 976) LDL CHOLESTEROL CALCULATED ([employer]) 79 mg/dL (test code = 633) Triglyceride Reference Range: Low Risk <150 Borderline 150-199 High Risk 200- 499 Very High Risk >=500Cholesterol Reference Range: Low Risk <200 Borderline 200-239 High Risk >240HDL Cholesterol Reference Range: Low Risk >=60 High Risk <40LDL Cholesterol Reference Range: Optimal <100 Near Optimal 100-129 Borderline 130-159 High 160-189 Very High >=190 Phd Internship ID - [id number] ID - [id number] ID - [id number] ID - [id number] ID - [id number] ID [id number] W/PLT COUNT & AUTO [id number] 05:01:54 Test Item Value Reference Range Interpretation [...] (BEAKER) (test code = 2801) LACTIC ACID, [id number] 05:00:25 Test Item Value Reference Range Interpretation Comments LACTATE BLOOD 1.40 mmol/L See_Comment [Automated me ssage] VENOUS (2) (BEAKER) The syst em which (test code = 2872) generated this result transmitted ref erence range: 0.50-<2. 00. The reference range was not used to interpr et this result as normal/abnormal .
[2023-02-01 03:35] LABS: Absolute Lymphocytes (CBC) 1.8 K/uL (0.7-4.9); Hematocrit 38.1 % (39.6-49.0); Lymphocytes % 6.7 % (15.3-44.8); MCV 87.3 fL (80-100); Platelets 255 thou/uL (152-406); RBC Red Blood Cell Count 4.37 M/uL (4.33-5.43)
[2023-02-01] MEDS ORDERED: NA CHLORIDE 0.9% 1,000 ML ONE ×2 (03:35→07:46)
[2023-02-01 03:51] LABS: SARS-CoV-2 Antigen Rapid Res Negative (Negative)
[2023-02-01 03:59] LABS: Albumin 2.8 g/dL (3.4-5.0); Bilirubin Total 0.3 mg/dL (0.2-1.0); Potassium 3.5 mEq/L (3.5-5.1); Protein, Total 8.2 g/dL (6.4-8.2)
--- NOTE | 2023-02-01 04:14 | EDPHYS ---
Physician Documentation [facility] Name: He Do Age: 62 yrs Sex: Male : 1960 Arrival Date: 02/01/2023 Time: 02:40 Bed 15 Private MD: ED Physician Alo Adan HPI: 02/01 02:48 This 62 yrs old Male presents to ER via EMS with complaints of fever / UTI. sp3 02:48 62-year-old male with history of CVA, seizure history, hyperlipidemia, hypertension, sp3 chronic indwelling catheter due to paraplegia now presents to the ED via EMS for chief complaint fever and possible UTI from longterm. Limited history, physical and ROS noted. Vital signs were normal for EMS.. Historical: - Allergies: 02:45 Merrem; kl - Home Meds: 02:49 acetaminophen 325 mg Oral capsule 650 mg every 6 hours for fever [Active]; acetaminophen-codeine 300-30 mg Oral tablet 1 tab every 6 hours for pain [Active]; albuterol sulfate 2.5 mg /3 mL (0.083 %) Nebulizer Solution for Nebulization every 6 hours [Active]; baclofen 10 mg Oral tablet 1 tab every 6 hours [Active]; benzonatate 100 mg oral capsule 1 cap every 6 hours for cough [Active]; insulin glargine 45 units Sub-Q Insulin Pen 2 times per day [Active]; Lasix 40 mg Oral tablet 1 tab daily [Active]; levetiracetam 500 mg oral tablet 2 times per day [Active]; losartan 100 mg oral tablet 1 tab daily [Active]; metformin 1,000 mg Oral tablet 1 tab 2 times per day [Active]; metoprolol tartrate 25 mg Oral tablet 1 tab 2 times per day [Active]; Zofran Oral as needed [Active]; phenobarbital 97.2 mg Oral tablet 1 tab 2 times per day [Active]; phenytoin 200 mg Oral tablet,chewable every 12 hours [Active]; potassium chloride 20 mEq Oral tablet, extended release 1 tab daily [Active]; - PMHx: 02:45 BPH with suprapubic catheter; Cerebrovascular accident; chronic back pain; Chronic kl pain; Hypercholesterolemia; Hypertensive disorder; Hypothyroidism; Paraplegia; Seizure; - Immunization history:: Adult Immunizations up to date. - Social history:: Smoking status: Patient denies any tobacco usage or history of. ROS: 02:49 Unable to obtain ROS due to patient's inability to understand questions, sp3 Exam: 02:49 Constitutional: This is a well developed, well nourished patient who is awake, alert, sp3 and in no acute distress. Head/Face: Normocephalic, atraumatic. Chest/axilla: Normal chest wall appearance and motion. Nontender with no deformity. No lesions are appreciated. Cardiovascular: Regular rate and rhythm with a normal S1 and S2. No gallops, murmurs, or rubs. Normal PMI, no JVD. No pulse deficits. Respiratory: Lungs have equal breath sounds bilaterally, clear to auscultation and percussion. No rales, rhonchi or wheezes noted. No increased work of breathing, no retractions or nasal flaring. Skin: Warm, dry with normal turgor. Normal color with no rashes, no lesions, and no evidence of cellulitis. 02:49 Abdomen/GI: Catheter site without erythema or other signs of infection., Vital Signs: 02:42 BP 113 / 55; Pulse 80; Resp 20; Temp 99.5(O); Pulse Ox 98% on R/A; kl 03:11 BP 89 / 46; Pulse 78; kl 03:56 BP 104 / 52; Pulse 93; Resp 20; Pulse Ox 96% on R/A; kl 04:32 Weight 121.1 kg; Height 5 ft. 7 in. ; kl 04:37 BP 102 / 43; Pulse 85; Pulse Ox 95% on R/A; kl 05:43 BP 107 / 64; Pulse 82; Resp 17; Pulse Ox 96% on R/A; kl 06:49 BP 102 / 58; Pulse 85; Resp 20; Pulse Ox 96% on R/A; kl 04:32 Body Mass Index 41.81 (121.10 kg, 170.18 cm) kl MDM: 02:47 Patient medically screened. sp3 02:49 Data reviewed: vital signs, nurses notes, EMS record, old medical records, lab test sp3 result(s). ED course: 62-year-old male with PMH above now with fever and UTI symptoms. Will obtain sepsis work-up including chest x-ray and urinalysis. Vital signs are normal and patient likely is not septic. Disposition pending work-up and patient course with possible discharge back to longterm on oral antibiotics.. 04:09 ED course: Patient with mild hypotension which was alleviated with normal saline. Heart sp3 rate also was greater than 90 however no other SIRS criteria other than the WBC count is present. Patient will be treated for urosepsis and given cefepime and vancomycin given complex history. Will admit to internal medicine. Lactate levels not elevated currently.. 02/01 02:51 Order name: CBC with Diff; Complete Time: 06:01 sp3 02/01 02:51 Order name: CMP; Complete Time: 04:08 sp3 02/01 02:51 Order name: Lipase; Complete Time: 04:08 sp3 02/01 02:51 Order name: Urinalysis w/ reflexes; Complete Time: 06:01 sp3 02/01 02:51 Order name: Lactate w/ 2H reflex if indic.; Complete Time: 04:08 sp3 02/01 02:51 Order name: Flu; Complete Time: 04:08 sp3 02/01 02:51 Order name: SARS RAPID; Complete Time: 03:55 sp3 02/01 03:21 Order name: Blood Culture Adult (2) 3 02/01 03:53 Order name: Manual Differential; Complete Time: 06:01 EDMS 02/01 05:06 Order name: CBC with Automated Diff EDMS 02/01 05:06 Order name: CBC with Automated Diff EDMS 02/01 05:06 Order name: Comprehensive Metabolic Panel EDND 02/01 05:06 Order name: Comprehensive Metabolic Panel [facility] 02/01 02:51 Order name: CXR XRAY 3 02/01 05:03 Order name: Social Service Consult EDND 02/01 02:51 Order name: IV Saline Lock 3 02/01 02:51 Order name: Labs collected and sent 3 Administered Medications: 03:35 Drug: NS 0.9% IV 1000 ml IV at 1 bolus Per protocol; 1000 mL bolus Route: IV; Rate: 1 kl bolus; Site: right antecubital; 04:11 Follow up: IV Status: Completed infusion; IV Intake: 1000ml kl 04:13 Drug: Cefepime IVPB 1 grams IVPB at 200 ml/hr once over 30 mins; (mix in NS 100 mL) kl Route: IVPB; Rate: 200 ml/hr; Infused Over: 30 mins; Site: right antecubital; 04:48 Follow up: IV Status: Completed infusion; IV Intake: 100ml kl 04:50 Follow up: Response: No adverse reaction kl 04:49 Drug: vancoMYCIN IVPB 1 grams IVPB once over 2 hrs Route: IVPB; Infused Over: 2 hrs; kl Site: right antecubital; Disposition Summary: 02/01/23 04:14 Hospitalization Ordered Notes: Hospitalization Status: Inpatient Admission sp3 Provider: Neha Elias sp3 Condition: Stable sp3 Problem: an acute exacerbation sp3 Symptoms: have worsened sp3 Bed/Room Type: Standard sp3 Location: Telemetry/MedSurg (Inpatient)(02/01/23 06:49) kl Room Assignment: [facility](02/01/23 07:21) Diagnosis - Urosepsis sp3 Forms: - Medication Reconciliation Form sp3 - SBAR form sp3 - Leadership Thank You Letter sp3 Signatures: Dispatcher [employer] EDVioletta Richey Kimberly, RN RN Alo Germain MD MD sp3 Corrections: (The following items were deleted from the chart) 06:00 04:14 Telemetry/MedSurg (Inpatient) sp3 kl 06:00 04:14 sp3 kl 06:49 06:00 [facility] ER HOLD kl kl 06:49 06:00 ERHOLD- kl kl 07:21 06:49 kl bd
--- NOTE | 2023-02-01 04:14 | ER ---
Nurse's Notes [facility] Name: He Do Age: 62 yrs Sex: Male : 1960 Arrival Date: 02/01/2023 Time: 02:40 Bed 15 Private MD: Diagnosis: Urosepsis Presentation: 02/01 02:42 Chief complaint: EMS states: fever reported by alf staff pt with history of kl frequent UTIs has indwelling catheter medicated with Tylenol reported temp of 102. Coronavirus screen: Vaccine status: Patient reports receiving the 2nd dose of the covid vaccine. Ebola Screen: Patient negative for fever greater than or equal to 101.5 degrees Fahrenheit, and additional compatible Ebola Virus Disease symptoms. Initial Sepsis Screen: Does the patient meet any 2 criteria? Temp <36.0*C (96.8*F)) or > 38.3*C (100.9*F). Does the patient have a suspected source of infection? Yes: Dysuria/Frequency/Urgency/UTI. Risk Assessment: Do you want to hurt yourself or someone else? Patient reports no desire to harm self or others. Note recently completed round of antibiotics for UTI. Onset of symptoms was February 01, 2023. 02:42 Method Of Arrival: EMS: [facility] 02:42 Acuity: AC 3 kl Triage Assessment: 02:46 General: Appears in no apparent distress. obese, unkempt, Behavior is calm, at patient kl baseline. Pain: Denies pain. EENT: No deficits noted. Neuro: Level of Consciousness is awake, alert, obeys commands. Cardiovascular: No deficits noted. Respiratory: No deficits noted. GI: No deficits noted. No signs and/or symptoms were reported involving the gastrointestinal system. : suprapubic catheter in place to gravity drainage Urine is cloudy. Historical: - Allergies: 02:45 Merrem; kl - Home Meds: 02:49 acetaminophen 325 mg Oral capsule 650 mg every 6 hours for fever [Active]; acetaminophen-codeine 300-30 mg Oral tablet 1 tab every 6 hours for pain [Active]; albuterol sulfate 2.5 mg /3 mL (0.083 %) Nebulizer Solution for Nebulization every 6 hours [Active]; baclofen 10 mg Oral tablet 1 tab every 6 hours [Active]; benzonatate 100 mg oral capsule 1 cap every 6 hours for cough [Active]; insulin glargine 45 units Sub-Q Insulin Pen 2 times per day [Active]; Lasix 40 mg Oral tablet 1 tab daily [Active]; levetiracetam 500 mg oral tablet 2 times per day [Active]; losartan 100 mg oral tablet 1 tab daily [Active]; metformin 1,000 mg Oral tablet 1 tab 2 times per day [Active]; metoprolol tartrate 25 mg Oral tablet 1 tab 2 times per day [Active]; Zofran Oral as needed [Active]; phenobarbital 97.2 mg Oral tablet 1 tab 2 times per day [Active]; phenytoin 200 mg Oral tablet,chewable every 12 hours [Active]; potassium chloride 20 mEq Oral tablet, extended release 1 tab daily [Active]; - PMHx: 02:45 BPH with suprapubic catheter; Cerebrovascular accident; chronic back pain; Chronic kl pain; Hypercholesterolemia; Hypertensive disorder; Hypothyroidism; Paraplegia; Seizure; - Immunization history:: Adult Immunizations up to date. - Social history:: Smoking status: Patient denies any tobacco usage or history of. Screenin:14 [facility] ED Fall Risk Assessment (Adult) History of falling in the last 3 months, kl including since admission No falls in past 3 months (0 pts) Confusion or Disorientation No (0 pts) Intoxicated or Sedated No (0 pts) Impaired Gait No (0 pts) Mobility Assist Device Used No (0 pt) Altered Elimination No (0 pt) Score/Fall Risk Level 0 - 2 = Low Risk. Abuse screen: Denies threats or abuse. Nutritional screening: No deficits noted. Tuberculosis screening: No symptoms or risk factors identified. Assessment: 04:13 Reassessment: Patient appears in no apparent distress at this time. Patient is alert, kl oriented x 3, equal unlabored respirations, skin warm/dry/pink. aspiration precautions in place . Vital Signs: 02:42 BP 113 / 55; Pulse 80; Resp 20; Temp 99.5(O); Pulse Ox 98% on R/A; kl 03:11 BP 89 / 46; Pulse 78; kl 03:56 BP 104 / 52; Pulse 93; Resp 20; Pulse Ox 96% on R/A; kl 04:32 Weight 121.1 kg; Height 5 ft. 7 in. ; kl 04:37 BP 102 / 43; Pulse 85; Pulse Ox 95% on R/A; kl 05:43 BP 107 / 64; Pulse 82; Resp 17; Pulse Ox 96% on R/A; kl 06:49 BP 102 / 58; Pulse 85; Resp 20; Pulse Ox 96% on R/A; kl 04:32 Body Mass Index 41.81 (121.10 kg, 170.18 cm) kl ED Course: 02:42 Patient arrived in ED. kl 02:45 Triage completed. kl 02:47 Alo Adan MD is Attending Physician. sp3 03:09 CXR XRAY In Process Unspecified. EDMS 03:14 SARS RAPID Sent. kl 03:14 Flu Sent. kl 03:14 Lactate w/ 2H reflex if indic. Sent. kl 03:35 SARS RAPID Sent. oe 03:35 Flu Sent. oe 03:35 Blood Culture Adult (2) Sent. kl 04:13 Neha Elias MD is Hospitalizing Provider. sp3 04:15 Patient has correct armband on for positive identification. Placed in gown. Bed in low kl position. Call light in reach. Side rails up X2. Adult w/ patient. Client placed on continuous cardiac and pulse oximetry monitoring. NIBP monitoring applied. Door closed. Noise minimized. 04:56 Urinalysis w/ reflexes Sent. oe 05:44 No apparent distress. Resting quietly. Appears to be sleeping. kl 06:50 No provider procedures requiring assistance completed. Patient admitted, IV remains in kl place. 07:08 Celia Marshall, RN is Primary Nurse. ko1 Administered Medications: 03:35 Drug: NS 0.9% IV 1000 ml IV at 1 bolus Per protocol; 1000 mL bolus Route: IV; Rate: 1 kl bolus; Site: right antecubital; 04:11 Follow up: IV Status: Completed infusion; IV Intake: 1000ml kl 04:13 Drug: Cefepime IVPB 1 grams IVPB at 200 ml/hr once over 30 mins; (mix in NS 100 mL) kl Route: IVPB; Rate: 200 ml/hr; Infused Over: 30 mins; Site: right antecubital; 04:48 Follow up: IV Status: Completed infusion; IV Intake: 100ml kl 04:50 Follow up: Response: No adverse reaction kl 04:49 Drug: vancoMYCIN IVPB 1 grams IVPB once over 2 hrs Route: IVPB; Infused Over: 2 hrs; kl Site: right antecubital; Intake: 04:11 IV: 1000ml; Total: 1000ml. kl 04:48 IV: 100ml; Total: 1100ml. kl Outcome: 04:14 Decision to Hospitalize by Provider. sp3 07:58 Patient left the ED. ko1 Signatures: Dispatcher [employer] EDMS Rahel Ferro RN RN kl Wesley Alexandra Setul, MD MD sp3 Celia Marshall RN RN ko1
[2023-02-01] MEDS ORDERED: NA CHLORIDE 0.9% 100 ML ONE (04:20)
[2023-02-01] MEDS ORDERED: NA CHLORIDE 0.9% 250 ML ONE (04:20)
[2023-02-01] MEDS ORDERED: CEFEPIME 1 GM/VIAL ONE (04:20)
[2023-02-01] MEDS ORDERED: VANCOMYCIN 1 GM/VIAL ONE (04:20)
[2023-02-01 04:42] LABS: Blood Morphology Comment NOT SEEN (NOT SEEN); Platelet Estimate ADEQ
[2023-02-01] MEDS ORDERED: MORPHINE 2 MG/ML SYR IV PRN (05:02)
[2023-02-01] MEDS ORDERED: ONDANSETRON 4 MG/2 ML VIAL IV PRN (05:02)
--- NOTE | 2023-02-01 05:02 | P.HP ---
Certification for Inpatient Patient admitted to: Inpatient With expected LOS: >2 Midnights Patient will require the following post-hospital care: Home Health Services Practitioner: I am a practitioner with admitting privileges, knowledge of patient current condition, hospital course, and medical plan of care. Services: Services provided to patient in accordance with Admission requirements found in Title 42 Section 412.3 of the Code of Federal Regulations <Yesi Eliasale Chucho - Last Filed: 02/01/23 05:01> Patient admitted to: Inpatient With expected LOS: <2 Midnights <Ana Bradford - Last Filed: 02/03/23 15:18> Patient History Date of Service: 02/01/23 Reason for admission: UTI - Past Medical/Surgical History Diabetic: No -: CVA -: Paraplegia -: BPH with suprapubic catheter -: Hypertension -: Hyperlipidemia - Social History Alcohol use: No CD- Drugs: No Caffeine use: No <EliasYesiale Chucho - Last Filed: 02/01/23 05:01> History of Present Illness: 62-year-old male with a past medical history of seizures, hypertension, hyperlipidemia, CVA, chronic indwelling catheter due to paraplegia, presents to the emergency room with fever UTI. No which reported chest pain, shortness of breath, seizures,. Plan to admit for urosepsis, Laboratory evaluation WBCs 20.6, hyponatremia 130, hypoalbuminemia 2.8 UA positive for leukoesterase greater than 500 SARS negative, chest x-ray FINDINGS: The heart is enlarged. There are is a vague diffuse opacity throughout the right lung. There is no pleural effusion. There is no pneumothorax. There are no acute osseous findingIMPRESSION: Difficult to exclude right-sided pneumonia. Blood cultures positive for E. coli, UA greater than 100,000, and andreina <Ana Bradford - Last Filed: 02/03/23 15:18> Allergies meropenem [From Merrem] Allergy (Verified 02/02/23 05:27) Itching/Hives/Rash Home Medications: Baclofen 10 mg PO Q8H PRN 01/10/23 Docusate [Colace Cap*] 100 mg PO SEECOM 01/10/23 Fluoxetine HCl [Prozac] 40 mg PO DAILY 01/10/23 Furosemide [Lasix*] 40 mg PO DAILY 01/10/23 Guaifenesin/Dextromethorphan [Mucinex Dm ER 600-30 mg Tablet] 1 tab PO BID PRN 01/10/23 Insulin Regular, Human [Novolin R Flexpen] See Rx Instructions .ROUTE .COMPLEX 01/10/23 Levothyroxine [Synthroid*] 1 tab PO DAILY 01/10/23 Lidocaine 4% Patch [Lidoderm 5% Patch*] 1 patch TOP SEECOM 01/10/23 Losartan Potassium 100 mg PO DAILY 01/10/23 Melatonin 5 mg PO BEDTIME PRN 01/10/23 Metformin HCl 1,000 mg PO BID 01/10/23 Metoprolol Tartrate 25 mg PO BID 01/10/23 Nystatin 1 monty TOP SEECOM 01/10/23 PHENobarbitaL [Phenobarbital] 97.2 mg PO Q12H 01/10/23 Phenytoin Sodium Extended [Phenytek] 200 mg PO BID 01/10/23 Potassium Chloride 20 meq PO DAILY 01/10/23 levETIRAcetam [Keppra] 500 mg PO BID 01/10/23 Benzonatate [Tessalon Perle*] 100 mg PO Q6H PRN 5 Days cap 01/19/23 Acetaminophen [Tylenol] 650 mg PO Q6HR PRN 02/01/23 Acetaminophen with Codeine [Tylenol with-Codeine #3 Tablet] 1 each PO Q8HR PRN 02/01/23 Albuterol Sulfate [Albuterol Sulfate 0.083% Neb Soln] 2.5 mg IH Q6HR PRN 02/01/23 Insulin Glargine,Hum.rec.anlog [Insulin Glargine] 45 unit SQ BID 02/01/23 Ondansetron [Zofran (Odt)*] 4 mg PO Q6H PRN 02/01/23 Gentamicin Sulf/Sodium Citrate [Gentamicin 960 Mcg/3Ml-Sod Cit] 240 mcg IJ DAILY #6 02/03/23 Insulin Glargine,Hum.rec.anlog [Semglee] 45 unit SQ BID ml 02/03/23 Metoprolol Tartrate [Lopressor*] 25 mg PO BID tab 02/03/23 Nystatin Powder [Mycostatin (Powder)*] 1 appl TOP BID bottle 02/03/23 PHENYTOIN ER Cap [Dilantin ER Cap*] 200 mg PO BID cap 02/03/23 Review of Systems 10-point ROS is otherwise unremarkable <Ana Bradford - Last Filed: 02/03/23 15:18> Physical Examination - Studies Laboratory Data (last 24 hrs) 02/01/23 02/01/23 02:57 02:57 WBC 26.20 H Hgb 12.5 L Hct 38.1 L Plt Count 255 Sodium 130 L Potassium 3.5 BUN 18 Creatinine 1.21 Glucose 122 H Total Bilirubin 0.3 AST 14 L ALT 16 Alkaline Phosphatase 82 Lipase 20 Microbiology Data (last 24 hrs): 02/01/23 03:03 Nasopharnyx Influenza Type A Antigen Screen - Final 02/01/23 03:03 Nasopharnyx Influenza Type B Antigen Screen - Final <Neha Elias - Last Filed: 02/01/23 05:01> - Physical Exam General: Alert, In no apparent distress, Oriented x3 HEENT: Atraumatic, Normocephalic, PERRLA Neck: Supple, 2+ carotid pulse no bruit Respiratory: Normal air movement, Diminished (RLL), Other (Rhonchi, productive cough) Cardiovascular: Normal pulses, Regular rate/rhythm Gastrointestinal: Normal bowel sounds, Soft and benign Musculoskeletal: Other (Paraplegia, lower extremity weakness) Integumentary: No rashes, No breakdown Neurological: Normal speech, Other (Paraplegia) Urinary: Jin catheter <Ana Bradford - Last Filed: 02/03/23 15:18> Assessment & Plan - Advance Directives Does patient have a Living Will: No Does patient have a Durable POA for Healthcare: No <Neha Elias - Last Filed: 02/01/23 05:01> - Plan Assessment plan Urosepsis secondary to chronic indwelling Jin catheter Empiric IV antibiotics, Zosyn, azithromycin Laboratory evaluation WBCs 20.6, hyponatremia 130, hypoalbuminemia 2.8 UA positive for leukoesterase greater than 500 SARS negative, chest x-ray FINDINGS: The heart is enlarged. There are is a vague diffuse opacity throughout the right lung. There is no pleural effusion. There is no pneumothorax. There are no acute osseous finding IMPRESSION: Difficult to exclude right-sided pneumonia. Blood cultures positive for E. coli, UA greater than 100,000, and andreina Infectious disease consulted Trend cultures Pneumonia right-sided Zosyn, azithromycin Bacteremia Gram-positive for E. coli IV antibiotics, Hyponatremia Hypokalemia Trend electrolytes replace as needed History of CVA Paraplegia Chronic indwelling Jin catheter History of seizure disorder Essential hypertension Hyperlipidemia right-handed you eat Resume appropriate home medications Diet cardiac Full code DVT Lovenox Discharge Plan: Home Plan to discharge in: 48 Hours - Code Status/Comfort Care Code Status Assessed: No Code Status: Full Code Physician Review: Patient Assessed, Agree with Above Assessment and Plan Critical Care: No Time Spent Managing PTS Care (In Minutes): 50 <Ana Bradford - Last Filed: 02/03/23 15:18>
[2023-02-01 05:39] LABS: Specific Gravity > 1.030 (1.005-1.030); Urine Bacteria 20-50 /HPF (<20); Urine Bilirubin 1+ (Negative); Urine Blood Negative (Negative); Urine Clarity Extremely Turbid (Clear); Urine Color Yellow (Yellow); Urine Glucose NEGATIVE (Negative); Urine Mucus Slight /HPF (None Seen); Urine Protein 4+ (Over) (Negative); Urine RBC <5 /HPF (None Seen); Urine Urobilinogen 1+ (Normal); Urine pH 8.5 (5.0-7.0)
[2023-02-01] MEDS: NA CHLORIDE 0.9% 1,000 ML IV SCH (06:00)
[2023-02-01 07:40] VITALS: BMI 41.6
[2023-02-01] MEDS ORDERED: PNEUMOCOCCAL VACCINE 0.5 ML IMVAC ONE (08:00)
[2023-02-01] MEDS ORDERED: CEFTRIAXONE 1,000 MG in NA CHLORIDE 0.9% 50 ML IVPB SCH (09:00)
[2023-02-01] MEDS: ACETAMINOPHEN 500 MG TAB PO PRN ×2 (09:51→15:52)
[2023-02-01] MEDS ORDERED: Meropenem 1,000 MG in NA CHLORIDE 0.9% 100 ML IV SCH (12:00)
[2023-02-01] MEDS ORDERED: BENZONATATE 100 MG CAP PO PRN (19:00)
[2023-02-01] MEDS ORDERED: BACLOFEN 10 MG TAB PO PRN (19:00)
[2023-02-01] MEDS ORDERED: ONDANSETRON 4 MG (ODT) TAB PO PRN (19:00)
[2023-02-01] MEDS ORDERED: ALBUTEROL 2.5 MG/3 ML NEB SOL IH PRN (19:00)
[2023-02-01] MEDS: FLUCONAZOLE 100mg IVPB 100 MG/50 ML BAG IV SCH (19:31)
[2023-02-01] MEDS: PHENYTOIN ER 100 MG CAP PO SCH (20:38)
[2023-02-01] MEDS: CODEINE 30MG/APAP 300MG TAB PO PRN (20:38)
[2023-02-01] MEDS: METOPROLOL TAR 25 MG TAB PO SCH (20:38)
[2023-02-01] MEDS: INSULIN GLARGINE 100 UNIT/ML SQ SCH (20:39)
[2023-02-01] MEDS: levETIRAcetam 500 MG TAB PO SCH (20:39)
[2023-02-01] MEDS ORDERED: PHENOBARBITAL 32.4 MG TABLET PO ONE (21:06)
[2023-02-01] MEDS: PHENOBARBITAL 32.4 MG TABLET PO SCH (21:22)
[2023-02-01] MEDS: NYSTATIN PWDR 100000 UNIT/GM TOP SCH (21:27)
[2023-02-02] MEDS: NA CHLORIDE 0.9% 1,000 ML IV SCH ×3 (00:30→22:54)
[2023-02-02] MEDS: METHYLPREDNISOLONE 40 MG INJ IV SCH ×2 (01:00→09:38)
[2023-02-02] MEDS ORDERED: CEFTRIAXONE 1,000 MG in NA CHLORIDE 0.9% 50 ML IVPB ONE (06:00)
[2023-02-02 06:56] LABS: Absolute Lymphocytes (CBC) 1.3 K/uL (0.7-4.9); Lymphocytes % 5.7 % (15.3-44.8); MCV 87.4 fL (80-100); MPV 8.1 fL (7.6-11.3); Platelets 200 thou/uL (152-406); RBC Red Blood Cell Count 4.01 M/uL (4.33-5.43)
[2023-02-02] MEDS: PHENOBARBITAL 32.4 MG TABLET PO SCH ×3 (07:00→19:53)
[2023-02-02 07:19] LABS: Albumin 2.1 g/dL (3.4-5.0); Bilirubin Total 0.3 mg/dL (0.2-1.0); Potassium 3.4 mEq/L (3.5-5.1); Protein, Total 6.8 g/dL (6.4-8.2)
[2023-02-02 08:14] LABS: Blood Morphology Comment NOT SEEN (NOT SEEN); Platelet Estimate ADEQ; White Blood Cell Scan OK (OK)
[2023-02-02] MEDS: INSULIN GLARGINE 100 UNIT/ML SQ SCH ×2 (09:00→21:52)
[2023-02-02] MEDS: METOPROLOL TAR 25 MG TAB PO SCH ×2 (09:36→19:55)
[2023-02-02] MEDS: FLUOXETINE 20 MG CAP PO SCH (09:36)
[2023-02-02] MEDS: LEVOTHYROXINE SOD 0.075 MG TAB PO SCH (09:36)
[2023-02-02] MEDS: FUROSEMIDE 40 MG TABLET PO SCH (09:37)
[2023-02-02] MEDS: LOSARTAN POTASSIUM 50 MG TABLET PO SCH (09:37)
[2023-02-02] MEDS: POTASSIUM CL SA 10 MEQ TAB PO SCH (09:37)
[2023-02-02] MEDS: levETIRAcetam 500 MG TAB PO SCH ×2 (09:37→19:54)
[2023-02-02] MEDS: PHENYTOIN ER 100 MG CAP PO SCH ×2 (09:37→19:54)
[2023-02-02] MEDS: NYSTATIN PWDR 100000 UNIT/GM TOP SCH ×2 (09:38→19:55)
[2023-02-02 12:23] LABS: C.diff Antigen/Toxin Ag neg : Tox neg (NEG : NEG)
--- NOTE | 2023-02-02 13:10 | RAD REPORT ---
EXAM DESCRIPTION: RAD - Chest Single View - 02/01/2023 3:07 am CLINICAL HISTORY: FEVER COMPARISON: None. TECHNIQUE: XR CHEST 1 VIEW 02/01/2023 2:51 AM RAISER HELPER FINDINGS: The heart is enlarged. There are is a vague diffuse opacity throughout the right lung. The re is no pleural effusion. There is no pneumothorax. There are no acute osseous findings. IMPRESSION: Difficult to exclude right-sided pneumonia. Electronically signed by: Karan Alston MD 02/01/2023 04:44 AM RAISER HELPER Due to temporary technical issues with the PACS/Fluency reporting system, reports are being signed by the in house radiologist without review as a courtesy to ensure prompt reporting. The interpreting r adiologist is fully responsible for the content of the report.
[2023-02-02] MEDS ORDERED: ALBUTEROL 2.5 MG/3 ML NEB SOL IH PRN (14:00)
[2023-02-02] MEDS: FLUCONAZOLE 100mg IVPB 100 MG/50 ML BAG IV SCH (19:53)
[2023-02-02] MEDS: CODEINE 30MG/APAP 300MG TAB PO PRN (21:52)
--- NOTE | 2023-02-03 07:35 | P.PN ---
Subjective Date of Service: 02/03/23 Chief Complaint: UTI Subjective: Improving Review of Systems 10-point ROS is otherwise unremarkable Physical Examination - Vital Signs Temperature: 99.5 F Blood Pressure: 143/65 Pulse: 102 Respirations: 18 Pulse Ox (%): 95 - Physical Exam General: Alert, In no apparent distress, Oriented x3 HEENT: Atraumatic, Normocephalic Neck: Supple, 2+ carotid pulse no bruit Respiratory: Clear to auscultation bilaterally, Normal air movement Cardiovascular: No edema, Normal pulses, Regular rate/rhythm Capillary refill: <2 Seconds Gastrointestinal: Normal bowel sounds, Soft and benign Musculoskeletal: No clubbing, No swelling Integumentary: No rashes, No breakdown Neurological: Normal speech, Other (generalized weakness) - Studies Microbiology Data (last 24 hrs): 02/01/23 03:15 Blood - Blood Aerobic Blood Culture - Final Escherichia Coli 02/01/23 03:15 Blood - Blood Blood Culture Gram Stain - Final 02/01/23 03:15 Blood - Blood Anaerobic Blood Culture - Final Escherichia Coli 02/01/23 03:15 Blood - Blood Gram Stain - Final 02/01/23 03:00 Blood - Blood Aerobic Blood Culture - Final Escherichia Coli 02/01/23 03:00 Blood - Blood Blood Culture Gram Stain - Final 02/01/23 03:00 Blood - Blood Anaerobic Blood Culture - Final Escherichia Coli 02/01/23 03:00 Blood - Blood Gram Stain - Final Assessment And Plan - Plan Assessment plan Urosepsis secondary to chronic indwelling Jin catheter Sepsis secondary to E.coli Bacteremia and CAUTI Hx of multi-drug resistant infections Empiric IV antibiotics, Zosyn, azithromycin Laboratory evaluation WBCs 20.6, hyponatremia 130, hypoalbuminemia 2.8 UA positive for leukoesterase greater than 500 SARS negative, chest x-ray FINDINGS: The heart is enlarged. There are is a vague diffuse opacity throughout the right lung. There is no pleural effusion. There is no pneumothorax. There are no acute osseous finding IMPRESSION: Difficult to exclude right-sided pneumonia. Blood cultures positive for E. coli, UA greater than 100,000, and andreina Infectious disease consulted Trend cultures change suprapubic catheter Complicated urinary tract infection - Patient was started on Meropenem 02/01 and shortly developed rash/hives/itching. Meropenem was discontinued. - Leukocytosis with left shift (WBC 18.8) - Fever. 24 hour tmax = 101.3 F -Urine culture 02/01: Proteus mirabilis ESBL -Blood cultures 01/01: Escherichia coli in 4 of 4 bottles - Started on Gentamicin 02/03 Pneumonia right-sided Zosyn, azithromycin Bacteremia Gram-positive for E. coli IV antibiotics, Hyponatremia Hypokalemia Trend electrolytes replace as needed History of CVA Paraplegia Chronic indwelling Jin catheter History of seizure disorder Essential hypertension Hyperlipidemia right-handed you eat Resume appropriate home medications Diet cardiac Full code DVT Lovenox Physician Review: Patient Assessed, Agree with Above Assessment and Plan
[2023-02-03] MEDS: NA CHLORIDE 0.9% 1,000 ML IV SCH ×3 (07:52→17:34)
[2023-02-03] MEDS ORDERED: ALBUTEROL 2.5 MG/3 ML NEB SOL IH PRN (08:00)
[2023-02-03 08:46] LABS: Absolute Lymphocytes (CBC) 1.8 K/uL (0.7-4.9); Hematocrit 34.1 % (39.6-49.0); Lymphocytes % 9.3 % (15.3-44.8); MCV 86.3 fL (80-100); MPV 7.6 fL (7.6-11.3); Platelets 234 thou/uL (152-406); RBC Red Blood Cell Count 3.95 M/uL (4.33-5.43)
[2023-02-03] MEDS ORDERED: NA CHLORIDE 0.9% IV SCH (09:00)
[2023-02-03] MEDS ORDERED: TOBRAMYCIN IV SCH (09:00)
[2023-02-03] MEDS: ALBUTEROL 2.5 MG/3 ML NEB SOL NEB SCH ×3 (09:00→19:40)
[2023-02-03] MEDS ORDERED: AZITHROMYCIN IV 500 MG in NA CHLORIDE 0.9% 250 ML IVPB SCH (09:00)
[2023-02-03] MEDS ORDERED: PIPER TAZO 3.375 GM in NA CHLORIDE 0.9% 100 ML IV SCH (09:00)
[2023-02-03 09:07] LABS: Magnesium 1.8 mg/dL (1.6-2.4)
--- NOTE | 2023-02-03 09:34 | P.CNS ---
Date of Consult: 02/03/23 Reason for Consult: MDR UTI with bacteremia Chief Complaint: UTI History of Present Illness: Patient is a 62-year-old male with a past medical history of seizure disorder, hypertension, prior CVA, chronic indwelling catheter who presented to the ED with complaints of fever. Patient was found to have E. coli bacteremia and urinary tract infection Proteus mirabilis ESBL. Infectious disease was consulted. Of note, patient was recently hospitalized last month for cUTI during which he was treated with meropenem for 10 days. Allergies meropenem [From Merrem] Allergy (Verified 02/02/23 05:27) Itching/Hives/Rash Home medications list reviewed: Yes Home Medications: Baclofen 10 mg PO Q8H PRN 01/10/23 Docusate [Colace Cap*] 100 mg PO SEECOM 01/10/23 Fluoxetine HCl [Prozac] 40 mg PO DAILY 01/10/23 Furosemide [Lasix*] 40 mg PO DAILY 01/10/23 Guaifenesin/Dextromethorphan [Mucinex Dm ER 600-30 mg Tablet] 1 tab PO BID PRN 01/10/23 Insulin Regular, Human [Novolin R Flexpen] See Rx Instructions .ROUTE .COMPLEX 01/10/23 Levothyroxine [Synthroid*] 1 tab PO DAILY 01/10/23 Lidocaine 4% Patch [Lidoderm 5% Patch*] 1 patch TOP SEECOM 01/10/23 Losartan Potassium 100 mg PO DAILY 01/10/23 Melatonin 5 mg PO BEDTIME PRN 01/10/23 Metformin HCl 1,000 mg PO BID 01/10/23 Metoprolol Tartrate 25 mg PO BID 01/10/23 Nystatin 1 monty TOP SEECOM 01/10/23 PHENobarbitaL [Phenobarbital] 97.2 mg PO Q12H 01/10/23 Phenytoin Sodium Extended [Phenytek] 200 mg PO BID 01/10/23 Potassium Chloride 20 meq PO DAILY 01/10/23 levETIRAcetam [Keppra] 500 mg PO BID 01/10/23 Benzonatate [Tessalon Perle*] 100 mg PO Q6H PRN 5 Days cap 01/19/23 Acetaminophen [Tylenol] 650 mg PO Q6HR PRN 02/01/23 Acetaminophen with Codeine [Tylenol with-Codeine #3 Tablet] 1 each PO Q8HR PRN 02/01/23 Albuterol Sulfate [Albuterol Sulfate 0.083% Neb Soln] 2.5 mg IH Q6HR PRN 02/01/23 Insulin Glargine,Hum.rec.anlog [Insulin Glargine] 45 unit SQ BID 02/01/23 Ondansetron [Zofran (Odt)*] 4 mg PO Q6H PRN 02/01/23 Gentamicin Sulf/Sodium Citrate [Gentamicin 960 Mcg/3Ml-Sod Cit] 240 mcg IJ DAILY #6 02/03/23 Insulin Glargine,Hum.rec.anlog [Semglee] 45 unit SQ BID ml 02/03/23 Metoprolol Tartrate [Lopressor*] 25 mg PO BID tab 02/03/23 Nystatin Powder [Mycostatin (Powder)*] 1 appl TOP BID bottle 02/03/23 PHENYTOIN ER Cap [Dilantin ER Cap*] 200 mg PO BID cap 02/03/23 - Past Medical/Surgical History Diabetic: Yes -: CVA -: Paraplegia -: BPH with suprapubic catheter -: Hypertension -: Hyperlipidemia -: UTI -: Seizures -: Traumatic Brain Injury -: Brain Surgery - Social History Smoking Status: Former smoker Alcohol use: No CD- Drugs: No Caffeine use: No Place of Residence: [place] Review of Systems 10-point ROS is otherwise unremarkable General: Fever, Weakness Respiratory: Cough Integumentary: Rash Physical Examination Temp Pulse Resp BP Pulse Ox 99.5 F 97 H 18 150/50 H 96 02/03/23 08:00 02/03/23 08:00 02/03/23 08:00 02/03/23 08:00 02/03/23 08:00 General: In no apparent distress, Oriented x3 Neck: Supple, JVD not distended Respiratory: Normal air movement (on room air), Crackles/rales Cardiovascular: Regular rate/rhythm, Edema (BLE edema) Gastrointestinal: Normal bowel sounds, Soft and benign, No tenderness Integumentary: Rash(es) (generalized- from allergic reaction to medication) Neurological: Other (prior CVA, paraplegic), Abnormal speech (slowed) Urinary: Suprapubic catheter Laboratory data - Reviewed Microbiology data 02/01/23 04:52 Catheterized Urine [place] Count - Preliminary >100,000 CFU/ML. 02/01/23 04:52 Catheterized Urine - Preliminary Proteus Mirabilis Esbl 02/01/23 03:15 Blood - Blood Aerobic Blood Culture - Final Escherichia Coli 02/01/23 03:15 Blood - Blood Blood Culture Gram Stain - Final 02/01/23 03:15 Blood - Blood Anaerobic Blood Culture - Final Escherichia Coli 02/01/23 03:15 Blood - Blood Gram Stain - Final 02/01/23 03:00 Blood - Blood Aerobic Blood Culture - Final Escherichia Coli 02/01/23 03:00 Blood - Blood Blood Culture Gram Stain - Final 02/01/23 03:00 Blood - Blood Anaerobic Blood Culture - Final Escherichia Coli 02/01/23 03:00 Blood - Blood Gram Stain - Final Imagings Data: - XR Chest 02/01: " The heart is enlarged. There are is a vague diffuse opacity throughout the right lung. There is no pleural effusion. There is no pneumothorax. There are no acute osseous findings." Conclusions/Impression: Problem list Sepsis secondary to E.coli Bacteremia and complicated UTI Complicated urinary tract infection Hx of multi-drug resistant infections Hypertension Hyperlipidemia Seizure disorder Prior CVA Paraplegia Hyponatremia Hypokalemia Sepsis secondary to E.coli Bacteremia and Complicated Urinary Tract Infection with Proteus mirabilis ESBL - Patient was started on Meropenem 02/01 and shortly developed rash/hives/itching. Meropenem was discontinued. - Leukocytosis with left shift (WBC 18.8) - Fever. 24 hour tmax = 101.3 F -Urine culture 02/01: Proteus mirabilis ESBL -Blood cultures 01/01: Escherichia coli in 4 of 4 bottles - Previously on Rocephin 02/01 and 02/02 - On Gentamicin (started 02/03) Recommendations - Complicated UTI proteus mirabilis ESBL: Continue Gentamicin IV x 7 days (02/03-02/10) - Monitor for nausea, vomiting, dizziness, nystagmus and vertigo and other signs of vestibular toxicity while on Gentamicin - Pharmacy to dose. - E.coli Bacteremia: Continue antibiotic therapy for 10 days (02/01-02/11) Once completed 7 days gentamicin, consider switch to Rocephin to complete remainder of course. - Suprapubic catheter care - Monitor WBC and fever trends. As needed Tylenol. - Pressure offloading measures. Turn patient every 2 hours. [id number] mattress. -Seizure precautions Case discussed with Richie Matias
[2023-02-03] MEDS: NYSTATIN PWDR 100000 UNIT/GM TOP SCH ×2 (09:40→20:31)
[2023-02-03] MEDS: INSULIN GLARGINE 100 UNIT/ML SQ SCH ×2 (09:41→20:40)
[2023-02-03] MEDS: PHENYTOIN ER 100 MG CAP PO SCH ×2 (09:41→20:30)
[2023-02-03] MEDS: METOPROLOL TAR 25 MG TAB PO SCH ×2 (09:41→20:30)
[2023-02-03] MEDS: levETIRAcetam 500 MG TAB PO SCH ×2 (09:41→20:30)
[2023-02-03] MEDS: POTASSIUM CL SA 10 MEQ TAB PO SCH (09:42)
[2023-02-03] MEDS: LOSARTAN POTASSIUM 50 MG TABLET PO SCH (09:42)
[2023-02-03] MEDS: LEVOTHYROXINE SOD 0.075 MG TAB PO SCH (09:42)
[2023-02-03] MEDS: FUROSEMIDE 40 MG TABLET PO SCH (09:42)
[2023-02-03] MEDS: FLUOXETINE 20 MG CAP PO SCH (09:42)
[2023-02-03] MEDS: PHENOBARBITAL 32.4 MG TABLET PO SCH ×2 (09:45→20:31)
[2023-02-03] MEDS: Gentamicin Inj 240 MG in NA CHLORIDE 0.9% 100 ML IVPB SCH (10:42)
[2023-02-03] MEDS ORDERED: ALBUTEROL 2.5 MG/3 ML NEB SOL NEB PRN (14:00)
[2023-02-03] MEDS: Mupirocin NASAL 2 APPL/1 GM TUBE NAS SCH ×2 (14:10→20:31)
[2023-02-03] MEDS ORDERED: DIPHENHYDRAMINE 50 MG/ML VIAL IV ONE (17:37)
[2023-02-03] MEDS: FLUCONAZOLE 100mg IVPB 100 MG/50 ML BAG IV SCH (20:39)
[2023-02-04] MEDS: ALBUTEROL 2.5 MG/3 ML NEB SOL NEB SCH ×4 (02:13→20:00)
[2023-02-04] MEDS: LEVOTHYROXINE SOD 0.075 MG TAB PO SCH (04:33)
[2023-02-04] MEDS: NA CHLORIDE 0.9% 1,000 ML IV SCH ×3 (04:33→16:00)
--- NOTE | 2023-02-04 08:21 | P.DS ---
Admission Date: 02/01/23 Discharge Date: 02/04/23 Disposition: TRANSFER TO LONGTERM Discharge Condition: GOOD Reason for Admission: UTI Brief History of Present Illness: 62-year-old male with a past medical history of seizures, hypertension, hyperlipidemia, CVA, chronic indwelling catheter due to paraplegia, presents to the emergency room with fever UTI. No which reported chest pain, shortness of breath, seizures,. Plan to admit for urosepsis, Laboratory evaluation WBCs 20.6, hyponatremia 130, hypoalbuminemia 2.8 UA positive for leukoesterase greater than 500 SARS negative, chest x-ray FINDINGS: The heart is enlarged. The re are is a vague diffuse opacity throughout the right lung. There is no pleural effusion. There is no pneumothorax. There are no acute osseous findingIMPRESSION: Difficult to exclude right-sided pneumonia. Blood cultures positive for E. coli, UA greater than 100,000, and andreina - Physical Exam General: Alert, In no apparent distress, Oriented x3 HEENT: Atraumatic, Normocephalic Neck: Supple, 2+ carotid pulse no bruit Respiratory: Clear to auscultation bilaterally, Normal air movement Cardiovascular: No edema, Normal pulses, Regular rate/rhythm Capillary refill: <2 Seconds Gastrointestinal: Normal bowel sounds, Soft and benign Musculoskeletal: No clubbing, No swelling Integumentary: No rashes, No breakdown Neurological: Normal speech, Other paraplegic Hospital Course: Patient treated for sepsis, from complicated UTI pneumonia and bacteremia Urosepsis secondary to chronic indwelling Jin catheter Sepsis secondary to E.coli Bacteremia and CAUTI Hx of multi-drug resistant infections Pneumonia right-sided Zosyn, azithromycin Laboratory evaluation WBCs 20.6, hyponatremia 130, hypoalbuminemia 2.8 UA positive for leukoesterase greater than 500 SARS negative, chest x-ray FINDINGS: The heart is enlarged. There are is a vague diffuse opacity throughout the right lung. There is no pleural effusion. There is no pneumothorax. There are no acute osseous finding IMPRESSION: Difficult to exclude right-sided pneumonia. Blood cultures positive for E. coli, UA greater than 100,000, and andreina Infectious disease consulted Trend cultures change suprapubic catheter Complicated urinary tract infection - Patient was started on Meropenem 02/01 and shortly developed rash/hives/itching. Meropenem was discontinued. - Leukocytosis with left shift (WBC 18.8) - Fever. 24 hour tmax = 101.3 F -Urine culture 02/01: Proteus mirabilis ESBL -Blood cultures 01/01: Escherichia coli in 4 of 4 bottles - Started on Gentamicin 02/03 per infectious disease Recommendations from infectious disease - Complicated UTI proteus mirabilis ESBL: Continue Gentamicin IV x 7 days (02/03-02/10) - Monitor for nausea, vomiting, dizziness, nystagmus and vertigo and other signs of vestibular toxicity while on Gentamicin - Pharmacy to dose. - E.coli Bacteremia: Continue antibiotic therapy for 10 days (02/01-02/11) Once completed 7 days gentamicin, consider switch to Rocephin to complete remainder of course. - Suprapubic catheter care - Monitor WBC and fever trends. As needed Tylenol. - Pressure offloading measures. Turn patient every 2 hours. [id number]-[id number] mattress. -Seizure precautions Vital Signs/Physical Exam: Temp Pulse Resp BP Pulse Ox 97.8 F 90 18 159/55 H 95 02/04/23 04:00 02/04/23 04:00 02/04/23 04:00 02/04/23 04:00 02/04/23 04:00 Laboratory Data at Discharge: WBC 18.80 thou/uL (4.3-10.9) H 02/03/23 08:28 Hgb 11.3 g/dL (13.6-17.9) L 02/03/23 08:28 Hct 34.1 % (39.6-49.0) L 02/03/23 08:28 Plt Count 234 thou/uL (152-406) 02/03/23 08:28 Sodium 130 mEq/L (136-145) L 02/03/23 08:28 Potassium 3.0 mEq/L (3.5-5.1) L 02/03/23 08:28 BUN 10 mg/dL (7-18) 02/03/23 08:28 Creatinine 0.58 mg/dL (0.70-1.30) L 02/03/23 08:28 Glucose 144 mg/dL (74-106) H 02/03/23 08:28 Magnesium 1.8 mg/dL (1.6-2.4) 02/03/23 08:28 Total Bilirubin 0.3 mg/dL (0.2-1.0) 02/02/23 06:36 AST 18 U/L (15-37) 02/02/23 06:36 ALT 15 U/L (16-61) L 02/02/23 06:36 Alkaline Phosphatase 73 U/L (45-117) 02/02/23 06:36 Lipase 20 U/L (13-75) 02/01/23 02:57 Home Medications: Baclofen 10 mg PO Q8H PRN 01/10/23 Docusate [Colace Cap*] 100 mg PO SEECOM 01/10/23 Fluoxetine HCl [Prozac] 40 mg PO DAILY 01/10/23 Furosemide [Lasix*] 40 mg PO DAILY 01/10/23 Guaifenesin/Dextromethorphan [Mucinex Dm ER 600-30 mg Tablet] 1 tab PO BID PRN 01/10/23 Insulin Regular, Human [Novolin R Flexpen] See Rx Instructions .ROUTE .COMPLEX 01/10/23 Levothyroxine [Synthroid*] 1 tab PO DAILY 01/10/23 Lidocaine 4% Patch [Lidoderm 5% Patch*] 1 patch TOP SEECOM 01/10/23 Losartan Potassium 100 mg PO DAILY 01/10/23 Melatonin 5 mg PO BEDTIME PRN 01/10/23 Metformin HCl 1,000 mg PO BID 01/10/23 Metoprolol Tartrate 25 mg PO BID 01/10/23 Nystatin 1 monty TOP SEECOM 01/10/23 PHENobarbitaL [Phenobarbital] 97.2 mg PO Q12H 01/10/23 Phenytoin Sodium Extended [Phenytek] 200 mg PO BID 01/10/23 Potassium Chloride 20 meq PO DAILY 01/10/23 levETIRAcetam [Keppra] 500 mg PO BID 01/10/23 Benzonatate [Tessalon Perle*] 100 mg PO Q6H PRN 5 Days cap 01/19/23 Acetaminophen [Tylenol] 650 mg PO Q6HR PRN 02/01/23 Acetaminophen with Codeine [Tylenol with-Codeine #3 Tablet] 1 each PO Q8HR PRN 02/01/23 Albuterol Sulfate [Albuterol Sulfate 0.083% Neb Soln] 2.5 mg IH Q6HR PRN 11/13/23 Insulin Glargine,Hum.rec.anlog [Insulin Glargine] 45 unit SQ BID 02/01/23 Ondansetron [Zofran (Odt)*] 4 mg PO Q6H PRN 02/01/23 Gentamicin Sulf/Sodium Citrate [Gentamicin 960 Mcg/3Ml-Sod Cit] 240 mcg IJ DAILY #6 02/03/23 Insulin Glargine,Hum.rec.anlog [Semglee] 45 unit SQ BID ml 02/03/23 Metoprolol Tartrate [Lopressor*] 25 mg PO BID tab 02/03/23 Nystatin Powder [Mycostatin (Powder)*] 1 appl TOP BID bottle 02/03/23 PHENYTOIN ER Cap [Dilantin ER Cap*] 200 mg PO BID cap 02/03/23 New Medications: Gentamicin Sulf/Sodium Citrate [Gentamicin 960 Mcg/3Ml-Sod Cit] 240 mcg IJ DAILY #6 Followup: NONE,NONE [Primary Care Provider] -
--- NOTE | 2023-02-04 08:30 | P.PN ---
Date of Service: 02/04/23 Chief Complaint: UTI Subjective: No acute events reported overnight. In no apparent distress. Denies any new or worsening complaints. Pending Midline or PICC line placement prior to discharge to [facility] in order to complete remainder of IV antibiotic course. Physical Examination Temp Pulse Resp BP Pulse Ox 97.8 F 90 18 159/55 H 95 02/04/23 04:00 02/04/23 04:00 02/04/23 04:00 02/04/23 04:00 02/04/23 04:00 General: In no apparent distress, Oriented x3 Neck: Supple, JVD not distended Respiratory: Normal air movement. Diminished. Unlabored respirations on room air. Cardiovascular: Regular rate/rhythm. BLE edema 1+. Gastrointestinal: Normal bowel sounds, Soft and benign, No tenderness. Integumentary: generalized rash improving. pressure injury stage 1 bilateral buttocks. Urinary: Suprapubic catheter Laboratory data - Reviewed Microbiology data - Reviewed Imagings Data: - XR Chest 02/01: " The heart is enlarged. There are is a vague diffuse opacity throughout the right lung. There is no pleural effusion. There is no pneumothorax. There are no acute osseous findings." Assessment and Plan Problem list Sepsis secondary to E.coli Bacteremia and complicated UTI Complicated urinary tract infection Hx of multi-drug resistant infections Hypertension Hyperlipidemia Seizure disorder Prior CVA Paraplegia Hyponatremia Hypokalemia Sepsis secondary to E.coli Bacteremia and Complicated Urinary Tract Infection - Patient was started on Meropenem 02/01 and shortly developed rash/hi ves/itching. Meropenem was discontinued. - Leukocytosis with left shift (WBC 18.8) - Fever. 24 hour tmax = 101.3 F -Urine culture 02/01: Proteus mirabilis ESBL and Escherichia coli -Blood cultures 01/01: Escherichia coli in 4 of 4 bottles - Previously on Rocephin 02/01 and 02/02 - On Gentamicin (started 02/03) Recommendations - Complicated UTI proteus mirabilis ESBL: Continue Gentamicin IV x 7 days (02/03-02/10) - Monitor for nausea, vomiting, dizziness, nystagmus and vertigo and other signs of vestibular toxicity while on Gentamicin - Pharmacy to dose. - E.coli Bacteremia: Continue antibiotic therapy for 10 days (02/01-02/11) Once completed 7 days gentamicin, consider switch to Rocephin to complete remainder of course. - Suprapubic catheter care - Monitor WBC and fever trends. As needed Tylenol. - Pressure offloading measures. Turn patient every 2 hours. [id number] mattress. -Seizure precautions Case discussed with Richie Matias
[2023-02-04 08:45] LABS: Absolute Lymphocytes (CBC) 1.9 K/uL (0.7-4.9); Lymphocytes % 13.8 % (15.3-44.8); MCV 85.9 fL (80-100); MPV 7.5 fL (7.6-11.3); Platelets 259 thou/uL (152-406); RBC Red Blood Cell Count 4.08 M/uL (4.33-5.43)
[2023-02-04 09:04] LABS: Magnesium 1.6 mg/dL (1.6-2.4)
[2023-02-04] MEDS ORDERED: DIPHENHYDRAMINE 25 MG TAB/CAP PO PRN (09:11)
[2023-02-04] MEDS: POTASSIUM CL SA 10 MEQ TAB PO SCH (09:17)
[2023-02-04] MEDS: PHENYTOIN ER 100 MG CAP PO SCH ×2 (09:17→21:10)
[2023-02-04] MEDS: FLUOXETINE 20 MG CAP PO SCH (09:17)
[2023-02-04] MEDS: LOSARTAN POTASSIUM 50 MG TABLET PO SCH (09:18)
[2023-02-04] MEDS: FUROSEMIDE 40 MG TABLET PO SCH (09:18)
[2023-02-04] MEDS: Mupirocin NASAL 2 APPL/1 GM TUBE NAS SCH ×2 (09:19→21:11)
[2023-02-04] MEDS: NYSTATIN PWDR 100000 UNIT/GM TOP SCH ×2 (09:19→21:10)
[2023-02-04] MEDS: METOPROLOL TAR 25 MG TAB PO SCH ×2 (09:19→21:11)
[2023-02-04] MEDS: levETIRAcetam 500 MG TAB PO SCH ×2 (09:19→21:11)
[2023-02-04] MEDS: PHENOBARBITAL 32.4 MG TABLET PO SCH ×2 (09:29→21:11)
[2023-02-04] MEDS: INSULIN GLARGINE 100 UNIT/ML SQ SCH ×2 (09:30→21:16)
[2023-02-04 10:10] VITALS: O2SAT 95
[2023-02-04] MEDS: Gentamicin Inj 240 MG in NA CHLORIDE 0.9% 100 ML IVPB SCH (11:00)
--- NOTE | 2023-02-04 14:20 | P.PN ---
Subjective Date of Service: 02/04/23 Chief Complaint: UTI Subjective: Improving Review of Systems 10-point ROS is otherwise unremarkable Physical Examination - Vital Signs Temperature: 97.9 F Blood Pressure: 144/70 Pulse: 76 Respirations: 18 Pulse Ox (%): 94 - Physical Exam General: Alert, In no apparent distress, Oriented x3 HEENT: Atraumatic, Normocephalic Neck: Supple, 2+ carotid pulse no bruit Respiratory: Clear to auscultation bilaterally, Normal air movement Cardiovascular: No edema, Normal pulses Capillary refill: <2 Seconds Gastrointestinal: Normal bowel sounds, Soft and benign, Other (suprabupic cath) Musculoskeletal: Other (Paraplegic moderate generalized weakness) Integumentary: No rashes, No breakdown Urinary: Other (Suprapubic catheter) - Studies Microbiology Data (last 24 hrs): 02/01/23 04:52 Catheterized Urine [place] Count - Final >100,000 CFU/ML. 02/01/23 04:52 Catheterized Urine - Final Proteus Mirabilis Esbl Escherichia Coli Assessment And Plan - Plan Assessment plan Urosepsis secondary to chronic indwelling Jin catheter Empiric IV antibiotics, Zosyn, azithromycin Laboratory evaluation WBCs 20.6, hyponatremia 130, hypoalbuminemia 2.8 UA positive for leukoesterase greater than 500 SARS negative, chest x-ray FINDINGS: The heart is enlarged. There are is a vague diffuse opacity throughout the right lung. There is no pleural effusion. There is no pneumothorax. There are no acute osseous finding IMPRESSION: Difficult to exclude right-sided pneumonia. Blood cultures positive for E. coli, UA greater than 100,000, and andreina Infectious disease consulted Trend cultures ID Recommendations - Complicated UTI proteus mirabilis ESBL: Continue Gentamicin IV x 7 days (02/03-02/10) - Monitor for nausea, vomiting, dizziness, nystagmus and vertigo and other signs of vestibular toxicity while on Gentamicin - Pharmacy to dose. - E.coli Bacteremia: Continue antibiotic therapy for 10 days (02/01-02/11) Once completed 7 days gentamicin, consider switch to Rocephin to complete remainder of course. - Suprapubic catheter care - Monitor WBC and fever trends. As needed Tylenol. - Pressure offloading measures. Turn patient every 2 hours. [id number] mattress. -Seizure precautions Pneumonia right-sided Zosyn, azithromycin Bacteremia Gram-positive for E. coli IV antibiotics, Hyponatremia Hypokalemia Trend electrolytes replace as needed History of CVA Paraplegia Chronic indwelling Jin catheter History of seizure disorder Essential hypertension Hyperlipidemia right-handed you eat Resume appropriate home medications Diet cardiac Full code DVT Lovenox Discharge Plan: Jail - Code Status/Comfort Care Code Status: Full Code Physician Review: Patient Assessed, Agree with Above Assessment and Plan Critical Care: No Time Spent Managing PTS Care (In Minutes): 35
[2023-02-04] MEDS: FLUCONAZOLE 100mg IVPB 100 MG/50 ML BAG IV SCH (21:12)
[2023-02-05] MEDS: ALBUTEROL 2.5 MG/3 ML NEB SOL NEB SCH ×3 (02:00→08:00)
[2023-02-05] MEDS: NA CHLORIDE 0.9% 1,000 ML IV SCH ×2 (02:38→09:07)
[2023-02-05 07:22] LABS: Absolute Lymphocytes (CBC) 2.1 K/uL (0.7-4.9); Hematocrit 34.6 % (39.6-49.0); Lymphocytes % 16.2 % (15.3-44.8); MCV 86.3 fL (80-100); MPV 7.6 fL (7.6-11.3); Platelets 303 thou/uL (152-406); RBC Red Blood Cell Count 4.01 M/uL (4.33-5.43)
[2023-02-05 08:05] LABS: BUN Blood Urea Nitrogen 7 mg/dL (7-18); Bicarbonate 24 mEq/L (21-32); Glomerular Filtration Rate 114 ml/min (=/>90); Glucose Level 117 mg/dL (74-106); Potassium 3.2 mEq/L (3.5-5.1); Sodium Level 131 mEq/L (136-145)
[2023-02-05 08:06] LABS: Magnesium 1.7
[2023-02-05] MEDS: INSULIN GLARGINE 100 UNIT/ML SQ SCH (09:04)
[2023-02-05] MEDS: POTASSIUM CL SA 10 MEQ TAB PO SCH (09:05)
[2023-02-05] MEDS: levETIRAcetam 500 MG TAB PO SCH (09:05)
[2023-02-05] MEDS: Mupirocin NASAL 2 APPL/1 GM TUBE NAS SCH (09:05)
[2023-02-05] MEDS: PHENYTOIN ER 100 MG CAP PO SCH (09:05)
[2023-02-05] MEDS: PHENOBARBITAL 32.4 MG TABLET PO SCH (09:05)
[2023-02-05] MEDS: Gentamicin Inj 240 MG in NA CHLORIDE 0.9% 100 ML IVPB SCH (09:05)
[2023-02-05] MEDS: FLUOXETINE 20 MG CAP PO SCH (09:05)
[2023-02-05] MEDS: METOPROLOL TAR 25 MG TAB PO SCH (09:05)
[2023-02-05] MEDS: LOSARTAN POTASSIUM 50 MG TABLET PO SCH (09:06)
[2023-02-05] MEDS: FUROSEMIDE 40 MG TABLET PO SCH (09:06)
[2023-02-05] MEDS: LEVOTHYROXINE SOD 0.075 MG TAB PO SCH (09:06)
[2023-02-05 09:07] VITALS: BP 138/63
[2023-02-05] MEDS: NYSTATIN PWDR 100000 UNIT/GM TOP SCH (09:07)
[2023-02-05 09:38] VITALS: TEMP 98.6
[2023-02-05] MEDS ORDERED: BISACODYL 10 MG RECTAL SUPP PR ONE (09:51)
--- NOTE | 2023-02-05 11:29 | P.PN ---
Date of Service: 02/05/23 Chief Complaint: UTI Subjective: No acute events reported overnight. Improving. in no apparent distress. Denies any new or worsening complaints at this time. Physical Examination Temp Pulse Resp BP Pulse Ox 98.6 F 77 18 138/63 93 02/05/23 08:00 02/05/23 09:06 02/05/23 08:00 02/05/23 09:06 02/05/23 08:00 General: In no apparent distress, Oriented x3 Neck: Supple, JVD not distended Respiratory: Normal air movement. Diminished. Unlabored respirations on room air. Cardiovascular: Regular rate/rhythm. BLE edema 1+. Gastrointestinal: Normal bowel sounds, Soft and benign, No tenderness. Integumentary: generalized rash improving. pressure injury stage 1 bilateral buttocks. Urinary: Suprapubic catheter Laboratory data - Reviewed Microbiology data - Reviewed Imagings Data: - XR Chest 02/01: " The heart is enlarged. There are is a vague diffuse opacity throughout the right lung. There is no pleural effusion. There is no pneumothorax. There are no acute osseous findings." Assessment and Plan Problem list Sepsis secondary to E.coli Bacteremia and complicated UTI Complicated urinary tract infection Hx of multi-drug resistant infections Hypertension Hyperlipidemia Seizure disorder Prior CVA Paraplegia Hyponatremia Hypokalemia Sepsis secondary to E.coli Bacteremia and Complicated Urinary Tract Infection - Patient was started on Meropenem 02/01 and shortly developed rash/hives/itching. Meropenem was discontinued. - Leukocytosis with left shift (WBC 18.8) - Fever. 24 hour tmax = 101.3 F -Urine culture 02/01: Proteus mirabilis ESBL and Escherichia coli -Blood cultures 01/01: Escherichia coli in 4 of 4 bottles - Previously on Rocephin 02/01 and 02/02 - On Gentamicin (started 02/03) Recommendations [facility]ending [facility] back to [facility]. - Complicated UTI proteus mirabilis ESBL: Continue Gentamicin IV x 7 days (02/03-02/10) - Monitor for nausea, vomiting, dizziness, nystagmus and vertigo and other signs of vestibular toxicity while on Gentamicin - Pharmacy to dose. - E.coli Bacteremia: Continue antibiotic therapy for 10 days (02/01-02/11) Once completed 7 days gentamicin, consider switch to Rocephin to complete remainder of course. - Suprapubic catheter care - Monitor WBC and fever trends - Pressure offloading measures. Turn patient every 2 hours. [id number]-fzcp mattress. -Seizure precautions Case discussed with Richie Matias
== END 2023-02-05 11:45 | DRG 698 ==
LOC: ER 02:40 → ERHOLD 05:02 → 4TH 07:32 → OBSVTOIN 14:30
PROVIDERS: ADMIT Hospitalist; ATTEND Hospitalist
DX: T83.511A Infection and inflammatory reaction due to indwelling urethral catheter, initial encounter (principal); A41.51 Sepsis due to Escherichia coli [E. coli]; J18.9 Pneumonia, unspecified organism; A41.59 Other Gram-negative sepsis; G82.20 Paraplegia, unspecified; E87.1 Hypo-osmolality and hyponatremia; Z16.12 Extended spectrum beta lactamase (ESBL) resistance; N39.0 Urinary tract infection, site not specified; I10 Essential (primary) hypertension; E87.6 Hypokalemia; E78.00 Pure hypercholesterolemia, unspecified; E03.9 Hypothyroidism, unspecified; N40.0 Benign prostatic hyperplasia without lower urinary tract symptoms; L89.321 Pressure ulcer of left buttock, stage 1; L89.311 Pressure ulcer of right buttock, stage 1; E88.09 Other disorders of plasma-protein metabolism, not elsewhere classified; B96.20 Unspecified Escherichia coli [E. coli] as the cause of diseases classified elsewhere; Z11.52 Encounter for screening for COVID-19; Z79.4 Long term (current) use of insulin; Z86.73 Personal history of transient ischemic attack (TIA), and cerebral infarction without residual deficits; Z79.84 Long term (current) use of oral hypoglycemic drugs; Z87.891 Personal history of nicotine dependence; Z79.899 Other long term (current) drug therapy; Z79.890 Hormone replacement therapy; Y84.6 Urinary catheterization as the cause of abnormal reaction of the patient, or of later complication, without mention of misadventure at the time of the procedure
CPT/HCPCS: 36415; 71045; 80048; 80053; 81001; 82947; 83605; 83690; 83735; 84145; 85025; 87040; 87077; 87086; 87088; 87186; 87205; 87324; 87804; 87811; 93005; 94640; 96361; 96365; 96375; 99284; G0378; J0692; J0696; J1200; J1450; J1580; J2185; J2920; J7030; J7050; J7613; Q0162

== ENCOUNTER 2023-03-02 12:47 | Inpatient (IN) | payer OTHER ==
[2023-03-02 13:22] LABS: Absolute Lymphocytes (CBC) 2.5 K/uL (0.7-4.9); Hematocrit 34.1 % (39.6-49.0); Lymphocytes % 23.2 % (15.3-44.8); MCV 85.8 fL (80-100); MPV 7.6 fL (7.6-11.3); Platelets 275 thou/uL (152-406); RBC Red Blood Cell Count 3.97 M/uL (4.33-5.43)
--- NOTE | 2023-03-02 13:24 | RAD REPORT ---
EXAM DESCRIPTION: CT - Head Brain Wo Cont - 03/02/2023 1:11 pm CLINICAL HISTORY: DECLINING STATE COMPARISON: Head Brain W/Wo Con dated 01/14/2021 TECHNIQUE: Noncontrast head CT images were obtained without IV contrast. Multiplanar reformats were generated and reviewed. All CT scans are performed using dose optimization technique as appropriate and may include automated exposure control or mA/KV adjustment according to patient size. FINDINGS: No intracranial hemorrhage, mass, or edema. Midline structures are unremarkable. Ventricular caliber is stable, with mild diffuse parenchymal volume loss, and more pronounced volume loss involving the cerebellum. Prominent extra-axial space underlying the tentorium bilaterally is st able, may relate to a chronic hygroma. Stable encephalomalacia involving the right perisylvian region , with overlying craniectomy. Some ex vacuo dilation of the right lateral ventricle. Dixon-white matter differentiation is preserved, without evidence of acute infarct. No abnormal extra- axial fluid collections. Mastoid air cells and visualized portions of the paranasal sinuses are clear. No acute bony findings. IMPRESSION: No evidence of an acute intracranial process. Stable chronic findings as above.
--- NOTE | 2023-03-02 13:31 | RAD REPORT ---
EXAM DESCRIPTION: RADChest Single View03/02/2023 1:15 pm CLINICAL HISTORY: declining state COMPARISON: Chest Single View dated 02/01/2023; Chest Single View dated 01/18/2023; Chest Single Vie w dated 01/14/2023; Chest Single View dated 01/09/2023 TECHNIQUE: Portable AP view of the chest. FINDINGS: Decreased inspiratory effort limits evaluation. Central interstitial prominence. Periphera l left basilar opacity is stable, with preserved left diaphragmatic dome silhouette pain, may relate to atelectasis, epicardial fat, stable airspace opacity, or a mixture of these. No pneumothorax or e ffusion. Stable mild cardiomegaly. Mediastinal contours are unremarkable. IMPRESSION: Central interstitial prominence, may relate to congestion, however appearance may be exa cerbated by decreased inspiratory effort. Stable left basilar small opacity as above.
[2023-03-02 13:33] LABS: Protime INR 1.4
[2023-03-02 13:46] LABS: ALT/SGPT 20 U/L (16-61); AST/SGOT 15 U/L (15-37); Albumin 2.9 g/dL (3.4-5.0); Alkaline Phosphatase 111 U/L (45-117); BUN Blood Urea Nitrogen 24 mg/dL (7-18); Bicarbonate 25 mEq/L (21-32); Bilirubin Total 0.1 mg/dL (0.2-1.0); Glomerular Filtration Rate 47 ml/min (=/>90); Glucose Level 101 mg/dL (74-106); Magnesium 1.1 mg/dL (1.6-2.4); Potassium 3.7 mEq/L (3.5-5.1); Protein, Total 8.5 g/dL (6.4-8.2); Sodium Level 135 mEq/L (136-145); Troponin High Sensitivity 5.9 pg/mL (<58.9)
[2023-03-02 13:54] LABS: Specific Gravity 1.012 (1.005-1.030); Urine Bacteria 20-50 /HPF (<20); Urine Bilirubin NEGATIVE (Negative); Urine Blood 1+ (Negative); Urine Clarity Extremely Turbid (Clear); Urine Color Light-Orange (Yellow); Urine Glucose NEGATIVE (Negative); Urine Mucus Slight /HPF (None Seen); Urine Protein TRACE (Negative); Urine Urobilinogen Normal (Normal); Urine Yeast with Hyphae Few /HPF (None Seen)
[2023-03-02 13:56] LABS: Bilirubin Direct < 0.1 mg/dL (0-0.2); Bilirubin Indirect, Calculated ND mg/dL (0.2-0.8)
[2023-03-02 14:32] LABS: SARS-CoV-2 Antigen Rapid Res Negative (Negative)
[2023-03-02] MEDS ORDERED: Levofloxacin500mg IV 500 MG/100 ML BAG IV ONE (14:51)
--- NOTE | 2023-03-02 14:51 | EDPHYS ---
Physician Documentation [facility] Name: He Do Age: 62 yrs Sex: Male : 1960 Arrival Date: 03/02/2023 Time: 12:47 Bed 3 Private MD: ED Physician Alcides Ernandez HPI: 03/02 13:07 This 62 yrs old Male presents to ER via EMS with complaints of Altered Mental Status. rn 13:07 The patient presents with decreased mental status, decreased responsiveness. Onset: The rn symptoms/episode began/occurred 4 day(s) ago. Possible causes: unknown. Current symptoms: In the emergency department the patient's symptoms are unchanged from the initial presentation. It is unknown whether or not the patient has had similar symptoms in the past. The patient has not recently seen a physician. EMS brought patient in from detention for altered mental status, decreased responsiveness and per report not at baseline. Patient with history of TBI and CVA in the past, detention reports decreased responsiveness, increased weakness. Historical: - Allergies: 12:51 Merrem; ld1 - PMHx: 12:51 BPH with suprapubic catheter; Cerebrovascular accident; Hypertensive disorder; ld1 Hypercholesterolemia; Paraplegia; Hypothyroidism; Chronic pain; chronic back pain; Seizure; Depressive disorder; Diabetes mellitus; - Immunization history:: Adult Immunizations up to date. - Social history:: Smoking status: Patient denies any tobacco usage or history of. Patient/guardian denies using alcohol. - Family history:: not pertinent. - Hospitalizations: : No recent hospitalization is reported. ROS: 13:07 Constitutional: Negative for fever, chills, and weight loss, Cardiovascular: Negative rn for chest pain, palpitations, and edema, Respiratory: Negative for shortness of breath, cough, wheezing, and pleuritic chest pain, Abdomen/GI: Negative for abdominal pain, nausea, vomiting, diarrhea, and constipation, MS/Extremity: Negative for injury and deformity, Skin: Negative for injury, rash, and discoloration, Neuro: Negative for headache, numbness, tingling, and seizure, Exam: 13:07 Constitutional: This is a well developed, well nourished patient who is awake, drowsy, rn but does answer questions and wakes up to voice and tactile stimulation Head/Face: Normocephalic, atraumatic. ENT: Dry mucous membranes, no stridor Cardiovascular: Regular rate and rhythm. No pulse deficits. Respiratory: No increased work of breathing, no retractions or nasal flaring. Abdomen/GI: Soft, non-tender Skin: Warm, dry MS/ Extremity: Pulses equal, no cyanosis. Neuro: Somnolent but awakens to voice, diffuse weakness, answers questions, moderate dysarthria but most words are understandable. Vital Signs: 12:55 BP 143 / 76; Pulse 69; Resp 15; Temp 98.6(O); Pulse Ox 91% on R/A; Weight 114.76 kg; ld1 Height 5 ft. 10 in. ; Pain 0/10; 14:48 Pulse 70; Resp 14; Pulse Ox 97% on R/A; ld1 16:57 BP 137 / 65; Pulse 64; Resp 13; Pulse Ox 100% on R/A; ld1 17:30 BP 168 / 50; Pulse 66; Resp 14; Pulse Ox 100% on R/A; ld1 12:55 Body Mass Index 36.30 (114.76 kg, 177.8 cm) ld1 12:55 Pain Scale: Adult ld1 MDM: 12:54 Patient medically screened. rn 14:48 Differential Diagnosis: CVA, electrolyte abnormality, hypoglycemia, pneumonia, UTI, rn volume depletion. Data reviewed: vital signs, nurses notes, lab test result(s), radiologic studies, CT scan, plain films, and as a result, I will admit patient. Consideration of Admission/Observation Patient was admitted/placed on observation. Escalation of care including admission/observation considered. Counseling: I had a detailed discussion with the patient and/or guardian regarding the historical points, exam findings, and any diagnostic results supporting the discharge/admit diagnosis, lab results, radiology results, the need for further work-up and treatment in the hospital. Response to treatment: the patient's symptoms have mildly improved after treatment, and as a result, I will admit patient. 03/02 13:00 Order name: Basic Metabolic Panel; Complete Time: 14:28 rn 03/02 13:00 Order name: CBC with Diff; Complete Time: 13:45 rn 03/02 13:00 Order name: Hepatic Function; Complete Time: 14:28 rn 03/02 13:00 Order name: Magnesium; Complete Time: 14:28 rn 03/02 13:00 Order name: Protime (+inr); Complete Time: 13:45 rn 03/02 13:00 Order name: Ptt, Activated; Complete Time: 13:45 rn 03/02 13:00 Order name: Troponin High Sensitivity; Complete Time: 14:28 rn 03/02 13:00 Order name: Urinalysis w/ reflexes; Complete Time: 14:28 rn 03/02 13:00 Order name: SARS RAPID; Complete Time: 14:51 rn 03/02 13:00 Order name: Flu; Complete Time: 14:51 rn 03/02 13:58 Order name: Urine Culture EDMS 03/02 15:49 Order name: NT PRO-BNP EDMS 03/02 15:49 Order name: T4 Free EDMS 03/02 15:49 Order name: Basic Metabolic Panel EDMS 03/02 15:49 Order name: Basic Metabolic Panel EDMS 03/02 15:49 Order name: Thyroid Stimulating Hormone EDMS 03/02 15:50 Order name: Basic Metabolic Panel EDMS 03/02 15:50 Order name: Basic Metabolic Panel EDMS 03/02 15:50 Order name: Basic Metabolic Panel EDMS 03/02 15:50 Order name: Basic Metabolic Panel EDMS 03/02 15:50 Order name: Basic Metabolic Panel EDMS 03/02 15:50 Order name: Basic Metabolic Panel EDMS 03/02 15:50 Order name: CBC with Automated Diff EDMS 03/02 15:50 Order name: CBC with Automated Diff EDMS 03/02 15:50 Order name: CBC with Automated Diff EDMS 03/02 15:50 Order name: CBC with Automated Diff EDMS 03/02 15:50 Order name: CBC with Automated Diff EDMS 03/02 15:50 Order name: CBC with Automated Diff EDMS 03/02 15:50 Order name: CBC with Automated Diff EDMS 03/02 15:50 Order name: CBC with Automated Diff EDMS 03/02 15:50 Order name: Magnesium EDMS 03/02 15:50 Order name: Magnesium EDMS 03/02 15:50 Order name: Magnesium EDMS 03/02 15:50 Order name: Magnesium EDMS 03/02 15:50 Order name: Magnesium EDMS 03/02 15:50 Order name: Magnesium EDMS 03/02 15:50 Order name: Magnesium EDMS 03/02 15:50 Order name: Magnesium EDMS 03/02 15:50 Order name: Phosphorus EDMS 03/02 15:50 Order name: Phosphorus EDMS 03/02 15:50 Order name: Phosphorus EDMS 03/02 15:50 Order name: Phosphorus EDMS 03/02 15:50 Order name: Phosphorus EDMS 03/02 15:50 Order name: Phosphorus EDMS 03/02 15:50 Order name: Phosphorus EDMS 03/02 15:50 Order name: Phosphorus EDMS 03/02 15:50 Order name: Troponin High Sensitivity EDMS 03/02 15:50 Order name: Troponin High Sensitivity EDMS 03/02 15:50 Order name: Troponin High Sensitivity EDMS 03/02 13:00 Order name: CT Head Brain wo Cont; Complete Time: 13:45 rn 03/02 13:00 Order name: Chest Single View XRAY; Complete Time: 13:45 rn 03/02 13:00 Order name: EKG; Complete Time: 13:01 rn 03/02 15:49 Order name: CONS Physician Consult [facility] 03/02 15:49 Order name: Physical Therapy Consult [facility] 03/02 15:54 Order name: Speech Therapy Consult [facility] 03/02 13:00 Order name: Cardiac monitoring; Complete Time: 13:04 rn 03/02 13:00 Order name: EKG - Nurse/Tech; Complete Time: 13:32 rn 03/02 13:00 Order name: IV Saline Lock; Complete Time: 13:32 rn 03/02 13:00 Order name: Labs collected and sent; Complete Time: 13:32 rn 03/02 13:00 Order name: O2 Per Protocol; Complete Time: 13:01 rn 03/02 13:00 Order name: O2 Sat Monitoring; Complete Time: 13:01 rn Administered Medications: 14:53 Drug: levofloxacin IVPB 500 mg 100 ml IVPB once over 60 mins Volume: 100 ml; Route: ld1 IVPB; Infused Over: 60 mins; Site: right antecubital; 15:26 Follow up: Response: No adverse reaction; IV Status: Completed infusion ld1 15:30 Drug: Magnesium Sulfate IVPB 1 grams IVPB once over 1 hrs Route: IVPB; Infused Over: 1 ld1 hrs; Site: right antecubital; Disposition Summary: 03/02/23 14:51 Hospitalization Ordered Notes: Hospitalization Status: Inpatient Admission rn Location: Telemetry/MedSurg (Inpatient) rn Condition: Stable rn Problem: new rn Symptoms: are unchanged rn Bed/Room Type: Standard rn Provider: Michael Jasso(03/02/23 14:52) rn Room Assignment: [facility](03/02/23 17:30) bd Diagnosis - Altered mental status, unspecified rn - UTI/ Urinary tract infection, site not specified rn Forms: - Medication Reconciliation Form rn - SBAR form rn - Leadership Thank You Letter rn Signatures: Dispatcher [employer] Violetta Murillo Roman, MD MD rn McgarryAyleen RN RN ld1 Corrections: (The following items were deleted from the chart) 14:52 14:51 Neha Elias rn rn 17:30 14:51 shanthi lopez
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
[2023-03-02] MEDS ORDERED: MAGNESIUM SULFATE 1 gm IVPB 1 GM/100 ML BAG IV ONE (15:15)
[2023-03-02] MEDS ORDERED: MORPHINE 2 MG/ML SYR IV PRN (15:49)
[2023-03-02] MEDS ORDERED: ONDANSETRON 4 MG/2 ML VIAL IV PRN (15:49)
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
[2023-03-02] MEDS: INSULIN REGULAR (HUMAN) 100 UNIT/ML SQ SCH ×2 (16:30→21:00)
[2023-03-02] MEDS: HEPARIN 5000 UNIT/ML 1 ML VIAL SQ SCH ×2 (17:00→23:49)
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
[2023-03-02 22:04] VITALS: BMI 34.4
[2023-03-02] MEDS: CEFTRIAXONE 1,000 MG in NA CHLORIDE 0.9% 50 ML IVPB SCH (23:49)
[2023-03-02] MEDS: NA CHLORIDE 0.9% 1,000 ML IV SCH (23:49)
[2023-03-03] MEDS: NA CHLORIDE 0.9% 1,000 ML IV SCH (05:20)
[2023-03-03] MEDS: INSULIN REGULAR (HUMAN) 100 UNIT/ML SQ SCH ×4 (07:30→21:00)
[2023-03-03 07:33] LABS: Absolute Lymphocytes (CBC) 2.3 K/uL (0.7-4.9); Hematocrit 36.1 % (39.6-49.0); MCV 86.2 fL (80-100); MPV 7.3 fL (7.6-11.3); Platelets 242 thou/uL (152-406); RBC Red Blood Cell Count 4.19 M/uL (4.33-5.43)
[2023-03-03 08:20] LABS: Magnesium 1.3 mg/dL (1.6-2.4); Phosphorus 3.6 mg/dL (2.5-4.9); Potassium 3.3 mEq/L (3.5-5.1); Thyroid Stimulating Hormone 1.67 uIU/mL (0.358-3.740); Troponin High Sensitivity 6.3 pg/mL (<58.9)
[2023-03-03] MEDS: CEFTRIAXONE 1,000 MG in NA CHLORIDE 0.9% 50 ML IVPB SCH ×2 (09:29→22:06)
[2023-03-03] MEDS: HEPARIN 5000 UNIT/ML 1 ML VIAL SQ SCH ×2 (09:30→16:55)
--- NOTE | 2023-03-03 10:44 | P.PN ---
Date of Service: 03/03/23 Subjective: Appears much better this morning, He is able to speak more clearly and lift his head up, He is responding and following commands. ROS: 10 point ROS as noted above, otherwise negative Physical Exam General: Mild distress, Unresponsive HEENT: Atraumatic, Normocephalic, PERRLA Neck: Supple, 2+ carotid pulse no bruit Respiratory: Clear to auscultation bilaterally, Normal air movement Cardiovascular: Regular rate/rhythm, Normal S1 S2, Edema (trace edema to RLE) Capillary refill: <2 Seconds Gastrointestinal: Normal bowel sounds, Soft and benign Musculoskeletal: Other (BLE paraplegia) Integumentary: No rashes, No breakdown, No significant lesion Neurological: Other (BLE paraplegia) Urinary: Suprapubic catheter Vitals BP 149/68, HR 74, RR 20, Temp 98, O2 saturation 96%, hemodyncamically stable, continue monitoring problem list: AMS Suspect for CVA versus TIA in a patient with history of CVA, TBI, seizures and paraplegia Paraplegia to BLE UTI (POA) the patient with BPH with suprapubic catheter ARYA vs CKD Acute cystitis with hematuria Hypomagnesemia Hypoalbuminemia Assessment and plan AMS Suspect for CVA versus TIA in a patient with history of CVA, TBI, seizures and paraplegia Paraplegia to BLE CT of head reports "No evidence of an acute intracranial process." 03/02: NIHSS 19- he is paraplegic but at baseline can use the wheelchair, converse well, and feed himself. Consult Dr. Montero, MRI head w w/o contrast ordered Speech and physical therapy consulted- thickened liquid recommended decubitus prevention UTI (POA) the patient with BPH with suprapubic catheter Acute cystitis with hematuria ARYA vs CKD BUN/creatinine 22/1.44, GFR 55 nephrology consulted Gentle IVF Rocephin Hypoalbuminemia supplemental protein Hypomagnesemia Hypokalemia Replaced in ED Telemetry in place Monitor in a.m. lab Mag 1.3, k 3.3 History of DM- IDDM Check with SSI Serum glucose 101 Hypertensive disorder hypothyroidism Seizure disorder hypercholesterolemia Continue home medication (phenytoin and keppra) TSH/free T4 pending DVT PPx heparin Full code LOS 2 to 3 days Time Spent Managing Pts Care (In Minutes): 35
[2023-03-03] MEDS ORDERED: KCL 20 MEQ/100 mL IVPB 20 MEQ/100 ML BAG IV ONE (12:00)
[2023-03-03] MEDS ORDERED: Magnesium Sulfate 2gm IVPB 2 G/50 ML BAG IV ONE (12:00)
--- NOTE | 2023-03-03 13:06 | EKG ---
Test Date: 2023-03-02 Test Time: 13:16:54 Child Care Leader: ASHER MEASUREMENT RESULTS: Intervals: Rate: 75 MT: 164 QRSD: 82 QT: 404 QTc: 451 Rupert: P: -1 MT: 164 QRS: 30 T: 32 INTERPRETIVE STATEMENTS: Normal sinus rhythm Normal ECG Compared to ECG 02/05/2023 03:21:38 ST (T wave) deviation no longer present Prolonged QT interval no longer present Electronically Signed On 03-03-23 13:04:02 MOLECULAR PHYSICIST by Félix Davidson
[2023-03-03] MEDS ORDERED: HOME MED 1 EA UNK (Ipratropium/Albuterol Sulfate [Iprat-Albut 0.5-3(2.5) Mg/3 Ml] 3 ML Amp IH PRN (13:32)
[2023-03-03] MEDS ORDERED: IPRATROPIUM BROM 0.5MG/2.5ML IH PRN (13:42)
[2023-03-03] MEDS ORDERED: ALBUTEROL 2.5 MG/3 ML NEB SOL NEB PRN (13:42)
--- NOTE | 2023-03-03 15:34 | RAD REPORT ---
EXAM DESCRIPTION: MRI - Brain W/Wo Cont - 03/03/2023 2:57 pm CLINICAL HISTORY: altered mental status Headache, drowsiness COMPARISON: Head Brain Wo Cont dated 03/02/2023; Head Brain W/Wo Con dated 01/14/2021 TECHNIQUE: Multi-sequence, multiplanar MR imaging of the brain was performed with contrast. FINDINGS: No intracranial hemorrhage, hydrocephalus, or extra-axial fluid collection.Significant gli osis right frontotemporal region. No edema or shift of midline structures. No intracranial mass. DWI is negative for acute CVA. Significant atrophy the cerebellum and brainstem. Mastoid air cells and paranasal sinuses are clear. Post-contrast images show no abnormal enhancement to suggest tumor or infection. IMPRESSION: Significant gliosis right frontotemporal region. No acute intracranial finding. 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
--- NOTE | 2023-03-03 21:49 | P.PN ---
Date of Service: 03/03/23 Vital Signs Temp Pulse Resp BP Pulse Ox 97.8 F 79 20 141/68 H 98 03/03/23 20:00 03/03/23 20:00 03/03/23 20:00 03/03/23 20:00 03/03/23 20:00 Medications Albuterol Sulfate (Albuterol 2.5 Mg/3 Ml Neb [place]ena) 2.5 mg NEB Q6HP PRN PRN Reason: SOB/WHEEZING Heparin Sodium (Porcine) (Heparin 5000 Unit/Ml 1 Ml Vial) 5,000 unit SQ Q8HR [facility] Last Admin: 03/03/23 16:55 Dose: 5,000 unit Sodium Chloride (Ns 1000 Ml Ivbag) 1,000 mls @ 75 mls/hr IV .[id number] [facility] Last Admin: 03/03/23 05:20 Dose: Not Given Ceftriaxone Sodium 1,000 mg/ (Sodium Chloride) 50 mls @ 100 mls/hr IVPB Q12HR [facility]; Protocol Last Admin: 03/03/23 09:29 Dose: 50 mls Insulin Human Regular (Insulin Regular (Human) 100 Unit/Ml) 0 unit SQ ACHS [facility]; Protocol Last Admin: 03/03/23 16:30 Dose: Not Given Ipratropium [place] (Ipratropium Brom 0.5mg/2.5ml) 0.5 mg IH Q6HP PRN PRN Reason: SOB/WHEEZING Levetiracetam (Levetiracetam 500 Mg Tab) 500 mg PO BID [facility] Levothyroxine Sodium (Levothyroxine Sod 0.075 Mg Tab) 0.075 mg PO DAILYAC [facility] Losartan Potassium (Losartan Potassium 50 Mg Tablet) 100 mg PO DAILY [facility] Metoprolol Tartrate (Metoprolol Tar 25 Mg Tab) 25 mg PO BID [facility] Morphine Sulfate (Morphine 2 Mg/Ml Syr) 2 mg IV Q4H PRN PRN Reason: Pain scale 8-10 (Severe) Ondansetron HCl (Ondansetron 4 Mg/2 Ml Vial) 4 mg IV Q6H PRN PRN Reason: NAUSEA / VOMITING Phenytoin Sodium (Phenytoin Er 100 Mg Cap) 200 mg PO BID [facility] Microbiology Results 03/02/23 12:20 Nasopharnyx Influenza Type A Antigen Screen - Final 03/02/23 12:20 Nasopharnyx Influenza Type B Antigen Screen - Final Assessment/ Plan: Nephrology No dyspnea No chest pain Weakness and fatigue No acute events overnight Vitals, medications, blood work and imaging reviewed in the chart. General: In no apparent distress, Cooperative HEENT: Atraumatic Neck: Supple Respiratory: Normal air movement Cardiovascular: No edema Gastrointestinal: Non-distended Musculoskeletal: No clubbing, No contractures Integumentary: No rashes, No cyanosis Neurological: Abnormal speech Laboratory Data (last 24 hrs) 03/02/23 03/02/23 03/02/23 13:05 13:05 13:05 WBC 10.60 Hgb 11.6 L Hct 34.1 L Plt Count 275 PT 15.2 H INR 1.40 APTT 34.6 Sodium 135 L Potassium 3.7 BUN 24 H Creatinine 1.64 H Glucose 101 Magnesium 1.1 L Total Bilirubin 0.1 L AST 15 ALT 20 Alkaline Phosphatase 111 Imagings Data: EXAM DESCRIPTION: RADChest Single View03/02/2023 1:15 pm CLINICAL HISTORY: declining state COMPARISON: Chest Single View dated 02/01/2023; Chest Single View dated 01/18/2023; Chest Single View dated 01/14/2023; Chest Single View dated 01/09/2023 TECHNIQUE: Portable AP view of the chest. FINDINGS: Decreased inspiratory effort limits evaluation. Central interstitial prominence. Peripheral left basilar opacity is stable, with preserved left diaphragmatic dome silhouette pain, may relate to atelectasis, epicardial fat, stable airspace opacity, or a mixture of these. No pneumothorax or effusion. Stable mild cardiomegaly. Mediastinal contours are unremarkable. IMPRESSION: Central interstitial prominence, may relate to congestion, however appearance may be exacerbated by decreased inspiratory effort. Stable left basilar small opacity as above. EXAM DESCRIPTION: CT - Head Brain Wo Cont - 03/02/2023 1:11 pm CLINICAL HISTORY: DECLINING STATE COMPARISON: Head Brain W/Wo Con dated 01/14/2021 TECHNIQUE: Noncontrast head CT images were obtained without IV contrast. Multiplanar reformats were generated and reviewed. All CT scans are performed using dose optimization technique as appropriate and may include automated exposure control or mA/KV adjustment according to patient size. FINDINGS: No intracranial hemorrhage, mass, or edema. Midline structures are unremarkable. Ventricular caliber is stable, with mild diffuse parenchymal volume loss, and more pronounced volume loss involving the cerebellum. Prominent extra-axial space underlying the tentorium bilaterally is stable, may relate to a chronic hygroma. Stable encephalomalacia involving the right perisylvian region, with overlying craniectomy. Some ex vacuo dilation of the right lateral ventricle. Dixon-white matter differentiation is preserved, without evidence of acute infarct. No abnormal extra-axial fluid collections. Mastoid air cells and visualized portions of the paranasal sinuses are clear. No acute bony findings. IMPRESSION: No evidence of an acute intracranial process. Stable chronic findings as above. LEFT VENTRICULAR WALL MOTION: NORMAL DOPPLER/COLOR FLOW: MILD TRICUSPID REGURGITATION COMMENTS: 1. NORMAL LEFT VENTRICULAR EJECTION FRACTION 55-60% 2. NORMAL WALL MOTION 3. MODERATE DIASTOLIC DYSFUNCTION 4. MILD TRICUSPID REGURGITATION 5. RIGHT VENTRICULAR SYSTOLIC PRESSURE IS NORMAL, LESS THAN 25 mmHg 6. MILD CONCENTRIC LEFT VENTRICULAR HYPERTROPHY Conclusions/Impression: Stage III ARYA likely due to hypovolemia -No NSAIDs -Continue IVF Hyponatremia -Continue IVF with NS Hypomagnesemia -Replete with IV mag -Start Slo-mag bid HTN with CKD -Restart Losartan DM II with CKD -RISS Anemia in chronic illness -Monitor H&H Hypoalbuminemia -Recommend protein supplementation Acute cystitis with hematuria Chronic cystitis -Follow up culture -Continue Abx Hospitalist note reviewed
[2023-03-03] MEDS: PHENYTOIN ER 100 MG CAP PO SCH (22:06)
[2023-03-03] MEDS: METOPROLOL TAR 25 MG TAB PO SCH (22:06)
[2023-03-03] MEDS: levETIRAcetam 500 MG TAB PO SCH (22:06)
[2023-03-04] MEDS: NA CHLORIDE 0.9% 1,000 ML IV SCH ×3 (00:10→21:30)
[2023-03-04] MEDS: HEPARIN 5000 UNIT/ML 1 ML VIAL SQ SCH ×3 (00:10→17:00)
[2023-03-04 02:21] LABS: Absolute Lymphocytes (CBC) 1.8 K/uL (0.7-4.9); Hematocrit 42.1 % (39.6-49.0); Lymphocytes % 24.8 % (15.3-44.8); MCV 85.9 fL (80-100); MPV 7.6 fL (7.6-11.3); Platelets 206 thou/uL (152-406); RBC Red Blood Cell Count 4.91 M/uL (4.33-5.43)
[2023-03-04 03:00] LABS: Magnesium 1.6 mg/dL (1.6-2.4); Phosphorus 3.1 mg/dL (2.5-4.9); Potassium 3.3 mEq/L (3.5-5.1)
[2023-03-04] MEDS ORDERED: MAGNESIUM SULFATE 1 gm IVPB 1 GM/100 ML BAG IV ONE (06:00)
[2023-03-04] MEDS: LEVOTHYROXINE SOD 0.075 MG TAB PO SCH (06:09)
[2023-03-04] MEDS: INSULIN REGULAR (HUMAN) 100 UNIT/ML SQ SCH ×4 (07:30→21:00)
[2023-03-04] MEDS ORDERED: POTASSIUM 25 MEQ EFFERV TAB PO ONE (09:00)
[2023-03-04] MEDS: levETIRAcetam 500 MG TAB PO SCH ×2 (09:57→21:37)
[2023-03-04] MEDS: MAGNESIUM CHLORIDE 64 MG TAB PO SCH ×2 (09:57→21:37)
[2023-03-04] MEDS: CEFTRIAXONE 1,000 MG in NA CHLORIDE 0.9% 50 ML IVPB SCH ×2 (09:57→21:39)
[2023-03-04] MEDS: PHENYTOIN ER 100 MG CAP PO SCH ×2 (09:57→21:37)
[2023-03-04] MEDS: METOPROLOL TAR 25 MG TAB PO SCH ×2 (09:57→21:38)
[2023-03-04] MEDS: LOSARTAN POTASSIUM 50 MG TABLET PO SCH (09:57)
[2023-03-04] MEDS ORDERED: POTASSIUM CL SA 10 MEQ TAB PO ONE (10:00)
--- NOTE | 2023-03-04 11:03 | P.PN ---
Date of Service: 03/04/23 Subjective: Sleeping but easily aroused. Conversing better, responds appropriately. ROS: 10 point ROS as noted above, otherwise negative Physical Exam General: Mild distress, alert and oriented HEENT: Atraumatic, Normocephalic, PERRLA Neck: Supple, 2+ carotid pulse no bruit Respiratory: Clear to auscultation bilaterally, Normal air movement Cardiovascular: Regular rate/rhythm, Normal S1 S2, Edema (trace edema to RLE) Capillary refill: <2 Seconds Gastrointestinal: Normal bowel sounds, Soft and benign Musculoskeletal: Other (BLE paraplegia) Integumentary: No rashes, No breakdown, No significant lesion Neurological: Other (BLE paraplegia) Urinary: Suprapubic catheter Vitals BP 146/66, HR 64, RR 18, Temp 98, O2 saturation 98%, hemodyncamically stable, continue monitoring problem list: AMS Suspect for CVA versus TIA in a patient with history of CVA, TBI, seizures and paraplegia Paraplegia to BLE UTI (POA) the patient with BPH with suprapubic catheter ARYA vs CKD Acute cystitis with hematuria Hypomagnesemia Hypoalbuminemia olivopontocerebellar atrophy Assessment and plan AMS Suspect for CVA versus TIA in a patient with history of CVA, TBI, seizures and paraplegia 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 -Consult Dr. Montero, MRI head w w/o contrast reports "Significant atrophy the cerebellum and brainstem. Mastoid air cells and paranasal sinuses are clear. Post-contrast images show no abnormal enhancement to suggest tumor or infection. Significant gliosis right frontotemporal region. No acute intracranial finding. 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 lab -Mag 1.6, k 3.3 History of DM- IDDM -Check with SSI -Serum glucose 100 Hypertensive disorder hypothyroidism Seizure disorder hypercholesterolemia -Continue home medication (phenytoin and keppra) -TSH/free T4 pending DVT PPx heparin Full code LOS 2 days Time Spent Managing Pts Care (In Minutes): 35
--- NOTE | 2023-03-04 13:37 | P.CNS ---
Date of Consult: 03/04/23 Reason for Consult: UTI Requesting Physician: bianca mckoy Chief Complaint: decreased mental status, unresponsive History of Present Illness: Patient is a 62 year old male with a past medical history of CVA, paraplegia, BPH with chronic suprapubic catheter, hypothyroidism and seizure disorder who presented to the ED from alf due to decreased responsiveness. Patient's sister at bedside reports that over the past 4 days he had been experiencing increased weakness and decreased PO intake. CT head without evidence of acute intracranial process. Chest XR without evidence of acute process. No leukocytosis (WBC 10.6). Afebrile. Urinalysis with + nitrite, LE 500, WBC >50, RBC 11-20, bacteria 20-50, few yeast. Of note, patient has been hospitalized multiple times this year for urinary tract infection. Allergies meropenem [From Merrem] Allergy (Verified 02/02/23 05:27) Itching/Hives/Rash Home medications list reviewed: Yes Home Medications: Baclofen 10 mg PO Q8H PRN 01/10/23 Fluoxetine HCl [Prozac] 40 mg PO DAILY 01/10/23 Furosemide [Lasix*] 40 mg PO DAILY 01/10/23 Insulin Regular, Human [Novolin R Flexpen] See Protocol SQ ACHS 01/10/23 Levothyroxine [Synthroid*] 1 tab PO DAILY 01/10/23 Losartan Potassium 100 mg PO DAILY 01/10/23 Metformin HCl 500 mg PO BIDWM 01/10/23 Metoprolol Tartrate 25 mg PO BID 01/10/23 PHENobarbitaL [Phenobarbital] 97.2 mg PO Q12H 01/10/23 Phenytoin Sodium Extended [Phenytek] 200 mg PO BID 01/10/23 Potassium Chloride 20 meq PO DAILY 01/10/23 levETIRAcetam [Keppra] 500 mg PO BID 01/10/23 Acetaminophen with Codeine [Tylenol with-Codeine #3 Tablet] 1 each PO Q8HR PRN 02/01/23 Albuterol Sulfate [Albuterol Sulfate 0.083% Neb Soln] 2.5 mg IH Q6HR PRN 02/01/23 Acetaminophen [Tylenol Extra Strength] 500 mg PO Q4HP PRN 03/03/23 D10w [Dextrose 10% Water IV Soln] 125 ml IV SEECOM PRN 03/03/23 Glucagon,Human Recombinant [Glucagon Emergency Kit] 1 mg IM PRN PRN 03/03/23 Insulin Glargine-Yfgn 33 unit SQ BEDTIME 03/03/23 Ipratropium/Albuterol Sulfate [Iprat-Albut 0.5-3(2.5) mg/3 ml] 3 ml IH Q6HP PRN 03/03/23 Silver Sulfadiazine [Silvadene 1% Cream] 1 appl TOP SEECOM 03/03/23 cloNIDine HCL [Clonidine HCl] 0.1 mg PO Q6HP PRN 03/03/23 guaiFENesin [Guaifenesin ER] 600 mg PO Q12HP PRN 03/03/23 ondansetron HCL [Ondansetron HCl] 4 mg PO Q6HP PRN 03/03/23 - Past Medical/Surgical History Diabetic: Yes -: CVA -: Paraplegia -: BPH with suprapubic catheter -: Hypertension -: Hyperlipidemia -: UTI -: Seizures -: Traumatic Brain Injury -: Brain Surgery - Social History Smoking Status: Former smoker Alcohol use: No CD- Drugs: No Caffeine use: No Place of Residence: Jail Review of Systems 10-point ROS is otherwise unremarkable General: Weakness Musculoskeletal: Shoulder Pain (right shoulder) Physical Examination Temp Pulse Resp BP Pulse Ox 98.0 F 64 18 146/66 H 98 03/04/23 08:00 03/04/23 08:00 03/04/23 08:00 03/04/23 08:00 03/04/23 08:00 General: In no apparent distress, Oriented x3 HEENT: Other (dry mucous membranes), Sclerae nonicteric Neck: Supple Respiratory: Normal air movement, Diminished (at bases bilaterally), Other (unlabored respirations on room air) Cardiovascular: Regular rate/rhythm, Edema (BLE edema 1+) Gastrointestinal: Normal bowel sounds, Soft and benign, No tenderness Integumentary: Pressure ulcer (DTI sacrum) Neurological: Other (paraplegic. prior CVA. Slow/delayed speech) Urinary: Suprapubic catheter (draining clear yellow urine) Laboratory Data (last 24 hrs) 03/04/23 03/04/23 02:02 02:02 WBC 7.30 Hgb 14.0 D Hct 42.1 Plt Count 206 Sodium 137 Potassium 3.3 L BUN 20 H Creatinine 1.36 H Glucose 100 Phosphorus 3.1 Magnesium 1.6 Microbiology Data - Reviewed Imagings Data: - CT head 03/01: No acute intracrandial process noted - XR chest 03/02: Central interstitial prominence, may relate to congestion, however appearance may be exacerbated by decreased inspiratory effort. Stable left basilar small opacity as above." - MRI brain 03/03: "Significant gliosis right frontotemporal region. No acute intracranial finding. 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 - History of multi-drug resistant infections. Prior hospitalization on 02/01/23- 02/05/23, patient was treated for E.coli Bacteremia and UTI growing proteus mirabilis ESBL. - Urinalysis 03/02: + nitrite, LE 500, WBC >50, RBC 11-20, bacteria 20-50, few yeast - Urine culture 03/02: 4+ gram negative rods & 4+ coagulase-positive staph - Started on Rocephin 03/02. Patient has overall been improving. - No leukocytosis (WBC 10.6) - Afebrile Allergy to meropenem- rash, hives, itching- which started during meropenem infusion previous hospital admission. negative influenza A&B negative covid Recommendations - Patient has significantly improved since admission. He is now awake, oriented x3, breathing comfortably on room air. WBC within normal limits, no elevated neutrophils, no fever, no urinary symptoms. Patient has been on Rocephin IV which was started 03/02. Continue Rocephin for now. Will follow up with final urine culture results and adjust antibiotics as appropriate. - Monitor CBC and BMP - Suprapubic catheter care - Pressure offloading measures. Apply barrier cream to buttocks/sacrum, turn patient q2h, low air-loss mattress - Continue supportive care Case discussed with Richie Matias
[2023-03-04 15:54] LABS: Potassium 3.8 mEq/L (3.5-5.1)
--- NOTE | 2023-03-04 21:29 | P.PN ---
Date of Service: 03/04/23 Vital Signs Temp Pulse Resp BP Pulse Ox 97.2 F 69 16 156/71 H 98 03/04/23 16:00 03/04/23 16:00 03/04/23 16:00 03/04/23 16:00 03/04/23 16:00 Medications Albuterol Sulfate (Albuterol 2.5 Mg/3 Ml Neb [place]) 2.5 mg NEB Q6HP PRN PRN Reason: SOB/WHEEZING Heparin Sodium (Porcine) (Heparin 5000 Unit/Ml 1 Ml Vial) 5,000 unit SQ Q8HR [facility] Last Admin: 03/04/23 17:00 Dose: 5,000 unit Sodium Chloride (Ns 1000 Ml Ivbag) 1,000 mls @ 75 mls/hr IV .[id number] [facility] Last Admin: 03/04/23 09:57 Dose: 1,000 mls Ceftriaxone Sodium 1,000 mg/ (Sodium Chloride) 50 mls @ 100 mls/hr IVPB Q12HR [facility]; Protocol Last Admin: 03/04/23 09:57 Dose: 50 mls Insulin Human Regular (Insulin Regular (Human) 100 Unit/Ml) 0 unit SQ ACHS [facility]; Protocol Last Admin: 03/04/23 16:30 Dose: Not Given Ipratropium [place] (Ipratropium Brom 0.5mg/2.5ml) 0.5 mg IH Q6HP PRN PRN Reason: SOB/WHEEZING Levetiracetam (Levetiracetam 500 Mg Tab) 500 mg PO BID [facility] Last Admin: 03/04/23 09:57 Dose: 500 mg Levothyroxine Sodium (Levothyroxine Sod 0.075 Mg Tab) [facility] Admin: 03/04/23 06:09 Dose: 0.075 mg Losartan Potassium (Losartan Potassium 50 Mg Tablet) 100 mg PO DAILY [facility] Last Admin: 03/04/23 09:57 Dose: 100 mg Magnesium Chloride (Magnesium Chloride 64 Mg Tab) 64 mg PO BID [facility] Last Admin: 03/04/23 09:57 Dose: 64 mg Metoprolol Tartrate (Metoprolol Tar 25 Mg Tab) 25 mg PO BID [facility] Last Admin: 03/04/23 09:57 Dose: 25 mg Morphine Sulfate (Morphine 2 Mg/Ml Syr) 2 mg IV Q4H PRN PRN Reason: Pain scale 8-10 (Severe) Ondansetron HCl (Ondansetron 4 Mg/2 Ml Vial) 4 mg IV Q6H PRN PRN Reason: NAUSEA / VOMITING Phenytoin Sodium (Phenytoin Er 100 Mg Cap) 200 mg PO BID [facility] Last Admin: 03/04/23 09:57 Dose: 200 mg Lab Results (last 24 hrs) 03/04/23 12:18: POC Glucose 149 H 03/04/23 08:07: POC Glucose 103 03/04/23 02:02: Sodium 137, Potassium 3.3 L, Chloride 104, Carbon Dioxide 26, Anion Gap 10.3, BUN 20 H, Creatinine 1.36 H, Est GFR (CKD-EPI) 58 L, Glucose 100, Calcium 8.0 L, Phosphorus 3.1, Magnesium 1.6 03/04/23 02:02: WBC 7.30, RBC 4.91, Hgb 14.0 D, Hct 42.1, MCV 85.9, MCH 28.5, MCHC 33.1, RDW 14.6, Plt Count 206, MPV 7.6, Neutrophils % 59.0, Lymphocytes % 24.8, Monocytes % 12.3, Eosinophils % 2.5, Basophils % 1.4 H, Absolute Neutrophils 4.3, Absolute Lymphocytes 1.8, Absolute Monocytes 0.9, Absolute Eosinophils 0.2, Absolute Basophils 0.1 Microbiology Results 03/02/23 12:20 Clean Catch Urine [place] Count - Preliminary >100,000 CFU/ML. 03/02/23 12:20 Clean Catch Urine - Preliminary 03/02/23 12:20 Nasopharnyx Influenza Type A Antigen Screen - Final 03/02/23 12:20 Nasopharnyx Influenza Type B Antigen Screen - Final Assessment/ Plan: Nephrology No dyspnea No chest pain More vocal and awake this morning No acute events overnight Vitals, medications, blood work and imaging reviewed in the chart. General: In no apparent distress, Cooperative, Obese HEENT: Atraumatic Neck: Supple Respiratory: Normal air movement Cardiovascular: No edema Gastrointestinal: Non-distended Musculoskeletal: No clubbing, No contractures Integumentary: No rashes, No cyanosis Neurological: Abnormal speech [facility] Laboratory Data (last 24 hrs) 03/02/23 03/02/23 03/02/23 13:05 13:05 13:05 WBC 10.60 Hgb 11.6 L Hct 34.1 L Plt Count 275 PT 15.2 H INR 1.40 APTT 34.6 Sodium 135 L Potassium 3.7 BUN 24 H Creatinine 1.64 H Glucose 101 Magnesium 1.1 L Total Bilirubin 0.1 L AST 15 ALT 20 Alkaline Phosphatase 111 Imagings Data: EXAM DESCRIPTION: RADChest Single View03/02/2023 1:15 pm CLINICAL HISTORY: declining state COMPARISON: Chest Single View dated 02/01/2023; Chest Single View dated 01/18/2023; Chest Single View dated 01/14/2023; Chest Single View dated TECHNIQUE: Portable AP view of the chest. FINDINGS: Decreased inspiratory effort limits evaluation. Central interstitial prominence. Peripheral left basilar opacity is stable, with preserved left diaphragmatic dome silhouette pain, may relate to atelectasis, epicardial fat, stable airspace opacity, or a mixture of these. No pneumothorax or effusion. Stable mild cardiomegaly. Mediastinal contours are unremarkable. IMPRESSION: Central interstitial prominence, may relate to congestion, however appearance may be exacerbated by decreased inspiratory effort. Stable left basilar small opacity as above. EXAM DESCRIPTION: CT - Head Brain Wo Cont - 03/02/2023 1:11 pm CLINICAL HISTORY: DECLINING STATE COMPARISON: Head Brain W/Wo Con dated 01/14/2021 TECHNIQUE: Noncontrast head CT images were obtained without IV contrast. Multiplanar reformats were generated and reviewed. All CT scans are performed using dose optimization technique as appropriate and may include automated exposure control or mA/KV adjustment according to patient size. FINDINGS: No intracranial hemorrhage, mass, or edema. Midline structures are unremarkable. Ventricular caliber is stable, with mild diffuse parenchymal volume loss, and more pronounced volume loss involving the cerebellum. Prominent extra-axial space underlying the tentorium bilaterally is stable, may relate to a chronic hygroma. Stable encephalomalacia involving the right perisylvian region, with overlying craniectomy. Some ex vacuo dilation of the right lateral ventricle. Dixon-white matter differentiation is preserved, without evidence of acute infarct. No abnormal extra-axial fluid collections. Mastoid air cells and visualized portions of the paranasal sinuses are clear. No acute bony findings. IMPRESSION: No evidence of an acute intracranial process. Stable chronic findings as above. LEFT VENTRICULAR WALL MOTION: NORMAL DOPPLER/COLOR FLOW: MILD TRICUSPID REGURGITATION COMMENTS: 1. NORMAL LEFT VENTRICULAR EJECTION FRACTION 55-60% 2. NORMAL WALL MOTION 3. MODERATE DIASTOLIC DYSFUNCTION 4. MILD TRICUSPID REGURGITATION 5. RIGHT VENTRICULAR SYSTOLIC PRESSURE IS NORMAL, LESS THAN 25 mmHg 6. MILD CONCENTRIC LEFT VENTRICULAR HYPERTROPHY Conclusions/Impression: Stage III ARYA likely due to hypovolemia -No NSAIDs -Continue IVF Hyponatremia -Continue IVF with NS Hypokalemia -Replete as ordered Hypomagnesemia -Replete with IV mag -Continue Slo-mag bid HTN with CKD -Continue Losartan DM II with CKD -RISS Anemia in chronic illness -Monitor H&H Hypoalbuminemia -Recommend protein supplementation Acute cystitis with hematuria Chronic cystitis -Follow up culture -Continue Abx Hospitalist note reviewed
[2023-03-05] MEDS: HEPARIN 5000 UNIT/ML 1 ML VIAL SQ SCH ×3 (01:14→15:57)
[2023-03-05] MEDS: LEVOTHYROXINE SOD 0.075 MG TAB PO SCH (06:30)
[2023-03-05] MEDS: INSULIN REGULAR (HUMAN) 100 UNIT/ML SQ SCH ×4 (07:30→21:00)
[2023-03-05 07:43] LABS: Absolute Lymphocytes (CBC) 2.3 K/uL (0.7-4.9); Lymphocytes % 29.6 % (15.3-44.8); MCV 85.8 fL (80-100); MPV 7.9 fL (7.6-11.3); Platelets 254 thou/uL (152-406); RBC Red Blood Cell Count 4.08 M/uL (4.33-5.43)
[2023-03-05 07:53] LABS: Magnesium 1.5 mg/dL (1.6-2.4); Phosphorus 2.8 mg/dL (2.5-4.9); Potassium 3.4 mEq/L (3.5-5.1)
--- NOTE | 2023-03-05 08:37 | P.PN ---
Date of Service: 03/05/23 Chief Complaint: decreased mental status, unresponsive Subjective: Patient has significantly improved since admission. He is awake, oriented x3, breathing comfortably on room air. WBC within normal limits, no fever, no urinary symptoms, suprapubic cath draining clear yellow urine. + decreased appetite Physical Examination Temp Pulse Resp BP Pulse Ox 96.9 F 67 20 150/60 H 95 03/05/23 04:00 03/05/23 04:00 03/05/23 04:00 03/05/23 04:00 03/05/23 04:00 General: In no apparent distress, Oriented x3 HEENT: Sclerae nonicteric. Dry mucous membranes. Neck supple. Respiratory: Normal air movement. Diminished at bases bilaterally. unlabored respirations on room air Cardiovascular: Regular rate/rhythm. BLE edema 1+ Gastrointestinal: Normal bowel sounds, Soft and benign, No tenderness. Obese. Integumentary: DTI sacrum Neurological: paraplegic. Slow/delayed speech. hx CVA. Urinary: Suprapubic catheter Laboratory Data - Reviewed Microbiology Data - Reviewed negative influenza A&B negative covid Imagings Data: - CT head 03/01: No acute intracrandial process noted - XR chest 03/02: Central interstitial prominence, may relate to congestion, however appearance may be exacerbated by decreased inspiratory effort. Stable left basilar small opacity as above." - MRI brain 03/03: "Significant gliosis right frontotemporal region. No acute intracranial finding. 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 Chronic suprapubic catheter. Paraplegic. skilled nursing resident. - Urinalysis 03/02: + nitrite, LE 500, WBC >50, RBC 11-20, bacteria 20-50, few yeast - Urine culture 03/02: Acinetobacter baumannii/haemophilus spp. and 4+ coagulase-positive staph - Acinetobacter nixon-resistant. - Started on Rocephin 03/02. Patient has overall been improving. - No leukocytosis (WBC 7.9) - Afebrile Allergy to meropenem- rash, hives, itching- Recommendations - awaiting speciation/sensitivity reports for the coagulase-positive staph identified on urine culture. patient has been improving on Ceftriaxone IV, will continue for now. Follow up with final urine culture results, will adjust abx as appropriate. - Monitor CBC and BMP - Suprapubic catheter care - Pressure offloading measures. Apply barrier cream to buttocks/sacrum, turn patient q2h, low air-loss mattress. offload pressure on heels. - Continue supportive care - aspiration precautions Case discussed with Myah Matias.
[2023-03-05] MEDS: CEFTRIAXONE 1,000 MG in NA CHLORIDE 0.9% 50 ML IVPB SCH ×2 (09:27→20:58)
[2023-03-05] MEDS: MAGNESIUM CHLORIDE 64 MG TAB PO SCH ×2 (09:29→20:56)
[2023-03-05] MEDS: LOSARTAN POTASSIUM 50 MG TABLET PO SCH (09:30)
[2023-03-05] MEDS: METOPROLOL TAR 25 MG TAB PO SCH ×2 (09:31→20:57)
[2023-03-05] MEDS: PHENYTOIN ER 100 MG CAP PO SCH ×2 (09:32→20:57)
[2023-03-05] MEDS: levETIRAcetam 500 MG TAB PO SCH ×2 (09:33→20:58)
[2023-03-05] MEDS ORDERED: MAGNESIUM SULFATE 1 gm IVPB 1 GM/100 ML BAG IV ONE (10:45)
[2023-03-05] MEDS ORDERED: IPRATROPIUM BROM 0.5MG/2.5ML NEB PRN (10:58)
[2023-03-05] MEDS ORDERED: ALBUTEROL 2.5 MG/3 ML NEB SOL NEB PRN (10:58)
[2023-03-05] MEDS ORDERED: POTASSIUM 25 MEQ EFFERV TAB PO ONE (11:00)
--- NOTE | 2023-03-05 15:13 | P.PN ---
Date of Service: 03/05/23 Subjective: More awake and participates in conversation, alert and oriented. Much improved ROS: 10 point ROS as noted above, otherwise negative Physical Exam General: alert and oriented x3 HEENT: Atraumatic, Normocephalic, PERRLA Neck: Supple, 2+ carotid pulse no bruit Respiratory: Clear to auscultation bilaterally, Normal air movement Cardiovascular: Regular rate/rhythm, Normal S1 S2, Edema (trace edema to RLE) Capillary refill: <2 Seconds Gastrointestinal: Normal bowel sounds, Soft and benign Musculoskeletal: Other (BLE paraplegia) Integumentary: No rashes, No breakdown, No significant lesion Neurological: Other (BLE paraplegia) Urinary: Suprapubic catheter Vitals hemodyncamically stable, continue monitoring problem list: AMS Suspect for CVA versus TIA in a patient with history of CVA, TBI, seizures and paraplegia Paraplegia to BLE UTI (POA) the patient with BPH with suprapubic catheter ARYA vs CKD Acute cystitis with hematuria Hypomagnesemia Hypoalbuminemia olivopontocerebellar atrophy Assessment and plan AMS Suspect for CVA versus TIA in a patient with history of CVA, TBI, seizures and paraplegia 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 -Consult Dr. Montero, MRI head w w/o contrast reports "Significant atrophy the cerebellum and brainstem. Mastoid air cells and paranasal sinuses are clear. Post-contrast images show no abnormal enhancement to suggest tumor or infection. Significant gliosis right frontotemporal region. No acute intracranial finding. 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 -Speech and physical therapy consulted- thickened liquid recommended with continued INSOLE PRESSER therapy -Decubitus prevention UTI (POA) the patient with BPH with suprapubic catheter Acute cystitis with hematuria ARYA vs CKD -BUN/creatinine 16/1.32, GFR 61 -nephrology consulted -Gentle IVF -UA c/s resulting with staph-coagulase positive (still running) and gram negative rods acinetobacter gage/haem multidrug resistant likely not the original source of infection -Rocephin Hypoalbuminemia -supplemental protein Hypomagnesemia Hypokalemia -Telemetry in place -Monitor in a.m. lab -Mag 1.5, k 3.4 History of DM- IDDM -Check with SSI -Serum glucose 115 Hypertensive disorder hypothyroidism Seizure disorder hypercholesterolemia -Continue home medication (phenytoin and keppra) -TSH1.670/Free T4 0.84 DVT PPx heparin Full code LOS 2 days Time Spent Managing Pts Care (In Minutes): 35
[2023-03-05] MEDS: NA CHLORIDE 0.9% 1,000 ML IV SCH (15:57)
[2023-03-05 21:44] VITALS: O2SAT 96
[2023-03-06] MEDS: HEPARIN 5000 UNIT/ML 1 ML VIAL SQ SCH ×2 (01:14→07:45)
[2023-03-06 03:30] LABS: Absolute Lymphocytes (CBC) 2.8 K/uL (0.7-4.9); Hematocrit 32.9 % (39.6-49.0); Lymphocytes % 32.6 % (15.3-44.8); MCV 85.8 fL (80-100); MPV 7.7 fL (7.6-11.3); Platelets 274 thou/uL (152-406); RBC Red Blood Cell Count 3.83 M/uL (4.33-5.43)
[2023-03-06 03:46] LABS: Potassium 3.5 mEq/L (3.5-5.1)
[2023-03-06 03:47] LABS: Magnesium 1.7 mg/dL (1.6-2.4); Phosphorus 2.3 mg/dL (2.5-4.9)
[2023-03-06 05:24] VITALS: TEMP 96.8
[2023-03-06] MEDS: LEVOTHYROXINE SOD 0.075 MG TAB PO SCH (06:03)
[2023-03-06] MEDS ORDERED: MAGNESIUM SULFATE 1 gm IVPB 1 GM/100 ML BAG IV ONE (07:00)
[2023-03-06] MEDS: INSULIN REGULAR (HUMAN) 100 UNIT/ML SQ SCH ×2 (07:30→11:30)
[2023-03-06] MEDS: POTASS/SODIUM PHOSPHATE 1 PKT POWD.PACK PO SCH ×3 (07:43→13:57)
[2023-03-06] MEDS: CEFTRIAXONE 1,000 MG in NA CHLORIDE 0.9% 50 ML IVPB SCH (07:44)
[2023-03-06] MEDS: LOSARTAN POTASSIUM 50 MG TABLET PO SCH (07:45)
[2023-03-06] MEDS: METOPROLOL TAR 25 MG TAB PO SCH (07:45)
[2023-03-06] MEDS: levETIRAcetam 500 MG TAB PO SCH (07:45)
[2023-03-06] MEDS: PHENYTOIN ER 100 MG CAP PO SCH (07:45)
[2023-03-06] MEDS: MAGNESIUM CHLORIDE 64 MG TAB PO SCH (07:46)
[2023-03-06 07:53] VITALS: BP 146/68
[2023-03-06] MEDS ORDERED: POTASSIUM 25 MEQ EFFERV TAB PO ONE (09:00)
--- NOTE | 2023-03-06 09:57 | P.PN ---
Date of Service: 03/06/23 Subjective: Did well overnight, no acute events No complaints today ROS: 10 point ROS as noted above, otherwise negative Physical Exam General: alert and oriented x3 HEENT: Atraumatic, Normocephalic, PERRLA Neck: Supple, 2+ carotid pulse no bruit Respiratory: Clear to auscultation bilaterally, Normal air movement Cardiovascular: Regular rate/rhythm, Normal S1 S2, Edema (trace edema to RLE) Capillary refill: <2 Seconds Gastrointestinal: Normal bowel sounds, Soft and benign Musculoskeletal: Other (BLE paraplegia) Integumentary: No rashes, No breakdown, No significant lesion Neurological: Other (BLE paraplegia) Urinary: Suprapubic catheter Vitals reviewed problem list: AMS Suspect for CVA versus TIA in a patient with history of CVA, TBI, seizures and paraplegia Paraplegia to BLE UTI (POA) the patient with BPH with suprapubic catheter ARYA vs CKD Acute cystitis with hematuria Hypomagnesemia Hypoalbuminemia olivopontocerebellar atrophy plan AMS Suspect for CVA versus TIA in a patient with history of CVA, TBI, seizures and paraplegia 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 -Consult Dr. Montero, MRI head w w/o contrast reports "Significant atrophy the cerebellum and brainstem. Mastoid air cells and paranasal sinuses are clear. Post-contrast images show no abnormal enhancement to suggest tumor or infection. Significant gliosis right frontotemporal region. No acute intracranial finding. 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 -Speech and physical therapy consulted- thickened liquid recommended with continued [employer]ST ESTIMATING [employer]ERK therapy -Decubitus prevention UTI (POA) the patient with BPH with suprapubic catheter Acute cystitis with hematuria -UA c/s resulting with staph-coagulase positive (still running) and gram negative rods acinetobacter gage/haem multidrug resistant likely not the original source of infection -Acinetobacter totally resistant possibly colonized -Rocephin for now -HX DMR UTI- ID following ARYA vs CKD -BUN/creatinine 16/1.32, GFR 61 -nephrology consulted -Gentle IVF Hypoalbuminemia -supplemental protein Hypomagnesemia Hypokalemia -Telemetry in place -Monitor in a.m. lab -Mag 1.5, k 3.4 History of DM- IDDM -Check with SSI -Serum glucose 115 Hypertensive disorder hypothyroidism Seizure disorder hypercholesterolemia -Continue home medication (phenytoin and keppra) -TSH1.670/Free T4 0.84 VTE: Lovenox Code: Full Dispo: 1-2 days Time Spent Managing Pts Care (In Minutes): 35
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
[2023-03-06] MEDS ORDERED: DOXYCYCLINE 100 MG CAP PO SCH (13:00)
[2023-03-06] MEDS ORDERED: POTASS/SODIUM PHOSPHATE 1 PKT POWD.PACK ONE (13:47)
== END 2023-03-06 17:54 | DRG 689 ==
LOC: ER 12:47 → ERHOLD 16:36 → 2ND 18:20 → OBSVTOIN 03-04 13:21
PROVIDERS: ADMIT Internal Medicine; ATTEND Internal Medicine
DX: N30.01 Acute cystitis with hematuria (principal); G93.41 Metabolic encephalopathy; G82.20 Paraplegia, unspecified; N17.9 Acute kidney failure, unspecified; E87.1 Hypo-osmolality and hyponatremia; G23.8 Other specified degenerative diseases of basal ganglia; N40.0 Benign prostatic hyperplasia without lower urinary tract symptoms; E78.00 Pure hypercholesterolemia, unspecified; E87.6 Hypokalemia; E83.42 Hypomagnesemia; E03.9 Hypothyroidism, unspecified; I12.9 Hypertensive chronic kidney disease with stage 1 through stage 4 chronic kidney disease, or unspecified chronic kidney disease; N18.9 Chronic kidney disease, unspecified; E11.22 Type 2 diabetes mellitus with diabetic chronic kidney disease; D63.1 Anemia in chronic kidney disease; M54.9 Dorsalgia, unspecified; G89.29 Other chronic pain; E88.09 Other disorders of plasma-protein metabolism, not elsewhere classified; E83.51 Hypocalcemia; G40.909 Epilepsy, unspecified, not intractable, without status epilepticus; L89.156 Pressure-induced deep tissue damage of sacral region; B95.62 Methicillin resistant Staphylococcus aureus infection as the cause of diseases classified elsewhere; B96.83 Acinetobacter baumannii as the cause of diseases classified elsewhere; Z88.8 Allergy status to other drugs, medicaments and biological substances; Z74.01 Bed confinement status; Z79.84 Long term (current) use of oral hypoglycemic drugs; Z87.820 Personal history of traumatic brain injury; Z79.890 Hormone replacement therapy; Z79.899 Other long term (current) drug therapy; Z87.891 Personal history of nicotine dependence
CPT/HCPCS: 36415; 70450; 70553; 71045; 80048; 80076; 81001; 82947; 83735; 83880; 84100; 84439; 84443; 84484; 85025; 85610; 85730; 87077; 87086; 87088; 87186; 87804; 87811; 92526; 92610; 93005; 96365; 96375; 97161; 99285; A9577; G0378; J0696; J1644; J1815; J3475; J3480; J7030

== ENCOUNTER 2023-07-21 14:47 | Emergency (ER) | payer OTHER ==
--- NOTE | 2023-07-21 15:24 | RAD REPORT ---
EXAM DESCRIPTION: CT - Head Brain Wo Cont - 07/21/2023 3:18 pm CLINICAL HISTORY: HEADACHE Headache, drowsiness COMPARISON: Head Brain Wo Cont dated 03/02/2023; Head Brain W/Wo Con dated 01/14/2021; Brain W/Wo Co nt dated 03/03/2023 TECHNIQUE: All CT scans are performed using dose optimization technique as appropriate and may inclu de automated exposure control or mA/KV adjustment according to patient size. FINDINGS: No intracranial hemorrhage, hydrocephalus or extra-axial fluid collection.Prominent cerebe llar atrophy noted.Evidence of old right-sided MCA infarct. The paranasal sinuses and mastoids are clear. Previous right craniectomy noted. IMPRESSION: No acute intracranial abnormality.
[2023-07-21 16:19] LABS: Specific Gravity 1.011 (1.005-1.030); Sqamous Epithelial None Seen /HPF (None Seen); Urine Bacteria <20 /HPF (<20); Urine Bilirubin NEGATIVE (Negative); Urine Blood Negative (Negative); Urine Clarity Turbid (Clear); Urine Color Colorless (Yellow); Urine Culture Reflex Order REFLEXED; Urine Glucose NEGATIVE (Negative); Urine Ketones NEGATIVE (Negative); Urine Micro Reflex YN NO BILL MICROSCOPIC; Urine Mucus Slight /HPF (None Seen); Urine Nitrite 1+ (Negative); Urine Protein NEGATIVE (Negative); Urine RBC <5 /HPF (None Seen); Urine Urobilinogen Normal (Normal)
--- NOTE | 2023-07-21 16:50 | ER ---
Nurse's Notes [facility] Name: He Do Age: 63 yrs Sex: Male : 1960 Arrival Date: 07/21/2023 Time: 14:47 Bed 9 Private MD: Diagnosis: Headache;UTI/ Urinary tract infection, site not specified Presentation: 07/20 15:00 Chief complaint: Patient states: Pt c/o intermittent headache and nausea since tl4 07/15/2023. Pt denies any complaints at present. Pt has urinary catheter with foul smelling urine with sediment for unknown period of time. Pt is at baseline mental status and speech. Coronavirus screen: At this time, the client does not indicate any symptoms associated with coronavirus-19. Ebola Screen: No symptoms or risks identified at this time. Initial Sepsis Screen: Does the patient meet any 2 criteria? No. Patient's initial sepsis screen is negative. Does the patient have a suspected source of infection? No. Patient's initial sepsis screen is negative. Risk Assessment: Do you want to hurt yourself or someone else? Patient reports no desire to harm self or others. Onset of symptoms was July 15, 2023. 15:00 Method Of Arrival: EMS: [facility] tl4 15:00 Acuity: AC 3 tl4 Triage Assessment: 15:12 Headache History: The patient has had previous headaches and this one is similar to tl4 previous episodes, and this one is less severe than previous episodes. General: Appears in no apparent distress. Behavior is calm, cooperative. Pain: Denies pain. Pain currently is 0 out of 10 on a pain scale. Pain began gradually, 2-3 days ago. Also complains of no other associated symptoms. EENT: No signs and/or symptoms were reported regarding the EENT system. Neuro: Level of Consciousness is awake, alert, obeys commands, Oriented to person, place, time, situation, at baseline status. Speech is normal, Facial symmetry appears normal. Cardiovascular: Capillary refill < 3 seconds Patient's skin is warm and dry. Respiratory: Airway is patent Respiratory effort is even, unlabored, Respiratory pattern is regular, symmetrical, Breath sounds are clear bilaterally. GI: No signs and/or symptoms were reported involving the gastrointestinal system. : Urine is foul smell, sediment. Derm: No signs and/or symptoms reported regarding the dermatologic system. Musculoskeletal: No signs and/or symptoms reported regarding the musculoskeletal system. Historical: - Allergies: 15:07 Merrem; tl4 - Home Meds: 15:07 acetaminophen-codeine 300-30 mg Oral tablet 1 tab every 8 hours [Active]; albuterol tl4 sulfate 2.5 mg /3 mL (0.083 %) Inhl Solution for Nebulization 3 mL every 6 hours [Active]; baclofen 10 mg Oral tablet 1 tabs every 8 hours [Active]; clonidine HCl 0.1 mg Oral tablet 1 tab every 6 hours [Active]; fluoxetine 60 mg Oral tablet 1 tab daily [Active]; hydralazine 10 mg Oral tablet 1 tab every 8 hours [Active]; hydroxyzine HCl 25 mg Oral tablet 1 tab 2 times per day [Active]; insulin glargine-yfgn 100 unit/mL subcutaneous solution 33 units daily [Active]; ipratropium-albuterol 0.5 mg-3 mg(2.5 mg base)/3 mL Inhl Solution for Nebulization 3 mL every 6 hours [Active]; Lasix 40 mg Oral tablet 1 tab daily [Active]; levetiracetam 500 mg oral tablet 1 tab 2 times per day [Active]; levothyroxine 75 mcg tablet 1 tab daily [Active]; losartan 100 mg oral tablet 1 tab daily [Active]; metformin 500 mg Oral tablet 1 tab 2 times per day [Active]; metoprolol tartrate 25 mg Oral tablet 1 tabs 2 times per day [Active]; Novolin R Sub-Q [Active]; phenobarbital 97.2 mg Oral tablet 1 tab 2 times per day [Active]; phenytoin sodium extended 200 mg oral capsule 1 cap 2 times per day [Active]; potassium chloride 20 mEq Oral tablet, extended release 1 tab daily [Active]; - PMHx: 15:07 BPH with suprapubic catheter; Cerebrovascular accident; Chronic pain; depressive tl4 disorder; Hypercholesterolemia; Hypertensive disorder; Hypothyroidism; Paraplegia; Seizure; Osteoarthritis; Epilepsy; Cerebrovascular disease; Diabetes mellitus; Chronic back pain; Dysphagia; Macular degeneration; Hyperlipidemia; - Immunization history:: Adult Immunizations up to date. - Infectious Disease History:: ESBL, . - Social history:: Smoking status: Patient/guardian denies using tobacco, the patient reports quitting approximately 35 years ago, Patient/guardian denies using alcohol, street drugs. Screenin:[facility] ED Fall Risk Assessment (Adult) History of falling in the last 3 months, tl4 including since admission No falls in past 3 months (0 pts) Confusion or Disorientation No (0 pts) Intoxicated or Sedated No (0 pts) Impaired Gait No (0 pts) Mobility Assist Device Used Yes (1 pt) Altered Elimination No (0 pt) Score/Fall Risk Level 0 - 2 = Low Risk Oriented to surroundings, Maintained a safe environment, Educated pt \T\ family on fall prevention, incl call for assistance when getting out of bed, Assessed \T\ reinforced patient's understanding of fall precautions, Provided non-skid footwear, Hourly rounding (assess needs \T\ fall precautionary measures) done, Used ambulatory aids as needed (educated on \T\ assisted with), Used gait belt as appropriate. Abuse screen: Denies threats or abuse. Denies injuries from another. Nutritional screening: No deficits noted. Tuberculosis screening: No symptoms or risk factors identified. Assessment: 17:00 Reassessment: No changes from previously documented assessment. Patient and/or family tl4 updated on plan of care and expected duration. Pain level reassessed. Patient is alert, oriented x 3, equal unlabored respirations, skin warm/dry/pink. Pain: Denies pain. 17:20 Reassessment: Report to Azul at [facility]. She is arranging transport. tl4 Delay in discharge due to waiting for transfer. 17:58 Reassessment: ETA for transport 1929. iw 18:03 Reassessment: No changes from previously documented assessment. Patient and/or family tl4 updated on plan of care and expected duration. Pain level reassessed. Patient is alert, oriented x 3, equal unlabored respirations, skin warm/dry/pink. Family at bedside. Provider to bedside to update family member on pt treatment and diagnosis. 19:10 Reassessment: Patient and/or family updated on plan of care and expected duration. Pain tl4 level reassessed. Patient is alert, oriented x 3, equal unlabored respirations, skin warm/dry/pink. Pt eating snack. Sister at bedside. Pt denies any complaints or needs. EMS transport scheduled for 1929. Will continue to monitor. 19:51 General: called [facility] to check on ETA for transportation. Reports EMS should be vc1 here between 1930 and 1999. Vital Signs: 15:00 BP 145 / 73; Pulse 64; Resp 18; Temp 99.4(O); Pulse Ox 98% on R/A; Pain 0/10; tl4 15:30 BP 123 / 54; Pulse 66; Resp 18; Pulse Ox 99% on R/A; tl4 16:00 BP 123 / 54; Pulse 62; Resp 16; Pulse Ox 98% on R/A; tl4 17:00 BP 136 / 64; Pulse 70; Resp 18; Pulse Ox 97% on R/A; tl4 18:00 BP 140 / 71; Pulse 69; Resp 18; Pulse Ox 98% on R/A; tl4 18:12 Weight 115.67 kg; Height 5 ft. 10 in. ; tl4 19:00 BP 133 / 68; Pulse 63; Resp 18; Temp 98(TE); tl4 18:12 Body Mass Index 36.59 (115.67 kg, 177.8 cm) tl4 15:00 Pain Scale: Adult tl4 ED Course: 14:50 Patient arrived in ED. sb4 14:50 Lizz Wilson PA-C is PHCP. sb4 14:50 Roxie Benson MD is Attending Physician. sb4 14:59 Paul Arias, HAYLEY is Primary Nurse. tl4 15:07 Triage completed. tl4 15:19 Head Brain Wo Cont CT In Process Unspecified. EDMS 15:33 Arm band placed on right wrist. tl4 15:34 Patient has correct armband on for positive identification. Placed in gown. Bed in low tl4 position. Call light in reach. Side rails up X2. Provided Education on: ED process. Client placed on continuous cardiac and pulse oximetry monitoring. NIBP monitoring applied. Door closed. Noise minimized. Lights dimmed. Moved to private room. Warm blanket given. 15:34 No provider procedures requiring assistance completed. tl4 15:56 UAM Sent. tl4 15:56 Urine collected: Jin catheter specimen, clear. tl4 18:12 Patient did not have IV access during this emergency room visit. tl4 18:34 Diet: Patient given snack. Patient given water. Tolerated well. tl4 20:00 Report given to Jenna HARDY. tl4 Administered Medications: 17:09 Drug: Rocephin (cefTRIAXone) IM 1 grams IM once {Note: Mixed with 2.1 mL lidocaine 1%.} tl4 Route: IM; Site: left vastus lateralis; 17:18 Follow up: Response: No adverse reaction tl4 Medication: 15:33 VIS not applicable for this client. tl4 Outcome: 16:50 Discharge ordered by . sb4 17:20 Discharged to longterm. Report called to Azul 4 17:20 Condition: stable 17:20 Discharge instructions given to longterm, Instructed on discharge instructions, follow up and referral plans. medication usage, Demonstrated understanding of instructions, follow-up care, medications, Prescriptions given X 1, 21:06 Patient left the ED. vc1 Addendum: 07/26/2023 07:36 Addendum: Culture Results: Positive urine culture. No further action required. Bacteria a a5 sensitive to prescribed antibiotic. Signatures: Dispatcher [employer] EDAnh Nuno RN RN iw Calderon, Audri, RN RN aa5 Jenna Villatoro RN RN vc1 Lizz Wilson, PA-C PA-C Paul Ayala RN RN tl4 Corrections: (The following items were deleted from the chart) 07/20 15:31 15:07 PMHx: chronic back pain; tl4 tl4 15:31 15:07 PMHx: diabetes mellitus; tl4 tl4 18:47 18:03 Reassessment: No changes from previously documented assessment. Patient and/or tl4 family updated on plan of care and expected duration. Pain level reassessed. Patient is alert, oriented x 3, equal unlabored respirations, skin warm/dry/pink. tl4
--- NOTE | 2023-07-21 16:50 | EDPHYS ---
Physician Documentation [facility] Name: He Do Age: 63 yrs Sex: Male : 1960 Arrival Date: 07/21/2023 Time: 14:47 Bed 9 Private MD: ED Physician Roxie Benson HPI: 07/20 15:04 This 63 yrs old Male presents to ER via Unassigned with complaints of Headache. sb4 15:04 intermittent headache x 1 week. NH was giving regular tylenol then increased to tylenol sb4 #3, called EMS today because he was still complaining of headache. has no complaints upon arrival. no changes in neurologic state per NH. Historical: - Allergies: 15:07 Merrem; tl4 - Home Meds: 15:07 acetaminophen-codeine 300-30 mg Oral tablet 1 tab every 8 hours [Active]; albuterol tl4 sulfate 2.5 mg /3 mL (0.083 %) Inhl Solution for Nebulization 3 mL every 6 hours [Active]; baclofen 10 mg Oral tablet 1 tabs every 8 hours [Active]; clonidine HCl 0.1 mg Oral tablet 1 tab every 6 hours [Active]; fluoxetine 60 mg Oral tablet 1 tab daily [Active]; hydralazine 10 mg Oral tablet 1 tab every 8 hours [Active]; hydroxyzine HCl 25 mg Oral tablet 1 tab 2 times per day [Active]; insulin glargine-yfgn 100 unit/mL subcutaneous solution 33 units daily [Active]; ipratropium-albuterol 0.5 mg-3 mg(2.5 mg base)/3 mL Inhl Solution for Nebulization 3 mL every 6 hours [Active]; Lasix 40 mg Oral tablet 1 tab daily [Active]; levetiracetam 500 mg oral tablet 1 tab 2 times per day [Active]; levothyroxine 75 mcg tablet 1 tab daily [Active]; losartan 100 mg oral tablet 1 tab daily [Active]; metformin 500 mg Oral tablet 1 tab 2 times per day [Active]; metoprolol tartrate 25 mg Oral tablet 1 tabs 2 times per day [Active]; Novolin R Sub-Q [Active]; phenobarbital 97.2 mg Oral tablet 1 tab 2 times per day [Active]; phenytoin sodium extended 200 mg oral capsule 1 cap 2 times per day [Active]; potassium chloride 20 mEq Oral tablet, extended release 1 tab daily [Active]; - PMHx: 15:07 BPH with suprapubic catheter; Cerebrovascular accident; Chronic pain; depressive tl4 disorder; Hypercholesterolemia; Hypertensive disorder; Hypothyroidism; Paraplegia; Seizure; Osteoarthritis; Epilepsy; Cerebrovascular disease; Diabetes mellitus; Chronic back pain; Dysphagia; Macular degeneration; Hyperlipidemia; - Immunization history:: Adult Immunizations up to date. - Infectious Disease History:: ESBL, . - Social history:: Smoking status: Patient/guardian denies using tobacco, the patient reports quitting approximately 35 years ago, Patient/guardian denies using alcohol, street drugs. ROS: 15:04 Constitutional: Negative for fever, chills, and weight loss, sb4 15:04 All other systems are negative, Exam: 15:04 Head/Face: Normocephalic, atraumatic. Eyes: Extra-ocular motions intact. Periorbital sb4 areas with no swelling, redness, or edema. ENT: Mucous membranes moist. Skin: Warm, dry with normal turgor. Normal color with no rashes, no lesions, and no evidence of cellulitis. MS/ Extremity: Pulses equal, no cyanosis. Neurovascular intact. Full, normal range of motion. Neuro: Awake and alert, GCS 15, oriented to person, place, time, and situation. Motor strength 5/5 in all extremities. Sensory grossly intact. 15:04 Constitutional: The patient appears in no acute distress, alert, awake, obese, Vital Signs: 15:00 BP 145 / 73; Pulse 64; Resp 18; Temp 99.4(O); Pulse Ox 98% on R/A; Pain 0/10; tl4 15:30 BP 123 / 54; Pulse 66; Resp 18; Pulse Ox 99% on R/A; tl4 16:00 BP 123 / 54; Pulse 62; Resp 16; Pulse Ox 98% on R/A; tl4 17:00 BP 136 / 64; Pulse 70; Resp 18; Pulse Ox 97% on R/A; tl4 18:00 BP 140 / 71; Pulse 69; Resp 18; Pulse Ox 98% on R/A; tl4 18:12 Weight 115.67 kg; Height 5 ft. 10 in. ; tl4 19:00 BP 133 / 68; Pulse 63; Resp 18; Temp 98(TE); tl4 18:12 Body Mass Index 36.59 (115.67 kg, 177.8 cm) tl4 15:00 Pain Scale: Adult tl4 MDM: 14:50 Patient medically screened. sb4 16:50 Data reviewed: vital signs, nurses notes, lab test result(s), radiologic studies, and sb4 as a result, I will discharge patient. Counseling: I had a detailed discussion with the patient and/or guardian regarding the historical points, exam findings, and any diagnostic results supporting the discharge/admit diagnosis, lab results, radiology results, to return to the emergency department if symptoms worsen or persist or if there are any questions or concerns that arise at home. 07/20 14:54 Order name: UAM; Complete Time: 16:31 sb4 07/20 16:22 Order name: Urine Culture [facility] 07/20 14:54 Order name: Head Brain Wo Cont CT; Complete Time: 15:26 sb4 Administered Medications: 17:09 Drug: Rocephin (cefTRIAXone) IM 1 grams IM once {Note: Mixed with 2.1 mL lidocaine 1%.} tl4 Route: IM; Site: left vastus lateralis; 17:18 Follow up: Response: No adverse reaction tl4 Disposition: 07/21 09:17 STAFF ATTESTATION STATEMENT: I was immediately available onsite in the emergency sd2 department for consultation in the care of this patient. I did not see or examine this patient. Roxie Benson MD. Disposition Summary: 07/21/23 16:50 Discharge Ordered Notes: Location: Home sb4 Problem: an ongoing problem sb4 Symptoms: have improved sb4 Condition: Stable sb4 Diagnosis - Headache sb4 - UTI/ Urinary tract infection, site not specified sb4 Followup: sb4 - With: Emergency Department - When: As needed - Reason: Trouble breathing, Worsening of condition Discharge Instructions: - Discharge Summary Sheet sb4 - Urinary Tract Infection, Adult, [id number] sb4 - General Headache Without Cause, [id number] sb4 Forms: - Antibiotic Education sb4 - Patient Portal Instructions sb4 - Leadership Thank You Letter sb4 Prescriptions: - Augmentin 875-125 mg Oral Tablet - take 1 tablet ORAL route every 12 hours for 10 days; 20 tablet; Refills: 0, sb4 Product Selection Permitted Signatures: Dispatcher [employer] [facility] Roxie Benson MD MD sd2 Lizz Wilson PA-C PADaniella sb4 Paul Arias RN RN tl4 Corrections: (The following items were deleted from the chart) 07/20 15: 15:07 PMHx: chronic back pain; tl4 tl4 15:07 PMHx: diabetes mellitus; tl4 tl4
[2023-07-21] MEDS ORDERED: CEFTRIAXONE 1000 MG/VIAL ONE (17:07)
[2023-07-21] MEDS ORDERED: LIDOCAINE 1% MPF 5 ML VIAL ONE (17:07)
[2023-07-21 21:29] VITALS: BP 133/68; TEMP 98; O2SAT 98
== END 2023-07-21 21:06 | disposition home or self-care (01) ==
LOC: ER 14:47
DX: R51.9 Headache, unspecified (principal); N39.0 Urinary tract infection, site not specified; Z88.8 Allergy status to other drugs, medicaments and biological substances
CPT/HCPCS: 87088; 81001; 87086; 70450; J2001; J0696; 87077; 87186; 96372; 99284

== ENCOUNTER 2024-01-16 20:56 | Inpatient (IN) | payer OTHER ==
[2024-01-16] MEDS ORDERED: PROMETHAZINE INJ 25 MG/ML AMP ONE (21:11)
[2024-01-16] MEDS ORDERED: NA CHLORIDE 0.9% 500 ML ONE (21:18)
[2024-01-16] MEDS ORDERED: IBUPROFEN 400 MG TAB ONE (21:18)
[2024-01-16 21:51] LABS: Absolute Basophils 0.1 K/uL (0-0.5); Absolute Eosinophils 0.1 K/uL (0-0.5); Absolute Lymphocytes (CBC) 1.5 K/uL (0.7-4.9); Absolute Monocytes 1.9 K/uL (0.1-1.3); Absolute Neutrophil 17.3 K/uL (1.8-8.0); Basophils % 0.4 % (0-1.3); Eosinophils % 0.3 % (0-4.4); Hematocrit 37.5 % (39.6-49.0); Hemoglobin 12.4 g/dL (13.6-17.9); Lymphocytes % 7.3 % (15.3-44.8); MCH 28.8 pg (27.0-35.0); MCHC 33.2 g/dL (32.0-36.0); MCV 86.8 fL (80-100); MPV 8.7 fL (7.6-11.3); Monocytes % 9.1 % (3.3-12.3); Neutrophils % 82.9 % (41.7-73.7); Platelets 227 thou/uL (152-406); RBC Red Blood Cell Count 4.32 M/uL (4.33-5.43); Red Cell Distribution Width 14.6 % (12.1-15.2)
[2024-01-16 21:54] LABS: PT Prothrombin Time 14.4 SECONDS (9.4-12.5); PTT, Activated Partial Thromb 33.5 SECONDS (24.3-36.9); Protime INR 1.3
[2024-01-16 22:01] LABS: Specific Gravity 1.014 (1.005-1.030); Sqamous Epithelial <5 /HPF (None Seen); Urine Bacteria >50 /HPF (<20); Urine Bilirubin NEGATIVE (Negative); Urine Blood Negative (Negative); Urine Clarity Extremely Turbid (Clear); Urine Color Colorless (Yellow); Urine Culture Reflex Order REFLEXED; Urine Glucose NEGATIVE (Negative); Urine Ketones NEGATIVE (Negative); Urine Microscopic Reflex YN ORDER UMIC; Urine Mucus Slight /HPF (None Seen); Urine Nitrite 2+ (Negative); Urine Protein 1+ (Negative); Urine RBC <5 /HPF (None Seen); Urine Urobilinogen Normal (Normal); Urine WBC 20-50 /HPF (<5); Urine WBC Clump Occasional /HPF (None Seen); Urine pH 6.5 (5.0-7.0)
[2024-01-16 22:08] LABS: Albumin 3.2 g/dL (3.4-5.0); Albumin/Globulin Ratio 0.6 (1.1-1.8); Anion Gap 9.4 mEq/L (5.0-15.0); Bilirubin Total 0.2 mg/dL (0.2-1.0); Potassium 3.4 mEq/L (3.5-5.1); Protein, Total 8.2 g/dL (6.4-8.2)
--- NOTE | 2024-01-16 22:15 | RAD REPORT ---
EXAMINATION: ONE VIEW CHEST XR CLINICAL INDICATION: FEVER TECHNIQUE: Frontal chest projection is submitted. Examination is limited by patient positioning and t echnique. COMPARISON: 03/02/2023 FINDINGS: Mild interstitial pulmonary edema suspected. The heart is upper limit of normal in size. No displaced fractures identified. IMPRESSION: Mild CHF pattern is suggested.
[2024-01-16 22:18] LABS: SARS-CoV-2 Antigen CONTROL BLUE LINE VIS/BG OK; SARS-CoV-2 Antigen Rapid Res Negative (Negative)
[2024-01-16] MEDS ORDERED: Levofloxacin500mg IV 500 MG/100 ML BAG IV ONE (22:36)
--- NOTE | 2024-01-16 22:36 | ER ---
Nurse's Notes [facility] Name: He Do Age: 63 yrs Sex: Male : 1960 Arrival Date: 01/16/2024 Time: 20:56 Bed 6 Private MD: Diagnosis: UTI/ Urinary tract infection, site not specified;Severe sepsis without septic shock Presentation: 01/15 21:09 Chief complaint: EMS states: patient from [facility] started to not feel well tm6 yesterday. Today, has had fever, uncontrolled by tylenol. Baseline orientation is A\T\Ox3, but today is A\T\Ox2. Coronavirus screen: Client denies travel out of the [place] in the last 14 days. Ebola Screen: Patient negative for fever greater than or equal to 101.5 degrees Fahrenheit, and additional compatible Ebola Virus Disease symptoms Patient denies exposure to infectious person. Patient denies travel to an Ebola-affected area in the 21 days before illness onset. No symptoms or risks identified at this time. Initial Sepsis Screen: Does the patient meet any 2 criteria? RR > 20 per min. Temp <36.0*C (96.8*F)) or > 38.3*C (100.9*F). Altered Mental Status. HR > 90 bpm. Yes Does the patient have a suspected source of infection? No. Patient's initial sepsis screen is negative. Risk Assessment: Do you want to hurt yourself or someone else? Patient reports no desire to harm self or others. Onset of symptoms was January 15, 2024. Care prior to arrival: Medication(s) given: Normal saline infusion, 500 mL, Tylenol, 325 mg, zofran 4 mg. 21:09 Method Of Arrival: EMS: [facility] tm6 21:09 Acuity: AC 3 tm6 Triage Assessment: 21:09 General: Appears uncomfortable, ill, Behavior is cooperative. Pain: Complains of pain tm6 in head Pain currently is 8 out of 10 on a pain scale. Pain began 1 day ago. EENT: No signs and/or symptoms were reported regarding the EENT system. Neuro: Level of Consciousness is awake, alert, obeys commands, Oriented to person, place. Cardiovascular: Patient's skin is warm and dry. Rhythm is sinus tachycardia. Respiratory: Airway is patent Respiratory effort is labored, Respiratory pattern is regular, symmetrical. GI: Abdomen is round distended, Reports nausea, vomiting. : suprapubic catheter in place. Derm: No signs and/or symptoms reported regarding the dermatologic system. Musculoskeletal: No signs and/or symptoms reported regarding the musculoskeletal system. Historical: - Allergies: 21:41 Merrem; tm6 - PMHx: 21:41 BPH with suprapubic catheter; Cerebrovascular accident; Cerebrovascular disease; tm6 chronic back pain; Chronic pain; depressive disorder; depressive disorder; diabetes mellitus; DYSPHAGIA; epilepsy; Hypercholesterolemia; Hyperlipidemia; Hypertensive disorder; Hypothyroidism; macular degeneration; osteoarthritis; Paraplegia; Seizure; - Immunization history:: Client reports receiving the 2nd dose of the Covid vaccine. - Infectious Disease History:: Denies. - Social history:: Smoking status: Patient denies any tobacco usage or history of. Patient/guardian denies using alcohol. - Family history:: not pertinent. - Hospitalizations: : No recent hospitalization is reported. Screenin:44 [facility] ED Fall Risk Assessment (Adult) History of falling in the last 3 months, tm6 including since admission No falls in past 3 months (0 pts) Confusion or Disorientation Yes (5 pts) Intoxicated or Sedated No (0 pts) Impaired Gait Yes (1 pt) Mobility Assist Device Used Yes (1 pt) Altered Elimination Yes (1 pt) Score/Fall Risk Level 3 or more points = High Risk Oriented to surroundings, Maintained a safe environment, Educated pt \T\ family on fall prevention, incl call for assistance when getting out of bed. Abuse screen: Denies threats or abuse. Denies injuries from another. Nutritional screening: No deficits noted. Tuberculosis screening: No symptoms or risk factors identified. Assessment: :44 Reassessment: see triage assessment. tm6 22:04 Reassessment: Patient and/or family updated on plan of care and expected duration. Pain tm6 level reassessed. Patient is alert, oriented x 3, equal unlabored respirations, skin warm/dry/pink. 22:10 General: Appears in no apparent distress. comfortable, Behavior is calm, cooperative. lg3 Pain: Complains of pain in buttocks Alleviated by repositioning. Neuro: Desir Agitation-Sedation Scale (RASS): 0 - Alert and Calm Level of Consciousness is awake, alert, obeys commands, Oriented to person, place, situation. Cardiovascular: Denies chest pain, shortness of breath, Capillary refill < 3 seconds Clubbing of nail beds is absent JVD is absent. Respiratory: No deficits noted. Airway is patent Respiratory effort is even, unlabored, Respiratory pattern is regular, symmetrical, Denies shortness of breath. GI: No deficits noted. Abdomen is round non-distended, obese. : suprapubic catheter in place to gravity drainage Urine is cloudy. EENT: No deficits noted. No signs and/or symptoms were reported regarding the EENT system. Derm: Skin is intact, is healthy with good turgor, Skin is diaphoretic, Skin is normal, Skin temperature is hot. Musculoskeletal: Range of motion: left sided paralysis from previous CVA. 01/16 00:00 General: PT to go upstairs post BP increase. provider notified. lg3 00:13 Reassessment: Patient appears in no apparent distress at this time. Patient and/or lg3 family updated on plan of care and expected duration. Pain level reassessed. Patient is alert, oriented x 3, equal unlabored respirations, skin warm/dry/pink. Patient states feeling better. 00:42 General: per hospitalist, PT to have PICC/Central line placed, Levophed started and lg3 admitted to ICU. counselor supervisor notified of need for PICC placement. . 03:00 Reassessment: Patient appears in no apparent distress at this time. Patient and/or lg3 family updated on plan of care and expected duration. Pain level reassessed. Patient is alert, oriented x 3, equal unlabored respirations, skin warm/dry/pink. Vital Signs: 01/15 21:09 BP 184 / 125; Pulse 107; Resp 25; Temp 101.2(O); Pulse Ox 95% on R/A; MAP 140 mmHg; tm6 Weight 107.5 kg; Height 5 ft. 9 in. ; Pain 8/10; 22:03 BP 135 / 62; Pulse 100; Resp 30; Temp 99.5(O); Pulse Ox 93% on R/A; MAP 79 mmHg; tm6 22:25 BP 126 / 66; Pulse 102; Resp 17 S; Temp 99.6(O); Pulse Ox 94% on R/A; lg3 22:30 BP 140 / 67; Pulse 101; Resp 19; Pulse Ox 94% on R/A; lg3 23:50 BP 101 / 47; Pulse 90; Resp 20 S; Pulse Ox 94% on R/A; lg3 01/16 00:10 BP 95 / 44; Pulse 88; Resp 20 S; Pulse Ox 94% on R/A; lg3 00:19 BP 94 / 43; Pulse 89; Resp 20 S; Pulse Ox 94% on R/A; lg3 00:41 BP 93 / 45; Pulse 88; Resp 19; Pulse Ox 95% on R/A; lg3 01:04 BP 97 / 46; Pulse 87; Resp 18 S; Pulse Ox 96% on R/A; lg3 01:15 BP 93 / 43; Pulse 86; Resp 20 S; Pulse Ox 95% on R/A; lg3 01:50 BP 96 / 38; Pulse 92; Resp 17 S; Pulse Ox 100% on 2 lpm NC; lg3 02:09 BP 102 / 53; rn 02:18 BP 105 / 53; Pulse 88; Resp 20 S; Temp 98.5(O); Pulse Ox 98% on 6 lpm Venturi mask; lg3 FiO2 24 %; 02:51 BP 117 / 47; Pulse 85; Resp 19; Pulse Ox 98% on Venturi mask; lg3 01/15 21:09 Body Mass Index 35.00 (107.50 kg, 175.26 cm) tm6 01/15 21:09 Pain Scale: Adult tm6 ED Course: 01/15 21:09 Patient arrived in ED. rn 21:09 Alcides Ernandez MD is Attending Physician. rn 21:09 Arm band placed on right wrist. tm6 21:09 Patient has correct armband on for positive identification. Fall risk band placed. tm6 Placed in gown. Bed in low position. Call light in reach. Side rails up X2. Provided Education on: use of call duarte. Client placed on continuous cardiac and pulse oximetry monitoring. NIBP monitoring applied. environmental monitoring specialist on. Pulse ox on. NIBP on. Noise minimized. Lights dimmed. Pillow given. :28 First set of blood cultures drawn by me. vk 21:34 Flu Sent. vk 21:34 SARS RAPID Sent. vk 21:34 CBC with Diff Sent. vk 21:34 CMP Sent. vk 21:34 Lactate w/ 2H reflex if indic. Sent. vk 21:34 Protime (+inr) Sent. vk 21:34 Ptt, Activated Sent. vk 21:35 Nighat Jang, RN is Primary Nurse. tm6 21:35 Urinalysis w/ reflexes Sent. vk 21:36 Blood Culture Adult (2) Sent. vk 21:36 Initial lab(s) drawn, by me, sent to lab. Inserted. vk 21:36 EKG done, by ED staff. vk 21:37 Maintain EMS IV. Dressing intact. Good blood return noted. Site clean \T\ dry. Gauge \T\ vk site: 20 G Right AC. Flushed with 10 mL NS. 21:37 COVID swab sent to lab. Flu and/or RSV swab sent to lab. vk 21:41 Triage completed. tm6 22:04 Chest Single View XRAY In Process Unspecified. EDMS 22:10 Report received from HAYLEY Disla. lg3 22:35 Prince Martinez MD is Hospitalizing Provider. rn 23:16 Second set of blood cultures drawn by me. oh1 23:24 Hemoglobin A1c Sent. oh1 23:24 Basic Metabolic Panel Sent. oh1 23:24 CBC with Automated Diff Sent. oh1 23:24 CBC with Automated Diff Sent. oh1 23:24 CBC with Automated Diff Sent. oh1 23:24 CBC with Automated Diff Sent. oh1 23:24 Basic Metabolic Panel Sent. oh1 23:24 Basic Metabolic Panel Sent. oh1 23:24 Basic Metabolic Panel Sent. oh1 23:24 Urinalysis w/ reflexes Sent. oh1 01/16 01:20 Missed attempt(s): 20 gauge in right upper arm. Bleeding controlled, band aid applied, vc1 catheter tip intact. 01:30 Missed attempt(s): 22 gauge in right hand. vc1 01:48 Inserted saline lock: 22 gauge in left hand, using aseptic technique. lg3 02:49 No provider procedures requiring assistance completed. Patient admitted, IV remains in vc1 place. Administered Medications: 01/15 21:35 Drug: Ibuprofen PO 800 mg PO once Route: PO; tm6 21:35 Drug: Promethazine IVP 12.5 mg IVP once Route: IVP; Site: right antecubital; tm6 22:05 Follow up: Response: Nausea is decreased tm6 22:05 Follow up: Response: No adverse reaction tm6 21:35 Drug: NS 0.9% IV 500 ml 500 ml IV at 1 bolus once; to be given as a bolus over 30 tm6 minutes Volume: 500 ml; Route: IV; Rate: 1 bolus; Site: right antecubital; 22:10 Follow up: Response: No adverse reaction; IV Status: Completed infusion; IV Intake: lg3 500ml 23:17 Drug: levofloxacin IVPB 500 mg 100 ml IVPB once over 60 mins Volume: 100 ml; Route: lg3 IVPB; Infused Over: 60 mins; Site: right antecubital; 01/16 00:17 Follow up: IV Status: Completed infusion; IV Intake: 100ml vc1 00:09 Drug: NS 0.9% IV 250 ml IV at bolus once; to be given as a bolus over 30 minutes Route: lg3 IV; Rate: bolus; Site: right antecubital; 00:20 Follow up: Response: No adverse reaction; IV Status: Completed infusion; IV Intake: lg3 250ml 00:30 Drug: NS 0.9% IV 250 ml IV at bolus once; to be given as a bolus over 30 minutes Route: lg3 IV; Rate: bolus; Site: right antecubital; 01:05 Follow up: Response: No adverse reaction; IV Status: Completed infusion; IV Intake: vc1 250ml 01:48 Drug: NS 0.9% IV (30 ml/kg) 30 ml/kg IV at bolus once; subtract fluids already ordered; lg3 as bolus over 90 minutes Route: IV; Rate: bolus; Site: left hand; 02:45 Follow up: 1725ml administered to complete total of 3225ml. infusion continued on lg3 admission 02:48 Follow up: IV Status: Infusion continued upon admission vc1 Medication: 01/15 21:44 VIS not applicable for this client. tm6 Intake: 22:10 IV: 500ml; Total: 500ml. lg3 01/16 00:17 IV: 100ml; Total: 600ml. vc1 00:20 IV: 250ml; Total: 850ml. lg3 01:05 IV: 250ml; Total: 1100ml. vc1 Outcome: 01/15 22:35 Decision to Hospitalize by Provider. rn 01/16 02:49 Admitted to ICU accompanied by nurse, accompanied by tech, family with patient, via vc1 stretcher, room -2, Report called to HAYLEY Abbasi Condition: stable 03:21 Patient left the ED. vc1 Signatures: Dispatcher [employer] EDMS Alcides Ernandez MD MD rn Able, HAYLEY Macias RN lg3 Jenna Villatoro RN RN vc1 Nighat Jang RN RN tm6 Lilo Ayon Olivia oh1 Corrections: (The following items were deleted from the chart) 00:10 00:02 BP 101 / 47; Pulse 90bpm; Resp 20bpm; Spontaneous; Pulse Ox 94% RA; lg3 lg3 01:10 01/15 21:09 Care prior to arrival: Medication(s) given: Normal saline infusion, 500 mL, vc1 Tylenol, 325 mg, zofran 4 mg, tm6
--- NOTE | 2024-01-16 22:36 | EDPHYS ---
Physician Documentation [facility] Name: He Do Age: 63 yrs Sex: Male : 1960 Arrival Date: 01/16/2024 Time: 20:56 Bed 6 Private MD: ED Physician Alcides Ernandez HPI: 01/15 21:53 This 63 yrs old Male presents to ER via EMS with complaints of Fever, Nausea/Vomiting. rn 21:53 The patient reports fever, that was measured at 102 degrees Fahrenheit. rn 21:53 Onset: The symptoms/episode began/occurred yesterday. Modifying factors: there are no rn obvious modifying factors. Associated signs and symptoms: Pertinent positives: chills, cough, nausea, runny nose, sinus congestion, vomiting, Pertinent negatives: abdominal pain, hemoptysis. Severity of symptoms: At their worst the symptoms were moderate in the emergency department the symptoms are unchanged. The patient has experienced similar episodes in the past. Patient brought in by EMS from longterm for fever, Tmax 102, began yesterday. Family reports altered mental status and weakness. Patient reports headache, congestion, cough, nausea and vomiting for 2 days. Given Zofran by EMS and threw up upon arrival. No blood in emesis or stool. Patient has indwelling Jin catheter and recurrent UTIs.. Historical: - Allergies: 21:41 Merrem; tm6 - PMHx: 21:41 BPH with suprapubic catheter; Cerebrovascular accident; Cerebrovascular disease; tm6 chronic back pain; Chronic pain; depressive disorder; depressive disorder; diabetes mellitus; DYSPHAGIA; epilepsy; Hypercholesterolemia; Hyperlipidemia; Hypertensive disorder; Hypothyroidism; macular degeneration; osteoarthritis; Paraplegia; Seizure; - Immunization history:: Client reports receiving the 2nd dose of the Covid vaccine. - Infectious Disease History:: Denies. - Social history:: Smoking status: Patient denies any tobacco usage or history of. Patient/guardian denies using alcohol. - Family history:: not pertinent. - Hospitalizations: : No recent hospitalization is reported. ROS: 21:53 Constitutional: Positive for fever and chills Eyes: Negative for injury, pain, redness, rn and discharge, ENT: Positive for congestion Neck: No neck pain or stiffness Cardiovascular: Negative for chest pain, palpitations, and edema, Respiratory: Positive for cough, negative for shortness of breath Abdomen/GI: Negative for abdominal pain, positive for nausea and vomiting MS/Extremity: Negative for injury and deformity, Skin: Negative for injury, rash, and discoloration, Neuro: Positive for headache and generalized weakness with malaise Exam: 21:53 Constitutional: Overweight male, tachypneic Head/Face: Normocephalic, atraumatic. furnace setter: Dry mucous membranes Cardiovascular: Tachycardic, regular Respiratory: Mild tachypnea. No retractions Abdomen/GI: Soft, non-tender Skin: No cyanosis MS/ Extremity: Pulses equal, no cyanosis. Neuro: Awake and alert, GCS 15 21:59 ECG was reviewed by the Attending Physician. rn Vital Signs: 21:09 BP 184 / 125; Pulse 107; Resp 25; Temp 101.2(O); Pulse Ox 95% on R/A; MAP 140 mmHg; tm6 Weight 107.5 kg; Height 5 ft. 9 in. ; Pain 8/10; 22:03 BP 135 / 62; Pulse 100; Resp 30; Temp 99.5(O); Pulse Ox 93% on R/A; MAP 79 mmHg; tm6 22:25 BP 126 / 66; Pulse 102; Resp 17 S; Temp 99.6(O); Pulse Ox 94% on R/A; lg3 22:30 BP 140 / 67; Pulse 101; Resp 19; Pulse Ox 94% on R/A; lg3 23:50 BP 101 / 47; Pulse 90; Resp 20 S; Pulse Ox 94% on R/A; lg3 / 00:10 BP 95 / 44; Pulse 88; Resp 20 S; Pulse Ox 94% on R/A; lg3 00:19 BP 94 / 43; Pulse 89; Resp 20 S; Pulse Ox 94% on R/A; lg3 00:41 BP 93 / 45; Pulse 88; Resp 19; Pulse Ox 95% on R/A; lg3 01:04 BP 97 / 46; Pulse 87; Resp 18 S; Pulse Ox 96% on R/A; lg3 01:15 BP 93 / 43; Pulse 86; Resp 20 S; Pulse Ox 95% on R/A; lg3 01:50 BP 96 / 38; Pulse 92; Resp 17 S; Pulse Ox 100% on 2 lpm NC; lg3 02:09 BP 102 / 53; rn 02:18 BP 105 / 53; Pulse 88; Resp 20 S; Temp 98.5(O); Pulse Ox 98% on 6 lpm Venturi mask; lg3 FiO2 24 %; 02:51 BP 117 / 47; Pulse 85; Resp 19; Pulse Ox 98% on Venturi mask; lg3 01/15 21:09 Body Mass Index 35.00 (107.50 kg, 175.26 cm) tm6 01/15 21:09 Pain Scale: Adult tm6 MDM: 01/15 21:09 Medical Screening Exam initiated rn 22:34 Differential diagnosis: viral Infection, bacterial infection, pneumonia UTI. Data rn reviewed: vital signs, nurses notes, lab test result(s), radiologic studies, plain films, and as a result, I will admit patient. Consideration of Admission/Observation Patient was admitted/placed on observation. Escalation of care including admission/observation considered. Counseling: I had a detailed discussion with the patient and/or guardian regarding the historical points, exam findings, and any diagnostic results supporting the discharge/admit diagnosis, lab results, radiology results, the need for further work-up and treatment in the hospital. Response to treatment: the patient's symptoms have mildly improved after treatment, and as a result, I will admit patient. 22:35 ED course: Patient with urinary tract infection and severe sepsis without septic shock. rn Lactate is elevated but less than 4. No hypotensive episodes. No indication for emergent fluid boluses at this time. Patient also has signs of pulmonary edema already on the x-ray. Antibiotics ordered. Blood culture and lactate sent prior to antibiotics.. 22:35 ED course: I personally spent 35 minutes engaged in work directly related to the rn individual patient's care. This does not include any time spent performing procedures. The patient has been deemed critically ill because of severe sepsis, resuscitation with abnormal vital signs, conversation with family and review of medical records from longterm as well as organization of admission to hospital for urosepsis.. 01/16 01:09 ED course: MAP decreasing, 30ml/kg bolus ordered. Already given 1L bolus here. Given rn 500cc NS given as bolus and completed prior to arrival. Will subtract fluids already given and reeval. . 01:48 ED course: Patient states he feels better, no longer tachycardic, getting rest of rn sepsis bolus. Sepsis reevaluation completed.. 01:50 ED course: Lactic acid down to 1.9 on repeat. rn 02:13 ED course: Dr. Martinez has ordered levophed infusion to be given, new 18g IV placed for rn appeals, PICC team called out by warehouse production worker, should be here within the hour. BP improving with fluids, will not place central line and defer to PICC access to minimize adverse outcomes. Current BP 102/53 without pressor, improving, sepsis reevaluation complete. . 01/15 21:10 Order name: Blood Culture Adult (2) rn 01/15 21:10 Order name: CBC with Diff; Complete Time: 23:48 01/15 21:10 Order name: CMP; Complete Time: 01:08 01/15 21:10 Order name: Lactate w/ 2H reflex if indic.; Complete Time: 22:17 01/15 21:10 Order name: Protime (+inr); Complete Time: 22:15 01/15 21:10 Order name: Ptt, Activated; Complete Time: 22:15 01/15 21:10 Order name: Urinalysis w/ reflexes; Complete Time: 22:15 01/15 21:10 Order name: SARS RAPID; Complete Time: 22:33 01/15 21:10 Order name: Flu; Complete Time: 22:33 01/15 21:31 Order name: Glucose, Ancillary Testing; Complete Time: 22:15 [facility] 01/15 21:56 Order name: Manual Differential; Complete Time: 23:48 [facility]VA 01/15 22:09 Order name: Urine Culture [facility] 01/15 22:51 Order name: Lactate w/ 2H reflex if indic.; Complete Time: 23:48 [facility] 01/15 22:51 Order name: Magnesium [facility] 01/15 22:51 Order name: Phosphorus [facility] 01/15 22:51 Order name: Urinalysis w/ reflexes [facility] 01/15 22:52 Order name: Basic Metabolic Panel [facility] 01/15 22:52 Order name: Basic Metabolic Panel [facility] 01/15 22:52 Order name: Basic Metabolic Panel [facility] 01/15 22:52 Order name: Basic Metabolic Panel [facility] 01/15 22:52 Order name: CBC with Automated Diff [facility] 01/15 22:52 Order name: CBC with Automated Diff [facility] 01/15 22:52 Order name: CBC with Automated Diff EDMS 01/15 22:52 Order name: CBC with Automated Diff EDMS 01/15 23:19 Order name: Hemoglobin A1c; Complete Time: 01:49 EDMS 01/15 23:57 Order name: NT PRO-BNP EDMS 01/16 00:40 Order name: Phosphorus; Complete Time: 01:08 EDMS 01/16 00:40 Order name: NT PRO-BNP; Complete Time: 01:08 EDMS 01/16 00:40 Order name: Magnesium; Complete Time: 01:08 EDMS 01/15 21:10 Order name: Chest Single View XRAY; Complete Time: 22:17 rn 01/15 23:42 Order name: Extremity Venous Uni Ltd EDMS 01/15 23:56 Order name: Echo with Doppler EDMS 01/15 21:10 Order name: EKG; Complete Time: 21:11 rn 01/15 22:51 Order name: EKG Electrocardiogram EDMS 01/15 21:10 Order name: Accucheck; Complete Time: 21:34 rn 01/15 21:10 Order name: Cardiac monitoring; Complete Time: 21:34 rn 01/15 21:10 Order name: EKG - Nurse/Tech; Complete Time: 21:16 rn 01/15 21:10 Order name: IV Saline Lock - Large Bore; Complete Time: 21:16 rn 01/15 21:10 Order name: Labs collected and sent; Complete Time: 21:34 rn 01/15 21:10 Order name: O2 Per Protocol; Complete Time: 21:16 rn 01/15 21:10 Order name: O2 Sat Monitoring; Complete Time: 21:16 rn 01/15 21:10 Order name: Vital Signs; Complete Time: 21:16 rn EC/27 21:59 Rate is 106 beats/min. Rhythm is regular. QRS [place] is Normal. [place] interval is normal. rn QRS interval is normal. QT interval is normal. No Q waves. No ST changes noted. Clinical impression: Sinus tachycardia. Interpreted by me. Reviewed by me. Administered Medications: 21:35 Drug: Ibuprofen PO 800 mg PO once Route: PO; tm6 21:35 Drug: Promethazine IVP 12.5 mg IVP once Route: IVP; Site: right antecubital; tm6 22:05 Follow up: Response: Nausea is decreased tm6 22:05 Follow up: Response: No adverse reaction tm6 21:35 Drug: NS 0.9% IV 500 ml 500 ml IV at 1 bolus once; to be given as a bolus over 30 tm6 minutes Volume: 500 ml; Route: IV; Rate: 1 bolus; Site: right antecubital; 22:10 Follow up: Response: No adverse reaction; IV Status: Completed infusion; IV Intake: lg3 500ml 23:17 Drug: levofloxacin IVPB 500 mg 100 ml IVPB once over 60 mins Volume: 100 ml; Route: lg3 IVPB; Infused Over: 60 mins; Site: right antecubital; 01/16 00:17 Follow up: IV Status: Completed infusion; IV Intake: 100ml vc1 00:09 Drug: NS 0.9% IV 250 ml IV at bolus once; to be given as a bolus over 30 minutes Route: lg3 IV; Rate: bolus; Site: right antecubital; 00:20 Follow up: Response: No adverse reaction; IV Status: Completed infusion; IV Intake: lg3 250ml 00:30 Drug: NS 0.9% IV 250 ml IV at bolus once; to be given as a bolus over 30 minutes Route: lg3 IV; Rate: bolus; Site: right antecubital; 01:05 Follow up: Response: No adverse reaction; IV Status: Completed infusion; IV Intake: vc1 250ml 01:48 Drug: NS 0.9% IV (30 ml/kg) 30 ml/kg IV at bolus once; subtract fluids already ordered; lg3 as bolus over 90 minutes Route: IV; Rate: bolus; Site: left hand; 02:45 Follow up: 1725ml administered to complete total of 3225ml. infusion continued on lg3 admission 02:48 Follow up: IV Status: Infusion continued upon admission vc1 Disposition Summary: 01/16/24 22:35 Hospitalization Ordered Notes: Hospitalization Status: Inpatient Admission rn Provider: Prince Michelle rn Condition: Stable rn Problem: new rn Symptoms: have improved rn Bed/Room Type: Standard rn Location: Intensive Care Unit(01/17/24 00:30) cg Room Assignment: 2-(01/17/24 00:30) cg Diagnosis - UTI/ Urinary tract infection, site not specified rn - Severe sepsis without septic shock rn Forms: - Medication Reconciliation Form rn - SBAR form rn - Leadership Thank You Letter internal consultant time excluding procedures: 01/15 22:35 Critical care time: Bedside Care: 35 minutes. Total time: 35 minutes rn Signatures: Dispatcher [employer] EDMS Alcides Ernandez MD MD rn Garcia, Cindy, RN RN Colleen Pena, RN RN lg3 Nighat Jang RN RN tm6 Jenna Villatoro RN vc1 Corrections: (The following items were deleted from the chart) 21:11 21:10 BLOOD CULTURE*+BA.LAB.BRZ ordered. EDMS EDMS 21:11 21:10 CBC+H.LAB.BRZ ordered. EDMS EDMS 21:11 21:10 COMPREHENSIVE METABOLIC PANEL+C.LAB.BRZ ordered. EDMS EDMS 21:11 21:10 LACTATE+C.LAB.BRZ ordered. EDMS EDMS 21:11 21:10 PROTIME (+INR)+COAG.LAB.BRZ ordered. EDMS EDMS 21:11 21:10 PTT, ACTIVATED+COAG.LAB.BRZ ordered. EDMS EDMS 21:11 21:10 Urinalysis+U.LAB.BRZ ordered. EDMS EDMS 21:11 21:10 SARS-COV-2 Antigen Rapid+I.LAB.BRZ ordered. EDMS EDMS 21:11 21:11 Influenza Screen (A \T\ B)+BA.LAB.BRZ ordered. EDMS EDMS 23: 22:35 rn 01/16 00:30 01/15 22:35 Telemetry/MedSurg (Inpatient) rn 01/16 00:30 01/15 23:28 [facility]
[2024-01-16] MEDS ORDERED: CEFTRIAXONE 2,000 MG in NA CHLORIDE 0.9% 100 ML IV SCH (22:46)
[2024-01-16] MEDS ORDERED: ONDANSETRON 4 MG/2 ML VIAL IV PRN (22:46)
[2024-01-16] MEDS ORDERED: NA CHLORIDE 0.9% 1,000 ML IV SCH (23:00)
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
[2024-01-16] MEDS ORDERED: SODIUM CHLORIDE 0.9% 10ML INJ IV PRN (23:14)
[2024-01-16] MEDS: PANTOPRAZOLE 40 MG INJ IVP SCH (23:14)
[2024-01-16] MEDS ORDERED: GLUCAGON 1 MG/VIAL IM PRN (23:16)
[2024-01-16] MEDS ORDERED: D10W 125 ML IV PRN (23:16)
[2024-01-16 23:28] LABS: Band Neutrophils 10 % (0-1); Blood Morphology Comment NOT SEEN (NOT SEEN); Differential Total Cells Count 100; Lymphocytes 11 % (15-42); Monocytes 4 % (0-10); Platelet Estimate ADEQ; Segmented Neutrophils 74 % (40-80)
[2024-01-17] MEDS ORDERED: NA CHLORIDE 0.9% 250 ML ONE ×2 (00:04→00:26)
[2024-01-17 00:40] LABS: Magnesium 1.5 mg/dL (1.6-2.4); Phosphorus 2.4 mg/dL (2.5-4.9)
[2024-01-17] MEDS ORDERED: NA CHLORIDE 0.9% 2,000 ML ONE (01:18)
[2024-01-17] MEDS ORDERED: NA CHLORIDE 0.9% 500 ML ONE (01:53)
[2024-01-17] MEDS ORDERED: VANCOMYCIN 1 GM/VIAL ONE (01:53)
[2024-01-17] MEDS: VANCOMYCIN 2.5 GM in NA CHLORIDE 0.9% 500 ML IVPB ONE (02:02)
[2024-01-17] MEDS ORDERED: PANTOPRAZOLE 40 MG INJ ONE (02:06)
[2024-01-17] MEDS ORDERED: NOREPINEPHRINE BITARTRATE/D5W 4 MG/250 ML KIT IV ONE (02:06)
[2024-01-17] MEDS: CEFEPIME 2 GM in NA CHLORIDE 0.9% 100 ML IV SCH (03:24)
[2024-01-17] MEDS: NOREPINEPHRINE 4 MG in D5W 250 ML IV SCH (03:25)
--- NOTE | 2024-01-17 05:33 | RAD REPORT ---
EXAMINATION: XR CHEST 1 VIEW INDICATION: Male, 63 years old, PICC line placement TECHNIQUE: 1 view COMPARISON(S): 01/16/2024 (report only available at the time of dictation) FINDINGS: SUPPORT DEVICES: Right upper extremity PICC with tip obliquely overlying the mid mediastinum. LUNGS/PLEURA: Perihilar interstitial prominence. No consolidation, pleural effusion or pneumothorax. HEART/MEDIASTINUM: Normal size and configuration. OTHER: No acute osseous findings. IMPRESSION: 1. Right upper extremity PICC terminates over the expected position of the mid SVC with tip oriente d obliquely, not definitively in central venous location. Attention on next exam. 2. Mild heart failure pattern. Electronically signed by: Ronnie Wagner MD 01/17/2024 04:37 AM CDT Due to temporary technical issues with the [facility] reporting system, reports are being mary d by the in-house radiologist without review as a courtesy to ensure prompt reporting the interpreting radiologist is fully responsible for the content of the report. Transcribed Date/Time: 01/17/2024 5:33 AM
[2024-01-17 06:08] LABS: Absolute Basophils 0.1 K/uL (0-0.5); Absolute Monocytes 1.8 K/uL (0.1-1.3); Absolute Neutrophil 16.1 K/uL (1.8-8.0); Basophils % 0.3 % (0-1.3); Eosinophils % 0.1 % (0-4.4); Hematocrit 31.9 % (39.6-49.0); Hemoglobin 10.1 g/dL (13.6-17.9); Lymphocytes % 9.9 % (15.3-44.8); MCH 27.9 pg (27.0-35.0); MCHC 31.8 g/dL (32.0-36.0); MCV 87.8 fL (80-100); MPV 8.7 fL (7.6-11.3); Monocytes % 8.8 % (3.3-12.3); Neutrophils % 80.9 % (41.7-73.7); Platelets 183 thou/uL (152-406); RBC Red Blood Cell Count 3.63 M/uL (4.33-5.43); Red Cell Distribution Width 14.6 % (12.1-15.2)
[2024-01-17 06:18] LABS: Anion Gap 7.4 mEq/L (5.0-15.0); Potassium 3.4 mEq/L (3.5-5.1)
--- NOTE | 2024-01-17 07:38 | RAD REPORT ---
EXAMINATION: US RIGHT LOWER EXTREMITY VENOUS DOPPLER CLINICAL INDICATION: r/o dvt RIGHT TECHNIQUE: Complete bilateral duplex sonography of the RIGHT lower extremity veins was performed. The examination included compression for vein patency, color Doppler imaging and flow augmentation in response to distal compression of the distal external iliac, common femoral, femoral, popliteal, tibi al, and great and small saphenous veins. COMPARISON: No prior exam. FINDINGS: Duplex sonography testing of the veins of the RIGHT lower extremity was performed. Color flow imaging shows all veins to be compressible with [id number] color filling. Pulsatile and phasic flow is present within all lower extremity deep and superficial veins examined. IMPRESSION: There is no deep vein or superficial vein thrombosis.
[2024-01-17] MEDS ORDERED: PNEUMOCOCCAL VACCINE 0.5 ML IMVAC ONE (08:00)
[2024-01-17] MEDS: INSULIN REGULAR (HUMAN) 100 UNIT/ML SQ SCH (08:13)
[2024-01-17] MEDS: Mupirocin NASAL 2 APPL/1 GM TUBE NAS SCH (08:14)
[2024-01-17] MEDS: ENOXAPARIN 40 MG/0.4 ML SQ SCH (08:30)
--- NOTE | 2024-01-17 12:35 | EKG ---
Test Date: 2024-01-16 Test Time: 21:14:43 Shuttle Car Operator: TIFFANY MEASUREMENT RESULTS: Intervals: Rate: 106 NM: 170 QRSD: 82 QT: 428 QTc: 568 Vance: P: -10 NM: 170 QRS: 48 T: 3 INTERPRETIVE STATEMENTS: Sinus tachycardia T wave abnormality, consider anterior ischemia Prolonged QT Abnormal ECG Compared to ECG 03/02/2023 13:16:54 T-wave abnormality now present Possible ischemia now present Prolonged QT interval now present Sinus rhythm no longer present Electronically Signed On 01-17-24 12:34:16 CDT by Jeet Bertrand
[2024-01-17] MEDS: JUVEN PACKET PO SCH (13:41)
--- NOTE | 2024-01-17 13:54 | ECHO ---
HEIGHT: 5 ft 9 in WEIGHT: 262 lb 5.601 oz DATE OF STUDY: 01/17/[address]: Prince Marcus Martinez MD 2-DIMENSIONAL: YES M.MODE: YES DOPPLER: YES COLOR FLOW: YES TDS: PORTABLE: YES DEFINITY: BUBBLE STUDY: DIAGNOSIS: CONGESTIVE HEART FAILURE CARDIAC HISTORY: CATHERIZATION: NO SURGERY: NO PROSTHETIC VALVE: NO PACEMAKER: NO MEASUREMENTS (cm) DIASTOLIC (NORMALS) SYSTOLIC (NORMALS) IVSd 1.1 (0.6-1.2) LA Diam 3.6 (1.9-4.0) LVEF 60-65% LVIDd 4.9 (3.5-5.7) LVIDs 3.2 (2.0-3.5) %FS 34% LVPWd 1.2 (0.6-1.2) Ao Diam 2.9 (2.0-3.7) 2 DIMENSIONAL ASSESSMENT: RIGHT ATRIUM: NORMAL LEFT ATRIUM: NORMAL RIGHT VENTRICLE: NORMAL LEFT VENTRICLE: NORMAL TRICUSPID VALVE: MILD TRICUSPID REGURGITATION MITRAL VALVE: NORMAL PULMONIC VALVE: NORMAL AORTIC VALVE: NORMAL PERICARDIAL EFFUSION: NONE AORTIC ROOT: NORMAL LEFT VENTRICULAR WALL MOTION: NORMAL DOPPLER/COLOR FLOW: DIASTOLIC DYSFUNCTION COMMENTS: 1. NORMAL LEFT VENTRICULAR SYSTOLIC FUNCTION, EJECTION FRACTION 60-65%, NORMAL WALL MOTION 2. DIASTOLIC DYSFUNCTION 3. NORMAL FILLING PRESSURE TECHNOLOGIST: RAVEN MARAVILLA
[2024-01-17] MEDS: ACETAMINOPHEN 500 MG TAB PO PRN ×2 (15:35→21:29)
[2024-01-17] MEDS ORDERED: hydrOXYzine HCL 25 MG TAB PO PRN (18:56)
[2024-01-17] MEDS ORDERED: BACLOFEN 10 MG TAB PO PRN (18:56)
[2024-01-17] MEDS ORDERED: cloNIDine HCL 0.1 MG TAB PO PRN (18:56)
[2024-01-17] MEDS ORDERED: PHENOBARBITAL 97.2 MG PO SCH (19:00)
[2024-01-17] MEDS ORDERED: ONDANSETRON 4 MG (ODT) TAB PO PRN (19:31)
[2024-01-17] MEDS: PHENOBARBITAL 30 MG TABLET PO SCH (21:00)
[2024-01-17] MEDS: INSULIN GLARGINE 100 UNIT/ML SQ SCH (21:27)
[2024-01-17] MEDS: levETIRAcetam 500 MG TAB PO SCH (21:28)
[2024-01-17] MEDS: PHENYTOIN ER 100 MG CAP PO SCH (21:28)
[2024-01-17] MEDS: VANCOMYCIN 2 GM in NA CHLORIDE 0.9% 500 ML IVPB SCH (21:28)
[2024-01-17] MEDS: HYDRALAZINE HCL 25 MG TABLET PO SCH (21:29)
[2024-01-17] MEDS: METOPROLOL TAR 25 MG TAB PO SCH (21:29)
[2024-01-17] MEDS ORDERED: VANCOMYCIN 1.5 GM in NA CHLORIDE 0.9% 500 ML IVPB SCH (23:13)
[2024-01-17] MEDS: levETIRAcetam 500 MG in NA CHLORIDE 0.9% 100 ML IV ONE (23:42)
[2024-01-18 05:05] VITALS: BMI 38.8
[2024-01-18 05:49] LABS: Absolute Basophils 0.1 K/uL (0-0.5); Absolute Eosinophils 0.4 K/uL (0-0.5); Absolute Lymphocytes (CBC) 2.2 K/uL (0.7-4.9); Absolute Monocytes 1.7 K/uL (0.1-1.3); Absolute Neutrophil 10.1 K/uL (1.8-8.0); Basophils % 0.5 % (0-1.3); Eosinophils % 2.6 % (0-4.4); Hematocrit 30.2 % (39.6-49.0); Hemoglobin 10.1 g/dL (13.6-17.9); Lymphocytes % 15.5 % (15.3-44.8); MCH 28.9 pg (27.0-35.0); MCHC 33.3 g/dL (32.0-36.0); MCV 86.9 fL (80-100); MPV 8.8 fL (7.6-11.3); Monocytes % 11.8 % (3.3-12.3); Neutrophils % 69.6 % (41.7-73.7); Platelets 186 thou/uL (152-406); RBC Red Blood Cell Count 3.48 M/uL (4.33-5.43); Red Cell Distribution Width 14.1 % (12.1-15.2)
[2024-01-18 05:58] LABS: Anion Gap 7.1 mEq/L (5.0-15.0); Magnesium 1.7 mg/dL (1.6-2.4); Phosphorus 2.4 mg/dL (2.5-4.9); Potassium 3.1 mEq/L (3.5-5.1)
[2024-01-18] MEDS: POTASSIUM PHOS IN 0.9 % NACL 15 MMOL/250 ML BAG IV ONE (06:38)
[2024-01-18] MEDS: LEVOTHYROXINE SOD 0.075 MG TAB PO SCH (06:38)
[2024-01-18] MEDS: MAGNESIUM SULFATE 1 gm IVPB 1 GM/100 ML BAG IV ONE (06:39)
[2024-01-18] MEDS: LOSARTAN POTASSIUM 50 MG TABLET PO SCH (08:06)
[2024-01-18] MEDS: FLUOXETINE 20 MG CAP PO SCH (08:06)
[2024-01-18] MEDS: POTASSIUM CL SA 10 MEQ TAB PO ONE ×2 (08:07→16:33)
[2024-01-18] MEDS: FUROSEMIDE 40 MG TABLET PO SCH (08:07)
[2024-01-18] MEDS: PHENOBARBITAL 30 MG TABLET PO SCH (09:39)
--- NOTE | 2024-01-18 09:41 | P.PN ---
Subjective Date of Service: 01/18/24 Chief Complaint: severe sepsis Subjective: Improving (no fever overnight, a&ox 3 this am. Suprapubic cath change per Dr. Smith yesterday) Review of Systems 10-point ROS is otherwise unremarkable General: Malaise Eyes: Unremarkable ENT: Unremarkable Respiratory: Unremarkable Cardiovascular: Unremarkable Gastrointestinal: Unremarkable Genitourinary: Unremarkable Musculoskeletal: Unremarkable Integumentary: Unremarkable Neurological: Unremarkable Lymphatics: Unremarkable Physical Examination - Vital Signs Temperature: 98.4 F (afebrile x 12h) Blood Pressure: 151/66 Pulse: 82 Respirations: 17 Pulse Ox (%): 98 - Physical Exam General: Alert, In no apparent distress, Oriented x3, Obese HEENT: Atraumatic, Normocephalic Neck: Supple Respiratory: Normal air movement Cardiovascular: Regular rate/rhythm Capillary refill: <2 Seconds Gastrointestinal: Normal bowel sounds, Soft and benign Musculoskeletal: Other (paraplegia) Integumentary: Other (pictures in ICU notes of sacral area, groin, and medial thighs) Neurological: Normal affect, Other (A&Ox3) Lymphatics: No axilla or inguinal lymphadenopathy Urinary: Suprapubic catheter (area right of midline with no exudate) External genitalia: Deferred Rectal: Deferred Assessment And Plan - Plan Assessment This is a 63-year-old male who is being admitted for severe sepsis after he presented from custodial for her fever spikes. His urine analysis is positive. Patient also has an evidence of soft tissue skin infection originating from the suprapubic catheter site and spreading distally to involve the medial aspect of the right upper thigh. 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 Smith exchanged suprapubic cath 01/17/24 Venous Doppler ordered to rule out DVT DVT and GI prophylaxis Insulin sliding scale Resume rest of home medication upon reconciliation Patient is full code 01/18/24 Pt without c/o this am, states he is feeling better. Awaiting his coffee. Suprapubic cath site without purulence. Urine prelim +3 hemolytic strep and +3 gram negative rods A&O at his baseline - Advance Directives Does patient have a Living Will: No Does patient have a Durable POA for Healthcare: Yes
[2024-01-18] MEDS: LIDOCAINE 4% PATCH TOP SCH (16:10)
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
[2024-01-19 05:35] LABS: Absolute Basophils 0.1 K/uL (0-0.5); Absolute Eosinophils 0.7 K/uL (0-0.5); Absolute Lymphocytes (CBC) 2.5 K/uL (0.7-4.9); Absolute Monocytes 1.7 K/uL (0.1-1.3); Absolute Neutrophil 9.1 K/uL (1.8-8.0); Basophils % 0.7 % (0-1.3); Eosinophils % 4.9 % (0-4.4); Hematocrit 32.4 % (39.6-49.0); Hemoglobin 10.5 g/dL (13.6-17.9); Lymphocytes % 17.7 % (15.3-44.8); MCH 28.2 pg (27.0-35.0); MCHC 32.5 g/dL (32.0-36.0); MCV 86.9 fL (80-100); MPV 8.8 fL (7.6-11.3); Monocytes % 12.3 % (3.3-12.3); Neutrophils % 64.4 % (41.7-73.7); Platelets 200 thou/uL (152-406); RBC Red Blood Cell Count 3.72 M/uL (4.33-5.43); Red Cell Distribution Width 14.3 % (12.1-15.2)
[2024-01-19 05:49] LABS: Anion Gap 7.3 mEq/L (5.0-15.0); Magnesium 1.9 mg/dL (1.6-2.4); Potassium 3.3 mEq/L (3.5-5.1)
--- NOTE | 2024-01-19 08:07 | P.PN ---
Date of Service: 01/19/24 Subjective no fever overnight, a&ox 3 this am. Suprapubic cath change per Dr. Smith yesterday) Total care, groin, abdominal cellulitis, Review of Systems Negative unless listed in HPI 10-point ROS is otherwise unremarkable Physical Examination - Vital Signs Temperature: 98.4 F (afebrile x 12h) Blood Pressure: 151/66 Pulse: 82 Respirations: 17 Pulse Ox (%): 98 - Physical Exam General: Alert, In no apparent distress, Oriented x3, Obese HEENT: Atraumatic, Normocephalic Neck: Supple Respiratory: Normal air movement Cardiovascular: Regular rate/rhythm Capillary refill: <2 Seconds Gastrointestinal: Normal bowel sounds, Soft and benign Musculoskeletal: Other (paraplegia) Integumentary: Other (pictures in ICU notes of sacral area, groin, and medial thighs) Neurological: Normal affect, Other (A&Ox3) Lymphatics: No axilla or inguinal lymphadenopathy Urinary: Suprapubic catheter (area right of midline with no exudate) External genitalia: Deferred Rectal: Deferred Assessment And Plan - Plan Assessment This is a 63-year-old male who is being admitted for severe sepsis after he presented from [facility] for her fever spikes. His urine analysis is positive. Patient also has an evidence of soft tissue skin infection originating from the suprapubic catheter site and spreading distally to involve the medial aspect of the right upper thigh. 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 Smith exchanged suprapubic cath 01/17/24 Venous Doppler ordered to rule out DVT DVT and GI prophylaxis Insulin sliding scale Resume rest of home medication upon reconciliation Patient is full code 01/18/24 Pt without c/o this am, states he is feeling better. Awaiting his coffee. Suprapubic cath site without purulence. Urine prelim +3 hemolytic strep and +3 gram negative rods A&O at his baseline - Advance Directives Does patient have a Living Will: No Does patient have a Durable POA for Healthcare: Yes Discharge planning patient resides at [facility]
[2024-01-19 08:44] VITALS: O2SAT 95
[2024-01-19] MEDS ORDERED: LIDOCAINE 4% PATCH TOP SCH (09:00)
[2024-01-19] MEDS: POTASS/SODIUM PHOSPHATE 1 PKT POWD.PACK PO SCH (09:38)
[2024-01-19] MEDS: POTASSIUM CL SA 10 MEQ TAB PO ONE (09:39)
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
[2024-01-19] MEDS ORDERED: levoFLOXacin 750 MG TAB PO SCH (15:00)
[2024-01-19 17:07] VITALS: BP 151/71; TEMP 97.5
[2024-01-20] MEDS ORDERED: PANTOPRAZOLE 40MG TABLET PO SCH (06:30)
== END 2024-01-19 16:45 | DRG 698 ==
LOC: ER 20:56 → 4TH 22:46 → 3RD-ICU 01-17 00:44 → 2ND 01-18 20:29
PROVIDERS: ADMIT Internal Medicine; ATTEND Hospitalist
PROC: 0T9B70Z Drainage of Bladder with Drainage Device, Via Natural or Artificial Opening (ICD-10-PCS; 2024-01-16)
PROC: 3E043XZ Introduction of Vasopressor into Central Vein, Percutaneous Approach (ICD-10-PCS; principal; 2024-01-17)
PROC: 02HV33Z Insertion of Infusion Device into Superior Vena Cava, Percutaneous Approach (ICD-10-PCS; 2024-01-17)
DX: T83.510A Infection and inflammatory reaction due to cystostomy catheter, initial encounter (principal); A41.9 Sepsis, unspecified organism; R65.21 Severe sepsis with septic shock; J81.1 Chronic pulmonary edema; G82.20 Paraplegia, unspecified; L03.311 Cellulitis of abdominal wall; N30.00 Acute cystitis without hematuria; L03.115 Cellulitis of right lower limb; N40.0 Benign prostatic hyperplasia without lower urinary tract symptoms; E03.9 Hypothyroidism, unspecified; I10 Essential (primary) hypertension; E11.65 Type 2 diabetes mellitus with hyperglycemia; E78.00 Pure hypercholesterolemia, unspecified; E66.01 Morbid (severe) obesity due to excess calories; M19.90 Unspecified osteoarthritis, unspecified site; L89.152 Pressure ulcer of sacral region, stage 2; G40.909 Epilepsy, unspecified, not intractable, without status epilepticus; N31.9 Neuromuscular dysfunction of bladder, unspecified; Z79.4 Long term (current) use of insulin; Z68.38 Body mass index [BMI] 38.0-38.9, adult; Z11.52 Encounter for screening for COVID-19; Z79.890 Hormone replacement therapy; Z87.891 Personal history of nicotine dependence; Z87.820 Personal history of traumatic brain injury; Z79.899 Other long term (current) drug therapy; Y84.8 Other medical procedures as the cause of abnormal reaction of the patient, or of later complication, without mention of misadventure at the time of the procedure
CPT/HCPCS: 36415; 36569; 71045; 80048; 80053; 80202; 81001; 82947; 83036; 83605; 83735; 83880; 84100; 84132; 85025; 85610; 85730; 87040; 87077; 87086; 87088; 87186; 87205; 87804; 87811; 93005; 93306; 93971; 94760; 99285; J0692; J1650; J1953; J2470; J2550; J3475; J7030; J7040; J7050

== ENCOUNTER 2024-05-19 12:54 | Inpatient (IN) | payer OTHER ==
[2024-05-19 13:33] LABS: Absolute Basophils 0.1 K/uL (0-0.5); Absolute Eosinophils 0.5 K/uL (0-0.5); Absolute Lymphocytes (CBC) 2.5 K/uL (0.7-4.9); Absolute Monocytes 1.7 K/uL (0.1-1.3); Absolute Neutrophil 10.3 K/uL (1.8-8.0); Basophils % 0.7 % (0-1.3); Eosinophils % 3.5 % (0-4.4); Hemoglobin 11.7 g/dL (13.6-17.9); Lymphocytes % 16.3 % (15.3-44.8); MCH 27.8 pg (27.0-35.0); MCHC 33.5 g/dL (32.0-36.0); MCV 83.1 fL (80-100); MPV 7.8 fL (7.6-11.3); Neutrophils % 68.5 % (41.7-73.7); Platelets 337 thou/uL (152-406); RBC Red Blood Cell Count 4.21 M/uL (4.33-5.43); Red Cell Distribution Width 14.8 % (12.1-15.2)
[2024-05-19 13:40] LABS: PT Prothrombin Time 14.4 SECONDS (10.0-13.0); PTT, Activated Partial Thromb 29.2 SECONDS (24.3-36.9); Protime INR 1.28
[2024-05-19 13:53] LABS: Albumin 2.8 g/dL (3.4-5.0); Albumin/Globulin Ratio 0.5 (1.1-1.8); Anion Gap 11.9 mEq/L (5.0-15.0); Bilirubin Total 0.2 mg/dL (0.2-1.0); Globulin 5.4 g/dL (2.3-3.5); Potassium 2.9 mEq/L (3.5-5.1); Protein, Total 8.2 g/dL (6.4-8.2); Troponin High Sensitivity 3.8 pg/mL (<58.9)
--- NOTE | 2024-05-19 13:55 | RAD REPORT ---
EXAMINATION: ONE VIEW CHEST XR CLINICAL INDICATION: COUGH TECHNIQUE: Frontal chest projection is submitted. Examination is limited by patient positioning and t echnique. COMPARISON: No prior exam. FINDINGS: Mild bilateral pulmonary edema is suspected. Left basilar lung opacity may represent superimposed con solidation/pneumonia. The heart is mildly enlarged in size. No displaced fractures identified. IMPRESSION: Moderate left basilar lung consolidation suspicious for pneumonia. Follow-up imaging until clear dylon mmended.
[2024-05-19] MEDS ORDERED: VANCOMYCIN 1 GM/VIAL ONE (14:03)
[2024-05-19] MEDS ORDERED: NA CHLORIDE 0.9% 100 ML ONE (14:03)
[2024-05-19] MEDS ORDERED: NA CHLORIDE 0.9% 1,000 ML ONE (14:03)
[2024-05-19] MEDS ORDERED: NA CHLORIDE 0.9% 250 ML ONE (14:03)
--- NOTE | 2024-05-19 14:03 | EDPHYS ---
Physician Documentation [facility] Name: He Do Age: 64 yrs Sex: Male : 1960 Arrival Date: 05/19/2024 Time: 12:54 Bed 8 Private MD: ED Physician Alo Adan HPI: 05/19 13:19 This 64 yrs old Male presents to ER via EMS with complaints of cough, weakness, sp3 possible sepsis. 13:19 64-year-old male with a history of paraplegia due to CVA, hyperlipidemia, hyper tension sp3 presents to the ED from nursing facility for chief complaint cough, shortness of breath and general fatigue consistent with possible sepsis. Patient denies any chest pain, back pain, headache, fever, dysuria, abdominal pain, vomiting or diarrhea, rash, bleeding, or any other signs or symptoms on ROS at this time.. Historical: - Allergies: 17:11 Merrem; ph - PMHx: 17:11 BPH with suprapubic catheter; Cerebrovascular accident; Cerebrovascular disease; ph chronic back pain; Chronic pain; depressive disorder; diabetes mellitus; DYSPHAGIA; epilepsy; Hypercholesterolemia; Hyperlipidemia; Hypertensive disorder; Hypothyroidism; macular degeneration; osteoarthritis; Paraplegia; Seizure; - Immunization history:: Adult Immunizations unknown. - Infectious Disease History:: Denies. - Social history:: Smoking status: unknown. ROS: 13:22 Constitutional: Negative for fever, chills, and weight loss, Eyes: Negative for injury, sp3 pain, redness, and discharge, Neck: Negative for injury, pain, and swelling, Abdomen/GI: Negative for abdominal pain, nausea, vomiting, diarrhea, and constipation, MS/Extremity: Negative for injury and deformity, Skin: Negative for injury, rash, and discoloration, Neuro: Negative for headache, weakness, numbness, tingling, and seizure, Psych: Negative for depression, anxiety, suicide ideation, homicidal ideation, and hallucinations, Allergy/Immunology: Negative for hives, rash, and allergies, Endocrine: Negative for neck swelling, polydipsia, polyuria, polyphagia, and marked weight changes, 13:22 All other systems are negative, Exam: 13:22 Constitutional: This is a well developed, well nourished patient who is awake, alert, sp3 and in no acute distress. Head/Face: Normocephalic, atraumatic. Eyes: Pupils equal round and reactive to light, extra-ocular motions intact. Lids and lashes normal. Conjunctiva and sclera are non-icteric and not injected. Cornea within normal limits. Periorbital areas with no swelling, redness, or edema. Neck: Trachea midline, no thyromegaly or masses palpated, and no cervical lymphadenopathy. Supple, full range of motion without nuchal rigidity, or vertebral point tenderness. No Meningismus. Chest/axilla: Normal chest wall appearance and motion. Nontender with no deformity. No lesions are appreciated. Cardiovascular: Regular rate and rhythm with a normal S1 and S2. No gallops, murmurs, or rubs. Normal PMI, no JVD. No pulse deficits. Abdomen/GI: Soft, non-tender, with normal bowel sounds. No distension or tympany. No guarding or rebound. No evidence of tenderness throughout. Back: No spinal tenderness. No costovertebral tenderness. Full range of motion. Skin: Warm, dry with normal turgor. Normal color with no rashes, no lesions, and no evidence of cellulitis. MS/ Extremity: Pulses equal, no cyanosis. Neurovascular intact. Full, normal range of motion. Neuro: Awake and alert, GCS 15, oriented to person, place, time, and situation. Cranial nerves II-XII grossly intact. Motor strength 5/5 in all extremities. Sensory grossly intact. Cerebellar exam normal. Normal gait. 13:22 Respiratory: Mild rhonchi and cough noted. Bilateral., Vital Signs: 13:00 BP 130 / 62; Pulse 63; Resp 18; Temp 98.1(O); Pulse Ox 91% on R/A; Weight 160 kg; ph Height 5 ft. 8 in. ; 14:27 BP 122 / 63; Pulse 65; Resp 18; Pulse Ox 96% on R/A; ph 15:30 BP 132 / 62; Pulse 63; Resp 18; Temp 97.8; Pulse Ox 95% on R/A; ph 16:30 BP 116 / 48; Pulse 63; Resp 18; Pulse Ox 95% on R/A; ph 17:15 BP 132 / 66; Pulse 62; Resp 16; Temp 98; Pulse Ox 96% on R/A; ph 13:00 Body Mass Index 53.63 (160.00 kg, 172.72 cm) ph MDM: 12:59 Medical Screening Exam initiated sp3 13:22 Data reviewed: vital signs, nurses notes, old medical records, lab test result(s), EKG, sp3 radiologic studies. ED course: 64-year-old male with PMH above now with cough, generalized weakness shortness of breath. Differential diagnosis includes pneumonia, bronchitis, viral illness, CHF, ACS, electrolyte disturbance, sepsis, among others. Workup will include labs, UA, chest x-ray, swabs and general supportive care. Vital signs are normal with no SIRS criteria currently. Disposition probable admission with antibiotics as indicated. Patient is already on Rocephin at snf.. 14:02 ED course: X-ray demonstrates infiltrate and patient has leukocytosis. Vital signs are sp3 stable. Cefepime and vancomycin started for nosocomial infection patient will be admitted to internal medicine.. 05/19 13:01 Order name: Blood Culture Adult (2) 3 05/19 13:01 Order name: CBC with Diff; Complete Time: 13:58 3 05/19 13:01 Order name: CMP; Complete Time: 13:58 sp3 05/19 13:01 Order name: Lactate w/ 2H reflex if indic.; Complete Time: 13:58 3 05/19 13:01 Order name: Protime (+inr); Complete Time: 13:58 3 05/19 13:01 Order name: Ptt, Activated; Complete Time: 13:58 3 05/19 13:01 Order name: Urinalysis w/ reflexes 3 05/19 13:01 Order name: Troponin High Sensitivity; Complete Time: 13:58 3 05/19 13:01 Order name: ABG: VBG 05/19 13:23 Order name: COVID-19 Ag + Flu A+B Ag sp3 05/19 14:28 Order name: UAM la1 05/19 14:28 Order name: Urine Culture dc05/19 14:36 Order name: Comprehensive Metabolic Panel [facility] 05/19 14:36 Order name: Comprehensive Metabolic Panel [facility] 05/19 14:36 Order name: Comprehensive Metabolic Panel [facility] 05/19 14:36 Order name: Comprehensive Metabolic Panel [facility] 05/19 14:36 Order name: Comprehensive Metabolic Panel [facility] 05/19 14:36 Order name: Magnesium EDMS 05/19 14:36 Order name: CBC with Automated Diff EDMS 05/19 14:36 Order name: CBC with Automated Diff EDMS 05/19 14:36 Order name: CBC with Automated Diff EDMS 05/19 14:36 Order name: CBC with Automated Diff EDMS 05/19 14:36 Order name: CBC with Automated Diff EDMS 05/19 14:36 Order name: Magnesium EDMS 05/19 14:36 Order name: Magnesium EDMS 05/19 14:36 Order name: Magnesium EDMS 05/19 14:36 Order name: Magnesium EDMS 05/19 13:01 Order name: Chest Single View XRAY; Complete Time: 13:58 sp3 05/19 13:01 Order name: Cardiac monitoring; Complete Time: 14:00 sp3 05/19 13:01 Order name: EKG - Nurse/Tech; Complete Time: 17:28 3 05/19 13:01 Order name: IV Saline Lock - Large Bore; Complete Time: 13:22 3 05/19 13:01 Order name: Labs collected and sent; Complete Time: 13:22 3 05/19 13:01 Order name: O2 Per Protocol; Complete Time: 14:00 sp3 05/19 13:01 Order name: O2 Sat Monitoring; Complete Time: 14:00 sp3 05/19 13:01 Order name: Vital Signs; Complete Time: 14:00 sp3 Administered Medications: 14:26 Drug: Potassium Chloride IV 40 mEq IV at calculated rate once; administer over 1-2 ph hours Route: IV; Rate: calculated rate; Site: right antecubital; 17:11 Follow up: Response: No adverse reaction; IV Status: Completed infusion ph 14:27 Drug: Cefepime IVPB 1 grams IVPB at 200 ml/hr once over 30 mins; (mix in NS 100 mL) ph Route: IVPB; Rate: 200 ml/hr; Infused Over: 30 mins; Site: right antecubital; 15:00 Follow up: Response: No adverse reaction; IV Status: Completed infusion ph 14:27 Drug: NS 0.9% IV 1000 ml IV at 1000 ml once; to be given as a bolus over 60 minutes ph Route: IV; Rate: 1000 ml; Site: right antecubital; 17:11 Follow up: Response: No adverse reaction; IV Status: Completed infusion; IV Intake: ph 1000ml 15:55 Drug: vancoMYCIN IVPB 1 grams IVPB once over 2 hrs Route: IVPB; Infused Over: 2 hrs; ph Site: right antecubital; 17:11 Follow up: Response: No adverse reaction; IV Status: Completed infusion ph Disposition: 14:03 Critical Care:. sp3 Disposition Summary: 05/19/24 14:03 Hospitalization Ordered Notes: Hospitalization Status: Inpatient Admission sp3 Provider: Zeus Amezcua sp3 Location: Telemetry/[facility] (Inpatient) sp3 Condition: Stable sp3 Problem: new sp3 Symptoms: have worsened sp3 Bed/Room Type: Standard sp3 Room Assignment: 414(05/19/24 15:40) eb Diagnosis - Pneumonia, hypokalemia, dehydration sp3 Forms: - Medication Reconciliation Form sp3 - SBAR form sp3 - Leadership Thank You Letter sp3 Critical care time excluding procedures: 14:03 Critical care time: Bedside Care: 20 minutes, Consultation: 10 minutes. Total time: 30 sp3 minutes Signatures: Dispatcher [employer] Arely Camara RN RN ph Botello, Elizabeth eb Patel, Setul, MD MD sp3 Corrections: (The following items were deleted from the chart) 13:02 13:02 BLOOD CULTURE*+BA.LAB.BRZ ordered. EDMS EDMS 13:02 13:02 CBC+H.LAB.BRZ ordered. EDMS EDMS 13:02 13:02 COMPREHENSIVE METABOLIC PANEL+C.LAB.BRZ ordered. EDMS EDMS 13:02 13:02 LACTATE+C.LAB.BRZ ordered. EDMS EDMS 13:02 13:02 PROTIME (+INR)+COAG.LAB.BRZ ordered. EDMS EDMS 13:02 13:02 PTT, ACTIVATED+COAG.LAB.BRZ ordered. EDMS EDMS 13:02 13:02 Urinalysis+U.LAB.BRZ ordered. EDMS EDMS 13:02 13:02 Troponin High Sensitivity+C.LAB.BRZ ordered. EDMS EDMS 13:02 13:02 Chest Single View+RAD.RAD.BRZ ordered. EDMS EDMS 13:02 13:02 Arterial Blood Gas+RC.LAB.BRZ ordered. EDMS EDMS 14:54 14:03 sp3 eb 15:02 14:54 404 eb eb 15:40 15:02 eb eb
--- NOTE | 2024-05-19 14:03 | ER ---
Nurse's Notes [facility] Name: He Do Age: 64 yrs Sex: Male : 1960 Arrival Date: 05/19/2024 Time: 12:54 Bed 8 Private MD: Diagnosis: Pneumonia, hypokalemia, dehydration Presentation: 05/19 13:00 Chief complaint: EMS states: From [facility], sent for productive cough and ph possible dehydration. Coronavirus screen: Vaccine status: Patient reports receiving the 2nd dose of the covid vaccine. Ebola Screen: No symptoms or risks identified at this time. Initial Sepsis Screen: Does the patient meet any 2 criteria? No. Patient's initial sepsis screen is negative. Does the patient have a suspected source of infection? No. Patient's initial sepsis screen is negative. Risk Assessment: Do you want to hurt yourself or someone else? Patient reports no desire to harm self or others. Onset of symptoms was May 19, 2024. 13:00 Method Of Arrival: EMS: [facility] 13:00 Acuity: AC 3 ph Triage Assessment: 13:30 General: Appears in no apparent distress. comfortable, Behavior is calm, cooperative. ph Pain: Denies pain. Neuro: Level of Consciousness is awake, alert, obeys commands, Oriented to person, place, time, situation. Cardiovascular: Capillary refill < 3 seconds in bilateral fingers Patient's skin is warm and dry. Respiratory: Reports shortness of breath cough that is productive, Airway is patent Respiratory effort is even, unlabored, Respiratory pattern is regular, symmetrical. GI: No signs and/or symptoms were reported involving the gastrointestinal system. Derm: Skin is pink, warm \T\ dry. Historical: - Allergies: 17:11 Merrem; ph - PMHx: 17:11 BPH with suprapubic catheter; Cerebrovascular accident; Cerebrovascular disease; ph chronic back pain; Chronic pain; depressive disorder; diabetes mellitus; DYSPHAGIA; epilepsy; Hypercholesterolemia; Hyperlipidemia; Hypertensive disorder; Hypothyroidism; macular degeneration; osteoarthritis; Paraplegia; Seizure; - Immunization history:: Adult Immunizations unknown. - Infectious Disease History:: Denies. - Social history:: Smoking status: unknown. Screenin:[facility] ED Fall Risk Assessment (Adult) History of falling in the last 3 months, ph including since admission No falls in past 3 months (0 pts) Confusion or Disorientation No (0 pts) Intoxicated or Sedated No (0 pts) Impaired Gait Yes (1 pt) Mobility Assist Device Used Yes (1 pt) Altered Elimination Yes (1 pt) Score/Fall Risk Level 3 or more points = High Risk Oriented to surroundings, Maintained a safe environment, Hourly rounding (assess needs \T\ fall precautionary measures) done, Used ambulatory aids as needed (educated on \T\ assisted with). Abuse screen: Denies threats or abuse. Denies injuries from another. Nutritional screening: No deficits noted. Tuberculosis screening: No symptoms or risk factors identified. Assessment: 16:30 General: SEE TRIAGE ASSESSMENT. ph Vital Signs: 13:00 BP 130 / 62; Pulse 63; Resp 18; Temp 98.1(O); Pulse Ox 91% on R/A; Weight 160 kg; ph Height 5 ft. 8 in. ; 14:27 BP 122 / 63; Pulse 65; Resp 18; Pulse Ox 96% on R/A; ph 15:30 BP 132 / 62; Pulse 63; Resp 18; Temp 97.8; Pulse Ox 95% on R/A; ph 16:30 BP 116 / 48; Pulse 63; Resp 18; Pulse Ox 95% on R/A; ph 17:15 BP 132 / 66; Pulse 62; Resp 16; Temp 98; Pulse Ox 96% on R/A; ph 13:00 Body Mass Index 53.63 (160.00 kg, 172.72 cm) ph ED Course: 12:58 Patient arrived in ED. ph 12:59 Alo Adan MD is Attending Physician. sp3 13:00 Arely Curtis, RN is Primary Nurse. ph 13:02 Triage completed. ph 13:15 Initial lab(s) drawn, by az, sent to lab. First set of blood cultures drawn. Inserted ll1 saline lock: 22 gauge in right antecubital area, using aseptic technique. Blood collected. Flushed with 10 mL NS. 13:49 Chest Single View XRAY In Process Unspecified. EDMS 14:03 Zeus Amezcua MD is Hospitalizing Provider. sp3 15:30 EKG done, by ED staff, reviewed by Alo Adan MD. ph 17:16 Patient has correct armband on for positive identification. Placed in gown. Bed in low ph position. Call light in reach. Side rails up X2. child monitor on. Pulse ox on. NIBP on. Door closed. Noise minimized. Warm blanket given. Head of bed elevated. 17:17 Arm band placed on Patient placed in an exam room. ph 17:28 No provider procedures requiring assistance completed. Patient admitted, IV remains in ph place. Administered Medications: 14:26 Drug: Potassium Chloride IV 40 mEq IV at calculated rate once; administer over 1-2 ph hours Route: IV; Rate: calculated rate; Site: right antecubital; 17:11 Follow up: Response: No adverse reaction; IV Status: Completed infusion ph 14:27 Drug: Cefepime IVPB 1 grams IVPB at 200 ml/hr once over 30 mins; (mix in NS 100 mL) ph Route: IVPB; Rate: 200 ml/hr; Infused Over: 30 mins; Site: right antecubital; 15:00 Follow up: Response: No adverse reaction; IV Status: Completed infusion ph 14:27 Drug: NS 0.9% IV 1000 ml IV at 1000 ml once; to be given as a bolus over 60 minutes ph Route: IV; Rate: 1000 ml; Site: right antecubital; 17:11 Follow up: Response: No adverse reaction; IV Status: Completed infusion; IV Intake: ph 1000ml 15:55 Drug: vancoMYCIN IVPB 1 grams IVPB once over 2 hrs Route: IVPB; Infused Over: 2 hrs; ph Site: right antecubital; 17:11 Follow up: Response: No adverse reaction; IV Status: Completed infusion ph Medication: 17:17 VIS not applicable for this client. ph Intake: 17:11 IV: 1000ml; Total: 1000ml. ph Outcome: 14:03 Decision to Hospitalize by Provider. sp3 17:59 Patient left the ED. ll1 17:59 Admitted to Med/surg accompanied by tech, family with patient, room 414, ph 17:59 Condition: stable 17:59 Instructed on the need for admit, Signatures: Dispatcher [employer] Arely Camara, RN RN ph Tyler Ferro RN RN ll1 Alo Adan MD MD sp3
[2024-05-19] MEDS ORDERED: CEFEPIME 1 GM/VIAL ONE (14:04)
[2024-05-19] MEDS ORDERED: KCL 20 MEQ/100 mL IVPB 200 ML IV ONE (14:15)
[2024-05-19] MEDS ORDERED: ONDANSETRON 4 MG/2 ML VIAL IV PRN (14:35)
[2024-05-19 14:56] LABS: Influenza A Ag Negative; Influenza B Ag Negative; SARS-CoV-2 Antigen Rapid Res Negative (Negative)
--- NOTE | 2024-05-19 15:51 | P.HP ---
Certification for Inpatient Patient admitted to: Inpatient With expected LOS: >2 Midnights Patient will require the following post-hospital care: None Practitioner: I am a practitioner with admitting privileges, knowledge of patient current condition, hospital course, and medical plan of care. Services: Services provided to patient in accordance with Admission requirements found in Title 42 Section 412.3 of the Code of Federal Regulations Patient History Date of Service: 05/19/24 Reason for admission: Pneumonia History of Present Illness: 64-year-old male with history of TBI, quadriplegia with neurogenic bladder and suprapubic catheter, insulin-dependent diabetes, MDR UTIs, hypertension, hyperlipidemia, hypothyroidism, seizures presents to the emergency department from the retirement with chief complaint of cough, elevated white blood cell count, concern for possible UTI with history of MDR UTIs. Patient reports cough over the course the last 2 weeks, blood work from retirement shows a white blood cell count of 21. Patient was evaluated in the emergency department and his labs are significant for a white blood cell count of 15.1 hemoglobin 11.7 sodium 128 potassium 2.9 chloride 92 glucose 189 chest x-ray shows concern for a moderate left basilar lung consolidation suspicious for pneumonia. UA is pending, patient will need to be admitted for further evaluation and management of suspected left-sided pneumonia with possible UTI. Allergies meropenem [From Merrem] Allergy (Verified 02/02/23 05:27) Itching/Hives/Rash Home Medications: Baclofen 10 mg PO Q8H PRN 01/10/23 Fluoxetine HCl [Prozac] 60 mg PO DAILY 01/10/23 Furosemide [Lasix*] 40 mg PO DAILY 01/10/23 Insulin Regular, Human [Novolin R Flexpen] See Protocol SQ ACHS 01/10/23 Levothyroxine [Synthroid*] 1 tab PO DAILY 01/10/23 Losartan Potassium 100 mg PO DAILY 01/10/23 Metformin HCl 500 mg PO BIDWM 01/10/23 Metoprolol Tartrate 25 mg PO BID 01/10/23 PHENobarbitaL [Phenobarbital] 97.2 mg PO Q12H 01/10/23 Phenytoin Sodium Extended [Phenytek] 200 mg PO BID 01/10/23 Potassium Chloride 20 meq PO DAILY 01/10/23 levETIRAcetam [Keppra] 500 mg PO BID 01/10/23 Acetaminophen with Codeine [Tylenol with-Codeine #3 Tablet] 1 each PO Q8HR PRN 02/01/23 Albuterol Sulfate [Albuterol Sulfate 0.083% Neb Soln] 2.5 mg IH Q6HR PRN 02/01/23 Acetaminophen [Tylenol Extra Strength] 500 mg PO Q4HP PRN 03/03/23 D10w [Dextrose 10% Water IV Soln*] 125 ml IV SEECOM PRN 03/03/23 Glucagon,Human Recombinant [Glucagon Emergency Kit] 1 mg IM PRN PRN 03/03/23 Insulin Glargine-Yfgn 34 unit SQ BEDTIME 03/03/23 Ipratropium/Albuterol Sulfate [Iprat-Albut 0.5-3(2.5) mg/3 ml] 3 ml IH Q6HP PRN 03/03/23 Silver Sulfadiazine [Silvadene 1% Cream] 1 appl TOP SEECOM 03/03/23 cloNIDine HCL [Clonidine HCl] 0.1 mg PO Q6HP PRN 03/03/23 guaiFENesin [Guaifenesin ER] 600 mg PO Q12HP PRN 03/03/23 ondansetron HCL [Ondansetron HCl] 4 mg PO Q6HP PRN 03/03/23 Amino Acids/Protein Hydrolys [Proteinex-18 Liquid] 30 ml PO DAILY 01/17/24 Capsaicin/Menthol [Salonpas Gel-Patch Hot] 1 each TP Q12H PRN 01/17/24 Hydralazine HCl 25 mg PO TID 01/17/24 Hydrocortisone Cream [Hydrocortisone 1% Cream*] 1 monty TOP BID PRN 01/17/24 Vit A/Vit C/Vit E/Zinc/Copper [Preservision Areds Softgel] 1 each PO BID 01/17/24 hydrOXYzine HCL [Atarax*] 25 mg PO BID PRN 01/17/24 lisinopriL [Zestril] 5 mg PO DAILY 01/17/24 Issa [Issa*] 1 pkt PO BID 01/19/24 L. Acidophilus/L.bulgaricus [Lactobacillus Tablet] 1 each PO DAILY 10 Days #10 tab 01/19/24 Lidocaine 4% Patch [Lidoderm 5% Patch*] 1 patch TOP Q24H pat 01/19/24 Nystatin Powder [Mycostatin (Powder)*] 15 appl TOP BID PRN 10 Days #1 btl 01/19/24 levoFLOXacin [Levaquin] 750 mg PO DAILY 6 Days #6 tab 01/19/24 - Past Medical/Surgical History Diabetic: Yes -: CVA -: Paraplegia -: BPH with suprapubic catheter -: Hypertension -: Hyperlipidemia -: UTI -: Seizures -: Traumatic Brain Injury -: Brain Surgery Psychosocial/ Personal History: Lives in a retirement - Family History Father -: Cancer Mother -: Heart disease, Lung disease, Diabetes - Social History Alcohol use: No CD- Drugs: No Caffeine use: No Place of Residence: Home Review of Systems 10-point ROS is otherwise unremarkable General: Fever, Chills Respiratory: Cough, Shortness of Breath Physical Examination - Physical Exam General: Alert, In no apparent distress, Oriented x3 HEENT: Atraumatic, PERRLA, EOMI Neck: Supple, 2+ carotid pulse no bruit, No LAD Respiratory: Clear to auscultation bilaterally, Normal air movement Cardiovascular: Regular rate/rhythm, Normal S1 S2 Gastrointestinal: Normal bowel sounds, No tenderness Musculoskeletal: Other (Paraplegia) Integumentary: No rashes Neurological: Normal speech, Normal affect Urinary: Suprapubic catheter - Studies Laboratory Data (last 24 hrs) 05/19/24 05/19/24 05/19/24 13:15 13:15 13:15 WBC 15.10 H Hgb 11.7 L Hct 35.0 L Plt Count 337 PT 14.4 H INR 1.28 APTT 29.2 Sodium 128 L Potassium 2.9 L BUN 14 Creatinine 0.97 Glucose 189 H Total Bilirubin 0.2 AST 32 ALT 33 Alkaline Phosphatase 115 Assessment and Plan - Plan Assessment: Left sided Healthcare associated pneumonia History of TBI resulting in paraplegia, neurogenic bladder with suprapubic catheter in place-concern for UTI/history of MDR UTIs Hyponatremia Hypokalemia Diabetes mellitus type 2insulin-dependent History of seizure disorder Hypertension Hyperlipidemia Hypothyroidism Plan: Left sided Healthcare associated pneumonia History of TBI resulting in paraplegia, neurogenic bladder with suprapubic catheter in place-concern for UTI/history of MDR UTIs Blood cultures obtained in ED, will follow UA, urine culture ordered and pending Continue broad-spectrum antibiotics with vancomycin, cefepime Monitor CBC daily, monitor fever trend Consider ID consultation if there is MDR UTIs, patient with allergy to Merrem and has had significantly resistant UTIs in the past Hyponatremia Hypokalemia Continue IV fluids, potassium protocol Check mag level Diabetes mellitus type 2insulin-dependent ACHS Accu-Chek, sliding scale insulin Resume long-acting insulin when doses are verified History of seizure disorder Hypertension Hyperlipidemia Hypothyroidism Resume when home medications are verified DVT PPX: Lovenox Code status: Full Discharge Plan: Jail Plan to discharge in: Greater than 2 days - Advance Directives Does patient have a Living Will: Yes Does patient have a Durable POA for Healthcare: Yes - Code Status/Comfort Care Code Status Assessed: Yes (Full code) Critical Care: No Time Spent Managing Pts Care (In Minutes): 70
[2024-05-19] MEDS: INSULIN REGULAR (HUMAN) 100 UNIT/ML SQ SCH (16:30)
[2024-05-19] MEDS: VANCOMYCIN 1 GM/VIAL ONE (20:17)
[2024-05-19] MEDS: NA CHLORIDE 0.9% 250 ML ONE (20:18)
[2024-05-19] MEDS: NA CHLORIDE 0.9% 1,000 ML IV SCH (21:00)
[2024-05-19] MEDS: CEFEPIME 2 GM in NA CHLORIDE 0.9% 100 ML IV SCH (21:00)
[2024-05-19] MEDS: VANCOMYCIN 1 GM in NA CHLORIDE 0.9% 250 ML IVPB SCH (21:01)
[2024-05-19 23:48] VITALS: BMI 53.5
[2024-05-20 03:56] LABS: Absolute Basophils 0.1 K/uL (0-0.5); Absolute Eosinophils 0.5 K/uL (0-0.5); Absolute Lymphocytes (CBC) 2.3 K/uL (0.7-4.9); Absolute Monocytes 1.4 K/uL (0.1-1.3); Absolute Neutrophil 7.2 K/uL (1.8-8.0); Basophils % 1.1 % (0-1.3); Eosinophils % 4.4 % (0-4.4); Hematocrit 33.1 % (39.6-49.0); Lymphocytes % 19.9 % (15.3-44.8); MCH 27.6 pg (27.0-35.0); MCHC 33.1 g/dL (32.0-36.0); MCV 83.4 fL (80-100); MPV 7.8 fL (7.6-11.3); Neutrophils % 62.6 % (41.7-73.7); Platelets 319 thou/uL (152-406); RBC Red Blood Cell Count 3.97 M/uL (4.33-5.43)
[2024-05-20 03:59] LABS: Sqamous Epithelial None Seen /HPF (None Seen); Urine Bacteria 20-50 /HPF (<20); Urine Bilirubin NEGATIVE (Negative); Urine Blood Negative (Negative); Urine Clarity Turbid (Clear); Urine Color Colorless (Yellow); Urine Crystals Unidentified Few /HPF (None Seen); Urine Culture Reflex Order REFLEXED; Urine Glucose NEGATIVE (Negative); Urine Ketones NEGATIVE (Negative); Urine Micro Reflex YN NO BILL MICROSCOPIC; Urine Mucus Slight /HPF (None Seen); Urine Nitrite 2+ (Negative); Urine Protein TRACE (Negative); Urine RBC <5 /HPF (None Seen); Urine Urobilinogen Normal (Normal); Urine WBC 20-50 /HPF (<5); Urine pH 7.5 (5.0-7.0)
[2024-05-20 04:12] LABS: Albumin 2.5 g/dL (3.4-5.0); Albumin/Globulin Ratio 0.5 (1.1-1.8); Anion Gap 9.1 mEq/L (5.0-15.0); Bilirubin Total 0.2 mg/dL (0.2-1.0); Globulin 4.9 g/dL (2.3-3.5); Magnesium 1.9 mg/dL (1.6-2.4); Potassium 3.1 mEq/L (3.5-5.1); Protein, Total 7.4 g/dL (6.4-8.2)
[2024-05-20] MEDS: POTASSIUM 25 MEQ EFFERV TAB PO ONE (05:23)
[2024-05-20] MEDS: VANCOMYCIN 2 GM in NA CHLORIDE 0.9% 500 ML IVPB SCH (08:07)
[2024-05-20] MEDS: ENOXAPARIN 40 MG/0.4 ML SQ SCH (08:07)
[2024-05-20] MEDS: POTASSIUM CL SA 10 MEQ TAB PO ONE (12:42)
[2024-05-20] MEDS ORDERED: CODEINE 30MG/APAP 300MG TAB PO PRN (14:49)
[2024-05-20] MEDS ORDERED: BACLOFEN 10 MG TAB PO PRN (14:49)
[2024-05-20] MEDS ORDERED: HOME MED 1 EA UNK (Ipratropium/Albuterol Sulfate [Iprat-Albut 0.5-3(2.5) Mg/3 Ml] 3 ML Amp IH PRN (14:49)
[2024-05-20] MEDS ORDERED: NYSTATIN PWDR 100000 UNIT/GM TOP PRN (14:49)
[2024-05-20] MEDS ORDERED: ALBUTEROL 2.5 MG/3 ML NEB SOL NEB PRN ×3 (14:49→15:08)
--- NOTE | 2024-05-20 14:54 | P.PN ---
Date of Service: 05/20/24 Subjective: No acute events overnight Improving ROS: 10 point ROS as noted above, otherwise negative Physical exam GEN: Alert, oriented, NAD HEENT: Normal conjunctiva, sclera anicteric CV: Regular rate and rhythm, no edema Pulm: Nonlabored respirations on room air ABD: Soft, nontender, nondistended, suprapubic catheter in place MSK: No joint tenderness Integumentary: No rashes Neuro: Normal speech, normal affect Vitals reviewed Assessment: Left sided Healthcare associated pneumonia History of TBI resulting in paraplegia, neurogenic bladder with suprapubic catheter in place-concern for UTI/history of MDR UTIs Hyponatremia Hypokalemia Diabetes mellitus type 2insulin-dependent History of seizure disorder Hypertension Hyperlipidemia Hypothyroidism Plan: Left sided Healthcare associated pneumonia History of TBI resulting in paraplegia, neurogenic bladder with suprapubic catheter in place-concern for UTI/history of MDR UTIs Blood cultures obtained in ED-no growth in 24 hours, continue to follow UA, urine culture ordered and pending Continue broad-spectrum antibiotics with vancomycin, cefepime Monitor CBC daily, monitor fever trend-white blood cell count increasing so far Consider ID consultation if there is MDR UTIs, patient with allergy to Merrem and has had significantly resistant UTIs in the past Hyponatremia Hypokalemia Improving Continue IV fluids, potassium protocol Check mag level Diabetes mellitus type 2insulin-dependent ACHS Accu-Chek, sliding scale insulin Resume long-acting insulin when doses are verified History of seizure disorder Hypertension Hyperlipidemia Hypothyroidism Home medications resumed DVT PPX: Lovenox Code status: Full Discharge Plan: [facility] Plan to discharge in: Greater than 2 days Time Spent Managing Pts Care (In Minutes): 35
[2024-05-20] MEDS ORDERED: IPRATROPIUM BROM 0.5MG/2.5ML NEB PRN ×2 (15:07→15:09)
[2024-05-20] MEDS: LIDOCAINE 4% PATCH TOP SCH (16:14)
[2024-05-20] MEDS: PHENOBARBITAL 97.2 MG PO SCH (18:57)
[2024-05-20] MEDS: ATORVASTATIN 40 MG TAB PO SCH (20:39)
[2024-05-20] MEDS: levETIRAcetam 500 MG TAB PO SCH (20:39)
[2024-05-20] MEDS: HYDRALAZINE HCL 25 MG TABLET PO SCH (20:39)
[2024-05-20] MEDS: METOPROLOL TAR 25 MG TAB PO SCH (20:39)
[2024-05-20] MEDS: PHENYTOIN ER 100 MG CAP PO SCH (20:39)
[2024-05-20] MEDS ORDERED: PHENYTOIN SODIUM 200 MG PO SCH (21:00)
[2024-05-21] MEDS: LEVOTHYROXINE SOD 0.075 MG TAB PO SCH (05:08)
[2024-05-21 06:05] LABS: Absolute Basophils 0.1 K/uL (0-0.5); Absolute Eosinophils 0.6 K/uL (0-0.5); Absolute Lymphocytes (CBC) 2.3 K/uL (0.7-4.9); Absolute Monocytes 1.4 K/uL (0.1-1.3); Absolute Neutrophil 6.5 K/uL (1.8-8.0); Basophils % 0.8 % (0-1.3); Eosinophils % 5.9 % (0-4.4); Hematocrit 34.1 % (39.6-49.0); Hemoglobin 11.4 g/dL (13.6-17.9); Lymphocytes % 20.9 % (15.3-44.8); MCHC 33.5 g/dL (32.0-36.0); MCV 83.6 fL (80-100); MPV 7.4 fL (7.6-11.3); Monocytes % 12.9 % (3.3-12.3); Neutrophils % 59.5 % (41.7-73.7); Nucleated Red Blood Cells % 0.1 % (0-0); Platelets 332 thou/uL (152-406); RBC Red Blood Cell Count 4.07 M/uL (4.33-5.43); Red Cell Distribution Width 14.8 % (12.1-15.2)
[2024-05-21 06:22] LABS: Albumin 2.6 g/dL (3.4-5.0); Albumin/Globulin Ratio 0.6 (1.1-1.8); Anion Gap 8.6 mEq/L (5.0-15.0); Bilirubin Total 0.2 mg/dL (0.2-1.0); Globulin 4.6 g/dL (2.3-3.5); Magnesium 1.8 mg/dL (1.6-2.4); Potassium 3.6 mEq/L (3.5-5.1); Protein, Total 7.2 g/dL (6.4-8.2)
[2024-05-21] MEDS ORDERED: HOME MED 1 EA UNK (Fluoxetine Hcl [Prozac] 40 MG Capsule) PO SCH (09:00)
[2024-05-21] MEDS ORDERED: HOME MED 1 EA UNK (Losartan/Hydrochlorothiazide [Losartan-Hctz 100-25 Mg Tab] 1 EACH Table PO SCH (09:00)
[2024-05-21] MEDS: MAGNESIUM SULFATE 1 gm IVPB 1 GM/100 ML BAG IV ONE (09:24)
[2024-05-21] MEDS: FLUOXETINE 20 MG CAP PO SCH (09:25)
[2024-05-21] MEDS: ASPIRIN EC 81 MG TAB PO SCH (09:26)
[2024-05-21] MEDS: POTASSIUM CL SA 10 MEQ TAB PO ONE (09:26)
[2024-05-21] MEDS: FUROSEMIDE 40 MG TABLET PO SCH (09:26)
[2024-05-21] MEDS: LOSARTAN/HCTZ 50-12.5 PO SCH (09:26)
[2024-05-21] MEDS: NYSTATIN PWDR 100000 UNIT/GM TOP PRN (09:27)
--- NOTE | 2024-05-21 12:10 | P.PN ---
Date of Service: 05/21/24 Subjective: No acute events overnight Improving WBC stable No complaints ROS: 10 point ROS as noted above, otherwise negative Physical exam GEN: Alert, oriented, NAD HEENT: Normal conjunctiva, sclera anicteric CV: Regular rate and rhythm, no edema Pulm: Nonlabored respirations on room air ABD: Soft, nontender, nondistended, suprapubic catheter in place MSK: No joint tenderness Integumentary: No rashes Neuro: Normal speech, normal affect Vitals reviewed Assessment: Left sided Healthcare associated pneumonia History of TBI resulting in paraplegia, neurogenic bladder with suprapubic catheter in place-concern for UTI/history of MDR UTIs Hyponatremia Hypokalemia Diabetes mellitus type 2insulin-dependent History of seizure disorder Hypertension Hyperlipidemia Hypothyroidism Plan: Left sided Healthcare associated pneumonia History of TBI resulting in paraplegia, neurogenic bladder with suprapubic catheter in place-concern for UTI/history of MDR UTIs Blood cultures obtained in ED-no growth in 24 hours, continue to follow UA, urine culture ordered and pending Continue broad-spectrum antibiotics with vancomycin, cefepime Monitor CBC daily, monitor fever trend-white blood cell count increasing so far Consider ID consultation if there is MDR UTIs, patient with allergy to Merrem and has had significantly resistant UTIs in the past Repeat CXR in one month to follow up Hyponatremia Hypokalemia Improving Continue IV fluids, potassium protocol Check mag level Diabetes mellitus type 2insulin-dependent ACHS Accu-Chek, sliding scale insulin Resume long-acting insulin when doses are verified History of seizure disorder Hypertension Hyperlipidemia Hypothyroidism Home medications resumed DVT PPX: Lovenox Code status: Full Discharge Plan: Intermediate Plan to discharge in: 1-2 days Time Spent Managing Pts Care (In Minutes): 35
[2024-05-21] MEDS: NA CHLORIDE 0.9% 1,000 ML IV SCH (13:55)
[2024-05-21] MEDS: VANCOMYCIN 1.75 GM in NA CHLORIDE 0.9% 500 ML IVPB SCH (14:10)
[2024-05-21] MEDS: GUAIFENESIN 600 MG SA TAB PO PRN (14:14)
[2024-05-21] MEDS ORDERED: GLUCAGON 1 MG/VIAL IM PRN (14:51)
[2024-05-21] MEDS ORDERED: D10W 125 ML IV PRN (14:51)
[2024-05-21] MEDS: INSULIN REGULAR (HUMAN) 100 UNIT/ML SQ SCH (16:30)
[2024-05-21] MEDS: INSULIN GLARGINE 100 UNIT/ML SQ SCH (16:38)
[2024-05-22] MEDS: ACETAMINOPHEN 325 MG TABLET PO PRN (03:06)
[2024-05-22 06:39] LABS: Absolute Basophils 0.2 K/uL (0-0.5); Absolute Eosinophils 0.8 K/uL (0-0.5); Absolute Lymphocytes (CBC) 2.2 K/uL (0.7-4.9); Absolute Monocytes 1.7 K/uL (0.1-1.3); Absolute Neutrophil 7.8 K/uL (1.8-8.0); Basophils % 1.2 % (0-1.3); Eosinophils % 6.3 % (0-4.4); Hematocrit 34.2 % (39.6-49.0); Hemoglobin 11.6 g/dL (13.6-17.9); Lymphocytes % 17.3 % (15.3-44.8); MCH 27.9 pg (27.0-35.0); MPV 7.5 fL (7.6-11.3); Monocytes % 13.1 % (3.3-12.3); Neutrophils % 62.1 % (41.7-73.7); Nucleated Red Blood Cells % 0.1 % (0-0); Platelets 347 thou/uL (152-406); RBC Red Blood Cell Count 4.17 M/uL (4.33-5.43); Red Cell Distribution Width 14.7 % (12.1-15.2)
[2024-05-22 06:49] LABS: ALT/SGPT 28 U/L (16-61); AST/SGOT 19 U/L (15-37); Albumin 2.5 g/dL (3.4-5.0); Albumin/Globulin Ratio 0.5 (1.1-1.8); Alkaline Phosphatase 99 U/L (45-117); Anion Gap 9.5 mEq/L (5.0-15.0); BUN Blood Urea Nitrogen 13 mg/dL (7-18); Bicarbonate 26 mEq/L (21-32); Globulin 4.9 g/dL (2.3-3.5); Glomerular Filtration Rate 96 ml/min (=/>90); Glucose Level 226 mg/dL (74-106); Potassium 3.5 mEq/L (3.5-5.1); Protein, Total 7.4 g/dL (6.4-8.2); Sodium Level 132 mEq/L (136-145)
[2024-05-22 06:56] LABS: Bilirubin Total < 0.2 mg/dL (0.2-1.0)
[2024-05-22 08:26] LABS: Band Neutrophils 9 % (0-1); Blood Morphology Comment NOT SEEN (NOT SEEN); Differential Total Cells Count 100; Eosinophils 7 % (0-3); Lymphocytes 14 % (15-42); Metamyelocytes 2 % (0-0); Monocytes 7 % (0-10); Platelet Estimate ADEQ; Segmented Neutrophils 61 % (40-80)
[2024-05-22] MEDS: POTASSIUM CL SA 10 MEQ TAB PO ONE (08:44)
--- NOTE | 2024-05-22 10:24 | P.PN ---
Date of Service: 05/22/24 Subjective: Awake, feeling well Set up breakfast, hyperglycemic no new complaints ROS: 10 point ROS as noted above, otherwise negative Physical exam GEN: Alert, oriented x3, NAD, afebrile HEENT: Normal conjunctiva, sclera anicteric CV: RRR, S1 S2 present, no edema Pulm: Nonlabored respirations on room air ABD: Soft on palpation, active bowel sounds, suprapubic catheter in place MSK: No joint tenderness Neuro: Normal speech, normal affect Vitals reviewed Assessment: Left sided Healthcare associated pneumonia History of TBI resulting in paraplegia, neurogenic bladder with suprapubic catheter in place-concern for UTI/history of MDR UTIs Hyponatremia Hypokalemia Diabetes mellitus type 2insulin-dependent History of seizure disorder Hypertension Hyperlipidemia Hypothyroidism Plan: Left sided Healthcare associated pneumonia History of TBI resulting in paraplegia, neurogenic bladder with suprapubic catheter in place-concern for UTI/history of MDR UTIs Blood cultures obtained in ED-no growth in 24 hours, continue to follow UA, urine culture Pseudomonas Aeruginosa Continue broad-spectrum antibiotics with vancomycin, cefepime Monitor CBC daily, monitor fever trend-white blood cell count increasing so far Consider ID consultation if there is MDR UTIs, patient with allergy to Merrem and has had significantly resistant UTIs in the past Repeat CXR in one month to follow up Hyponatremia Hypokalemia Improving Continue IV fluids, potassium protocol Check mag level Diabetes mellitus type 2insulin-dependent ACHS Accu-Chek, sliding scale insulin Semglee 10 units daily History of seizure disorder Hypertension Hyperlipidemia Hypothyroidism Home medications resumed DVT PPX: Lovenox Code status: Full Discharge Plan: Halfway Plan to discharge in: 1-2 days <Joselyn Stevens - Last Filed: 05/22/24 18:03> Chart has been reviewed. Events of the last 24 hours have been noted. Case discussed with MICHELLE. I performed a substantial part of the MDM during this patient's care today. I personally made or approved the documented management plan and acknowledge its risk of complications. I agree with the findings and documentation provided in the MICHELLE's notes <Neha Elias - Last Filed: 06/03/24 01:09>
--- NOTE | 2024-05-22 12:11 | EKG ---
Test Date: 2024-05-19 Test Time: 15:46:53 Lure Maker: PH MEASUREMENT RESULTS: Intervals: Rate: 62 CA: 180 QRSD: 84 QT: 444 QTc: 450 [place]: P: 48 CA: 180 QRS: 33 T: 29 INTERPRETIVE STATEMENTS: Normal sinus rhythm T wave abnormality, consider anterior ischemia Abnormal ECG Compared to ECG 01/16/2024 21:14:43 Sinus tachycardia no longer present Prolonged QT interval no longer present T-wave abnormality still present Possible ischemia still present Electronically Signed On 05-22-24 12:05:44 PROFESSOR OF COUNSELING by Jeet Bertrand
[2024-05-22] MEDS: CEFEPIME 2 GM in NA CHLORIDE 0.9% 100 ML IV SCH (16:27)
[2024-05-23 04:38] LABS: Absolute Basophils 0.1 K/uL (0-0.5); Absolute Eosinophils 0.8 K/uL (0-0.5); Absolute Lymphocytes (CBC) 2.7 K/uL (0.7-4.9); Absolute Monocytes 1.7 K/uL (0.1-1.3); Absolute Neutrophil 9.3 K/uL (1.8-8.0); Basophils % 0.9 % (0-1.3); Eosinophils % 5.6 % (0-4.4); Hematocrit 34.6 % (39.6-49.0); Hemoglobin 11.4 g/dL (13.6-17.9); Lymphocytes % 18.7 % (15.3-44.8); MCH 27.9 pg (27.0-35.0); MCHC 33.1 g/dL (32.0-36.0); MCV 84.3 fL (80-100); MPV 7.4 fL (7.6-11.3); Monocytes % 11.5 % (3.3-12.3); Neutrophils % 63.3 % (41.7-73.7); Nucleated Red Blood Cells % 0.1 % (0-0); Platelets 360 thou/uL (152-406); RBC Red Blood Cell Count 4.11 M/uL (4.33-5.43); Red Cell Distribution Width 15.1 % (12.1-15.2)
[2024-05-23 04:53] LABS: Albumin 2.8 g/dL (3.4-5.0); Albumin/Globulin Ratio 0.6 (1.1-1.8); Anion Gap 10.5 mEq/L (5.0-15.0); Bilirubin Total 0.2 mg/dL (0.2-1.0); Globulin 4.7 g/dL (2.3-3.5); Magnesium 1.8 mg/dL (1.6-2.4); Potassium 3.5 mEq/L (3.5-5.1); Protein, Total 7.5 g/dL (6.4-8.2)
[2024-05-23] MEDS ORDERED: VANCOMYCIN 1.75 GM in NA CHLORIDE 0.9% 500 ML IVPB SCH (09:00)
[2024-05-23] MEDS: POTASSIUM CL SA 10 MEQ TAB PO ONE (11:02)
[2024-05-23] MEDS: MAGNESIUM SULFATE 1 gm IVPB 1 GM/100 ML BAG IV ONE (11:02)
[2024-05-23] MEDS: CIPROFLOXACIN 400mg IV 400 MG/200 ML BAG IV SCH (11:43)
[2024-05-23] MEDS ORDERED: CIPROFLOXACIN HCL 500 MG TAB PO SCH (21:00)
[2024-05-24] MEDS: NA CHLORIDE 0.9% 100 ML ONE (00:50)
[2024-05-24 04:50] LABS: Anion Gap 10.5 mEq/L (5.0-15.0); Magnesium 1.8 mg/dL (1.6-2.4); Potassium 3.5 mEq/L (3.5-5.1)
--- NOTE | 2024-05-24 06:14 | P.PN ---
Date of Service: 05/23/24 Subjective: reports a small cough Awake and conversing well WBC trending up, will continue to monitor ROS: 10 point ROS as noted above, otherwise negative Physical exam GEN: AAO x3, NAD, afebrile CV: Regular rate and rhythm, S1 S2 present, no edema Pulm: Nonlabored respirations, Clear BBS, on room air ABD: Soft on palpation, active bowel sounds, suprapubic catheter in place MSK: No joint tenderness Neuro: Normal speech, normal affect Vitals reviewed Assessment: Left sided Healthcare associated pneumonia History of TBI resulting in paraplegia, neurogenic bladder with suprapubic catheter in place-concern for UTI/history of MDR UTIs Hyponatremia Hypokalemia Diabetes mellitus type 2insulin-dependent History of seizure disorder Hypertension Hyperlipidemia Hypothyroidism Plan: Left sided Healthcare associated pneumonia History of TBI resulting in paraplegia, neurogenic bladder with suprapubic catheter in place-concern for UTI/history of MDR UTIs Blood cultures obtained in ED-no growth in 24 hours, continue to follow UA, urine culture Pseudomonas Aeruginosa Continue broad-spectrum antibiotics with cefepime and ciprofloxacin (/) Monitor CBC daily, monitor fever trend-white blood cell count increasing so far Consider ID consultation if there is MDR UTIs, patient with allergy to Merrem and has had significantly resistant UTIs in the past Repeat CXR in one month to follow up Hyponatremia Hypokalemia Improving Continue IV fluids, potassium protocol Check mag level Diabetes mellitus type 2insulin-dependent ACHS Accu-Chek, sliding scale insulin Semglee 10 units daily History of seizure disorder Hypertension Hyperlipidemia Hypothyroidism Home medications resumed DVT PPX: Lovenox Code status: Full Discharge Plan: Longterm Plan to discharge in: 1-2 days <Joselyn Stevens - Last Filed: 05/24/24 06:09> Chart has been reviewed. Events of the last 24 hours have been noted. Case discussed with MICHELLE. I performed a substantial part of the MDM during this patient's care today. I personally made or approved the documented management plan and acknowledge its risk of complications. I agree with the findings and documentation provided in the MICHELLE's notes <Neha Elias - Last Filed: 06/03/24 01:09>
[2024-05-24 08:14] LABS: Absolute Basophils 0.2 K/uL (0-0.5); Absolute Eosinophils 0.8 K/uL (0-0.5); Absolute Lymphocytes (CBC) 2.8 K/uL (0.7-4.9); Absolute Monocytes 1.8 K/uL (0.1-1.3); Absolute Neutrophil 10.1 K/uL (1.8-8.0); Basophils % 1.2 % (0-1.3); Eosinophils % 5.2 % (0-4.4); Hemoglobin 11.9 g/dL (13.6-17.9); Lymphocytes % 17.8 % (15.3-44.8); MCH 27.4 pg (27.0-35.0); MCHC 33.1 g/dL (32.0-36.0); MCV 82.8 fL (80-100); MPV 7.7 fL (7.6-11.3); Monocytes % 11.5 % (3.3-12.3); Neutrophils % 64.3 % (41.7-73.7); Nucleated Red Blood Cells % 0.1 % (0-0); Platelets 374 thou/uL (152-406); RBC Red Blood Cell Count 4.35 M/uL (4.33-5.43); Red Cell Distribution Width 14.8 % (12.1-15.2)
[2024-05-24 08:24] LABS: Albumin 2.9 g/dL (3.4-5.0); Albumin/Globulin Ratio 0.6 (1.1-1.8); Anion Gap 10.5 mEq/L (5.0-15.0); Bilirubin Total 0.2 mg/dL (0.2-1.0); Globulin 4.8 g/dL (2.3-3.5); Potassium 3.5 mEq/L (3.5-5.1); Protein, Total 7.7 g/dL (6.4-8.2)
[2024-05-24] MEDS: POTASSIUM 25 MEQ EFFERV TAB PO ONE (08:27)
[2024-05-24] MEDS: NA CHLORIDE 0.9% 500 ML IV SCH (10:03)
[2024-05-24 10:11] LABS: Band Neutrophils 4 % (0-1); Differential Total Cells Count 100; Eosinophils 9 % (0-3); Lymphocytes 23 % (15-42); Metamyelocytes 2 % (0-0); Monocytes 10 % (0-10); Segmented Neutrophils 51 % (40-80)
[2024-05-24 10:12] LABS: Blood Morphology Comment NOT SEEN (NOT SEEN); Platelet Estimate ADEQ; Toxic Granulation 1+
[2024-05-24 11:10] LABS: Anion Gap 13.1 mEq/L (5.0-15.0); Potassium 4.1 mEq/L (3.5-5.1)
[2024-05-24] MEDS: LINEZOLID 600 MG IVPB 600 MG/300 ML BAG IV ONE (11:10)
--- NOTE | 2024-05-24 11:44 | RAD REPORT ---
EXAMINATION: ONE VIEW CHEST XR CLINICAL INDICATION: Male, 64 years old.,pneumonia TECHNIQUE: Frontal chest projection is submitted. Examination is limited by patient positioning and t echnique. COMPARISON: 05/19/2024 FINDINGS: Diffuse right hemithorax opacification, could relate to superimposition of soft tissues versus a laye ring effusion. Suboptimal inflation also limits evaluation. No pneumothorax or other sizable effusion. The heart is normal in size. Mediastinal contours are unremarkable. IMPRESSION: Questionable diffuse right hemithorax opacification as above. Follow-up PA and lateral chest radiogra phs, if technically feasible, would be helpful to exclude a true airspace opacity or effusion.
[2024-05-24] MEDS: ALBUTEROL 2.5 MG/3 ML NEB SOL NEB SCH (13:13)
[2024-05-24] MEDS: IPRATROPIUM BROM 0.5MG/2.5ML NEB SCH (13:13)
[2024-05-24] MEDS: MAGNESIUM SULFATE 1 gm IVPB 1 GM/100 ML BAG IV ONE (13:17)
[2024-05-24] MEDS: METHYLPREDNISOLONE 40 MG INJ IV SCH (16:19)
[2024-05-24] MEDS: BENZONATATE 100 MG CAP PO PRN (17:35)
--- NOTE | 2024-05-24 17:47 | P.PN ---
Date of Service: 05/24/24 Subjective: No new complaints One more day of IV antibiotics ROS: 10 point ROS as noted above, otherwise negative Physical exam GEN: AAO x3, NAD, afebrile CV: Regular rate and rhythm, S1 S2 present, no edema Pulm: Symmetrical chest wall movement, Clear BBS, on room air ABD: Soft on palpation, active bowel sounds, suprapubic catheter in place MSK: No joint tenderness Neuro: Normal speech, normal affect Vitals reviewed Assessment: Left sided Healthcare associated pneumonia History of TBI resulting in paraplegia, neurogenic bladder with suprapubic catheter in place-concern for UTI/history of MDR UTIs Hyponatremia Hypokalemia Diabetes mellitus type 2insulin-dependent History of seizure disorder Hypertension Hyperlipidemia Hypothyroidism Plan: Left sided Healthcare associated pneumonia History of TBI resulting in paraplegia, neurogenic bladder with suprapubic catheter in place-concern for UTI/history of MDR UTIs -Blood cultures obtained in ED-no growth in 24 hours, continue to follow -UA, urine culture Pseudomonas Aeruginosa and Enterococcus faecalis -Continue broad-spectrum antibiotics with zyvox and ciprofloxacin (/) -Monitor CBC daily, monitor fever trend-white blood cell count increasing so far -Consider ID consultation if there is MDR UTIs, patient with allergy to Merrem and has had significantly resistant UTIs in the past -Repeat CXR reports "Diffuse right hemithorax opacification, could relate to superimposition of soft tissues versus a layering effusion. Suboptimal inflation also limits evaluation. No pneumothorax or other sizable effusion. The heart is normal in size. Mediastinal contours are unremarkable." Hyponatremia Hypokalemia -Improving -Continue IV fluids, potassium protocol -Check mag level Diabetes mellitus type 2insulin-dependent -ACHS Accu-Chek, sliding scale insulin -Semglee 10 units daily History of seizure disorder Hypertension Hyperlipidemia Hypothyroidism -Home medications resumed DVT PPX: Lovenox Code status: Full Discharge Plan: Intermediate Plan to discharge in: 1-2 days <Joselyn Stevens - Last Filed: 05/24/24 17:24> Chart has been reviewed. Events of the last 24 hours have been noted. Case discussed with MICHELLE. I performed a substantial part of the MDM during this patient's care today. I personally made or approved the documented management plan and acknowledge its risk of complications. I agree with the findings and documentation provided in the MICHELLE's notes <Neha Elias - Last Filed: 06/03/24 01:10>
[2024-05-24] MEDS: LINEZOLID 600 MG TAB PO SCH (20:11)
[2024-05-25] MEDS: ALBUTEROL 2.5 MG/3 ML NEB SOL ONE (00:50)
[2024-05-25] MEDS: IPRATROPIUM BROM 0.5MG/2.5ML ONE (00:50)
[2024-05-25] MEDS: cloNIDine HCL 0.1 MG TAB PO PRN (05:43)
--- NOTE | 2024-05-25 08:53 | RAD REPORT ---
EXAM:Thorax Wo Con CLINICAL INDICATION: Cough TECHNIQUE: CT chest performed.. Axial, sagittal and coronal reconstructions were obtained. One or mor e of the following dose reduction techniques were used: Automated exposure control, adjustment of the mA and/or kV according to the patient size, and/or iterative reconstruction. Unless otherwise specified, incidental findings do not require dedicated imaging follow-up. [id number]. COMPARISON: May 24, 2024 chest x-ray FINDINGS: A few areas of subsegmental atelectasis are present within the lungs. No infiltrate. . No mediastinal or hilar lymphadenopathy No pleural effusion. No pericardial effusion Hepatomegaly. Small myelolipoma left adrenal gland IMPRESSION: A few areas of subsegmental atelectasis within the lungs. Hepatomegaly
[2024-05-25] MEDS: FLUOXETINE 20 MG CAP PO SCH (09:01)
[2024-05-25] MEDS: PETROLATUM (AQUAPHOR) JAR 396 GRAM TOP PRN (11:17)
[2024-05-25 12:41] VITALS: BP 119/60; TEMP 98
[2024-05-25 13:18] VITALS: O2SAT 97
--- NOTE | 2024-05-26 06:52 | P.DS ---
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, neurogenic bladder with suprapubic catheter in place-concern for UTI/history of MDR UTIs Hyponatremia Hypokalemia Diabetes mellitus type 2insulin-dependent History of seizure disorder Hypertension Hyperlipidemia Hypothyroidism HPI 05/19/2024 64-year-old male with history of TBI, quadriplegia with neurogenic bladder and suprapubic catheter, insulin-dependent diabetes, MDR UTIs, hypertension, hyperlipidemia, hypothyroidism, seizures presents to the emergency department from the [facility] with chief complaint of cough, elevated white blood cell count, concern for possible UTI with history of MDR UTIs. Patient reports cough over the course the last 2 weeks, blood work from correction shows a white blood cell count of 21. Patient was evaluated in the emergency department and his labs are significant for a white blood cell count of 15.1 hemoglobin 11.7 sodium 128 potassium 2.9 chloride 92 glucose 189 chest x-ray shows concern for a moderate left basilar lung consolidation suspicious for pneumonia. UA is pending, patient will need to be admitted for further evaluation and management of suspected left-sided pneumonia with possible UTI. 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 Suboptimal inflation also limits evaluation. No pneumothorax or other sizable effusion. The heart is normal in size. Mediastinal contours are unremarkable." Hyponatremia Hypokalemia -Improved with IV fluids and potassium replacement Diabetes mellitus type 2insulin-dependent -Tolerated ACHS Accu-Chek, sliding scale insulin -Tolerated Semglee 10 units daily History of seizure disorder Hypertension Hyperlipidemia Hypothyroidism -Home medications resumed On 05/25/2024, He was seen on morning rounds and deemed hemodynamically stable. Ciprofloxacin Prozac and Zyvox were prescribed. Follow-up with PCP and urology in 1 to 2 weeks. Physical exam GEN: Alert and oriented x3, NAD, afebrile CV: RRR, S1 S2 present Pulm: Nonlabored breathing, Clear BBS, on room air ABD: Soft on palpation, nontender, active bowel sounds, suprapubic catheter in place MSK: No joint tenderness Neuro: Normal speech, normal affect <Joselyn Stevens - Last Filed: 05/29/24 21:51> Admission Date: 05/19/24 Discharge Date: 05/25/24 Hospital Course: Chart has been reviewed. Events of the last 24 hours have been noted. Case discussed with MICHELLE. I performed a substantial part of the MDM during this patient's care today. I personally made or approved the documented management plan and acknowledge its risk of complications. I agree with the findings and documentation provided in the MICHELLE's notes <Neha Elias - Last Filed: 06/03/24 01:10> Disposition: [facility] Discharge Condition: GOOD Vital Signs/Physical Exam: Temp Pulse Resp BP Pulse Ox 98.0 F 66 16 119/60 97 05/25/24 12:00 05/25/24 12:00 05/25/24 12:00 05/25/24 12:00 05/25/24 12:00 Laboratory Data at Discharge: WBC 15.70 thou/uL (4.3-10.9) H 05/24/24 07:48 Hgb 11.9 g/dL (13.6-17.9) L 05/24/24 07:48 Hct 36.0 % (39.6-49.0) L 05/24/24 07:48 Plt Count 374 thou/uL (152-406) 05/24/24 07:48 PT 14.4 SECONDS (10.0-13.0) H 05/19/24 13:15 INR 1.28 05/19/24 13:15 APTT 29.2 SECONDS (24.3-36.9) 05/19/24 13:15 Sodium 128 mEq/L (136-145) L 05/24/24 10:38 Potassium 4.1 mEq/L (3.5-5.1) D 05/24/24 10:38 BUN 17 mg/dL (7-18) 05/24/24 10:38 Creatinine 1.13 mg/dL (0.70-1.30) 05/24/24 10:38 Glucose 389 mg/dL (74-106) H 05/24/24 10:38 Magnesium 1.8 mg/dL (1.6-2.4) 05/24/24 04:10 Total Bilirubin 0.2 mg/dL (0.2-1.0) 05/24/24 07:48 AST 15 U/L (15-37) 05/24/24 07:48 ALT 26 U/L (16-61) 05/24/24 07:48 Alkaline Phosphatase 97 U/L (45-117) 05/24/24 07:48 <Joselyn Stevens - Last Filed: 05/29/24 21:51> Vital Signs/Physical Exam: Temp Pulse Resp BP Pulse Ox 98.0 F 66 16 119/60 97 05/25/24 12:00 05/25/24 12:00 05/25/24 12:00 05/25/24 12:00 05/25/24 12:00 General: Alert, In no apparent distress, Oriented x3 Laboratory Data at Discharge: WBC 15.70 thou/uL (4.3-10.9) H 05/24/24 07:48 Hgb 11.9 g/dL (13.6-17.9) L 05/24/24 07:48 Hct 36.0 % (39.6-49.0) L 05/24/24 07:48 Plt Count 374 thou/uL (152-406) 05/24/24 07:48 PT 14.4 SECONDS (10.0-13.0) H 05/19/24 13:15 INR 1.28 05/19/24 13:15 APTT 29.2 SECONDS (24.3-36.9) 05/19/24 13:15 Sodium 128 mEq/L (136-145) L 05/24/24 10:38 Potassium 4.1 mEq/L (3.5-5.1) D 05/24/24 10:38 BUN 17 mg/dL (7-18) 05/24/24 10:38 Creatinine 1.13 mg/dL (0.70-1.30) 05/24/24 10:38 Glucose 389 mg/dL (74-106) H 05/24/24 10:38 Magnesium 1.8 mg/dL (1.6-2.4) 05/24/24 04:10 Total Bilirubin 0.2 mg/dL (0.2-1.0) 05/24/24 07:48 AST 15 U/L (15-37) 05/24/24 07:48 ALT 26 U/L (16-61) 05/24/24 07:48 Alkaline Phosphatase 97 U/L (45-117) 05/24/24 07:48 <Neha Elias - Last Filed: 06/03/24 01:10> Diet: Regular Activity: Fall precautions <Joselyn Stevens - Last Filed: 05/29/24 21:51> Time spent managing pt's care (in minutes): 35 <Neha Elias - Last Filed: 06/03/24 01:10> Home Medications: Baclofen 10 mg PO Q8H PRN 01/10/23 Insulin Regular, Human [Novolin R Flexpen] See Protocol SQ ACHS 01/10/23 Levothyroxine [Synthroid*] 1 tab PO DAILY 01/10/23 Metformin HCl 500 mg PO BIDWM 01/10/23 Metoprolol Tartrate 25 mg PO BID 01/10/23 PHENobarbitaL [Phenobarbital] 97.2 mg PO BID 01/10/23 levETIRAcetam [Keppra] 500 mg PO BID 01/10/23 Acetaminophen with Codeine [Tylenol with-Codeine #3 Tablet] 1 each PO BID PRN 02/01/23 Albuterol Sulfate [Albuterol Sulfate 0.083% Neb Soln] 2.5 mg IH Q6HR PRN 02/01 Insulin Glargine-Yfgn 23 unit SQ BID 03/03/23 Ipratropium/Albuterol Sulfate [Iprat-Albut 0.5-3(2.5) mg/3 ml] 3 ml IH Q6HP PRN 03/03/23 cloNIDine HCL [Clonidine HCl] 0.1 mg PO Q6HP PRN 03/03/23 guaiFENesin [Guaifenesin ER] 600 mg PO Q12HP PRN 03/03/23 Capsaicin/Menthol [Salonpas Gel-Patch Hot] 1 each TP Q12H PRN 01/17/24 Hydralazine HCl 25 mg PO TID 01/17/24 Lidocaine 4% Patch [Lidoderm 5% Patch*] 1 patch TOP Q24H pat 01/19/24 Nystatin Powder [Mycostatin (Powder)*] 15 appl TOP BID PRN 10 Days #1 btl 01/19/24 Acetaminophen [Pain Relief] 650 mg PO Q4HP PRN 05/20/24 Aspirin [Aspirin EC] 81 mg PO DAILY 05/20/24 Atorvastatin Calcium 40 mg PO BEDTIME 05/20/24 Furosemide 40 mg PO DAILY 05/20/24 Phenytoin Sodium Extended [Phenytek] 200 mg PO BID 05/20/24 Potassium Chloride 20 meq PO DAILY 05/20/24 Vit A/Vit C/Vit E/Zinc/Copper [Preservision Areds Softgel] 1 each PO BID 05/20/24 Acetaminophen [Tylenol*] 650 mg PO Q4HP PRN tab 05/25/24 Albuterol Neb [Proventil 0.083% Neb Soln] 2.5 mg NEB [id number] amp 05/25/24 Benzonatate [Tessalon Perle*] 100 mg PO TID PRN cap 05/25/24 Ciprofloxacin HCl [Cipro 500 MG Tablet] 500 mg PO BID #14 tab 05/25/24 Fluoxetine HCl [Prozac] 20 mg PO DAILY #30 tab 05/25/24 Insulin Glargine,Hum.rec.anlog [Semglee] 10 unit SQ [id number] ml 05/25/24 Linezolid [Zyvox*] 600 mg PO BID #14 tab 05/25/24 New Medications: Ciprofloxacin HCl [Cipro 500 MG Tablet] 500 mg PO BID #14 tab Fluoxetine HCl [Prozac] 20 mg PO DAILY #30 tab Linezolid [Zyvox*] 600 mg PO BID #14 tab Physician Discharge Instructions: -DC IV and DC to [facility] -Follow-up with PCP in 1 to 2 weeks -Follow-up with Cardiology in 1 to 2 weeks -Please call Dr. Elias at [phone] if any questions regarding hospital stay -Please call nursing station at [phone] if any nursing or medication questions -Return to the emergency room if symptoms worsen -Decrease Prozac to 20 mg daily for 1 week then can increase back to of 60 mg daily Followup: Tita Vick MD [Primary Care Provider] - 1-2 Weeks
== END 2024-05-25 13:00 | DRG 689 ==
LOC: ER 12:54 → ERHOLD 14:29 → 4TH 16:10
PROVIDERS: ADMIT Internal Medicine; ATTEND Hospitalist
DX: N39.0 Urinary tract infection, site not specified (principal); J18.9 Pneumonia, unspecified organism; E87.1 Hypo-osmolality and hyponatremia; E87.6 Hypokalemia; E86.0 Dehydration; E03.9 Hypothyroidism, unspecified; I10 Essential (primary) hypertension; G89.29 Other chronic pain; M54.9 Dorsalgia, unspecified; E78.00 Pure hypercholesterolemia, unspecified; N40.0 Benign prostatic hyperplasia without lower urinary tract symptoms; M19.90 Unspecified osteoarthritis, unspecified site; I69.369 Other paralytic syndrome following cerebral infarction affecting unspecified side; B96.5 Pseudomonas (aeruginosa) (mallei) (pseudomallei) as the cause of diseases classified elsewhere; R73.9 Hyperglycemia, unspecified; Z79.4 Long term (current) use of insulin; Z88.1 Allergy status to other antibiotic agents; Z11.52 Encounter for screening for COVID-19; Z87.820 Personal history of traumatic brain injury; Z79.84 Long term (current) use of oral hypoglycemic drugs; Z79.899 Other long term (current) drug therapy; Y95 Nosocomial condition
CPT/HCPCS: 36415; 71045; 71250; 80048; 80053; 80202; 81001; 82947; 83605; 83735; 84132; 84145; 84484; 85025; 85610; 85730; 87040; 87077; 87086; 87088; 87186; 87428; 93005; 94640; 96365; 96367; 99285; J0692; J0744; J1650; J1815; J2003; J2020; J2919; J3370; J3475; J3480; J7030; J7040; J7050; J7613; J7644